=== PATIENT | female | born 1935 | race Caucasian/White ===

== ENCOUNTER 2016-09-16 14:28 | Emergency (ER) | payer OTHER ==
[~2016-09-16] VITALS: Ht 162.6 cm; Wt 88.2 kg
[~2016-09-16 14:28] MED LIST: BACL10TA PO; BUPR100T4 PO; CYAN50002 SL; FERR1TAB36 PO; FLAX10006 PO; GLUCCAP4 PO; HYDR25TA5 PO; LEVO50TA4 PO; PRED10 PO; PROT40TA PO; REDCAP2
[2016-09-16 14:30] VITALS: BP 153/79; PULSE 94; RESP 20; TEMP 98; O2SAT 95
[2016-11-20] MEDS ORDERED: AZAT50 PO (15:12)
[2016-11-20] MEDS ORDERED: MULT1TAB84 PO (15:12)
[2016-11-20] MEDS ORDERED: FIBE0.523 PO (15:12)
[2016-11-20] MEDS ORDERED: RED1CAP4 PO (15:12)
[2016-11-20] MEDS ORDERED: VITATAB11 PO (15:12)
[2016-11-20] MEDS ORDERED: HYDR-3583 PO (15:12)
== END 2016-09-16 15:14 | disposition left against medical advice (07) ==
LOC: NEPB 14:28 → NETRI 15:14
DX: M54.9 Dorsalgia, unspecified (principal)
CPT/HCPCS: 99281

== ENCOUNTER → 2016-11-21 | Day surgery (SDC) | payer OTHER ==
[~2016-11-21] MED LIST changes: +*RESP: ALBUTEROL 2.5 MG/3 ML NEB (PRN) PERIprocedural Use ONLY NEB ONE; +*morphine SULFATE 8 MG/ML PERIprocedure ONLY ONE; +AZAT50 PO; -BACL10TA PO; -BUPR100T4 PO; +CHLORHEXIDINE GLUCONATE 2 % 1 PACK (2 CLOTHS) TOPICAL PRN; -CYAN50002 SL; +DO NOT ADM ANY ANTICOAGULANT DRUGS PRN; +EPINEPHrine HCL (1:1000) 30 MG/30 ML VIAL ONE; -FERR1TAB36 PO; +FIBE0.523 PO; +HYDR-3583 PO; -HYDR25TA5 PO; +INSULIN HUMAN REGULAR 1,000 UNITS/10 ML VIAL SQ PRN; +LACTATED RINGER'S 1000 ML IV PRN; -LEVO50TA4 PO; +LIDOCAINE HCL 2% 50 ML VIAL ONE; +METOPROLOL TARTRATE 25 MG TAB PO PRN; +MIDAZOLAM HCL 2 MG/2 ML VIAL ONE; +MULT1TAB84 PO; +POVIDONE IODINE 5% (ANTISEPSIS KIT) 4 APPLICATIONS EACH NARE PRN; -PRED10 PO; +PROPOFOL 200 MG/20 ML AMP IV ONE; -PROT40TA PO; +RED1CAP4 PO; -REDCAP2; +SODIUM CHLORID 0.9% 500 ML IV PRN; +VITATAB11 PO
[2016-11-21 05:38] VITALS: BP 123/60; PULSE 75; RESP 20; TEMP 98.2; O2SAT 96
[2016-11-21 06:46] LABS: AUTOMATED NEUTROPHIL # 4.3 TH/MM3 (1.8-7.7); BASOPHIL % 0.7 % (0.0-2.0); EOSINOPHIL # 0.3 TH/MM3 (0-0.4); EOSINOPHIL % 4.3 % (0.0-4.0); HEMATOCRIT 24.3 % (35.0-46.0); LYMPH % 26.9 % (9.0-44.0); LYMPHOCYTE # 1.8 TH/MM3 (1.0-4.8); MEAN CELL VOLUME 96.4 FL (80.0-100.0); MEAN CORPUSCULAR HEMOGLOBIN 31.3 PG (27.0-34.0); MEAN CORPUSCULAR HGB CONC 32.5 % (32.0-36.0); MONO % 4.4 % (0.0-8.0); NEUT % 63.7 % (16.0-70.0); PLATELET COUNT 599 TH/MM3 (150-450); RED BLOOD COUNT 2.53 MIL/MM3 (4.00-5.30); RED CELL DISTRIBUTION WIDTH 17.6 % (11.6-17.2); WHITE BLOOD COUNT 6.8 TH/MM3 (4.0-11.0)
[2016-11-21 06:53] LABS: HEMO FLAGS AUTO DIFF
[2016-11-21 06:56] LABS: APTT (PATIENT) 26.6 SEC (24.3-30.1); PROTHROMBIN TIME - PATIENT 11.1 SEC (9.8-11.6)
[2016-11-21 07:35] LABS: CORRECTED NUCLEATED RBC 9 /100 WBC (0-0); EOSINOPHILS 4 % (0-4); NEUTROPHIL # MANUAL DIFF 4.4 TH/MM3 (1.8-7.7); POLYS (SEG NEUTROPHILS) 64 % (16-70); WBC DIFF SAMPLE 100
[2016-11-21 07:36] LABS: HOWELL-JOLLY BODIES PRESENT (NONE SEEN); PLATELET ESTIMATE SMEAR HIGH (NORMAL); PLATELET MORPHOLOGY NORMAL (NORMAL); POLYCHROMASIA 4.7 % (0.0-1.9); SCAN/DIFF FINAL DIFF MANUAL
--- NOTE | 2016-11-21 08:56 | MR ---
cc: RUBIN CONKLIN M.D. DATE 11/21/2016 PROCEDURE Fiberoptic bronchoscopy flexible. REASON FOR BRONCHOSCOPY Right middle lobe lung nodules. Rule out underlying malignancy, chronic inflammatory process or other. PROCEDURE Fiberoptic bronchoscopy performed via LMA. Vocal cords intact. Trachea mildly hyperemic. Mayela sharp. Diffuse hyperemia throughout the tracheobronchial tree of mild to moderate degree noted. Right upper, middle and lower lobe, left upper and lower lobes inspected. No obstructive pathology or mass lesion. Bronchoscope was introduced into the right middle lobe, washings obtained for routine TB, fungal cultures as well as cytologic brush biopsies for cytological exam. The procedure was well tolerated. The patient transferred to Recovery in stable condition. IMPRESSION 1. Mild to moderate tracheobronchitis. 1. No obstruction, no mass lesion. 2. Samples obtained as above. 3. Procedure well tolerated. 4. The patient transferred to Recovery in stable condition. MD SYEDA Turcios/YESENIA /8:14 AM /8:50 AM
[2016-11-21 10:15] VITALS: BP 152/66; PULSE 80; RESP 16; TEMP 98; O2SAT 96
--- NOTE | 2016-11-22 07:39 | EKG ---
Date Performed: 11/21/2016 Time Performed: 06:12:40 PTAGE: 81 years EKG: Sinus rhythm Normal ECG Compared to PREVIOUS TRACING , nonspecific changes have improved. PREVIOUS TRACING 06/25/2016 1 2.02.23 DOCTOR: Ramo Ash Interpretating Date/Time 11/22/2016 07:38:21
== END | disposition home or self-care (01) ==
LOC: HSDC 05:28
PROVIDERS: ATTEND Internal Medicine Sleep Medicine
DX: R91.1 Solitary pulmonary nodule (principal); B95.3 Streptococcus pneumoniae as the cause of diseases classified elsewhere; J40 Bronchitis, not specified as acute or chronic; Z79.899 Other long term (current) drug therapy
CPT/HCPCS: 00520; 31622; 85007; 85027; 85610; 85730; 87015; 87070; 87102; 87116; 87184; 87186; 87205; 87206; 88112; 93005; 94664; J2250; J2270; J3010; J7120; J7613; J0171

== ENCOUNTER 2017-09-09 15:37 | Inpatient (IN) | payer OTHER, MEDICARE ==
[~2017-09-09] VITALS: Ht 162.6 cm; Wt 81.0 kg
[~2017-09-09 15:37] MED LIST changes: -*RESP: ALBUTEROL 2.5 MG/3 ML NEB (PRN) PERIprocedural Use ONLY NEB ONE; -*morphine SULFATE 8 MG/ML PERIprocedure ONLY ONE; -CHLORHEXIDINE GLUCONATE 2 % 1 PACK (2 CLOTHS) TOPICAL PRN; -DO NOT ADM ANY ANTICOAGULANT DRUGS PRN; -EPINEPHrine HCL (1:1000) 30 MG/30 ML VIAL ONE; -INSULIN HUMAN REGULAR 1,000 UNITS/10 ML VIAL SQ PRN; -LACTATED RINGER'S 1000 ML IV PRN; -LIDOCAINE HCL 2% 50 ML VIAL ONE; -METOPROLOL TARTRATE 25 MG TAB PO PRN; -MIDAZOLAM HCL 2 MG/2 ML VIAL ONE; -POVIDONE IODINE 5% (ANTISEPSIS KIT) 4 APPLICATIONS EACH NARE PRN; -PROPOFOL 200 MG/20 ML AMP IV ONE; -SODIUM CHLORID 0.9% 500 ML IV PRN
[2017-09-09 15:45] VITALS: BP 167/68; PULSE 90; RESP 20; TEMP 98.2; O2SAT 98
[2017-09-09 15:53] VITALS: O2SAT 100
[2017-09-09] MEDS ORDERED: SODIUM CHLORIDE 0.9% FLUSH 10 ML FLUSH IVF PRN (16:00)
--- NOTE | 2017-09-09 16:01 | PD ---
HPI Chief Complaint: Respiratory Symptoms Time Seen by Provider: 15:50 Travel History International Travel<30 days: No Contact w/Intl Traveler<30days: No Traveled to known affect area: No History of Present Illness HPI 81-year-old female with history of anemia, hypertension presents to the emergency room for evaluation of worsening shortness of breath and generalized weakness over the past 4 days. Patient has been having shortness of breath for the past one year. She went to her top closer and had an "MRI" performed recently which showed bilateral pulmonary emboli. She was started on Xarelto 5 days ago. Her top closer is Dr. Merino. States she has had 2 episodes of vomiting since starting the medication because she took it on an empty stomach. Shortness of breath and weakness have been worse since starting the medication. States she can barely go to the bathroom without significant difficulty breathing. It takes her about 10 minutes of sitting down to catch her breath again. She denies any hematuria, hematemesis, melena, or bright red blood in the stool. No other episodes of nausea or vomiting. Patient denies any chest pain, abdominal pain. PFSH Past Medical History Hx Anticoagulant Therapy: No Arthritis: Yes Asthma: No Autoimmune Disease: No Blood Disorders: No Anxiety: Yes Depression: Yes Heart Rhythm Problems: No Cancer: No Cardiovascular Problems: No High Cholesterol: Yes Chemotherapy: No Chest Pain: Yes Congestive Heart Failure: No COPD: No Cerebrovascular Accident: No Diabetes: No Diminished Hearing: No Endocrine: No Gastrointestinal Disorders: No GERD: Yes Glaucoma: No Genitourinary: No Headaches: No Hepatitis: No Hiatal Hernia: No Heparin Induced Thrombocytopen: No Hypertension: Yes Immune Disorder: No Implanted Vascular Access Dvce: No Kidney Stones: Yes Musculoskeletal: Yes (OSTEOARTHRITIS) Neurologic: No Psychiatric: Yes Reproductive: No Respiratory: Yes (SOB WITH ACTIVITY DUE TO ANEMIA) Migraines: No Myocardial Infarction: No Radiation Therapy: No Renal Failure: No Seizures: No Sickle Cell Disease: No Sleep Apnea: No Thyroid Disease: Yes (PAST HX LOW THYROID) Ulcer: No ?: Not Past Surgical History Abdominal Surgery: No AICD: No Appendectomy: No Arteriovenous Shunt: No Body Medical Devices: NONE Cardiac Surgery: No Cholecystectomy: No Ear Surgery: No Endocrine Surgery: No Genitourinary Surgery: No Gynecologic Surgery: Yes (HYSTERECTOMY) Hysterectomy: Yes Insulin Pump: No Joint Replacement: No Neurologic Surgery: No Oral Surgery: Yes (TEETH EXTRACTIONS) Pacemaker: No Thoracic Surgery: No Other Surgery: Yes (GALLSTONE REMOVED) Social History Alcohol Use: No Tobacco Use: No Substance Use: No Allergies-Medications (Allergen,Severity, Reaction): Coded Allergies: Sulfa (Sulfonamide Antibiotics) (Verified Allergy, Severe, 09/09/17) Reported Meds & Prescriptions Reported Meds & Active Scripts Active Reported Folic Acid 0.8 Mg Tab 1 Mg PO DAILY Turmeric (Turmeric Root Extract) 500 Mg Capsule 1 Tab PO DAILY Tizanidine (Tizanidine HCl) 4 Mg Cap 4 Mg PO DAILY Flax Seed Oil 1000 mg (Flaxseed (Linseed)) 1,000 Mg Cap 1 Tab PO DAILY Vitamin B Complex (B-Complex Vitamins) 1 Tab 1 Tab PO DAILY Vitamin D-1000 (Cholecalciferol) 1,000 Unit Tab 5,000 Units PO DAILY Verapamil (Verapamil HCl) 120 Mg Tab 120 Mg PO DAILY Duloxetine DR (Duloxetine HCl) 60 Mg Capdr 60 Mg PO DAILY Xarelto (Rivaroxaban) 15 Mg Tab 15 Mg PO Q12HR Multivitamin Adults (Multiple Vitamins W/ Minerals) 1 Tab 1 Tab PO DAILY Fiber (Psyllium) 520 Mg Cap Unknown Dose PO DAILY Azathioprine 50 Mg Tab 50 Mg PO BID Hazardous agent use appropriate precautions for handling and disposal. Hydrocodone-Acetaminophen 10-325 mg Tab 1 Tab PO Q6H PRN Red Yeast Rice (Red Yeast Rice Extract) 300 Mg Cap Unknown Dose PO BID Vitamin B Complex (B-Complex Vitamins) 1 Tab 1 Tab PO DAILY Wsrdhlynitr-Dzzfuojdlye-Xlgqyazh 1 Cap Cap 1 Cap PO DAILY Flaxseed Oil (Flaxseed (Linseed)) 1,000 Mg Cap 1,000 Mg PO DAILY Review of Systems Except as stated in HPI: all other systems reviewed are Neg Physical Exam Narrative GENERAL: Well-nourished, elderly female in no acute distress. Afebrile. Ambulatory. SKIN: Focused skin assessment warm/dry. Jaundiced. HEAD: Normocephalic. EYES: No scleral icterus. No injection or drainage. NECK: Supple, trachea midline. No JVD or lymphadenopathy. CARDIOVASCULAR: Regular rate and rhythm without murmurs, gallops, or rubs. RESPIRATORY: Breath sounds equal bilaterally. No accessory muscle use. RECTAL EXAM: No masses or tenderness, stool is brown. Data Data Last Documented VS Vital Signs Date Time Temp Pulse Resp B/P (MAP) Pulse Ox O2 Delivery O2 Flow Rate FiO2 09/09/17 15:53 100 Nasal Cannula 2.00 09/09/17 15:50 86 20 09/09/17 15:45 98.2 167/68 (101) Orders Orders Complete Blood Count With Diff (09/09/17 15:51) Comprehensive Metabolic Panel (09/09/17 15:51) B-Type Natriuretic Peptide (09/09/17 15:51) Act Partial Throm Time (Ptt) (09/09/17 15:51) Prothrombin Time / Inr (Pt) (09/09/17 15:51) Troponin I (09/09/17 15:51) Urinalysis - C+S If Indicated (09/09/17 15:51) Iv Access Insert/Monitor (09/09/17 15:51) Electrocardiogram (09/09/17 15:51) Ecg Monitoring (09/09/17 15:51) Oximetry (09/09/17 15:51) Oxygen Administration (09/09/17 15:51) Chest, Single Ap (09/09/17 15:51) Sodium Chloride 0.9% Flush (Ns Flush) (09/09/17 16:00) Type And Screen (09/09/17 16:36) Red Blood Cells (Rbc) (09/09/17 16:36) Blood Product Administration (09/09/17 16:36) Sodium Chlor 0.9% 250 Ml Inj (Ns 250 Ml (09/09/17 16:45) Acetamin-Hydrocod 325-10 Mg ([place] 10-32 (09/09/17 17:15) (Hub Use Only)Inp Phy Cons/Ref (09/09/17 ) Direct Dejon (09/09/17 16:50) Labs Laboratory Tests Test 09/09/17 16:00 White Blood Count 19.9 TH/MM3 Red Blood Count 1.16 MIL/MM3 Hemoglobin 5.0 GM/DL Hematocrit 16.2 % Mean Corpuscular Volume 139.7 FL Mean Corpuscular Hemoglobin 42.9 PG Mean Corpuscular Hemoglobin Concent 30.7 % Red Cell Distribution Width 24.6 % Platelet Count 601 TH/MM3 Mean Platelet Volume 7.4 FL Neutrophils (%) (Auto) 61.2 % Lymphocytes (%) (Auto) 30.5 % Monocytes (%) (Auto) 6.4 % Eosinophils (%) (Auto) 0.5 % Basophils (%) (Auto) 1.4 % Neutrophils # (Auto) 12.2 TH/MM3 Lymphocytes # (Auto) 6.1 TH/MM3 Monocytes # (Auto) 1.3 TH/MM3 Eosinophils # (Auto) 0.1 TH/MM3 Basophils # (Auto) 0.3 TH/MM3 CBC Comment AUTO DIFF Differential Total Cells Counted 100 Neutrophils % (Manual) 64 % Band Neutrophils % 4 % Lymphocytes % 26 % Monocytes % 5 % Neutrophils # (Manual) 13.7 TH/MM3 Metamyelocytes 1 % Nucleated Red Blood Cells 100 /100 WBC Differential Comment FINAL DIFF MANUAL Platelet Estimate HIGH Platelet Morphology Comment NORMAL Polychromasia 7.6 % Basophilic Stippling FAINT [place] Bodies PRESENT Prothrombin Time 11.4 SEC Prothromb Time International Ratio 1.1 RATIO Activated Partial Thromboplast Time 21.9 SEC Blood Urea Nitrogen 36 MG/DL Creatinine 1.32 MG/DL Random Glucose 110 MG/DL Total Protein 6.2 GM/DL Albumin 3.3 GM/DL Calcium Level 8.5 MG/DL Alkaline Phosphatase 142 U/L Aspartate Amino Transf (AST/SGOT) 28 U/L Alanine Aminotransferase (ALT/SGPT) 27 U/L Total Bilirubin 3.0 MG/DL Sodium Level 139 MEQ/L Potassium Level 4.5 MEQ/L Chloride Level 108 MEQ/L Carbon Dioxide Level 22.8 MEQ/L Anion Gap 8 MEQ/L Estimat Glomerular Filtration Rate 39 ML/MIN Troponin I 0.04 NG/ML B-Type Natriuretic Peptide 214 PG/ML [facility] Medical Decision Making Medical Screen Exam Complete: Yes Emergency Medical Condition: Yes Medical Record Reviewed: Yes Differential Diagnosis Symptomatic anemia, pulmonary embolism, CA, CAD, COPD exacerbation Narrative Course 81-year-old female with 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 Patient was started on Xarelto 5 days ago after having been diagnosed with a bilateral pulmonary embolism by her top closer, Dr. Merino. She denies any significant bleeding or black stools. Denies any chest pain. Physical exam reveals a jaundiced, elderly female in no acute distress. No increased work of breathing. 100% on room air. EKG shows sinus rhythm with a rate of 80 beats per minute. IV access established and basic labs obtained. CBC is remarkable for hemoglobin of 5.0. Patient was transfused 2 units of packed red blood cells. She has leukocytosis of 19.9. UA ordered and pending. CMP is remarkable for acute kidney injury with a creatinine of 1.32. I spoke to Dr. Hudson who agrees to accept this patient to his service. Patient is agreeable. Diagnosis Primary Impression: Symptomatic anemia Admitting Information Admitting Physician Requests: Admit Condition: Stable Ely Steele Sep 09, 2017 16:01
--- NOTE | 2017-09-09 16:10 | RADRPT ---
EXAM DATE/TIME: 09/09/2017 15:55 [facility] COMPARISON: CHEST SINGLE AP, December 06, 2015, 15:03. INDICATIONS : Short of breath. MEDICAL HISTORY : None. SURGICAL HISTORY : None. ENCOUNTER: Initial ACUITY: 2 days PAIN SCORE: 3/10 LOCATION: Bilateral chest FINDINGS: A single view of the chest demonstrates the lungs to be symmetrically aerated without evidence of mas s, infiltrate or effusion. The cardiomediastinal contours are unremarkable. Osseous structures are intact. CONCLUSION: No acute disease. No significant change has occurred. Mahamed Oliveira MD on September 09, 2017 at 16:07 Board Certified Radiologist. This report was verified electronically.
[2017-09-09 16:14] LABS: AUTOMATED NEUTROPHIL # 12.2 TH/MM3 (1.8-7.7); BASOPHIL # 0.3 TH/MM3 (0-0.2); BASOPHIL % 1.4 % (0.0-2.0); EOSINOPHIL # 0.1 TH/MM3 (0-0.4); EOSINOPHIL % 0.5 % (0.0-4.0); LYMPH % 30.5 % (9.0-44.0); LYMPHOCYTE # 6.1 TH/MM3 (1.0-4.8); MEAN CELL VOLUME 139.7 FL (80.0-100.0); MEAN CORPUSCULAR HEMOGLOBIN 42.9 PG (27.0-34.0); MEAN CORPUSCULAR HGB CONC 30.7 % (32.0-36.0); MEAN PLATELET VOLUME 7.4 FL (7.0-11.0); MONO % 6.4 % (0.0-8.0); MONOCYTE # 1.3 TH/MM3 (0-0.9); NEUT % 61.2 % (16.0-70.0); PLATELET COUNT 601 TH/MM3 (150-450); RED BLOOD COUNT 1.16 MIL/MM3 (4.00-5.30); RED CELL DISTRIBUTION WIDTH 24.6 % (11.6-17.2); WHITE BLOOD COUNT 19.9 TH/MM3 (4.0-11.0)
[2017-09-09] MEDS ORDERED: DULO1CAP3 PO (16:23)
[2017-09-09] MEDS ORDERED: XARE15TA PO (16:23)
[2017-09-09] MEDS ORDERED: VERA120T3 PO (16:23)
[2017-09-09] MEDS ORDERED: TURM500C7 PO (16:23)
[2017-09-09] MEDS ORDERED: FLAX10002 PO (16:23)
[2017-09-09] MEDS ORDERED: TIZA4CAP3 PO (16:23)
[2017-09-09] MEDS ORDERED: VITA1000 PO (16:23)
[2017-09-09] MEDS ORDERED: FOLI800T PO (16:23)
[2017-09-09] MEDS ORDERED: VITATAB11 PO (16:23)
[2017-09-09 16:25] LABS: INTERNATIONAL NORMALIZED RATIO 1.1 RATIO; PROTHROMBIN TIME - PATIENT 11.4 SEC (9.8-11.6)
[2017-09-09 16:30] LABS: ALBUMIN 3.3 GM/DL (3.4-5.0); ALT (GPT) 27 U/L (10-53); AST (GOT) 28 U/L (15-37); BICARBONATE 22.8 MEQ/L (21.0-32.0); BLOOD UREA NITROGEN 36 MG/DL (7-18); CALCIUM 8.5 MG/DL (8.5-10.1); CHLORIDE 108 MEQ/L (98-107); CREATININE 1.32 MG/DL (0.50-1.00); GLOMERULAR FILTRATION RATE 39 ML/MIN (>89); GLUCOSE,RANDOM 110 MG/DL (74-106); SODIUM (NA) 139 MEQ/L (136-145)
[2017-09-09 16:35] LABS: ALKALINE PHOSPHATASE 142 U/L (45-117); TOTAL PROTEIN 6.2 GM/DL (6.4-8.2); TROPONIN I 0.04 NG/ML (0.02-0.05)
[2017-09-09 16:37] LABS: HEMATOCRIT 16.2 % (35.0-46.0)
[2017-09-09] MEDS ORDERED: SODIUM CHLOR 0.9% 250 ML INJ 250 ML IV ONE (16:45)
[2017-09-09] MEDS ORDERED: ACETAMINOPHEN/HYDROcodone 325 MG/10 MG TAB PO ONE (17:15)
[2017-09-09 17:20] LABS: BANDS 4 % (0-6); CORRECTED NUCLEATED RBC 100 /100 WBC (0-0); LYMPHOCYTES 26 % (9-44); METAMYELOCYTES 1 % (0-1); MONOCYTES 5 % (0-8); NEUTROPHIL # MANUAL DIFF 13.7 TH/MM3 (1.8-7.7); NUCLEATED RED BLOOD CELL 100 (0-0); POLYS (SEG NEUTROPHILS) 64 % (16-70)
[2017-09-09 17:21] LABS: HOWELL-JOLLY BODIES PRESENT (NONE SEEN)
[2017-09-09 17:31] LABS: POLYCHROMASIA 7.6 % (0.0-1.9)
[2017-09-09] MEDS ORDERED: NALOXONE HCL 0.4 MG/ML AMP IV PUSH PRN (18:00)
[2017-09-09] MEDS ORDERED: BISACODYL 10 MG SUPP RECTAL PRN (18:00)
[2017-09-09] MEDS ORDERED: MAGNESIUM HYDROXIDE SUSP 30 ML CUP PO PRN (18:00)
[2017-09-09] MEDS ORDERED: SODIUM CHLORIDE 0.9% FLUSH 10 ML FLUSH IV FLUSH PRN (18:00)
[2017-09-09] MEDS ORDERED: ACETAMINOPHEN 325 MG TAB PO PRN (18:00)
[2017-09-09] MEDS ORDERED: SENNOSIDES 8.6 MG TAB PO PRN (18:00)
[2017-09-09] MEDS ORDERED: ONDANSETRON HCL 4 MG/2 ML VIAL IVP PRN (18:00)
[2017-09-09] MEDS ORDERED: LACTULOSE SYRUP 20 GM/30 ML CUP PO PRN (18:00)
[2017-09-09 18:08] VITALS: BP 163/67; PULSE 85; RESP 20; O2SAT 100
--- NOTE | 2017-09-09 20:58 | HHI.HP ---
[facility] Camilo Mckinney MD Admission Diagnosis symptomatic anemia Diagnoses: Chief Complaint: sob Travel History International Travel<30 Days: No Contact w/Intl Traveler <30 Da: No Traveled to Known Affected Are: No History of Present Illness 81 year old female with a history HTN, chronic back pain, and iron deficiency anemia presented to the ED with complaints of increasing shortness of breath. Patient states for the last 6 months she has been having shortness of breath and was was diagnosed last Friday with bilateral pulmonary embolisms. She was started on Xarelto and states she has taken it for the last 4 days. She was seen by pulmonology on Friday and he agreed with the Xarelto and recommended follow up in a few months. She states since Friday she has not been able to walk to the bathroom without getting significantly short of breath. She states she has not been getting out of bed much the last 2 weeks due to the SOB, She has associated right calf pain, but denies any swelling. She also denies any dizziness,headaches, fevers or chills. She complains of chest pain with she takes a deep breath, no radiation noted. She follows up with her PCP and gets regular blood work complete. She states last Friday her hemoglobin was 9. Her last blood transfusion was 6-7 months ago. Due to the shortness of breath patient states she has not been taking her medications for the last week. Due to patients rare antibodies, blood has to come from the [place] blood bank. Review of Systems Except as stated in HPI: all other systems reviewed are Neg Past Family Social History Past Medical History HTN Chronic back pain Arthritis JENA chronic constipation Past Surgical History Splenectomy Reported Medications Reported Meds & Active Scripts Active Reported Folic Acid 0.8 Mg Tab 1 Mg PO DAILY Turmeric (Turmeric Root Extract) 500 Mg Capsule 1 Tab PO DAILY Tizanidine (Tizanidine HCl) 4 Mg Cap 4 Mg PO DAILY Flax Seed Oil 1000 mg (Flaxseed (Linseed)) 1,000 Mg Cap 1 Tab PO DAILY Vitamin B Complex (B-Complex Vitamins) 1 Tab 1 Tab PO DAILY Vitamin D-1000 (Cholecalciferol) 1,000 Unit Tab 5,000 Units PO DAILY Verapamil (Verapamil HCl) 120 Mg Tab 120 Mg PO DAILY Duloxetine DR (Duloxetine HCl) 60 Mg Capdr 60 Mg PO DAILY Xarelto (Rivaroxaban) 15 Mg Tab 15 Mg PO Q12HR Multivitamin Adults (Multiple Vitamins W/ Minerals) 1 Tab 1 Tab PO DAILY Fiber (Psyllium) 520 Mg Cap Unknown Dose PO DAILY Azathioprine 50 Mg Tab 50 Mg PO BID Hazardous agent use appropriate precautions for handling and disposal. Hydrocodone-Acetaminophen 10-325 mg Tab 1 Tab PO Q6H PRN Red Yeast Rice (Red Yeast Rice Extract) 300 Mg Cap Unknown Dose PO BID Vitamin B Complex (B-Complex Vitamins) 1 Tab 1 Tab PO DAILY Tvbwivcoslb-Pyhyokmfxal-Eqgzthwd 1 Cap Cap 1 Cap PO DAILY Flaxseed Oil (Flaxseed (Linseed)) 1,000 Mg Cap 1,000 Mg PO DAILY Allergies: Coded Allergies: Sulfa (Sulfonamide Antibiotics) (Verified Allergy, Severe, 09/09/17) Active Ordered Medications Current Medications Medications (Trade) Dose Ordered Sig/Nelda Route Start Time Stop Time Status Last Admin (NS Flush) 2 ml UNSCH PRN IVF 09/09/17 16:00 Sodium Chloride 250 ml @ 15 mls/hr ONCE ONCE IV 09/09/17 16:45 09/10/17 09:24 (Vitamin D3) 5,000 units DAILY PO 09/10/17 09:00 (Cymbalta Dr) 60 mg DAILY PO 09/10/17 09:00 (Folate) 1 mg DAILY PO 09/10/17 09:00 (Zanaflex) 4 mg DAILY PO 09/10/17 09:00 (Isoptin Sr) 120 mg DAILY PO 09/10/17 09:00 (Nephrocaps) 1 cap DAILY PO 09/10/17 09:00 (NS Flush) 2 ml UNSCH PRN IV FLUSH 09/09/17 18:00 (NS Flush) 2 ml BID IV FLUSH 09/09/17 21:00 (Tylenol) 650 mg Q4H PRN PO 09/09/17 18:00 (Zofran Inj) 4 mg Q6H PRN IVP 09/09/17 18:00 (Narcan Inj) 0.4 mg UNSCH PRN IV PUSH 09/09/17 18:00 (Milk Of Magnesia Liq) 30 ml Q12H PRN PO 09/09/17 18:00 (Senokot) 17.2 mg Q12H PRN PO 09/09/17 18:00 (Dulcolax Supp) 10 mg DAILY PRN RECTAL 09/09/17 18:00 (Lactulose Liq) 30 ml DAILY PRN PO 09/09/17 18:00 Family History Mom: HTN Social History Tobacco use: Never a smoker Alcohol use: Denies Illicit drug use: Denies Physical Exam Vital Signs Vital Signs Date Time Temp Pulse Resp B/P (MAP) Pulse Ox O2 Delivery O2 Flow Rate FiO2 09/09/17 18:08 85 20 163/67 (99) 100 Nasal Cannula 2.00 09/09/17 15:53 100 Nasal Cannula 2.00 09/09/17 15:53 100 09/09/17 15:50 86 20 100 Nasal Cannula 2.00 09/09/17 15:45 98.2 90 20 167/68 (101) 98 Physical Exam GENERAL: This is a well-nourished, well-developed patient, who appears short of breath SKIN: No rashes, ecchymoses or lesions. Cool and dry. HEAD: Atraumatic. Normocephalic. EYES: Pupils equal round and reactive. ENT: Nose without bleeding, purulent drainage or septal hematoma. Airway patent. NECK: Trachea midline. No JVD or lymphadenopathy. CARDIOVASCULAR: Regular rate and rhythm without murmurs, gallops, or rubs. RESPIRATORY: Diminished bases. No wheezes, rales, or rhonchi. GASTROINTESTINAL: Abdomen soft, non-tender, nondistended. No hepato-splenomegaly , or palpable masses. No guarding. MUSCULOSKELETAL: Extremities without clubbing, cyanosis, or edema. No joint tenderness, effusion, or edema noted. Right calf tenderness. NEUROLOGICAL: Awake and alert. Motor and sensory grossly within normal limits. Normal speech. Laboratory Laboratory Tests Test 09/09/17 16:00 White Blood Count 19.9 Red Blood Count 1.16 Hemoglobin 5.0 Hematocrit 16.2 Mean Corpuscular Volume 139.7 Mean Corpuscular Hemoglobin 42.9 Mean Corpuscular Hemoglobin Concent 30.7 Red Cell Distribution Width 24.6 Platelet Count 601 Mean Platelet Volume 7.4 Neutrophils (%) (Auto) 61.2 Lymphocytes (%) (Auto) 30.5 Monocytes (%) (Auto) 6.4 Eosinophils (%) (Auto) 0.5 Basophils (%) (Auto) 1.4 Neutrophils # (Auto) 12.2 Lymphocytes # (Auto) 6.1 Monocytes # (Auto) 1.3 Eosinophils # (Auto) 0.1 Basophils # (Auto) 0.3 CBC Comment AUTO DIFF Differential Total Cells Counted 100 Neutrophils % (Manual) 64 Band Neutrophils % 4 Lymphocytes % 26 Monocytes % 5 Neutrophils # (Manual) 13.7 Metamyelocytes 1 Nucleated Red Blood Cells 100 Differential Comment FINAL DIFF MANUAL Platelet Estimate HIGH Platelet Morphology Comment NORMAL Polychromasia 7.6 Basophilic Stippling FAINT [place] Bodies PRESENT Prothrombin Time 11.4 Prothromb Time International Ratio 1.1 Activated Partial Thromboplast Time 21.9 Blood Urea Nitrogen 36 Creatinine 1.32 Random Glucose 110 Total Protein 6.2 Albumin 3.3 Calcium Level 8.5 Alkaline Phosphatase 142 Aspartate Amino Transf (AST/SGOT) 28 Alanine Aminotransferase (ALT/SGPT) 27 Total Bilirubin 3.0 Sodium Level 139 Potassium Level 4.5 Chloride Level 108 Carbon Dioxide Level 22.8 Anion Gap 8 Estimat Glomerular Filtration Rate 39 Troponin I 0.04 B-Type Natriuretic Peptide 214 Result Diagram: 09/09/17 1600 09/09/17 1600 Imaging Last Impressions Chest X-Ray 09/09/17 1551 Signed Impressions: Service Date/Time: Saturday, September 09, 2017 15:55 - CONCLUSION: No acute disease. No significant change has occurred. Mahamed Oliveira MD Caprini VTE Risk Assessment Caprini VTE Risk Assessment: Mod/High Risk (score >= 2) Caprini Risk Assessment Model Point Value = 1 Point Value = 2 Point Value = 3 Point Value = 5 Age 41-60 Minor surgery BMI > 25 kg/m2 Swollen legs Varicose veins or History of unexplained or recurrent spontaneous Oral contraceptives or hormone replacement Sepsis (< 1 month) Serious lung disease, including pneumonia (< 1 month) Abnormal pulmonary function Acute myocardial infarction Congestive heart failure (< 1 month) History of inflammatory bowel disease Medical patient at bed rest Age 61-74 Arthroscopic surgery Major open surgery (> 45 min) Laparoscopic surgery (> 45 min) Malignancy Confined to bed (> 72 hours) Immobilizing plaster cast Central venous access Age >= 75 History of VTE Family history of VTE Factor V Leiden Prothrombin [id number] Lupus anticoagulant Anticardiolipin antibodies Elevated serum homocysteine Heparin-induced thrombocytopenia Other congenital or acquired thrombophilia Stroke (< 1 month) Elective arthroplasty Hip, pelvis, or leg fracture Acute spinal cord injury (< 1 month) Prophylaxis Regimen Total Risk Factor Score Risk Level Prophylaxis Regimen 0-1 Low Early ambulation 2 Moderate Order ONE of the following: *Sequential Compression Device (SCD) *Heparin 5000 units SQ BID 3-4 Higher Order ONE of the following medications: *Heparin 5000 units SQ TID *Enoxaparin/Lovenox 40 mg SQ daily (WT < 150 kg, CrCl > 30 mL/min) *Enoxaparin/Lovenox 30 mg SQ daily (WT < 150 kg, CrCl > 10-29 mL/min) *Enoxaparin/Lovenox 30 mg SQ BID (WT < 150 kg, CrCl > 30 mL/min) AND/OR *Sequential Compression Device (SCD) 5 or more Highest Order ONE of the following medications: *Heparin 5000 units SQ TID (Preferred with Epidurals) *Enoxaparin/Lovenox 40 mg SQ daily (WT < 150 kg, CrCl > 30 mL/min) *Enoxaparin/Lovenox 30 mg SQ daily (WT < 150 kg, CrCl > 10-29 mL/min) *Enoxaparin/Lovenox 30 mg SQ BID (WT < 150 kg, CrCl > 30 mL/min) AND *Sequential Compression Device (SCD) Assessment and Plan Problem List: (1) Pulmonary embolism ICD Code: I26.99 - Other pulmonary embolism without acute cor pulmonale (2) HTN (hypertension) ICD Code: I10 - Essential (primary) hypertension Status: Acute (3) Symptomatic anemia ICD Code: D64.9 - Anemia, unspecified Status: Acute Assessment and Plan 81 year old female with a history HTN, chronic back pain, and iron deficiency anemia presented to the ED with complaints of increasing shortness of breath. Pulmonary embolism, patient was on Xarelto, and with right calf pain -Consult hematology for recommendations -US doppler r/o DVT Symptomatic anemia, macrocytic anemia HGB 5.0 -Transfuse 2 units of PRBCs, due to patient's rare antibodies blood is coming from [place] -from[facility]to[facility] H&H -Monitor tele -Check folate and B12 HTN, chronic -Resume home medications, monitor vitals Chronic back pain -[place] PO as needed DVT prophylaxis: Hold chemical until seen by hematology, hold scds until doppler results Discussed Condition With Patient and RN Physician Certification 2 Midnight Certification Type: Admission for Inpatient Services Order for Inpatient Services The services are ordered in accordance with Medicare regulations or non- Medicare payer requirements, as applicable. In the case of services not specified as inpatient-only, they are appropriately provided as inpatient services in accordance with the 2-midnight benchmark. Estimated LOS (days): 2 days is the estimated time the patient will need to remain in the hospital, assuming treatment plan goals are met and no additional complications. Post-Hospital Plan: Home Fariba Miller Sep 09, 2017 20:58
[2017-09-09 21:37] VITALS: BP 194/77; PULSE 94; RESP 24; TEMP 98; O2SAT 99
[2017-09-09] MEDS: SODIUM CHLORIDE 0.9% FLUSH 10 ML FLUSH IV FLUSH SCH (22:40)
[2017-09-09 23:29] VITALS: BP 181/76; PULSE 87; RESP 20; TEMP 98.4; O2SAT 98
[2017-09-10] VITALS (18 sets, daily range): BP systolic 89–196; BP diastolic 41–79; PULSE 62–85; RESP 12–23; TEMP 97.4–98.6; O2SAT 90–99
[2017-09-10] MEDS ORDERED: ACETAMINOPHEN/HYDROcodone 325 MG/10 MG TAB PO PRN (00:45)
[2017-09-10] MEDS ORDERED: ACETAMINOPHEN/HYDROcodone 325 MG/5 MG TAB PO PRN (00:45)
[2017-09-10 06:12] LABS: MEAN CELL VOLUME 143.2 FL (80.0-100.0); MEAN PLATELET VOLUME 7.3 FL (7.0-11.0); PLATELET COUNT 627 TH/MM3 (150-450); RED BLOOD COUNT 1.03 MIL/MM3 (4.00-5.30); RED CELL DISTRIBUTION WIDTH 25.1 % (11.6-17.2); WHITE BLOOD COUNT 21.6 TH/MM3 (4.0-11.0)
[2017-09-10 06:19] LABS: ALBUMIN 3.1 GM/DL (3.4-5.0); AST (GOT) 26 U/L (15-37); BICARBONATE 27.5 MEQ/L (21.0-32.0); BLOOD UREA NITROGEN 33 MG/DL (7-18); CALCIUM 8.1 MG/DL (8.5-10.1); CHLORIDE 109 MEQ/L (98-107); GLOMERULAR FILTRATION RATE 48 ML/MIN (>89); GLUCOSE,RANDOM 109 MG/DL (74-106); SODIUM (NA) 143 MEQ/L (136-145)
[2017-09-10 06:23] LABS: ALKALINE PHOSPHATASE 139 U/L (45-117); ALT (GPT) 24 U/L (10-53); TOTAL BILIRUBIN ADULT 3.8 MG/DL (0.2-1.0); TOTAL PROTEIN 6.1 GM/DL (6.4-8.2)
[2017-09-10 06:26] LABS: MEAN CORPUSCULAR HGB CONC 29.3 % (32.0-36.0)
[2017-09-10 06:27] LABS: HEMATOCRIT 14.8 % (35.0-46.0); HEMOGLOBIN 4.3 GM/DL (11.6-15.3)
--- NOTE | 2017-09-10 06:46 | HHI.PR ---
Addendum to Inpatient Note Addendum Reason: Additional Documentation Additional Information Spoke with blood bank regarding status of blood products. They informed me that due to patients rare antibodies the blood is coming from a donor in [place]. [facility] does not have it available. They stated when the blood arrives the RN will be notified. Fariba Miller Sep 10, 2017 06:46
[2017-09-10 08:12] LABS: BANDS 3 % (0-6); BASOPHILS 2 % (0-2); CORRECTED NUCLEATED RBC 122 /100 WBC (0-0); LYMPHOCYTES 32 % (9-44); MONOCYTES 4 % (0-8); MYELOCYTES 1 % (0-0); NEUTROPHIL # MANUAL DIFF 13.2 TH/MM3 (1.8-7.7); NUCLEATED RED BLOOD CELL 122 (0-0); POLYS (SEG NEUTROPHILS) 57 % (16-70)
[2017-09-10 08:13] LABS: POLYCHROMASIA 10.5 % (0.0-1.9)
--- NOTE | 2017-09-10 08:53 | RADRPT ---
EXAM DATE/TIME: 09/10/2017 08:16 [facility] COMPARISON: No previous studies available for comparison. INDICATIONS : Right leg swelling. MEDICAL HISTORY : Hypercholesterolemia. Arthritis. Osteoarthritis. Thyroid disease. Chest pain. HTN. Shortness of br eath. Anemia. GERD. Renal calculi. Depression. Anxiety. SURGICAL HISTORY : Hysterectomy. Blood transfusions. ENCOUNTER: Initial ACUITY: 1 day PAIN SCORE: 3/10 LOCATION: Right leg. TECHNIQUE: Venous ultrasound of the leg was performed from the inguinal ligament to the proximal calf. Real-eric e, color Doppler and spectral tracing, compression and augmentation techniques were used. FINDINGS: There is normal compressibility of the deep venous system from the inguinal region to the proximal ca lf. No echogenic clot is seen in the lumen of the common femoral, femoral, popliteal, and posterior tibial veins. There is a normal response of the venous system to proximal and distal augmentation an d respiration. CONCLUSION: 1. No sonographic evidence for right lower extremity DVT. Rob Nascimento MD on September 10, 2017 at 8:46 Board Certified Radiologist. This report was verified electronically.
[2017-09-10] MEDS ORDERED: diphenhydrAMINE HCL 25 MG CAP PO PRN (09:00)
[2017-09-10] MEDS ORDERED: SODIUM CHLOR 0.9% 250 ML INJ 250 ML IV ONE (09:00)
[2017-09-10] MEDS ORDERED: FLAXSEED PO SCH (09:00)
[2017-09-10] MEDS ORDERED: ACETAMINOPHEN 325 MG TAB PO PRN (09:00)
--- NOTE | 2017-09-10 09:07 | HHI.PR ---
Subjective Remarks Follow-up for symptomatic anemia, suspected bleeding due to Xarelto. Patient is complaining of lethargy. Resting well in bed. No chest pain, fever or chills. In bed, she has no SOB. She denies any bleeding - no hematuria, melena , hematochezia, hemoptysis or hematemesis. Objective Vitals Vital Signs Date Time Temp Pulse Resp B/P (MAP) Pulse Ox O2 Delivery O2 Flow Rate FiO2 09/10/17 08:48 97.5 78 20 196/79 (118) 99 09/10/17 07:42 85 09/10/17 03:28 98.3 75 18 161/70 (100) 98 09/10/17 02:05 18 09/09/17 23:41 18 09/09/17 23:29 98.4 87 20 181/76 (111) 98 09/09/17 21:37 98.0 94 24 194/77 (116) 99 09/09/17 21:37 99 Nasal Cannula 2.00 09/09/17 18:08 85 20 163/67 (99) 100 Nasal Cannula 2.00 09/09/17 15:53 100 Nasal Cannula 2.00 09/09/17 15:53 100 09/09/17 15:50 86 20 100 Nasal Cannula 2.00 09/09/17 15:45 98.2 90 20 167/68 (101) 98 Result Diagram: 09/10/17 0527 09/10/17 0527 Imaging Last Impressions Lower Extremity Ultrasound 09/10/17 0000 Signed Impressions: Service Date/Time: Sunday, September 10, 2017 08:16 - CONCLUSION: 1. No sonographic evidence for right lower extremity DVT. Rob Nascimento MD Chest X-Ray 09/09/17 1551 Signed Impressions: Service Date/Time: Saturday, September 09, 2017 15:55 - CONCLUSION: No acute disease. No significant change has occurred. Mahamed Oliveira MD Objective Remarks GENERAL: Alert, oriented 3, NAD. SKIN: Warm and dry. HEAD: Normocephalic. EYES: No scleral icterus. No injection or drainage. NECK: Supple, trachea midline. No JVD or lymphadenopathy. CARDIOVASCULAR: Regular rate and rhythm without murmurs, gallops, or rubs. RESPIRATORY: Breath sounds equal bilaterally. No accessory muscle use. GASTROINTESTINAL: Abdomen soft, non-tender, nondistended. MUSCULOSKELETAL: No cyanosis, or edema. BACK: Nontender without obvious deformity. No CVA tenderness. Procedures None A/P Problem List: (1) Pulmonary embolism ICD Code: I26.99 - Other pulmonary embolism without acute cor pulmonale (2) HTN (hypertension) ICD Code: I10 - Essential (primary) hypertension Status: Acute (3) Symptomatic anemia ICD Code: D64.9 - Anemia, unspecified Status: Acute Assessment and Plan Ms. Degroot is a pleasant 81-year-old female with a history of hypertension, iron deficiency anemia who presented to the emergency department on 09/09/2017 due to increasing lethargy, shortness of breath. She reports onset of her symptoms about 6 months ago. She was diagnosed with bilateral pulmonary embolism 7-10 days prior to this admission. She was started on Xarelto and she has taken Xarelto for 4 days. Since 09/05/2017 her shortness of breath and weakness had progressed so much so that she cannot even go to the bathroom without getting significantly short of breath. On arrival impression 98.2F, pulse 90, respiration 20, blood pressure 167/68, pulse oximetry 98% on 2 L. Lab workup indicated hemoglobin 5.0 and subsequently 4.3. - Acute blood loss symptomatic anemia - Hemoglobin 5.0 and subsequently 4.3. - 2 units of PRBCs are ordered. However patient has warm antibodies and required 2 units of blood to be transported from [facility]. - I discussed with knot picker cloth, Dr. Means who will evaluate patient likely today. - Although patient is lethargic, patient is hemodynamically currently stable. - Pulmonary embolism - Bleeding on Xarelto - Due to significant blood loss anemia, we'll hold anticoagulation for PE for now. - There is no FDA approved reversal agent for Xarelto. We'll give 2 units of FFP. - If further bleeding suspected or hemoglobin drops, we'll consider PCC ( Kcentra). - Will wait for further recs from hematology. - LDH, haptoglobin, direct Dejon test ordered. - Chronic back pain - continue [place] when necessary - Hypertension, chronic - patient takes verapamil 120 mg by mouth daily. Consider switching calcium channel tigre to amlodipine or nifedipine in the next 1-2 days. Full code. SCDs. Pharmacological DVT prophylaxis contraindicated. Discussed with Blood bank, RN, Hematology. Anna Navarro DO Sep 10, 2017 09:06
[2017-09-10] MEDS: FOLIC ACID 1 MG TAB PO SCH (09:10)
[2017-09-10] MEDS: DULoxetine HCl DR 60 MG CAP PO SCH (09:10)
[2017-09-10] MEDS: CHOLECALCIFEROL (VIT D3) 1000 UNIT TAB PO SCH (09:10)
[2017-09-10] MEDS: VITAMIN B CMPLX/VITC/FOLIC AC CAP PO SCH (09:12)
[2017-09-10] MEDS: VERAPAMIL HCL 120 MG SUSTAINED RELEASE TAB PO SCH (09:12)
[2017-09-10] MEDS: SODIUM CHLORIDE 0.9% FLUSH 10 ML FLUSH IV FLUSH SCH ×2 (09:17→20:36)
--- NOTE | 2017-09-10 09:43 | EKG ---
Date Performed: 09/09/2017 Time Performed: 15:54:24 PTAGE: 81 years EKG: Sinus rhythm NORMAL ECG Since the prior tracing, there has been no significant change PREVIOUS TRACING : 11/21/2016 06.12 DOCTOR: Michele Pastor Interpretating Date/Time 09/10/2017 09:41:23
[2017-09-10 10:08] LABS: HEMOGLOBIN 4.5 GM/DL (11.6-15.3)
[2017-09-10 10:09] LABS: HEMATOCRIT 15.1 % (35.0-46.0)
[2017-09-10 10:27] LABS: TOTAL BILIRUBIN ADULT 3.7 MG/DL (0.2-1.0)
[2017-09-10] MEDS: ACETAMINOPHEN/HYDROcodone 325 MG/7.5 MG TAB PO PRN ×2 (10:31→18:31)
[2017-09-10 10:37] LABS: FOLATE 19.6 NG/ML (3.1-17.5)
[2017-09-10] MEDS: methylPREDNISolone SOD SUCC 125 MG/2 ML VIAL IV PUSH SCH (20:35)
--- NOTE | 2017-09-10 21:44 | MB ---
cc: BRYSON FRIEND DATE OF CONSULTATION 09/10/[address] Garcia. REASON FOR CONSULTATION Pulmonary embolism. HISTORY OF THE PRESENT ILLNESS Ms. Degroot is a 81-year-old white female with history of hypertension, chronic back pain, iron deficiency anemia. She was recently found to have a pulmonary embolism. She was taking Xarelto 15 mg twice a day. The patient has been feeling weak and tired, did not have any nausea or vomiting. Did not have any blood in the stool. No dark stools. Because of worsening of these symptoms she came to the emergency room. She was found to be severely anemic, her hemoglobin was found to be 5.0, hematocrit 16.2. WBC count 19.9, platelet count 601. Her repeat hemoglobin is 4.5, hematocrit 15.1. Her sodium 140, potassium 4.0, chloride 109, CO2 27, BUN 33, creatinine 1.10. AST 26, ALT 24, LDH is 386. IMAGING Ultrasound of the lower extremities, no DVT. Chest x-ray shows no acute disease. PAST MEDICAL HISTORY Significant for: 1. A history of recent diagnosis of pulmonary embolism. 2. Arthritis. 3. Chronic pain. 4. History of splenectomy. MEDICATIONS She is currently takin. Solu-Medrol 60 mg q. 12-hour. 2. Hydrocodone for pain. 3. Vitamin D3. 4. Cymbalta 60 mg a day. 5. Tizanidine 4 mg a day. 6. Verapamil 120 milligrams daily. ALLERGIES SULFA. SOCIAL HISTORY She has no history of smoking, alcohol abuse. She is , lives alone. FAMILY HISTORY She had three children, one daughter with brain aneurysm. REVIEW OF SYSTEMS Normally she is up, around and active. No DVT or pulmonary embolism. No bleeding points. PHYSICAL EXAMINATION GENERAL: An elderly female, weak, mild short of breath. VITAL SIGNS: Blood pressure 160/67, heart rate 85, respiration 18, temperature 98. HEENT: Examination pupils are equal and reactive to light. She has pallor. NECK: Supple. Jugular venous pulse not raised. CHEST: Air entry equal bilaterally. No rhonchi. CARDIOVASCULAR: S1-S2 normal. ABDOMEN: Benign. EXTREMITIES: No edema. IMPRESSION 1. Bilateral pulmonary embolism. 2. Severe anemia. 3. Hypertension. 4. Arthritis. PLAN I discussed with Dr. Means blood transfusion has been ordered from [place] because of the antibodies concern. The patient's LDH is high and Dr. Means thinks the patient is having hemolysis and she is started on Solu-Medrol. Her Xarelto is on hold for concern of bleeding. She is going to be transfused. Monitor her H&H. Supplement her oxygen. Further treatment will depend on the course in the hospital. Thank you Dr. Garcia for this consultation. MD JENNA Carver/AMY /8:33 PM /9:13 PM AMAURI
[2017-09-11] VITALS (10 sets, daily range): BP systolic 123–195; BP diastolic 53–82; PULSE 66–98; RESP 18–24; TEMP 97.4–98.5; O2SAT 88–99
--- NOTE | 2017-09-11 05:40 | MB ---
cc: DAMIEN NEWTON DATE OF CONSULTATION September 10, 2017 REASON FOR CONSULTATION Patient with a history of pulmonary embolism who presents to the emergency department with progressive dyspnea and was found to be severely anemic. HISTORY OF PRESENT ILLNESS This is a 81-year-old female who has a past medical history of iron deficiency anemia, hypertension, osteoarthritis, chronic back pain and recent diagnosis of pulmonary embolism. She was on Xarelto. She presented to the emergency room with progressive weakness and lightheadedness. In the emergency department she was found to have a very low hemoglobin of 5. She has a platelet count of 601,000. White blood cell count was 19.9. She does not endorse any nosebleed, gum bleeds. No petechiae or bruising. She has not noticed any bright red blood per rectum or melena. I was called by Dr. Navarro to evaluate this patient. Apparently the patient's hemoglobin was greater than 11 not too long ago and this is a big drop in her hemoglobin. On admission anticoagulation was stopped. Packed red blood cells were ordered for the patient. However, she was found to have warm antibodies and blood was ordered from [place] which has not arrived. The patient is currently quite weak and lethargic. She does not endorse any chest pain or shortness of breath. Her O2 sats are 92-93% on room air. REVIEW OF SYSTEMS A comprehensive 14-point review of systems was completed which is negative except as described in the HPI. PAST MEDICAL HISTORY 1. Pulmonary embolism. 2. Osteoarthritis. 3. Chronic pain. 4. History of splenectomy. 5. Iron deficiency anemia. MEDICATIONS 1. Hydrocodone. 2. Vitamin D3. 3. Cymbalta 50 mg daily. 4. Tizanidine 4 mg daily. 5. Verapamil 120 mg daily. ALLERGIES ALLERGIC TO SULFA DRUGS. SOCIAL HISTORY She lives by herself. She does not smoke cigarettes. No alcohol abuse. No illicit drug use. FAMILY HISTORY Reviewed and is noncontributory to this admission. She has three children. A daughter of brain aneurysm. PHYSICAL EXAMINATION VITAL SIGNS: Blood pressure is 149/67, pulse is in the 70s, temperature is 98.6, O2 sats are 98% on room air. GENERAL: Chronically ill-appearing, pale, lethargic female in no apparent distress. HEENT: Pupils are equal, round, reactive to light. EOMI. No oral thrush. No oral lesions. NECK: Supple. No JVD, no bruits. No lymphadenopathy. CHEST: Clear to auscultation bilaterally. CARDIAC: S1, S2. Regular rate and rhythm. ABDOMEN: Soft, nontender, nondistended. Bowel sounds are present. EXTREMITIES: Without any edema, erythema or cyanosis. SKIN: Cool to touch. LABORATORY DATA WBC 21.6, hemoglobin is 4.3, platelet count 627. Serum chemistries show sodium of 143, potassium 4, chloride 109, BUN 33, creatinine 1.1, glucose is 109, calcium is 8.1, total bilirubin is 3.8, AST 26, ALT 24, alk phos of 139, total protein is 6.1, albumin is 3.1. IMAGING STUDIES Doppler ultrasound of lower extremities did not show any DVT. ASSESSMENT AND PLAN This is a 81-year-old female who has a history of iron deficiency anemia, pulmonary embolism who presents to the emergency department with progressive dyspnea. She was found to be severely anemic. 1. Severe macrocytic anemia: Her hemoglobin is 4.5, MCV was reported at 143. I reviewed her labs and I have discussed this case with Dr. Navarro earlier. This patient needs to be transfused packed red blood cells immediately since her hemoglobin is very low. From initial labs there appears to be underlying hemolysis. Her LDH is elevated, haptoglobin is low and direct Dejon test is strongly positive. I will start this patient on steroids, Solu-Medrol 60 mg IV b.i.d. We will premedicate her with Tylenol and Benadryl. I will review her peripheral smear. We also need to obtain a stool hemoccult to make sure she does not have any GI bleed. Continue to keep the Eliquis on hold. We will need to check her hemoglobin every 8 hours since she is having hemolysis and there is a high risk for brisk hemolysis leading to severe anemia. Before these labs are available, due to her severe anemia and concern for bleeding in the setting of Xarelto, I have advised that the patient be given 2 units of FFP. It appears that only 1 unit was given, not that we know there is underlying hemolysis. We will hold off on giving an additional unit of FFP. 2. Thrombocytosis. This is reactive secondary to anemia. 3. Leukocytosis, could be reactive. Rule out any underlying infection. Thank you for allowing me to participate in the care of this patient. I will continue to follow this patient along. MD ESTEPHANIE Song/YESENIA /12:39 AM /5:22 AM
[2017-09-11] MEDS: cloNIDine HCL 0.1 MG TAB PO PRN (06:53)
[2017-09-11] MEDS: ACETAMINOPHEN/HYDROcodone 325 MG/7.5 MG TAB PO PRN ×3 (06:53→22:02)
[2017-09-11 08:34] LABS: AUTOMATED NEUTROPHIL # 15.1 TH/MM3 (1.8-7.7); BASOPHIL # 0.1 TH/MM3 (0-0.2); BASOPHIL % 0.4 % (0.0-2.0); EOSINOPHIL % 0.1 % (0.0-4.0); HEMATOCRIT 23.6 % (35.0-46.0); HEMOGLOBIN 7.6 GM/DL (11.6-15.3); LYMPH % 15.1 % (9.0-44.0); LYMPHOCYTE # 2.8 TH/MM3 (1.0-4.8); MEAN CORPUSCULAR HEMOGLOBIN 39.4 PG (27.0-34.0); MEAN CORPUSCULAR HGB CONC 32.3 % (32.0-36.0); MEAN PLATELET VOLUME 7.3 FL (7.0-11.0); MONO % 2.7 % (0.0-8.0); MONOCYTE # 0.5 TH/MM3 (0-0.9); NEUT % 81.7 % (16.0-70.0); PLATELET COUNT 551 TH/MM3 (150-450); RED BLOOD COUNT 1.94 MIL/MM3 (4.00-5.30); RED CELL DISTRIBUTION WIDTH 31.4 % (11.6-17.2); WHITE BLOOD COUNT 18.4 TH/MM3 (4.0-11.0)
[2017-09-11] MEDS: VITAMIN B CMPLX/VITC/FOLIC AC CAP PO SCH (09:00)
[2017-09-11] MEDS: CHOLECALCIFEROL (VIT D3) 1000 UNIT TAB PO SCH (09:00)
[2017-09-11] MEDS: VERAPAMIL HCL 120 MG SUSTAINED RELEASE TAB PO SCH (09:11)
[2017-09-11] MEDS: FOLIC ACID 1 MG TAB PO SCH (09:12)
[2017-09-11] MEDS: SODIUM CHLORIDE 0.9% FLUSH 10 ML FLUSH IV FLUSH SCH ×2 (09:12→20:09)
[2017-09-11] MEDS: methylPREDNISolone SOD SUCC 125 MG/2 ML VIAL IV PUSH SCH ×2 (09:12→20:09)
[2017-09-11] MEDS: DULoxetine HCl DR 60 MG CAP PO SCH (09:12)
[2017-09-11 09:35] LABS: BANDS 2 % (0-6); CORRECTED NUCLEATED RBC 123 /100 WBC (0-0); LYMPHOCYTES 10 % (9-44); MONOCYTES 4 % (0-8); MYELOCYTES 2 % (0-0); NEUTROPHIL # MANUAL DIFF 15.8 TH/MM3 (1.8-7.7); NUCLEATED RED BLOOD CELL 123 (0-0); POLYS (SEG NEUTROPHILS) 82 % (16-70)
[2017-09-11 09:39] LABS: POLYCHROMASIA 5.2 % (0.0-1.9)
[2017-09-11 09:40] LABS: HOWELL-JOLLY BODIES PRESENT (NONE SEEN)
[2017-09-11 09:41] LABS: OVALOCYTES 1+ (NORMAL)
[2017-09-11 11:06] LABS: ALBUMIN 3.1 GM/DL (3.4-5.0); BICARBONATE 26.4 MEQ/L (21.0-32.0); CREATININE 1.11 MG/DL (0.50-1.00); PHOSPHORUS 3.8 MG/DL (2.5-4.9)
--- NOTE | 2017-09-11 15:32 | HHI.PR ---
Subjective Remarks Patient seen this morning. Reports generalized fatigue, SOB. Says that fatigue /SOB is somewhat better than yesterday, but cannot walk more than 10 feet without needing 10 minutes to recover. Denies any chest pain. Objective Vital Signs Date Time Temp Pulse Resp B/P (MAP) Pulse Ox O2 Delivery O2 Flow Rate FiO2 09/11/17 12:00 98.4 66 18 123/53 (76) 95 09/11/17 08:00 94 09/11/17 08:00 98.0 89 18 189/82 (117) 94 09/11/17 03:30 98.2 80 18 184/81 (115) 99 09/11/17 01:50 98.5 77 20 176/77 96 09/11/17 01:23 98.2 79 20 195/79 95 09/10/17 23:20 98.2 82 18 165/69 (101) 97 09/10/17 22:11 98.2 79 23 161/69 97 09/10/17 21:51 98.6 78 20 149/67 97 09/10/17 21:45 98.6 77 20 149/67 98 09/10/17 20:18 98.0 85 18 160/67 (98) 90 09/10/17 20:00 81 09/10/17 19:52 18 09/10/17 16:45 97.6 70 12 133/73 (93) 95 09/10/17 16:12 98.4 72 18 126/71 (89) 98 09/10/17 16:00 69 I/O 09/10/17 09/10/17 09/10/17 09/11/17 09/11/17 09/11/17 07:00 15:00 23:00 07:00 15:00 23:00 Intake Total 464 ml 255 ml 1045 ml Output Total 300 ml Balance 464 ml 255 ml 745 ml Intake Oral 240 ml 200 ml Packed Cells 800 ml FFP 214 ml Blood Product IV Normal Saline Flush 250 ml 15 ml 45 ml Output Urine Total 300 ml # Voids 1 # Bowel Movements 0 Result Diagram: 09/11/17 0623 09/11/17 1020 Objective Remarks GENERAL: sitting in bed. Appears to have generalized fatigue. SKIN: Warm and dry. HEAD: Normocephalic. EYES: No scleral icterus. No injection or drainage. NECK: Supple, trachea midline. No JVD. CARDIOVASCULAR: Regular rate and rhythm without murmurs, gallops, or rubs. RESPIRATORY: Breath sounds equal bilaterally. No accessory muscle use. GASTROINTESTINAL: Abdomen soft, non-tender, nondistended. MUSCULOSKELETAL: No cyanosis, or edema. BACK: Nontender without obvious deformity. No CVA tenderness. A/P Assessment and Plan Ms. Degroot is a pleasant 81-year-old female with a history of hypertension, iron deficiency anemia who presented to the emergency department on 09/09/2017 due to increasing lethargy, shortness of breath. She reports onset of her symptoms about 6 months ago. She was diagnosed with bilateral pulmonary embolism 7-10 days prior to this admission. She was started on Xarelto and she has taken Xarelto for 4 days. Since 09/05/2017 her shortness of breath and weakness had progressed so much so that she cannot even go to the bathroom without getting significantly short of breath. On arrival impression 98.2F, pulse 90, respiration 20, blood pressure 167/68, pulse oximetry 98% on 2 L. Lab workup indicated hemoglobin 5.0 and subsequently 4.3. //Acute blood loss symptomatic anemia - Hemoglobin 5.0 and subsequently 4.3. - 2 units of PRBCs are ordered. However patient has warm antibodies and required 2 units of blood to be transported from [facility]. - I discussed with hand bulldozer, Dr. Means who will evaluate patient likely today. - Although patient is lethargic, patient is hemodynamically currently stable. = 2/. Fatigue improved. Hemoglobin 7.5 from 4.5 yesterday after 2 units of RBCs.. Appreciate hematology assistance. Continue to monitor. Follow-up hemoglobin. //Pulmonary embolism // Bleeding on Xarelto - Due to significant blood loss anemia, we'll hold anticoagulation for PE for now. - There is no FDA approved reversal agent for Xarelto. We'll give 2 units of FFP. - If further bleeding suspected or hemoglobin drops, we'll consider PCC ( Kcentra). - Will wait for further recs from hematology. - LDH, haptoglobin, direct Dejon test ordered. = Continue to hold anticoagulation for PE. Appreciate hematology assistance. Patient requests consultation to pulmonology, Dr. quintero //Chronic back pain - continue [place] when necessary //Hypertension, chronic - patient takes verapamil 120 mg by mouth daily. Consider switching calcium channel tigre to amlodipine or nifedipine in the next 1-2 days. Full code. SCDs. Pharmacological DVT prophylaxis contraindicated. Discharge Planning PT, OT following. Hematology following. Will need stability of hemoglobin Owen Betancourt MD Sep 11, 2017 15:32
--- NOTE | 2017-09-11 20:10 | HHI.PR ---
Subjective Remarks 81 YOWF with Bilat PE, Severe Anemea Had PRBC Breathing better Off Anticoagulation Objective Vital Signs Vital Signs Date Time Temp Pulse Resp B/P (MAP) Pulse Ox O2 Delivery O2 Flow Rate FiO2 09/11/17 16:30 88 Nasal Cannula 4.50 09/11/17 15:59 84 09/11/17 12:00 92 09/11/17 12:00 3.00 09/11/17 12:00 98.4 66 18 123/53 (76) 95 09/11/17 08:00 94 09/11/17 08:00 98.0 89 18 189/82 (117) 94 09/11/17 08:00 Nasal Cannula 4.50 09/11/17 03:30 98.2 80 18 184/81 (115) 99 09/11/17 01:50 98.5 77 20 176/77 96 09/11/17 01:23 98.2 79 20 195/79 95 09/10/17 23:20 98.2 82 18 165/69 (101) 97 09/10/17 22:11 98.2 79 23 161/69 97 09/10/17 21:51 98.6 78 20 149/67 97 09/10/17 21:45 98.6 77 20 149/67 98 09/10/17 20:18 98.0 85 18 160/67 (98) 90 I/O 09/10/17 09/10/17 09/10/17 09/11/17 09/11/17 09/11/17 07:00 15:00 23:00 07:00 15:00 23:00 Intake Total 464 ml 255 ml 1045 ml Output Total 300 ml Balance 464 ml 255 ml 745 ml Intake Oral 240 ml 200 ml Packed Cells 800 ml FFP 214 ml Blood Product IV Normal Saline Flush 250 ml 15 ml 45 ml Output Urine Total 300 ml # Voids 1 # Bowel Movements 0 Result Diagram: 09/11/17 0623 09/11/17 1020 Objective Remarks GENERAL: Elderly WF, mild sob SKIN: Warm and dry. HEAD: Normocephalic. EYES: No scleral icterus. No injection or drainage. NECK: Supple, trachea midline. No JVD or lymphadenopathy. CARDIOVASCULAR: Regular rate and rhythm without murmurs, gallops, or rubs. RESPIRATORY: Breath sounds equal bilaterally. No accessory muscle use. GASTROINTESTINAL: Abdomen soft, non-tender, nondistended. MUSCULOSKELETAL: No cyanosis, or edema. BACK: Nontender without obvious deformity. No CVA tenderness. A/P Assessment and Plan Bilat PE Dysnoea Severe Anemea ? Hemolysis Arthritis PLAN: Supplement 02 Off AC due to severe Anemea IV Solumedrol Hematology following Tucker Merino MD Sep 11, 2017 20:10
[2017-09-11 20:56] LABS: HEMATOCRIT 21.7 % (35.0-46.0)
[2017-09-11 21:09] LABS: HEMOGLOBIN 6.9 GM/DL (11.6-15.3)
--- NOTE | 2017-09-11 21:37 | PD.ONC.PN ---
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 obtain stool heme-occult Hold Anticoagulation until GI bleeding is ruled out Objective Data Date Time Temp Pulse Resp B/P (MAP) Pulse Ox O2 Delivery O2 Flow Rate FiO2 09/11/17 16:30 88 Nasal Cannula 4.50 09/11/17 15:59 84 09/11/17 12:00 92 09/11/17 12:00 3.00 09/11/17 12:00 98.4 66 18 123/53 (76) 95 09/11/17 08:00 94 09/11/17 08:00 98.0 89 18 189/82 (117) 94 09/11/17 08:00 Nasal Cannula 4.50 09/11/17 03:30 98.2 80 18 184/81 (115) 99 09/11/17 01:50 98.5 77 20 176/77 96 09/11/17 01:23 98.2 79 20 195/79 95 09/10/17 23:20 98.2 82 18 165/69 (101) 97 09/10/17 22:11 98.2 79 23 161/69 97 09/10/17 21:51 98.6 78 20 149/67 97 09/10/17 21:45 98.6 77 20 149/67 98 09/11/17 09/11/17 09/11/17 07:00 15:00 23:00 Intake Total 1045 ml Output Total 300 ml Balance 745 ml Result Diagram: 09/11/17 1449 09/11/17 1020 Laboratory Results Laboratory Tests Test 09/11/17 00:00 09/11/17 06:23 09/11/17 10:20 09/11/17 14:49 Blood Smear Pathologist Review White Blood Count 18.4 TH/MM3 Red Blood Count 1.94 MIL/MM3 Hemoglobin 7.6 GM/DL 6.9 GM/DL Hematocrit 23.6 % 21.7 % Mean Corpuscular Volume 122.0 FL Mean Corpuscular Hemoglobin 39.4 PG Mean Corpuscular Hemoglobin Concent 32.3 % Red Cell Distribution Width 31.4 % Platelet Count 551 TH/MM3 Mean Platelet Volume 7.3 FL Neutrophils (%) (Auto) 81.7 % Lymphocytes (%) (Auto) 15.1 % Monocytes (%) (Auto) 2.7 % Eosinophils (%) (Auto) 0.1 % Basophils (%) (Auto) 0.4 % Neutrophils # (Auto) 15.1 TH/MM3 Lymphocytes # (Auto) 2.8 TH/MM3 Monocytes # (Auto) 0.5 TH/MM3 Eosinophils # (Auto) 0.0 TH/MM3 Basophils # (Auto) 0.1 TH/MM3 CBC Comment AUTO DIFF Differential Total Cells Counted 100 Neutrophils % (Manual) 82 % Band Neutrophils % 2 % Lymphocytes % 10 % Monocytes % 4 % Neutrophils # (Manual) 15.8 TH/MM3 Myelocytes 2 % Nucleated Red Blood Cells 123 /100 WBC Differential Comment FINAL DIFF MANUAL Platelet Estimate HIGH Platelet Morphology Comment NORMAL Polychromasia 5.2 % Basophilic Stippling HEAVY Ovalocytes 1+ [place] Bodies PRESENT Red Cell Morphology Comment Blood Urea Nitrogen 33 MG/DL Creatinine 1.11 MG/DL Random Glucose 197 MG/DL Albumin 3.1 GM/DL Calcium Level 8.0 MG/DL Phosphorus Level 3.8 MG/DL Sodium Level 141 MEQ/L Potassium Level 4.6 MEQ/L Chloride Level 107 MEQ/L Carbon Dioxide Level 26.4 MEQ/L Anion Gap 8 MEQ/L Estimat Glomerular Filtration Rate 47 ML/MIN Administered Medications Medications (Trade) Dose Ordered Sig/Nelda Route PRN Reason Start Time Stop Time Status Last Admin Dose Admin Cholecalciferol (Vitamin D3) 5,000 units DAILY PO 09/10/17 09:00 09/10/17 09:10 Duloxetine HCl (Cymbalta Dr) 60 mg DAILY PO 09/10/17 09:00 09/11/17 09:12 Folic Acid (Folate) 1 mg DAILY PO 09/10/17 09:00 09/11/17 09:12 Tizanidine HCl (Zanaflex) 4 mg DAILY PO 09/10/17 09:00 09/11/17 09:12 Verapamil HCl (Isoptin Sr) 120 mg DAILY PO 09/10/17 09:00 09/11/17 09:11 Vitamin B Complex/ Vit C/Folic Acid (Nephrocaps) 1 cap DAILY PO 09/10/17 09:00 09/11/17 09:00 Sodium Chloride (NS Flush) 2 ml BID IV FLUSH 09/09/17 21:00 09/11/17 20:09 Acetaminophen (Tylenol) 650 mg Q4H PRN PO Fever, pain 1-4, headache 09/09/17 18:00 09/09/17 22:41 Magnesium Hydroxide (Milk Of Benito Liq) 30 ml Q12H PRN PO Mild constipation 09/09/17 18:00 09/11/17 06:53 Acetaminophen/ Hydrocodone Bitart (Kathryn 7.5-325 Mg) 1 tab Q6H PRN PO PAIN SCALE 5 TO 10 09/10/17 09:30 09/11/17 16:18 Methylprednisolone Sodium Succinate (SoluMEDROL INJ) 60 mg Q12HR IV PUSH 09/10/17 21:00 09/11/17 20:09 Clonidine (Catapres) 0.1 mg Q6H PRN PO SBP>160, DBP>90 09/11/17 06:45 09/11/17 06:53 Objective Remarks Assessment/Plan Problem List: (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
[2017-09-11] MEDS ORDERED: diphenhydrAMINE HCL 25 MG CAP PO SCH (22:45)
[2017-09-12] VITALS (24 sets, daily range): BP systolic 97–178; BP diastolic 55–89; PULSE 80–103; RESP 18–31; TEMP 97.4–98.5; O2SAT 83–100
[2017-09-12] MEDS: ACETAMINOPHEN 325 MG TAB PO SCH ×2 (03:27→17:16)
[2017-09-12] MEDS: RESP: ALBUTEROL 2.5 MG/IPRATROPIUM 0.5 MG NEB (SCH) NEB ×4 (05:15→20:30)
[2017-09-12] MEDS: VITAMIN B CMPLX/VITC/FOLIC AC CAP PO SCH (09:00)
[2017-09-12] MEDS: VERAPAMIL HCL 120 MG SUSTAINED RELEASE TAB PO SCH (09:20)
[2017-09-12] MEDS: methylPREDNISolone SOD SUCC 125 MG/2 ML VIAL IV PUSH SCH ×2 (09:20→20:25)
[2017-09-12] MEDS: FOLIC ACID 1 MG TAB PO SCH ×2 (09:20→14:19)
[2017-09-12] MEDS: DULoxetine HCl DR 60 MG CAP PO SCH (09:20)
[2017-09-12] MEDS: CHOLECALCIFEROL (VIT D3) 1000 UNIT TAB PO SCH (09:20)
[2017-09-12] MEDS: SODIUM CHLORIDE 0.9% FLUSH 10 ML FLUSH IV FLUSH SCH ×2 (09:21→20:25)
--- NOTE | 2017-09-12 09:52 | HHI.PR ---
Subjective Remarks Patient says she is a little bit more short of breath today. Denies any chest pain. Denies any nausea or vomiting. Eyes any bleeding. Denies any melena. Objective Vital Signs Date Time Temp Pulse Resp B/P (MAP) Pulse Ox O2 Delivery O2 Flow Rate FiO2 09/12/17 07:32 98.1 95 20 156/89 99 09/12/17 07:06 98 Partial Rebreather 10.00 09/12/17 06:25 100 Partial Non-Rebreather 10.00 09/12/17 06:20 87 Venturi Mask 6.00 50 09/12/17 06:19 97.5 103 22 161/74 (103) 87 09/12/17 06:17 97.5 103 22 161/74 87 09/12/17 06:17 86 Venturi Mask 6.00 50 09/12/17 05:20 88 Venturi Mask 50 09/12/17 05:07 88 Venturi Mask 6.00 50 09/12/17 05:04 97.6 97 18 178/79 88 09/12/17 04:44 97.4 96 18 160/75 90 09/12/17 04:43 90 Venturi Mask 6.00 50 09/12/17 04:23 97.6 88 18 158/71 90 09/12/17 03:55 83 Venturi Mask 50 09/12/17 03:30 97.5 88 24 171/77 (108) 88 09/12/17 01:26 97 09/12/17 01:13 90 Nasal Cannula 4.00 09/11/17 23:55 97.4 98 24 146/67 (93) 88 09/11/17 22:35 97.7 96 24 160/74 (102) 88 09/11/17 21:46 97.9 93 22 166/75 (105) 88 09/11/17 20:00 88 Nasal Cannula 4.00 09/11/17 19:44 84 09/11/17 16:30 88 Nasal Cannula 4.50 09/11/17 15:59 84 09/11/17 12:00 92 09/11/17 12:00 3.00 09/11/17 12:00 98.4 66 18 123/53 (76) 95 I/O 09/11/17 09/11/17 09/11/17 09/12/17 09/12/17/2/18 07:00 15:00 23:00 07:00 15:00 23:00 Intake Total 1045 ml 240 ml 410 ml Output Total 300 ml 175 ml Balance 745 ml 65 ml 410 ml Intake Oral 200 ml 240 ml Packed Cells 800 ml 400 ml Blood Product IV Normal Saline Flush 45 ml 10 ml Output Urine Total 300 ml 175 ml # Bowel Movements 0 0 Result Diagram: 09/11/17 1449 09/11/17 1020 Objective Remarks GENERAL: pt sitting in bed. Appears to have generalized fatigue. Patient on 50 % Ventimask. SKIN: Warm and dry. HEAD: Normocephalic. EYES: No scleral icterus. No injection or drainage. NECK: Supple, trachea midline. No JVD. CARDIOVASCULAR: Regular rate and rhythm without murmurs, gallops, or rubs. RESPIRATORY: Breath sounds equal bilaterally. No accessory muscle use. GASTROINTESTINAL: Abdomen soft, non-tender, nondistended. MUSCULOSKELETAL: No cyanosis, or edema. BACK: Nontender without obvious deformity. No CVA tenderness. A/P Assessment and Plan 09/12. Patient with hypoxemic respiratory failure. PO2 78 on 50% Ventimask. Suspect worsening of pulmonary embolisms. Stat chest x-ray. No signs of bleeding. Will start heparin drip. Every 8 hour H&H's. Incision difficult due to warm antibody. Hematology following. Transfer to ICU with evaluator consult. Ms. Degroot is a pleasant 81-year-old female with a history of hypertension, iron deficiency anemia who presented to the emergency department on 09/09/2017 due to increasing lethargy, shortness of breath. She reports onset of her symptoms about 6 months ago. She was diagnosed with bilateral pulmonary embolism 7-10 days prior to this admission. She was started on Xarelto and she has taken Xarelto for 4 days. Since 09/05/2017 her shortness of breath and weakness had progressed so much so that she cannot even go to the bathroom without getting significantly short of breath. On arrival impression 98.2F, pulse 90, respiration 20, blood pressure 167/68, pulse oximetry 98% on 2 L. Lab workup indicated hemoglobin 5.0 and subsequently 4.3. //Acute blood loss symptomatic anemia - Hemoglobin 5.0 and subsequently 4.3. - 2 units of PRBCs are ordered. However patient has warm antibodies and required 2 units of blood to be transported from [facility]. - I discussed with principal software engineer, Dr. Means who will evaluate patient likely today. - Although patient is lethargic, patient is hemodynamically currently stable. = 2/. Fatigue improved. Hemoglobin 7.5 from 4.5 yesterday after 2 units of RBCs.. Appreciate hematology assistance. Continue to monitor. Follow-up hemoglobin. = 2/. Hypoxemic respiratory failure. Likely worsening pulmonary embolisms. //Pulmonary embolism // Bleeding on Xarelto - Due to significant blood loss anemia, we'll hold anticoagulation for PE for now. - There is no FDA approved reversal agent for Xarelto. We'll give 2 units of FFP. - If further bleeding suspected or hemoglobin drops, we'll consider PCC ( [facility]). - Will wait for further recs from hematology. - LDH, haptoglobin, direct Dejon test ordered. = Continue to hold anticoagulation for PE. Appreciate hematology assistance. Patient requests consultation to pulmonology, Dr. quintero =/ Pulmonary following. Appreciate assistance. Today with hypoxemic respiratory failure. Transfer to ICU. //Chronic back pain - continue [place] when necessary //Hypertension, chronic - patient takes verapamil 120 mg by mouth daily. Consider switching calcium channel tigre to amlodipine or nifedipine in the next 1-2 days. Discharge Planning Transferred ICU. Owen Betancourt MD Sep 12, 2017 09:52
[2017-09-12] MEDS ORDERED: HEPARIN SODIUM - IV 10,000 UNITS/10 ML VIAL IV PUSH ONE (10:00)
--- NOTE | 2017-09-12 10:33 | RADRPT ---
EXAM DATE/TIME: 09/12/2017 09:56 [facility] COMPARISON: CHEST SINGLE AP, September 09, 2017, 15:55. INDICATIONS : Short of breath. MEDICAL HISTORY : Hypercholesterolemia. Arthritis. Osteoarthritis. Thyroid disease. Chest pain. HTN. Shortness of breat h. Anemia. GERD. Renal calculi. Depression. Anxiety. SURGICAL HISTORY : Hysterectomy. Blood transfusions. ENCOUNTER: Subsequent ACUITY: 4 - 6 days PAIN SCORE: 0/10 LOCATION: chest FINDINGS: A single view of the chest demonstrates the lungs to be symmetrically aerated without evidence of mas s, infiltrate or effusion. The cardiomediastinal contours are unremarkable. Osseous structures are intact. CONCLUSION: No acute disease. Jaden Lopez MD on September 12, 2017 at 10:24 Board Certified Radiologist. This report was verified electronically.
[2017-09-12] MEDS: PANTOPRAZOLE SODIUM 40 MG VIAL IV PUSH SCH ×2 (11:08→20:24)
--- NOTE | 2017-09-12 11:33 | PD.CONS ---
[facility] Service Critical Care Medicine Consult Requested By Dr. Betancourt Reason for Consult High oxygen requirements Primary Care Physician Camilo Mckinney MD History of Present Illness This is a 81-year-old female. Date of admission 09/10/2017. Date of consult 09/11/2017. Past medical history includes hypertension, dyslipidemia, depression/anxiety, chronic pain syndrome, cholelithiasis, nephrolithiasis and osteoarthritis. Patient has a known history of macrocytic anemia which he follows with Dr. Shah. She has had her spleen removed future anemia in the past. He is chronically on azathioprine. It appears on 09/01 patient was diagnosed with pulmonary embolism along with the right lower extremity DVT. She started on rivaroxaban 15 mg twice a day. She follows who agreed with this is been on this in the in the interim. She presents earlier to [facility] with acute on chronic worsening shortness of breath. She was able to able to the bathroom and became short of breath. She is noted to have a hemoglobin of 4.3. MCV of 143. Haptoglobin low and LDH high. Started on methylprednisolone 60 mg IV twice a day per hematology. Transfused 3 units PRBCs and 2 FFP. Warm Dejon positive. Throughout this hospitalization she had increasing oxygen requirements. ABG reveals shunting. Chest x-ray revealed no acute cardio point process. Repeat CT pulmonary angiogram today revealed several small pulmonary embolism in the right lower lobe do not appear to be hemodynamically compromising. 2D echocardiogram is pending at time of dictation. Denies chest pain. Patient is not tachycardic. Hemodynamically stable. Review of Systems Constitutional: COMPLAINS OF: Fatigue, DENIES: Fever, Weight gain, Weight loss Endocrine: DENIES: Polydipsia, Polyuria Eyes: DENIES: Blurred vision, Double Vision Ears, nose, mouth, throat: COMPLAINS OF: Hearing loss, DENIES: Tinnitus Respiratory: COMPLAINS OF: Shortness of breath, DENIES: Apneas, Wheezing, Hemoptysis, Sputum production Cardiovascular: DENIES: Chest pain Gastrointestinal: DENIES: Abdominal pain, Constipation, Diarrhea, Nausea Genitourinary: DENIES: Urinary incontinence Musculoskeletal: COMPLAINS OF: Joint pain, Back pain, DENIES: Neck pain Integumentary: DENIES: Abnormal pigmentation, Pruritus, Rash Hematologic/lymphatic: DENIES: Bruising Immunologic/allergic: DENIES: Eczema Neurologic: DENIES: Abnormal gait, Headache Psychiatric: COMPLAINS OF: Anxiety, Depression, DENIES: Confusion Past Family Social History Allergies: Coded Allergies: Sulfa (Sulfonamide Antibiotics) (Verified Allergy, Severe, 09/09/17) Past Medical History Depression/anxiety Dyslipidemia Hypertension Nephrolithiasis Cholelithiasis Chronic pain syndrome Osteoarthritis Chronic narcotic use Chronic immunosuppression Past Surgical History Splenectomy Hysterectomy Teeth extraction Right middle lobe lung nodule biopsy - Dr. Mendieta Reported Medications Folic Acid 0.8 Mg Tab 1 Mg PO DAILY Turmeric (Turmeric Root Extract) 500 Mg Capsule 1 Tab PO DAILY Tizanidine 4 mg by mouth daily Flaxseed oil 1000 mg by mouth daily Vitamin B Complex 1 tablet by mouth daily Cholecalciferol 5000 units by mouth daily Verapamil 120 mg by mouth daily Loxitane 60 mill grams by mouth daily Rivaroxaban 50 mill grams by mouth every 12 hours Multivitamin 1 tablet daily Psyllium 520 mg by mouth daily Azathioprine 50 mg by mouth twice a day Hydrocodone-Acetaminophen 10-325 mg 1 tablet by mouth every 6 hours. Pain Red yeast rice extract 300 milligrams twice a day Vitamin B Complex 1 tablet daily Ufjgvmmimzc-Rrsdrgigpvn-Vzdjannv 1 tablet daily Active Ordered Medications Reviewed in EMR Family History Mother with hypertension Social History Denies tobacco, alcohol or illicit drug use Physical Exam Vital Signs Vital Signs Date Time Temp Pulse Resp B/P (MAP) Pulse Ox O2 Delivery O2 Flow Rate FiO2 09/12/17 09:30 Nasal Cannula 5.00 09/12/17 08:00 95 Partial Non-Rebreather 8.00 09/12/17 07:32 98.1 95 20 156/89 99 09/12/17 07:06 98 Partial Rebreather 10.00 09/12/17 06:25 100 Partial Non-Rebreather 10.00 09/12/17 06:20 87 Venturi Mask 6.00 50 09/12/17 06:19 97.5 103 22 161/74 (103) 87 09/12/17 06:17 97.5 103 22 161/74 87 09/12/17 06:17 86 Venturi Mask 6.00 50 09/12/17 05:20 88 Venturi Mask 50 09/12/17 05:07 88 Venturi Mask 6.00 50 09/12/17 05:04 97.6 97 18 178/79 88 09/12/17 04:44 97.4 96 18 160/75 90 09/12/17 04:43 90 Venturi Mask 6.00 50 09/12/17 04:23 97.6 88 18 158/71 90 09/12/17 03:55 83 Venturi Mask 50 09/12/17 03:30 97.5 88 24 171/77 (108) 88 09/12/17 01:26 97 09/12/17 01:13 90 Nasal Cannula 4.00 09/11/17 23:55 97.4 98 24 146/67 (93) 88 09/11/17 22:35 97.7 96 24 160/74 (102) 88 09/11/17 21:46 97.9 93 22 166/75 (105) 88 09/11/17 20:00 88 Nasal Cannula 4.00 09/11/17 19:44 84 09/11/17 16:30 88 Nasal Cannula 4.50 09/11/17 15:59 84 09/11/17 12:00 92 09/11/17 12:00 3.00 09/11/17 12:00 98.4 66 18 123/53 (76) 95 Physical Exam GENERAL: 81-year-old female currently in mild respiratory distress on nonrebreather mask SKIN: Warm and dry. HEAD: Atraumatic. Normocephalic. EYES: Pupils equal and round. No scleral icterus. No injection or drainage. ENT: No nasal bleeding or discharge. Mucous membranes pink and moist. NECK: Trachea midline. No JVD. CARDIOVASCULAR: Regular rate and rhythm. S1, S2 no S4. No rub. No murmur. RESPIRATORY: Essentially clear to auscultation bilaterally without wheezes rales or rhonchi. GASTROINTESTINAL: Abdomen soft, non-tender, nondistended. Hypoactive bowel sounds appreciated. MUSCULOSKELETAL: Extremities with trace bilateral lower extremity edema. No obvious deformities. NEUROLOGICAL: Awake and alert. No obvious cranial nerve deficits. Motor grossly within normal limits. Five out of 5 muscle strength in the arms and legs. Normal speech. Laboratory Laboratory Tests Test 09/11/17 14:49 09/12/17 05:50 Hemoglobin 6.9 Hematocrit 21.7 Blood Gas Puncture Site LT RADIAL Blood Gas Patient Temperature 98.6 Blood Gas HCO3 22 Blood Gas Base Excess -1.6 Blood Gas Oxygen Saturation 90 Arterial Blood pH 7.44 Arterial Blood Partial Pressure CO2 33 Arterial Blood Partial Pressure O2 70 Arterial Blood Oxygen Content 10.5 Arterial Blood Carboxyhemoglobin 5.0 Arterial Blood Methemoglobin 1.0 Blood Gas Hemoglobin 8.3 Oxygen Delivery Device VENTURI MASK Blood Gas Inspired Oxygen 50 Result Diagram: 09/11/17 1449 09/11/17 1020 Imaging Last Impressions Chest X-Ray 09/12/17 0000 Signed Impressions: Service Date/Time: Tuesday, September 12, 2017 09:56 - CONCLUSION: No acute disease. Jaden Lopez MD Lower Extremity Ultrasound 09/10/17 0000 Signed Impressions: Service Date/Time: Sunday, September 10, 2017 08:16 - CONCLUSION: 1. No sonographic evidence for right lower extremity DVT. Rob Nascimento MD Septic Shock Reassessment Septic shock perfusion: reassessment completed Assessment and Plan Assessment and Plan Neuro/Psych: Depression/anxiety Chronic pain syndrome Chronic narcotic use Patient is currently on duloxetine 60 mg by mouth daily/home medication for depression. Continue Currently on tizanidine 4 mg by mouth every 6 hours. Muscle relaxant Acetaminophen 650 mg by mouth every 6 hours when necessary fever Patient is on hydrocodone/acetaminophen 10/325 one tablet, every 6 hours as needed for. Pain at home. CV: History of hypertension Dyslipidemia Home medications verapamil 120 mg by mouth daily. Hold while blood pressures tenuous 2-D echocardiogram stat evaluate RV function Currently holding IV fluids Not on any lipid-lowering agents. Resp: Acute respiratory failure History of pulmonary embolism Nasal cannula to maintain saturations greater than equal to 92% Incentive spirometry while awake CTPA - The main pulmonary artery and right and left branch vessels are intact. There is a small amount of thrombus in several of the distal right lower lobe pulmonary arteries. Negative DVT right lower extremity ultrasound Chest x-ray today revealed no acute cardio pulmonary findings Started on albuterol/ipratropium every 4 hours with albuterol aerosols every 2 hours. Dyspnea GI: History of cholelithiasis Patient is currently nothing by mouth Pantoprazole for GI prophylaxis Docusate sodium/senna 1 tablet twice a day for bowel regimen Per hematology request we'll consult GI to rule out any GI tract source with endoscopy if indicated : Reeves catheter if indicated for accurate I's and O's in a critically ill patient Endo: Sliding-scale insulin with Accu-Cheks to maintain euglycemia Check TSH with history of "low thyroid" in the past. Renal: Acute kidney injury History of nephrolithiasis Creatinine currently 1.1 Follow-up on BMP. 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 Folate elevated 19. Patient is on chronic folate acid 1 mg daily at home. Peripheral smear and reticulocyte count are currently pending Evaluated by Dr. Means Transfused 3 units PRBCs and 2 FFP during this hospitalization Haptoglobin was low LDH elevated. Started on methylprednisolone succinate 60 mg IV twice a day per Dr. Means. Recheck now Check MMA, homocysteine as well ID: Monitor for infection (fever, elevated WBC) Blood cultures 2, sputum, urine influenza, urinary Legionella and pneumococcal antigens ordered MSK: Osteoarthritis PT evaluate and treat FEN: Replace electrolytes as clinically indicated Access - Utilize peripheral IV. Central line if indicated Prophylaxis - GI - pantoprazole - DVT - SCDs currently in heparin drip. Will discuss with hematology post CT pulmonary angiogram Critical Care: The total critical care time was 47 minutes. Time to perform other separately billable procedures was not included in the critical care time. Normal left ventricular size. Upper normal wall thickness. The left ventricular systolic function is low normal with an estimated ejection fraction in the range of 50-55%. Flattened septum througout the cardiac cycle suggesting elevated right entricular end diastolic pressures. The right ventricle is moderately dilated. The right ventricular systolic function is severely decreased. Possible Handy's sign seen in acute pulmonary embolism (akinesis of mid right ventricle with fairly normal motion at the apex). There is mild tricuspid valve regurgitation. The estimated systolic pulmonary pressure is 57 mmg Hg. Moderate calcification of the noncoronary cusp of the aortic valve. Discussed with Dr. Means, hematology. Discussed with patient and daughter-in- law at bedside. Benefits versus risk of heparin drip versus alteplase. Dr. Means recommends heparin drip at this time. Code Status Full code Discussed Condition With Patient. Care plan discussed and all questions answered. Yobani Cornejo MD Sep 12, 2017 11:33
[2017-09-12] MEDS ORDERED: IOHEXOL 350 MG/ML 10 ML VIAL (for RAD DIAG) IVCONTRAST ONE (11:49)
--- NOTE | 2017-09-12 11:55 | RADRPT ---
EXAM DATE/TIME: 09/12/2017 11:38 [facility] COMPARISON: No previous studies available for comparison. INDICATIONS : Shortness of breath, evaluate for embolism IV CONTRAST: 70 cc Omnipaque 350 (iohexol) IV RADIATION DOSE: 11.06 CTDIvol (mGy) MEDICAL HISTORY : Hypertension. SURGICAL HISTORY : Hysterectomy. ENCOUNTER: Initial ACUITY: 1 day PAIN SCALE: 3/10 LOCATION: Left chest TECHNIQUE: Volumetric scanning of the chest was performed using a pulmonary embolism protocol MIP images were re constructed. Using automated exposure control and adjustment of the mA and/or kV according to patien t size, radiation dose was kept as low as reasonably achievable to obtain optimal diagnostic quality images. DICOM format image data is available electronically for review and comparison. Follow-up recommendations for detected pulmonary nodules are based at a minimum on nodule size and pa tient risk factors according to Fleischner Society Guidelines. FINDINGS: PULMONARY ARTERIES: The main pulmonary artery and right and left branch vessels are intact. There is a small amount of th rombus in several of the distal right lower lobe pulmonary arteries. LUNGS: There is no consolidation or pneumothorax . No concerning pulmonary nodule is visualized. PLEURAE: There is no pleural thickening or pleural effusion. MEDIASTINUM: There is good visualization of the great vessels of the middle mediastinum. No evidence of mediastin al or hilar adenopathy/mass. There are coronary artery calcifications present. There is mild cardiome walt. MUSCULOSKELETAL: Within normal limits for patient age. MISCELLANEOUS: The visualized upper abdominal organs demonstrate no acute abnormality. CONCLUSION: 1. Mild pulmonary emboli in several distal right lower lobe pulmonary arteries. 2. Coronary artery calcifications. Jaden Lopez MD on September 12, 2017 at 11:48 Board Certified Radiologist. This report was verified electronically.
[2017-09-12 11:57] LABS: AUTOMATED NEUTROPHIL # 23.3 TH/MM3 (1.8-7.7); BASOPHIL # 0.1 TH/MM3 (0-0.2); BASOPHIL % 0.4 % (0.0-2.0); HEMATOCRIT 27.2 % (35.0-46.0); HEMOGLOBIN 8.6 GM/DL (11.6-15.3); LYMPHOCYTE # 1.3 TH/MM3 (1.0-4.8); MEAN CELL VOLUME 122.5 FL (80.0-100.0); MEAN CORPUSCULAR HEMOGLOBIN 38.7 PG (27.0-34.0); MEAN CORPUSCULAR HGB CONC 31.6 % (32.0-36.0); MEAN PLATELET VOLUME 7.2 FL (7.0-11.0); MONO % 5.4 % (0.0-8.0); MONOCYTE # 1.4 TH/MM3 (0-0.9); NEUT % 89.2 % (16.0-70.0); PLATELET COUNT 435 TH/MM3 (150-450); RED BLOOD COUNT 2.22 MIL/MM3 (4.00-5.30); RED CELL DISTRIBUTION WIDTH 34.7 % (11.6-17.2)
[2017-09-12 12:17] LABS: INTERNATIONAL NORMALIZED RATIO 1.1 RATIO; PROTHROMBIN TIME - PATIENT 11.3 SEC (9.8-11.6)
[2017-09-12 12:32] LABS: MAGNESIUM 2.9 MG/DL (1.5-2.5); PHOSPHORUS 4.8 MG/DL (2.5-4.9)
[2017-09-12 12:36] LABS: % SATURATION IRON PROFILE 34.7 % (20-50); DIRECT BILIRUBIN ADULT 2.1 MG/DL (0.0-0.2); IRON (FE) 125 MCG/DL (50-170); TOTAL IRON BINDING CAPACITY 360 MCG/DL (250-450)
[2017-09-12 12:37] LABS: ALBUMIN 3.6 GM/DL (3.4-5.0); BICARBONATE 22.9 MEQ/L (21.0-32.0); CALCIUM 8.5 MG/DL (8.5-10.1); CREATININE 1.4 MG/DL (0.50-1.00); MAGNESIUM 2.8 MG/DL (1.5-2.5); PHOSPHORUS 4.8 MG/DL (2.5-4.9)
[2017-09-12 12:39] LABS: FERRITIN 1135 NG/ML (8-252); INDIRECT BILIRUBIN 2.1 MG/DL (0.0-0.8); TOTAL BILIRUBIN ADULT 4.2 MG/DL (0.2-1.0)
[2017-09-12 12:41] LABS: FREE T4 1.1 NG/DL (0.76-1.46)
[2017-09-12 12:43] LABS: CORTISOL 24.8 MCG/DL
[2017-09-12] MEDS ORDERED: RESP: ALBUTEROL 2.5 MG/3 ML NEB (PRN) NEB (12:45)
[2017-09-12 12:49] LABS: BANDS 8 % (0-6); CORRECTED NUCLEATED RBC 131 /100 WBC (0-0); LYMPHOCYTES 2 % (9-44); MONOCYTES 3 % (0-8); MYELOCYTES 3 % (0-0); NEUTROPHIL # MANUAL DIFF 24.7 TH/MM3 (1.8-7.7); NUCLEATED RED BLOOD CELL 131 (0-0); POLYS (SEG NEUTROPHILS) 84 % (16-70)
[2017-09-12 12:54] LABS: TROPONIN I 1.04 NG/ML (0.02-0.05)
[2017-09-12 12:55] LABS: HOWELL-JOLLY BODIES PRESENT (NONE SEEN); RETIC # 584.5 MIL/L (20.0-150.0); RETIC % 25.8 % (0.4-3.0)
[2017-09-12 12:56] LABS: POLYCHROMASIA 6.5 % (0.0-1.9)
[2017-09-12] MEDS ORDERED: DEXTROSE 50% IN WATER 50 ML VIAL(D50) IV PUSH PRN (13:00)
[2017-09-12] MEDS ORDERED: GLUCAGON 1 MG/ML VIAL OTHER PRN (13:00)
[2017-09-12] MEDS ORDERED: ACETYLCYSTEINE 20% 6,000 MG/30 ML ORAL SOLN VIAL PO SCH (13:00)
--- NOTE | 2017-09-12 13:10 | ECHRPT ---
Indication: EVAL RV CONCLUSIONS Normal left ventricular size. Upper normal wall thickness. The left ventricular systolic function is low normal with an estimated ejection fraction in the rang e of 50- 55%. Flattened septum througout the cardiac cycle suggesting elevated right ventricular end diasto lic pressures. The right ventricle is moderately dilated. The right ventricular systoilc function is severely decreased. Possible Handy's sign seen in ac el pulmonary embolism (akinesis of mid right ventricle with fairly normal motion at the apex). There is mild tricuspid valve regurgitation. The estimated systolic pulmonary pressure is 57 mmg Hg . Moderate calcification of the noncoronary cusp of the aortic valve. BP: 156 / 89 HR: 95 Rhythm: MEASUREMENTS (Male / Female) Normal Values Technical Quality:Fair 2D ECHO LV Diastolic Diameter PLAX 3.7 cm 4.2 - 5.9 / 3.9 - 5.3 cm LV Systolic Diameter PLAX 2.9 cm IVS Diastolic Thickness 1.3 cm 0.6 - 1.0 / 0.6 - 0.9 cm LVPW Diastolic Thickness 0.9 cm 0.6 - 1.0 / 0.6 - 0.9 cm LV Relative Wall Thickness 0.6 RV Internal Dim ED PLAX 4.4 cm DOPPLER AV Peak Velocity 165.0 cm/s AV Peak Gradient 10.9 mmHg LVOT Peak Velocity 67.6 cm/s LVOT Peak Gradient 1.8 mmHg Mitral E Point Velocity 54.3 cm/s Mitral A Point Velocity 96.7 cm/s Mitral E to A Ratio 0.6 TR Peak Velocity 379.0 cm/s TR Peak Gradient 57.5 mmHg FINDINGS LEFT VENTRICLE Normal left ventricular size. Upper normal wall thickness. The left ventricular systolic function is low normal with an estimated ejection fraction in the rang e of 50- 55%. Flattened septum througout the cardiac cycle suggesting elevated right ventricular end diasto lic pressures. RIGHT VENTRICLE The right ventricle is moderately dilated. The right ventricular systoilc function is severely decreased. Possible Handy's sign seen in ac el pulmonary embolism (akinesis of mid right ventricle with fairly normal motion at the apex). LEFT ATRIUM The left atrial size is normal. RIGHT ATRIUM The right atrial size is normal. ATRIAL SEPTUM Normal atrial septal thickness without atrial level shunting by limited color doppler interrogation. AORTA The aortic root and proximal ascending aorta are normal in size on limited imaging. MITRAL VALVE Structurally normal mitral valve. No mitral valve stenosis or regurgitation. AORTIC VALVE Trileaflet aortic valve. No aortic valve stenosis or regurgitation. TRICUSPID VALVE There is mild tricuspid valve regurgitation. The estimated systolic pulmonary pressure is 57 mmg Hg . PULMONARY VALVE The pulmonary valve is not well visualized. VESSELS The inferior vena cava is normal in size. PERICARDIUM No pericardial effusion. Tima Johnston MD (Electronically Signed) Final Date:12 September 2017 13:10
--- NOTE | 2017-09-12 13:52 | PD.CONS ---
HPI History of Present Illness This is a 81 year old female who was admitted to the hospital on 09/09/17. Patient's currently been managed in the intensive care setting with 100% nonrebreather area did she is awake and can answer most questions appropriately. Patient notes shortness of breath with fatigue for approximately 6 months but symptoms worsened over the past 2 weeks she was seen as an outpatient by pulmonary medicine who discovered pulmonary emboli and placed patient on Xarelto. She has had 4 doses of Xarelto which has now been DC 'd secondary to her symptomatic anemia. Patient's hemoglobin on 21 was 6.9, she was transfused 3 units total packed RBCs and 2 units of fresh frozen plasma ; today hemoglobin is 8.6. Patient has been followed per hematology off and on for 2 years as an outpatient for her anemia. Patient now has macrocytic anemia , and now also appears to be hemolytic in nature. Patient has had symptoms of chronic constipation which requires her to take stool softeners and MiraLAX every third day for a BM. She denies any dark tarry stools or acute bright red bleeding. She denies any nausea, vomiting, no hematemesis, no dysphagia, no diarrhea. During my exam patient did have diffused abdominal pain which she describes as "upset stomach ', waxes and wanes. Patient is obviously jaundice, and continues to have shortness of breath. Per CT patient has mild distal right lower lobe and pulmonary artery emboli. She is currently being started on a heparin drip. Family is in the room at her bedside. Patient states possible EGD? and known colonoscopy approximately a year ago. (Anny Rosen) PFSH Past Medical History HTN Chronic back pain Arthritis JENA chronic constipation Anemia, Past Surgical History Splenectomy (Anny Rosen) Coded Allergies: Sulfa (Sulfonamide Antibiotics) (Verified Allergy, Severe, 09/09/17) Medications Administered Medications Medications (Trade) Dose Ordered Sig/Nelda Route PRN Reason Start Time Stop Time Status Last Admin Dose Admin Cholecalciferol (Vitamin D3) 5,000 units DAILY PO 09/10/17 09:00 09/12/17 09:20 Duloxetine HCl (Cymbalta Dr) 60 mg DAILY PO 09/10/17 09:00 09/12/17 09:20 Folic Acid (Folate) 1 mg DAILY PO 09/10/17 09:00 09/12/17 09:20 Tizanidine HCl (Zanaflex) 4 mg DAILY PO 09/10/17 09:00 09/12/17 09:21 Verapamil HCl (Isoptin Sr) 120 mg DAILY PO 09/10/17 09:00 09/12/17 09:20 Vitamin B Complex/ Vit C/Folic Acid (Nephrocaps) 1 cap DAILY PO 09/10/17 09:00 09/12/17 09:00 Sodium Chloride (NS Flush) 2 ml BID IV FLUSH 09/09/17 21:00 09/12/17 09:21 Acetaminophen (Tylenol) 650 mg Q4H PRN PO Fever, pain 1-4, headache 09/09/17 18:00 09/09/17 22:41 Magnesium Hydroxide (Milk Of Benito Liq) 30 ml Q12H PRN PO Mild constipation 09/09/17 18:00 09/11/17 06:53 Acetaminophen/ Hydrocodone Bitart ([place] 7.5-325 Mg) 1 tab Q6H PRN PO PAIN SCALE 5 TO 10 09/10/17 09:30 09/11/17 22:02 Methylprednisolone Sodium Succinate (SoluMEDROL INJ) 60 mg Q12HR IV PUSH 09/10/17 21:00 09/12/17 09:20 Clonidine (Catapres) 0.1 mg Q6H PRN PO SBP>160, DBP>90 09/11/17 06:45 09/11/17 06:53 Acetaminophen (Tylenol) 650 mg UNSCH X1 PO 09/11/17 22:45 09/12/17 22:44 09/12/17 03:27 Diphenhydramine HCl (Benadryl) 25 mg UNSCH X1 PO 09/11/17 22:45 09/12/17 22:44 09/12/17 03:27 Albuterol/ Ipratropium (Duoneb Neb) 1 ampule Q6HR NEB NEB 09/12/17 05:00 09/12/17 09:26 Heparin Sodium/ Dextrose 250 ml @ 14.8 mls/hr TITRATE PRN IV Coagulation Management 09/12/17 10:00 09/12/17 14:22 Pantoprazole Sodium (Protonix Inj) 40 mg Q12H IV PUSH 09/12/17 10:00 09/12/17 11:08 Sodium Bicarbonate 100 meq/Dextrose 1,100 ml @ 100 mls/hr Q11H IV 09/12/17 15:00 09/13/17 01:59 09/12/17 14:29 Folic Acid (Folate) 1 mg DAILY PO 09/12/17 14:00 09/12/17 14:19 Non-Formulary Medication MUCOMYST 20% 4 ML VIAL 60... BID PO 09/12/17 14:30 09/13/17 21:01 09/12/17 14:28 Family History Mom: HTN Social History Tobacco use: Never a smoker Alcohol use: Denies Illicit drug use: Denies (Anny Rosen) Review of Systems Constitutional: COMPLAINS OF: Fatigue Respiratory: COMPLAINS OF: Shortness of breath Cardiovascular: COMPLAINS OF: Chest pain (mid sternal) Gastrointestinal: COMPLAINS OF: Abdominal pain (diffuse) (Anny Rosen ) GI Exam Vitals I&O Vital Signs Date Time Temp Pulse Resp B/P (MAP) Pulse Ox O2 Delivery O2 Flow Rate FiO2 09/12/17 09:30 Nasal Cannula 5.00 09/12/17 08:00 95 Partial Non-Rebreather 8.00 09/12/17 07:32 98.1 95 20 156/89 99 09/12/17 07:06 98 Partial Rebreather 10.00 09/12/17 06:25 100 Partial Non-Rebreather 10.00 09/12/17 06:20 87 Venturi Mask 6.00 50 09/12/17 06:19 97.5 103 22 161/74 (103) 87 09/12/17 06:17 97.5 103 22 161/74 87 09/12/17 06:17 86 Venturi Mask 6.00 50 09/12/17 05:20 88 Venturi Mask 50 09/12/17 05:07 88 Venturi Mask 6.00 50 09/12/17 05:04 97.6 97 18 178/79 88 09/12/17 04:44 97.4 96 18 160/75 90 09/12/17 04:43 90 Venturi Mask 6.00 50 09/12/17 04:23 97.6 88 18 158/71 90 09/12/17 03:55 83 Venturi Mask 50 09/12/17 03:30 97.5 88 24 171/77 (108) 88 09/12/17 01:26 97 09/12/17 01:13 90 Nasal Cannula 4.00 09/11/17 23:55 97.4 98 24 146/67 (93) 88 09/11/17 22:35 97.7 96 24 160/74 (102) 88 09/11/17 21:46 97.9 93 22 166/75 (105) 88 09/11/17 20:00 88 Nasal Cannula 4.00 09/11/17 19:44 84 09/11/17 16:30 88 Nasal Cannula 4.50 09/11/17 15:59 84 I/O 09/11/17 09/11/17 09/11/17 09/12/17 09/12/17 09/12/17 07:00 15:00 23:00 07:00 15:00 23:00 Intake Total 1045 ml 240 ml 410 ml Output Total 300 ml 175 ml Balance 745 ml 65 ml 410 ml Intake Oral 200 ml 240 ml Packed Cells 800 ml 400 ml Blood Product IV Normal Saline Flush 45 ml 10 ml Output Urine Total 300 ml 175 ml # Bowel Movements 0 0 Imaging Last Impressions Chest X-Ray 09/12/17 0000 Signed Impressions: Service Date/Time: Tuesday, September 12, 2017 09:56 - CONCLUSION: No acute disease. Jaden Lopez MD CT Angiography 09/12/17 0000 Signed Impressions: Service Date/Time: Tuesday, September 12, 2017 11:38 - CONCLUSION: 1. Mild pulmonary emboli in several distal right lower lobe pulmonary arteries. 2. Coronary artery calcifications. Jaden Lopez MD Lower Extremity Ultrasound 09/10/17 0000 Signed Impressions: Service Date/Time: Sunday, September 10, 2017 08:16 - CONCLUSION: 1. No sonographic evidence for right lower extremity DVT. Rob Nascimento MD Laboratory Test 09/11/17 14:49 09/12/17 05:50 09/12/17 11:29 09/12/17 12:35 Hemoglobin 6.9 GM/DL 8.6 GM/DL Hematocrit 21.7 % 27.2 % Blood Gas Puncture Site LT RADIAL RT RADIAL Blood Gas Patient Temperature 98.6 98.6 Blood Gas HCO3 22 mmol/L 20 mmol/L Blood Gas Base Excess -1.6 mmol/L -3.6 mmol/L Blood Gas Oxygen Saturation 90 % 96 % Arterial Blood pH 7.44 7.45 Arterial Blood Partial Pressure CO2 33 mmHg 29 mmHg Arterial Blood Partial Pressure O2 70 mmHg 313 mmHg Arterial Blood Oxygen Content 10.5 Vol % 11.8 Vol % Arterial Blood Carboxyhemoglobin 5.0 % 3.0 % Arterial Blood Methemoglobin 1.0 % 1.1 % Blood Gas Hemoglobin 8.3 G/DL 8.1 G/DL Oxygen Delivery Device VENTURI MASK PRB Blood Gas Inspired Oxygen 50 % White Blood Count 26.0 TH/MM3 Red Blood Count 2.22 MIL/MM3 Mean Corpuscular Volume 122.5 FL Mean Corpuscular Hemoglobin 38.7 PG Mean Corpuscular Hemoglobin Concent 31.6 % Red Cell Distribution Width 34.7 % Platelet Count 435 TH/MM3 Mean Platelet Volume 7.2 FL Neutrophils (%) (Auto) 89.2 % Lymphocytes (%) (Auto) 5.0 % Monocytes (%) (Auto) 5.4 % Eosinophils (%) (Auto) 0.0 % Basophils (%) (Auto) 0.4 % Neutrophils # (Auto) 23.3 TH/MM3 Lymphocytes # (Auto) 1.3 TH/MM3 Monocytes # (Auto) 1.4 TH/MM3 Eosinophils # (Auto) 0.0 TH/MM3 Basophils # (Auto) 0.1 TH/MM3 CBC Comment AUTO DIFF Differential Total Cells Counted 100 Neutrophils % (Manual) 84 % Band Neutrophils % 8 % Lymphocytes % 2 % Monocytes % 3 % Neutrophils # (Manual) 24.7 TH/MM3 Myelocytes 3 % Nucleated Red Blood Cells 131 /100 WBC Differential Comment FINAL DIFF MANUAL Platelet Estimate NORMAL Platelet Morphology Comment NORMAL Polychromasia 6.5 % Basophilic Stippling HEAVY [place] Bodies PRESENT Reticulocyte Count 25.8 % Absolute Reticulocyte Count 584.5 MIL/L Prothrombin Time 11.3 SEC Prothromb Time International Ratio 1.1 RATIO Activated Partial Thromboplast Time 21.8 SEC Fibrinogen 301 mg/dL Blood Urea Nitrogen 44 MG/DL Creatinine 1.40 MG/DL Random Glucose 220 MG/DL Albumin 3.6 GM/DL Calcium Level 8.5 MG/DL Phosphorus Level 4.8 MG/DL Magnesium Level 2.8 MG/DL Sodium Level 138 MEQ/L Potassium Level 3.9 MEQ/L Chloride Level 102 MEQ/L Carbon Dioxide Level 22.9 MEQ/L Anion Gap 13 MEQ/L Estimat Glomerular Filtration Rate 36 ML/MIN Iron Level 125 MCG/DL Total Iron Binding Capacity 360 MCG/DL Percent Iron Saturation 34.7 % Ferritin 1135 NG/ML Total Bilirubin 4.2 MG/DL Direct Bilirubin 2.1 MG/DL Indirect Bilirubin 2.1 MG/DL Ammonia 38 MCMOL/L Lactate Dehydrogenase 538 U/L Total Creatine Kinase 85 U/L Troponin I 1.04 NG/ML Amylase Level 37 U/L Lipase 69 U/L Free Thyroxine 1.10 NG/DL Thyroid Stimulating Hormone 3rd Gen 1.300 uIU/ML Random Cortisol 24.8 MCG/DL Blood Gas Liter Flow 15 L/M Physical Examination HEENT: Pupils round and reactive to light; normocephalic; atraumatic; no jaundice. Throat is clear. NECK: Neck is supple, no JVD, no lymphadenopathy. CHEST: Chest is clear to auscultation and percussion. CARDIAC: Regular rate and rhythm with no murmur gallop or rubs. ABDOMEN: Soft, nondistended, nontender; no hepatosplenomegaly; bowel sounds are present in all four quadrants. EXTREMITIES: No clubbing, cyanosis, or edema. SKIN: Normal; no rash; no jaundice. DATA COLLECTION TECHNICIAN: No focal deficits; alert and oriented times three. (Anny Rosen) Assessment and Plan Assessment: (1) Macrocytic anemia ICD Codes: D53.9 - Nutritional anemia, unspecified (2) Symptomatic anemia ICD Codes: D64.9 - Anemia, unspecified Status: Acute (3) Pulmonary embolism ICD Codes: I26.99 - Other pulmonary embolism without acute cor pulmonale (4) Severe anemia ICD Codes: D64.9 - Anemia, unspecified Plan Patient currently has shortness of breath, being managed on 100% nonrebreather. If she becomes ventilated with ET tube, GI could possibly do EGD with protected airway present. Otherwise timing TBA. Symptomatic macrocytic ,hemolytic ,anemia. Hemoglobin is now 8.6 after receiving 3 units of packed RBCs and 2 units of platelets. Abdominal pain unspecified, describes as a sick feeling and diffuse pain. Possibly secondary to the symptomatic anemia, bleeding, inflammation, infection , autoimmune disorders. Hyperbilirubinemia, with equal direct and indirect delivery., Possible hemolytic in nature. Leukocytosis probably secondary to IV steroids Pulmonary emboli, per CT with acute symptoms of shortness of breath, patient has now been taken off Xarelto and placed on heparin drip. Plan Monitor labs with special attention to hemoglobin hematocrit platelets Will monitor for any acute bleeding and hemorrhage please call GI Will consider EGD when patient is stable time TBA, or if patient is placed on ventilator management could possibly do at an earlier time with a protected airway Hemoccult stools 2 Liver workup, multiple labs with alpha-fetoprotein, hepatitis profile, ceruloplasmin, smooth muscle auto labs, a NA, IgG, hereditary hemochromatosis Supportive care to patient and family Protonix IV PPI, intensive care setting This patient has been seen by myself and Dr. Dodge, note was written on his behalf (Anny Rosen) Physician Comments Seen and examined with CLOTH LAMINATING SUPERVISOR, no active bleeding reported. S.O.B main issue now. Guaiac stools, liver casas ordered. Reorts colonoscopy about 1 year ago. Gi csaas depending upon clinical course. Thank you (Baldo Dodge MD) Anny Rosen Sep 12, 2017 13:52 Baldo Dodge MD Sep 12, 2017 15:47
--- NOTE | 2017-09-12 14:03 | PD.ONC.PN ---
Subjective Subjective Remarks Afebrile overnight. Patient resting in bed with NRB mask in place. She is anxious but otherwise in nad. Family members at bedside. Denies obvious bleeding. she has not had a bowel movement in three days. Objective Data Date Time Temp Pulse Resp B/P (MAP) Pulse Ox O2 Delivery O2 Flow Rate FiO2 09/12/17 09:30 Nasal Cannula 5.00 09/12/17 08:00 95 Partial Non-Rebreather 8.00 09/12/17 07:32 98.1 95 20 156/89 99 09/12/17 07:06 98 Partial Rebreather 10.00 09/12/17 06:25 100 Partial Non-Rebreather 10.00 09/12/17 06:20 87 Venturi Mask 6.00 50 09/12/17 06:19 97.5 103 22 161/74 (103) 87 09/12/17 06:17 97.5 103 22 161/74 87 09/12/17 06:17 86 Venturi Mask 6.00 50 09/12/17 05:20 88 Venturi Mask 50 09/12/17 05:07 88 Venturi Mask 6.00 50 09/12/17 05:04 97.6 97 18 178/79 88 09/12/17 04:44 97.4 96 18 160/75 90 09/12/17 04:43 90 Venturi Mask 6.00 50 09/12/17 04:23 97.6 88 18 158/71 90 09/12/17 03:55 83 Venturi Mask 50 09/12/17 03:30 97.5 88 24 171/77 (108) 88 09/12/17 01:26 97 09/12/17 01:13 90 Nasal Cannula 4.00 09/11/17 23:55 97.4 98 24 146/67 (93) 88 09/11/17 22:35 97.7 96 24 160/74 (102) 88 09/11/17 21:46 97.9 93 22 166/75 (105) 88 09/11/17 20:00 88 Nasal Cannula 4.00 09/11/17 19:44 84 09/11/17 16:30 88 Nasal Cannula 4.50 09/11/17 15:59 84 09/12/17 09/12/17 09/12/17 07:00 15:00 23:00 Intake Total 240 ml 410 ml Output Total 175 ml Balance 65 ml 410 ml Result Diagram: 09/12/17 1129 09/12/17 1129 Laboratory Results Laboratory Tests Test 09/11/17 14:49 09/12/17 05:50 09/12/17 11:29 09/12/17 12:35 Hemoglobin 6.9 GM/DL 8.6 GM/DL Hematocrit 21.7 % 27.2 % Blood Gas Puncture Site LT RADIAL RT RADIAL Blood Gas Patient Temperature 98.6 98.6 Blood Gas HCO3 22 mmol/L 20 mmol/L Blood Gas Base Excess -1.6 mmol/L -3.6 mmol/L Blood Gas Oxygen Saturation 90 % 96 % Arterial Blood pH 7.44 7.45 Arterial Blood Partial Pressure CO2 33 mmHg 29 mmHg Arterial Blood Partial Pressure O2 70 mmHg 313 mmHg Arterial Blood Oxygen Content 10.5 Vol % 11.8 Vol % Arterial Blood Carboxyhemoglobin 5.0 % 3.0 % Arterial Blood Methemoglobin 1.0 % 1.1 % Blood Gas Hemoglobin 8.3 G/DL 8.1 G/DL Oxygen Delivery Device VENTURI MASK PRB Blood Gas Inspired Oxygen 50 % White Blood Count 26.0 TH/MM3 Red Blood Count 2.22 MIL/MM3 Mean Corpuscular Volume 122.5 FL Mean Corpuscular Hemoglobin 38.7 PG Mean Corpuscular Hemoglobin Concent 31.6 % Red Cell Distribution Width 34.7 % Platelet Count 435 TH/MM3 Mean Platelet Volume 7.2 FL Neutrophils (%) (Auto) 89.2 % Lymphocytes (%) (Auto) 5.0 % Monocytes (%) (Auto) 5.4 % Eosinophils (%) (Auto) 0.0 % Basophils (%) (Auto) 0.4 % Neutrophils # (Auto) 23.3 TH/MM3 Lymphocytes # (Auto) 1.3 TH/MM3 Monocytes # (Auto) 1.4 TH/MM3 Eosinophils # (Auto) 0.0 TH/MM3 Basophils # (Auto) 0.1 TH/MM3 CBC Comment AUTO DIFF Differential Total Cells Counted 100 Neutrophils % (Manual) 84 % Band Neutrophils % 8 % Lymphocytes % 2 % Monocytes % 3 % Neutrophils # (Manual) 24.7 TH/MM3 Myelocytes 3 % Nucleated Red Blood Cells 131 /100 WBC Differential Comment FINAL DIFF MANUAL Platelet Estimate NORMAL Platelet Morphology Comment NORMAL Polychromasia 6.5 % Basophilic Stippling HEAVY [place] Bodies PRESENT Reticulocyte Count 25.8 % Absolute Reticulocyte Count 584.5 MIL/L Prothrombin Time 11.3 SEC Prothromb Time International Ratio 1.1 RATIO Activated Partial Thromboplast Time 21.8 SEC Fibrinogen 301 mg/dL Blood Urea Nitrogen 44 MG/DL Creatinine 1.40 MG/DL Random Glucose 220 MG/DL Albumin 3.6 GM/DL Calcium Level 8.5 MG/DL Phosphorus Level 4.8 MG/DL Magnesium Level 2.8 MG/DL Sodium Level 138 MEQ/L Potassium Level 3.9 MEQ/L Chloride Level 102 MEQ/L Carbon Dioxide Level 22.9 MEQ/L Anion Gap 13 MEQ/L Estimat Glomerular Filtration Rate 36 ML/MIN Iron Level 125 MCG/DL Total Iron Binding Capacity 360 MCG/DL Percent Iron Saturation 34.7 % Ferritin 1135 NG/ML Total Bilirubin 4.2 MG/DL Direct Bilirubin 2.1 MG/DL Indirect Bilirubin 2.1 MG/DL Ammonia 38 MCMOL/L Lactate Dehydrogenase 538 U/L Total Creatine Kinase 85 U/L Troponin I 1.04 NG/ML Amylase Level 37 U/L Lipase 69 U/L Free Thyroxine 1.10 NG/DL Thyroid Stimulating Hormone 3rd Gen 1.300 uIU/ML Random Cortisol 24.8 MCG/DL Blood Gas Liter Flow 15 L/M Imaging Studies Last 24 hours Impressions Chest X-Ray 09/12/17 0000 Signed Impressions: Service Date/Time: Tuesday, September 12, 2017 09:56 - CONCLUSION: No acute disease. Jaden Lopez MD CT Angiography 09/12/17 0000 Signed Impressions: Service Date/Time: Tuesday, September 12, 2017 11:38 - CONCLUSION: 1. Mild pulmonary emboli in several distal right lower lobe pulmonary arteries. 2. Coronary artery calcifications. Jaden Lopez MD Administered Medications Medications (Trade) Dose Ordered Sig/Nelda Route PRN Reason Start Time Stop Time Status Last Admin Dose Admin Cholecalciferol (Vitamin D3) 5,000 units DAILY PO 09/10/17 09:00 09/12/17 09:20 Duloxetine HCl (Cymbalta Dr) 60 mg DAILY PO 09/10/17 09:00 09/12/17 09:20 Folic Acid (Folate) 1 mg DAILY PO 09/10/17 09:00 09/12/17 09:20 Tizanidine HCl (Zanaflex) 4 mg DAILY PO 09/10/17 09:00 09/12/17 09:21 Verapamil HCl (Isoptin Sr) 120 mg DAILY PO 09/10/17 09:00 09/12/17 09:20 Vitamin B Complex/ Vit C/Folic Acid (Nephrocaps) 1 cap DAILY PO 09/10/17 09:00 09/12/17 09:00 Sodium Chloride (NS Flush) 2 ml BID IV FLUSH 09/09/17 21:00 09/12/17 09:21 Acetaminophen (Tylenol) 650 mg Q4H PRN PO Fever, pain 1-4, headache 09/09/17 18:00 09/09/17 22:41 Magnesium Hydroxide (Milk Of [place]ito [place]) 30 ml Q12H PRN PO Mild constipation 09/09/17 18:00 09/11/17 06:53 Acetaminophen/ Hydrocodone Bitart ([place] 7.5-325 Mg) 1 tab Q6H PRN PO PAIN SCALE 5 TO 10 09/10/17 09:30 09/11/17 22:02 Methylprednisolone Sodium Succinate (SoluMEDROL INJ) 60 mg Q12HR IV PUSH 09/10/17 21:00 09/12/17 09:20 Clonidine (Catapres) 0.1 mg Q6H PRN PO SBP>160, DBP>90 09/11/17 06:45 09/11/17 06:53 Acetaminophen (Tylenol) 650 mg UNSCH X1 PO 09/11/17 22:45 09/12/17 22:44 09/12/17 03:27 Diphenhydramine HCl (Benadryl) 25 mg UNSCH X1 PO 09/11/17 22:45 09/12/17 22:44 09/12/17 03:27 Albuterol/ Ipratropium (Duoneb Neb) 1 ampule Q6HR NEB NEB 09/12/17 05:00 09/12/17 09:26 Pantoprazole Sodium (Protonix Inj) 40 mg Q12H IV PUSH 09/12/17 10:00 09/12/17 11:08 Objective Remarks GENERAL: Elderly female, upright in bed on O2 via partial NRB SKIN: Warm and dry. HEAD: Normocephalic. EYES: No injection or drainage. NECK: Supple, trachea midline. CARDIOVASCULAR: tachycardic rate, regular rhythm RESPIRATORY: anterior paul with occasional rhonchi. GASTROINTESTINAL: Abdomen soft, non-tender, nondistended. EXTREMITIES: No cyanosis NEUROLOGICAL: No obvious focal deficit. Awake, alert, and oriented x3. 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 --LDH is elevated, haptoglobin is low and direct Dejon test is strongly positive. I will start this patient on steroids, --on Solu-Medrol 60 mg IV b.i.d. -- peripheral smear --stool Hemoccult pending Assessment 81y/o female with a history of pulmonary embolism admitted with progressive dyspnea and was found to be severely anemic. history of iron deficiency anemia, hypertension, osteoarthritis, chronic back pain and recent diagnosis of pulmonary embolism (was on xarelto outpatient) History of splenectomy Plan 1. start heparin. 2. obtain stool Hemoccult as soon as possible 3. monitor serial H/H 4. continue solu-medrol 5. hold Azathioprine. Attending Statement The exam, history, and the medical decision-making described in the above note were completed with the assistance of the mid-level provider. I reviewed and agree with the findings presented. I attest that I had a [id number] encounter with the patient on the same day, and personally performed and documented my assessment and findings in the medical record. Dejon positive hemolysis continue steroids closely monitor Hb and transfuse pRBC OK to start Heparin GTT for PE Stool heme-occult pending Leukocytosis is reactive d/w Dr. Cornejo 0/n events reviewed Reva Perez Sep 12, 2017 14:03 Reuben Means MD Sep 12, 2017 22:52
[2017-09-12] MEDS: HEPARIN-D5W 25,000 U/250 ML 250 ML IV PRN (14:22)
[2017-09-12] MEDS: [UNRECOGNIZED DRUG - REMARK] PO SCH ×2 (14:28→20:27)
[2017-09-12] MEDS ORDERED: SODIUM BICARBONATE 8.4% INJ 100 MEQ in DEXTROSE 5% IN WATE 1000ML INJ 1,000 ML IV SCH ×2 (15:00)
[2017-09-12] MEDS ORDERED: SODIUM CHLORIDE 0.9% FLUSH 10 ML FLUSH IV FLUSH PRN (15:15)
--- NOTE | 2017-09-12 15:17 | PD.PROCEDR ---
Central Line Procedure REASON FOR PROCEDURE Central venous access PROCEDURE PERFORMED Central line placement: Right IJ CVL CONSENT Informed consent for procedure was obtained. The risks and benefits of the procedure were discussed to include but limited to bleeding, clot formation, infection, and even . ANESTHESIA Local injection of 1% Lidocaine DESCRIPTION OF THE PROCEDURE The patient was placed in supine, mild Trendelenburg position. The area was exposed and cleansed with ChloraPrep, times two. Large sterile drape was used to cover the patient, with the site exposed, under sterile conditions including cap, face mask, sterile gown, and sterile gloves. On single attempt, the introducer needle was inserted with negative pressure in syringe and venous flash was obtained. The guide wire was then advanced without any restriction and the needle was removed. The dilator was used without any complications. Using Seldinger technique the antibiotic coated triple-lumen catheter was advanced over the guide wire to a depth of 16 centimeters. The guide wire was removed. All ports were aspirated with dark venous blood return and flushed easily with sterile saline. All ports were capped. Antibiotic disc was placed around central line at puncture site. The central line was secured to the skin with two interrupted 2.0 silk sutures. The area was bandaged with sterile see- through central line bandage. Noted initially attempted left IJ CVL. On 2 attempts, the introducer needle was inserted with negative pressure in syringe and venous flash was obtained. The guidewire was unable to be passed/quilling back on itself 2. Procedure was stopped pressure was applied for 5 minutes. Noted hematoma after procedure however not raised post procedure. We'll continue to actively monitor RADIOLOGICAL DATA Ultrasound guidance was used to locate right internal jugular vein. Doppler/ color flow was used to confirm venous flow. COMPLICATIONS: No apparent complications ESTIMATED BLOOD LOSS: Less than 1 cc. Yobani Cornejo MD Sep 12, 2017 15:17
--- NOTE | 2017-09-12 16:05 | RADRPT ---
EXAM DATE/TIME: 09/12/2017 15:27 [facility] COMPARISON: CHEST SINGLE AP, September 12, 2017, 9:56. INDICATIONS : Evaluate for central line placement. MEDICAL HISTORY : Hypercholesterolemia. Arthritis. Osteoarthritis. Thyroid disease. Chest pain. HTN. Shortness of breat h. Anemia. GERD. Renal calculi. Depression. Anxiety. SURGICAL HISTORY : Hysterectomy. Blood transfusions. ENCOUNTER: Subsequent ACUITY: 1 day PAIN SCORE: Non-responsive. LOCATION: chest FINDINGS: Interval placement of right IJ central line with tip in the SVC. No significant pneumothorax. No new focal pleural-parenchymal opacities. Cardiomediastinal contours are stable. Remainder of the exam is unchanged. CONCLUSION: 1. Right IJ central line in the SVC without pneumothorax. Rob Nascimento MD on September 12, 2017 at 16:02 Board Certified Radiologist. This report was verified electronically.
[2017-09-12 17:03] LABS: BILIRUBIN, URINE NEG (NEG); BLOOD, URINE LARGE (NEG); GLUCOSE,URINE NEG (NEG); KETONE, URINE NEG (NEG); MUCUS URINE FEW /lpf (OCC); NITRITE,URINE NEG (NEG); PH, URINE 5.5 (5.0-8.5); SQUAMOUS EPITHELIAL CELL URINE 1 /hpf (0-5); URINE LEUKOCYTE ESTERASE TRACE (NEG); WHITE BLOOD CELL CLUMPS RARE
[2017-09-12 17:05] LABS: URINE COLOR LIGHT-RED (YELLW/STRAW)
[2017-09-12] MEDS: SODIUM CHLOR 0.9% 1000 ML INJ 1,000 ML IV SCH (17:13)
[2017-09-12] MEDS: ACETAMINOPHEN/HYDROcodone 325 MG/7.5 MG TAB PO PRN ×2 (17:16→20:23)
[2017-09-12] MEDS: INSULIN NovoLIN REGULAR SUPPLEMENTAL SCALE SQ SCH ×2 (17:16→20:24)
--- NOTE | 2017-09-12 17:36 | HHI.PR ---
Subjective Remarks 81 YOWF with Bilat PE, Severe Anemea Had PRBC Breathing better Started Heparin Moved to [facility] Objective Vital Signs Vital Signs Date Time Temp Pulse Resp B/P (MAP) Pulse Ox O2 Delivery O2 Flow Rate FiO2 09/12/17 09:30 Nasal Cannula 5.00 09/12/17 08:00 95 Partial Non-Rebreather 8.00 09/12/17 07:32 98.1 95 20 156/89 99 09/12/17 07:06 98 Partial Rebreather 10.00 09/12/17 06:25 100 Partial Non-Rebreather 10.00 09/12/17 06:20 87 Venturi Mask 6.00 50 09/12/17 06:19 97.5 103 22 161/74 (103) 87 09/12/17 06:17 97.5 103 22 161/74 87 09/12/17 06:17 86 Venturi Mask 6.00 50 09/12/17 05:20 88 Venturi Mask 50 09/12/17 05:07 88 Venturi Mask 6.00 50 09/12/17 05:04 97.6 97 18 178/79 88 09/12/17 04:44 97.4 96 18 160/75 90 09/12/17 04:43 90 Venturi Mask 6.00 50 09/12/17 04:23 97.6 88 18 158/71 90 09/12/17 03:55 83 Venturi Mask 50 09/12/17 03:30 97.5 88 24 171/77 (108) 88 09/12/17 01:26 97 09/12/17 01:13 90 Nasal Cannula 4.00 09/11/17 23:55 97.4 98 24 146/67 (93) 88 09/11/17 22:35 97.7 96 24 160/74 (102) 88 09/11/17 21:46 97.9 93 22 166/75 (105) 88 09/11/17 20:00 88 Nasal Cannula 4.00 09/11/17 19:44 84 I/O 09/11/17 09/11/17 09/11/17 09/12/17 09/12/17 09/12/17 07:00 15:00 23:00 07:00 15:00 23:00 Intake Total 1045 ml 240 ml 410 ml Output Total 300 ml 175 ml Balance 745 ml 65 ml 410 ml Intake Oral 200 ml 240 ml Packed Cells 800 ml 400 ml Blood Product IV Normal Saline Flush 45 ml 10 ml Output Urine Total 300 ml 175 ml # Bowel Movements 0 0 Result Diagram: 09/12/17 1129 09/12/17 1129 Objective Remarks GENERAL: Elderly WF, mild sob SKIN: Warm and dry. HEAD: Normocephalic. EYES: No scleral icterus. No injection or drainage. NECK: Supple, trachea midline. No JVD or lymphadenopathy. CARDIOVASCULAR: Regular rate and rhythm without murmurs, gallops, or rubs. RESPIRATORY: Breath sounds equal bilaterally. No accessory muscle use. GASTROINTESTINAL: Abdomen soft, non-tender, nondistended. MUSCULOSKELETAL: No cyanosis, or edema. BACK: Nontender without obvious deformity. No CVA tenderness. A/P Assessment and Plan Bilat PE Dysnoea Severe Anemea ? Hemolysis Arthritis PLAN: Supplement 02 Off AC due to severe Anemea IV Solumedrol Hematology following Heparin drip Tucker Merino MD Sep 12, 2017 17:35
--- NOTE | 2017-09-12 19:01 | MB ---
cc: JO JAIN M.D. DATE OF CONSULTATION: 09/12/2017. REASON FOR CONSULTATION: Abnormal troponin level. HISTORY OF PRESENT ILLNESS: The patient is a 81-year-old white female with a history of hypertension, hyperlipidemia, early Alzheimer's, chronic anemia, recently diagnosed pulmonary emboli who presented to the hospital with increasing shortness of breath. The patient states she has been short of breath really for at least a year but recently her dyspnea has considerably worsened. She denies orthopnea, paroxysmal nocturnal dyspnea, hemoptysis, syncope, near-syncope, palpitations, lightheadedness. In the last two days she has had intermittent episodes of substernal chest pressure, with onset possibly associated with paroxysms of increased shortness of breath. Since coming into the hospital, her dyspnea has very minimally improved. She denies any leg swelling or pain. PAST MEDICAL HISTORY: 1. Hypertension. 2. Hyperlipidemia. 3. Nephrolithiasis. 4. Early Alzheimer's disease. 5. Chronic anemia. 6. Pulmonary emboli with CT angiography of the chest today showing mild pulmonary emboli in several distal right lower lobe pulmonary arteries. PAST SURGICAL HISTORY: 1. Hysterectomy. 2. 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 CARDIAC MEDICATIONS AT HOME: Her current cardiac medications include: 1. Heparin drip. 2. Verapamil SR 120 milligrams p.o. daily. ALLERGIES: SULFA. FAMILY HISTORY: Her family history is noncontributory. SOCIAL HISTORY: The patient denies alcohol or tobacco abuse. REVIEW OF SYSTEMS: Review of systems as in the history of present illness otherwise negative or noncontributory. She also denies abdominal pain, melena, dyspepsia, bright red blood per rectum, cough, wheezing. PHYSICAL EXAMINATION: VITAL SIGNS: On physical examination, her blood pressure 156/89 with a pulse of 95, respirations 20. GENERAL: In general, she is a well-developed, well-nourished white female in mild respiratory distress. HEAD, EYES, EARS, NOSE, THROAT: On HEENT examination, jugular venous pressure is normal. Carotid pulses are 2+ bilaterally and without bruits. CHEST: Examination of the chest reveals clear lung paul. CARDIAC: On cardiac examination she has a tachycardic regular rhythm without S3, S4 or murmur. ABDOMEN: On abdominal examination, she has a soft, nontender abdomen. Bowel sounds are present. There is no definite hepatosplenomegaly. EXTREMITIES: No cyanosis, clubbing or edema. EKGS: EKG from 09/12/2017 it 12:25 p.m. shows sinus rhythm, anterior and inferior T-wave inversion, consider ischemia. IMAGING STUDIES: Chest x-ray shows no acute disease. LABORATORY DATA: Laboratory data includes WBC 26.0, hemoglobin 8.6 (yesterday 6.9), platelets 435, potassium 3.9, BUN 44, creatinine 1.40, troponin 1.04, INR 1.1. IMPRESSION: Abnormal troponin level in this 81-year-old white female with a history of recently diagnosed pulmonary emboli, history of chronic anemia, Alzheimer's disease, hypertension, hyperlipidemia. Overall I doubt the elevation in troponin is due to acute myocardial ischemia or infarct. CK level is normal despite considerable chest pain and dyspnea over the past two to three days. I suspect the EKG changes may be due to pulmonary emboli as well. Her echocardiogram does suggest severe right ventricular dysfunction with moderate dilation of the right ventricle. 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 At this point she is overall a poor candidate for invasive cardiac evaluation. RECOMMENDATIONS: 1. Continue anticoagulation therapy with heparin drip. 2. No additional cardiac workup at this point; could consider nuclear stress test or coronary CTA as an outpatient. Consider empiric therapy of possible underlying coronary artery disease. MD REBEKAH Jimenez/CORTEZ /5:49 PM /6:34 PM AMAURI
[2017-09-13] VITALS (16 sets, daily range): BP systolic 80–187; BP diastolic 45–88; PULSE 77–97; RESP 13–25; TEMP 97.8–98.3; O2SAT 86–100
[2017-09-13] MEDS: cloNIDine HCL 0.1 MG TAB PO PRN (01:05)
[2017-09-13] MEDS ORDERED: hydrALAZINE HCL 20 MG/ML VIAL IV PUSH PRN ×2 (02:30→06:30)
[2017-09-13] MEDS: SODIUM CHLOR 0.9% 1000 ML INJ 1,000 ML IV SCH (04:08)
[2017-09-13] MEDS: RESP: ALBUTEROL 2.5 MG/IPRATROPIUM 0.5 MG NEB (SCH) NEB ×4 (04:21→20:32)
[2017-09-13 06:23] LABS: AUTOMATED NEUTROPHIL # 16.2 TH/MM3 (1.8-7.7); BASOPHIL # 0.1 TH/MM3 (0-0.2); BASOPHIL % 0.3 % (0.0-2.0); HEMATOCRIT 25.6 % (35.0-46.0); HEMOGLOBIN 7.9 GM/DL (11.6-15.3); LYMPH % 4.1 % (9.0-44.0); LYMPHOCYTE # 0.7 TH/MM3 (1.0-4.8); MEAN CELL VOLUME 119.5 FL (80.0-100.0); MEAN CORPUSCULAR HEMOGLOBIN 36.8 PG (27.0-34.0); MEAN CORPUSCULAR HGB CONC 30.8 % (32.0-36.0); MEAN PLATELET VOLUME 7.3 FL (7.0-11.0); MONO % 6.4 % (0.0-8.0); MONOCYTE # 1.2 TH/MM3 (0-0.9); NEUT % 89.2 % (16.0-70.0); PLATELET COUNT 362 TH/MM3 (150-450); RED BLOOD COUNT 2.14 MIL/MM3 (4.00-5.30); WHITE BLOOD COUNT 18.2 TH/MM3 (4.0-11.0)
[2017-09-13] MEDS ORDERED: LABETALOL HCL 100 MG/20 ML VIAL IV PUSH PRN (06:30)
[2017-09-13 06:45] LABS: ALBUMIN 3.3 GM/DL (3.4-5.0); ALKALINE PHOSPHATASE 148 U/L (45-117); ALT (GPT) 78 U/L (10-53); AST (GOT) 41 U/L (15-37); BICARBONATE 27.3 MEQ/L (21.0-32.0); BLOOD UREA NITROGEN 43 MG/DL (7-18); CALCIUM 7.9 MG/DL (8.5-10.1); CHLORIDE 103 MEQ/L (98-107); CREATININE 1.13 MG/DL (0.50-1.00); GLOMERULAR FILTRATION RATE 46 ML/MIN (>89); GLUCOSE,RANDOM 159 MG/DL (74-106); MAGNESIUM 2.8 MG/DL (1.5-2.5); PHOSPHORUS 4.2 MG/DL (2.5-4.9); SODIUM (NA) 140 MEQ/L (136-145); TOTAL PROTEIN 6.2 GM/DL (6.4-8.2)
[2017-09-13 07:18] LABS: CORRECTED NUCLEATED RBC 108 /100 WBC (0-0); LYMPHOCYTES 4 % (9-44); MONOCYTES 6 % (0-8); MYELOCYTES 1 % (0-0); NEUTROPHIL # MANUAL DIFF 16.4 TH/MM3 (1.8-7.7); NUCLEATED RED BLOOD CELL 108 (0-0); POLYS (SEG NEUTROPHILS) 89 % (16-70)
[2017-09-13 07:19] LABS: POLYCHROMASIA 8.5 % (0.0-1.9)
[2017-09-13 07:20] LABS: HOWELL-JOLLY BODIES PRESENT (NONE SEEN)
[2017-09-13] MEDS: VERAPAMIL HCL 120 MG SUSTAINED RELEASE TAB PO SCH (07:39)
[2017-09-13] MEDS: FOLIC ACID 1 MG TAB PO SCH (07:39)
[2017-09-13] MEDS: DULoxetine HCl DR 60 MG CAP PO SCH (07:40)
[2017-09-13] MEDS: VITAMIN B CMPLX/VITC/FOLIC AC CAP PO SCH (07:40)
[2017-09-13] MEDS: CHOLECALCIFEROL (VIT D3) 1000 UNIT TAB PO SCH (07:41)
[2017-09-13] MEDS: methylPREDNISolone SOD SUCC 125 MG/2 ML VIAL IV PUSH SCH ×2 (07:41→21:04)
[2017-09-13] MEDS: SODIUM CHLORIDE 0.9% FLUSH 10 ML FLUSH IV FLUSH SCH ×3 (07:42→21:07)
[2017-09-13] MEDS: INSULIN NovoLIN REGULAR SUPPLEMENTAL SCALE SQ SCH ×4 (07:42→21:00)
[2017-09-13] MEDS: HEPARIN-D5W 25,000 U/250 ML 250 ML IV PRN (08:13)
[2017-09-13] MEDS: PANTOPRAZOLE SODIUM 40 MG VIAL IV PUSH SCH ×2 (08:13→21:04)
--- NOTE | 2017-09-13 09:14 | HHI.CCPN ---
Subjective Remarks/Hospital Course This is a 81-year-old female. Date of admission 09/10/2017. Date of consult 09/11/2017. Past medical history includes hypertension, dyslipidemia, depression/anxiety, chronic pain syndrome, cholelithiasis, nephrolithiasis and osteoarthritis. Patient has a known history of macrocytic anemia which he follows with Dr. Shah. She has had her spleen removed future anemia in the past. He is chronically on azathioprine. It appears on 09/01 patient was diagnosed with pulmonary embolism along with the right lower extremity DVT. She started on rivaroxaban 15 mg twice a day. She follows who agreed with this is been on this in the in the interim. She presents earlier to [facility] with acute on chronic worsening shortness of breath. She was able to able to the bathroom and became short of breath. She is noted to have a hemoglobin of 4.3. MCV of 143. Haptoglobin low and LDH high. Started on methylprednisolone 60 mg IV twice a day per hematology. Transfused 3 units PRBCs and 2 FFP. Warm Dejon positive. Throughout this hospitalization she had increasing oxygen requirements. ABG reveals shunting. Chest x-ray revealed no acute cardio point process. Repeat CT pulmonary angiogram today revealed several small pulmonary embolism in the right lower lobe do not appear to be hemodynamically compromising. 2D echocardiogram is pending at time of dictation. Denies chest pain. Patient is not tachycardic. Hemodynamically stable. Subjective 3: Afebrile. Hypertensive overnight but currently hypotensive complaining of blurry vision. No other focal logical neurological deficit on bedside evaluation. Denies chest pain. States this "new" mask is causing her difficulty breathing. Currently a nonrebreather 12 L satting 100%. Remains on heparin drip 1400 units an hour. Stat CT brain pending Objective Vital Signs Date Time Temp Pulse Resp B/P (MAP) Pulse Ox O2 Delivery O2 Flow Rate FiO2 09/13/17 08:46 99 Non-Rebreather 12.00 100 09/13/17 06:00 87 09/13/17 04:00 97.9 16 187/88 (121) Intake and Output 09/13/17 09/13/17 09/14/17 08:00 16:00 00:00 Intake Total 2200 ml Output Total 500 ml Balance 1700 ml Result Diagram: 09/13/17 0407 09/13/17 0407 Other Results Microbiology Date/Time Source Procedure Growth Status 09/12/17 14:22 Blood Peripheral Aerobic Blood Culture Pending Received 09/12/17 14:22 Blood Peripheral Anaerobic Blood Culture Pending Received 09/12/17 16:15 Urine Clean Catch Urine Culture Pending Received Imaging Last Impressions Chest X-Ray 09/12/17 1515 Signed Impressions: Service Date/Time: Tuesday, September 12, 2017 15:27 - CONCLUSION: 1. Right IJ central line in the SVC without pneumothorax. Rob Nascimento MD CT Angiography 09/12/17 0000 Signed Impressions: Service Date/Time: Tuesday, September 12, 2017 11:38 - CONCLUSION: 1. Mild pulmonary emboli in several distal right lower lobe pulmonary arteries. 2. Coronary artery calcifications. Jaden Lopez MD Lower Extremity Ultrasound 09/10/17 0000 Signed Impressions: Service Date/Time: Sunday, September 10, 2017 08:16 - CONCLUSION: 1. No sonographic evidence for right lower extremity DVT. Rob Nascimento MD Objective Remarks GENERAL: 81-year-old female currently resting in bed on nonrebreather mask SKIN: Warm and dry. Well perfused HEAD: Atraumatic. Normocephalic. EYES: Pupils equal and round. No scleral icterus. No injection or drainage. ENT: No nasal bleeding or discharge. Mucous membranes pink and moist. NECK: Trachea midline. No JVD. Right IJ is clean dry and intact CARDIOVASCULAR: Regular rate and rhythm. S1, S2 no S4. No rub. No murmur. RESPIRATORY: Few fine crackles. Otherwise no wheezing appreciated GASTROINTESTINAL: Abdomen soft, non-tender, nondistended. Hypoactive bowel sounds appreciated. MUSCULOSKELETAL: Extremities with trace bilateral lower extremity edema. No obvious deformities. NEUROLOGICAL: Awake and alert. No obvious cranial nerve deficits. Motor grossly within normal limits. Five out of 5 muscle strength in the arms and legs. Normal speech. No pronator drift. Gait was not assessed. Visual examination essentially normal but she is complaining of "faint distant blurry vision".. Procedures None Urinary Catheter: Yes Assessment to: Continue Reeves insert reason: Prolonged Immobilization Vascular Central Line Catheter: Yes Assessment to: Continue Date of Insertion: Sep 12, 2017 Line: Central Venous Catheter Side: Right Location: Internal, Jugular A/P Assessment and Plan Neuro/Psych: Depression/anxiety Chronic pain syndrome Chronic narcotic use Patient is currently on duloxetine 60 mg by mouth daily/home medication for depression. Continue Currently on tizanidine 4 mg by mouth every 6 hours. 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 Hold while blood pressures tenuous. Switch to verapamil 40 mg by mouth twice a day with holding parameters see orders. MAP currently 60 Norepinephrine if necessary to maintain mean axial pressure greater than 65 2-D echocardiogram - LVSF low Nl EF 50-55%. Flattened septum througout the cardiac cycle suggesting elevated right ventricular end diastolic pressures. The right ventricle is moderately dilated. The right ventricular systoilc function is severely decreased. Possible Handy's sign seen in acute pulmonary embolism (akinesis of mid right ventricle with fairly normal motion at the apex). There is mild tricuspid valve regurgitation. The estimated systolic pulmonary pressure is 57 mmg Hg. Currently on normal saline at 30 cc an hour Not on any lipid-lowering agents. Lipid panel ordered for a.m. 09/14 Dr. Johnston - Continue anticoagulation therapy with heparin drip. No additional cardiac workup at this point; could consider nuclear stress test or coronary CTA as an outpatient. Add metoprolol tartrate 50 milligrams twice a day to calcium channel tigre if able BMP elevated > 1500 Added aspirin 81 mg by mouth daily Resp: Acute respiratory failure History of pulmonary embolism On nonrebreather mask 12 L to maintain saturations greater than equal to 92% Incentive spirometry while awake CTPA - The main pulmonary artery and right and left branch vessels are intact. There is a small amount of thrombus in several of the distal right lower lobe pulmonary arteries. Negative DVT right lower extremity ultrasound Chest x-ray 09/12 revealed no acute cardio pulmonary findings Started on albuterol/ipratropium every 4 hours with albuterol aerosols every 2 hours. Dyspnea GI: History of cholelithiasis Elevated total bilirubin Elevated transaminases Constipation Hypoalbuminemia Are healthy diet Pantoprazole for GI prophylaxis Docusate sodium/senna 1 tablet twice a day for bowel regimen. Add polyethylene glycol 17 g twice a day and lactulose 30 cc daily GI consulted. Hemoccult pending. Liver workup per GI. Pending AMA/ASMA/DK/ alphafetoprotein and hepatitis panel : Reeves catheter if indicated for accurate I's and O's in a critically ill patient Endo: Sliding-scale insulin Novulin R low regimen before meals at bedtime with Accu- Cheks to maintain euglycemia TSH 1.3. Renal: Acute kidney injury History of nephrolithiasis Creatinine currently 1.1 Follow-up on BMP in a.m. 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 Folate elevated 19. Patient is on chronic folate acid 1 mg daily at home. Peripheral blood reveals marked aniso- and poikilocytosis of the red cells with prominent polychromasia and numerous nucleated red blood cells. Many spherocytes are present. Significant numbers of red cell fragments ( schistocytes) are not identified. The peripheral blood findings, in combination with the patients elevated LDH, decreased haptoglobin, and positive LAKHWINDER, are most suggestive of autoimmune hemolytic anemia. Evaluated by Dr. Means Transfused 3 units PRBCs and 2 FFP during this hospitalization Haptoglobin was low LDH elevated. Started on methylprednisolone succinate 60 mg IV twice a day per Dr. Means. Reticulocyte elevated. Pending MMA, homocysteine and serum folate as well Holding azathioprine 50 mg per hematology ID: Monitor for infection (fever, elevated WBC) Blood cultures 2, sputum, urine and influenza pending, negative urinary Legionella and pneumococcal antigens 2/2. MSK: Osteoarthritis PT evaluate and treat Continue cholecalciferol 5000 units daily FEN: Hyper-magnesium Replace electrolytes as clinically indicated Access - Utilize peripheral IV. Central line if indicated Prophylaxis - GI - pantoprazole - DVT - SCDs currently in heparin drip. Will discuss with hematology post CT pulmonary angiogram Critical Care: The total critical care time was 30 minutes. Time to perform other separately billable procedures was not included in the critical care time. CT brain revealed old right lacunar CVA. No acute hemorrhage. Normal vision with elevated blood pressure. Yobani Cornejo MD Sep 13, 2017 09:14
[2017-09-13] MEDS ORDERED: NOREPINEPHRINE-DEXTROSE DRIP 250 ML IV ONE (09:25)
--- NOTE | 2017-09-13 09:26 | PD.CARD.PN ---
Subjective Subjective Remarks Dyspnea much improved this morning. No further CP. No dizziness, palpitations. Objective Medications Item Value Date Time Heparin Sodium/ 250 ml @ 14.8 mls/hr 09/12/17 1000 Dextrose TITRATE PRN/IV 09/13/17 0813 Verapamil HCl 120 mg 09/10/17 0900 (Isoptin Sr) DAILY/PO 09/13/17 0739 Current Medications Medications (Trade) Dose Ordered Sig/Nelda Route Start Time Stop Time Status Last Admin (Vitamin D3) 5,000 units DAILY PO 09/10/17 09:00 09/13/17 07:41 (Cymbalta Dr) 60 mg DAILY PO 09/10/17 09:00 09/13/17 07:40 (Zanaflex) 4 mg DAILY PO 09/10/17 09:00 09/13/17 07:41 (Isoptin Sr) 120 mg DAILY PO 09/10/17 09:00 09/13/17 07:39 (Nephrocaps) 1 cap DAILY PO 09/10/17 09:00 09/13/17 07:40 (NS Flush) 2 ml UNSCH PRN IV FLUSH 09/09/17 18:00 (NS Flush) 2 ml BID IV FLUSH 09/09/17 21:00 09/13/17 07:42 (Tylenol) 650 mg Q4H PRN PO 09/09/17 18:00 09/09/17 22:41 (Zofran Inj) 4 mg Q6H PRN IVP 09/09/17 18:00 (Narcan Inj) 0.4 mg UNSCH PRN IV PUSH 09/09/17 18:00 (Milk Of Magnesia Liq) 30 ml Q12H PRN PO 09/09/17 18:00 09/11/17 06:53 (Senokot) 17.2 mg Q12H PRN PO 09/09/17 18:00 (Dulcolax Supp) 10 mg DAILY PRN RECTAL 09/09/17 18:00 (Lactulose Liq) 30 ml DAILY PRN PO 09/09/17 18:00 ([place] 7.5-325 Mg) 1 tab Q6H PRN PO 09/10/17 09:30 09/12/17 20:23 (SoluMEDROL INJ) 60 mg Q12HR IV PUSH 09/10/17 21:00 09/13/17 07:41 (Catapres) 0.1 mg Q6H PRN PO 09/11/17 06:45 09/13/17 01:05 (Duoneb Neb) 1 ampule Q6HR NEB NEB 09/12/17 05:00 09/13/17 08:44 Heparin Sodium/ Dextrose 250 ml @ 14.8 mls/hr TITRATE PRN IV 09/12/17 10:00 09/13/17 08:13 (Protonix Inj) 40 mg Q12H IV PUSH 09/12/17 10:00 09/13/17 08:13 (Albuterol Neb) 2.5 mg Q2HR NEB PRN NEB 09/12/17 12:45 (D50w (Vial) Inj) 50 ml UNSCH PRN IV PUSH 09/12/17 13:00 (Glucagon Inj) 1 mg UNSCH PRN OTHER 09/12/17 13:00 (NovoLIN R SUPPLEMENTAL SCALE) 1 ACHS SLIDING SCALE SQ 09/12/17 17:00 09/13/17 07:42 (Folate) 1 mg DAILY PO 09/12/17 14:00 09/13/17 07:39 Non-Formulary Medication MUCOMYST 20% 4 ML VIAL 60... BID PO 09/12/17 14:30 09/13/17 21:01 09/12/17 20:27 (NS Flush) DAILY IV FLUSH 09/13/17 09:00 09/13/17 07:42 (NS Flush) UNSCH PRN IV FLUSH 09/12/17 15:15 Sodium Chloride 1,000 ml @ 100 mls/hr Q10H IV 09/13/17 02:00 09/13/17 04:08 (Trandate Inj) 10 mg Q1HR PRN IV PUSH 09/13/17 06:30 (Apresoline Inj) 10 mg Q1HR PRN IV PUSH 09/13/17 06:30 Norepinephrine Bitartrate 4 mg/ Sodium Chloride 250 ml @ 7.5 mls/hr TITRATE PRN IV 09/13/17 09:30 UNV (Brethine Inj) 1 mg UNSCH PRN SQ 09/13/17 09:30 UNV Vital Signs / I&O Vital Signs Date Time Temp Pulse Resp B/P (MAP) Pulse Ox O2 Delivery O2 Flow Rate FiO2 2/3/18 08:46 99 Non-Rebreather 12.00 100 09/13/17 06:00 87 09/13/17 04:00 97.9 83 16 187/88 (121) 100 09/13/17 04:00 83 09/13/17 02:00 86 09/13/17 00:00 84 09/13/17 00:00 97.8 84 16 176/80 (112) 100 09/12/17 22:00 80 09/12/17 20:33 100 Partial Rebreather 15.00 09/12/17 20:00 82 09/12/17 19:01 91 27 154/72 (99) 100 09/12/17 19:00 98 Partial Non-Rebreather 100 09/12/17 18:01 87 21 150/67 (94) 100 09/12/17 17:00 90 23 142/69 (93) 100 09/12/17 16:00 98.5 87 25 137/65 (89) 100 09/12/17 15:00 92 23 128/68 (88) 100 09/12/17 14:00 93 31 136/63 (87) 100 09/12/17 13:01 92 25 135/62 (86) 100 09/12/17 12:01 91 20 122/65 (84) 98 09/12/17 11:55 91 26 99/55 (70) 100 09/12/17 11:50 91 21 97/57 (70) 99 09/12/17 09:30 Nasal Cannula 5.00 I/O 09/12/17 09/12/17 09/12/17 09/13/17 09/13/17 09/13/17 07:00 15:00 23:00 07:00 15:00 23:00 Intake Total 240 ml 410 ml 428 ml 2200 ml Output Total 175 ml 350 ml 500 ml Balance 65 ml 410 ml 78 ml 1700 ml Intake Oral 240 ml 100 ml 100 ml IV Total 328 ml 2100 ml Packed Cells 400 ml Blood Product IV Normal Saline Flush 10 ml Output Urine Total 175 ml 350 ml 500 ml # Bowel Movements 0 0 0 Physical Exam GENERAL: Well developed, well nourished. No acute distress. HEENT: Jugular venous pressure 7-8 cm water. CHEST: Lungs clear to auscultation bilaterally. CARDIAC: Regular rate and rhythm without S3, S4, or murmur. ABDOMEN: Soft, nontender, no hepatosplenomegaly. Bowel sounds present. EXTREMITIES: No clubbing, cyanosis, or edema. Laboratory Laboratory Tests Test 09/12/17 10:00 09/12/17 11:29 09/12/17 12:35 09/12/17 14:22 Nasal Screen MRSA (PCR) MRSA NOT DETECTED White Blood Count 26.0 TH/MM3 Red Blood Count 2.22 MIL/MM3 Hemoglobin 8.6 GM/DL Hematocrit 27.2 % Mean Corpuscular Volume 122.5 FL Mean Corpuscular Hemoglobin 38.7 PG Mean Corpuscular Hemoglobin Concent 31.6 % Red Cell Distribution Width 34.7 % Platelet Count 435 TH/MM3 Mean Platelet Volume 7.2 FL Neutrophils (%) (Auto) 89.2 % Lymphocytes (%) (Auto) 5.0 % Monocytes (%) (Auto) 5.4 % Eosinophils (%) (Auto) 0.0 % Basophils (%) (Auto) 0.4 % Neutrophils # (Auto) 23.3 TH/MM3 Lymphocytes # (Auto) 1.3 TH/MM3 Monocytes # (Auto) 1.4 TH/MM3 Eosinophils # (Auto) 0.0 TH/MM3 Basophils # (Auto) 0.1 TH/MM3 CBC Comment AUTO DIFF Differential Total Cells Counted 100 Neutrophils % (Manual) 84 % Band Neutrophils % 8 % Lymphocytes % 2 % Monocytes % 3 % Neutrophils # (Manual) 24.7 TH/MM3 Myelocytes 3 % Nucleated Red Blood Cells 131 /100 WBC Differential Comment FINAL DIFF MANUAL Platelet Estimate NORMAL Platelet Morphology Comment NORMAL Polychromasia 6.5 % Basophilic Stippling HEAVY [place] Bodies PRESENT Reticulocyte Count 25.8 % Absolute Reticulocyte Count 584.5 MIL/L Haptoglobin 12 MG/DL Prothrombin Time 11.3 SEC Prothromb Time International Ratio 1.1 RATIO Activated Partial Thromboplast Time 21.8 SEC Fibrinogen 301 mg/dL Blood Urea Nitrogen 44 MG/DL Creatinine 1.40 MG/DL Random Glucose 220 MG/DL Albumin 3.6 GM/DL Calcium Level 8.5 MG/DL Phosphorus Level 4.8 MG/DL Magnesium Level 2.8 MG/DL Sodium Level 138 MEQ/L Potassium Level 3.9 MEQ/L Chloride Level 102 MEQ/L Carbon Dioxide Level 22.9 MEQ/L Anion Gap 13 MEQ/L Estimat Glomerular Filtration Rate 36 ML/MIN Iron Level 125 MCG/DL Total Iron Binding Capacity 360 MCG/DL Percent Iron Saturation 34.7 % Ferritin 1135 NG/ML Total Bilirubin 4.2 MG/DL Direct Bilirubin 2.1 MG/DL Indirect Bilirubin 2.1 MG/DL Ammonia 38 MCMOL/L Lactate Dehydrogenase 538 U/L Total Creatine Kinase 85 U/L Troponin I 1.04 NG/ML Amylase Level 37 U/L Lipase 69 U/L Free Thyroxine 1.10 NG/DL Thyroid Stimulating Hormone 3rd Gen 1.300 uIU/ML Random Cortisol 24.8 MCG/DL Blood Gas Puncture Site RT RADIAL Blood Gas Patient Temperature 98.6 Blood Gas HCO3 20 mmol/L Blood Gas Base Excess -3.6 mmol/L Blood Gas Oxygen Saturation 96 % Arterial Blood pH 7.45 Arterial Blood Partial Pressure CO2 29 mmHg Arterial Blood Partial Pressure O2 313 mmHg Arterial Blood Oxygen Content 11.8 Vol % Arterial Blood Carboxyhemoglobin 3.0 % Arterial Blood Methemoglobin 1.1 % Blood Gas Hemoglobin 8.1 G/DL Oxygen Delivery Device PRB Blood Gas Liter Flow 15 L/M B-Type Natriuretic Peptide 1505 PG/ML Test 09/12/17 16:15 09/13/17 00:45 09/13/17 04:07 Activated Partial Thromboplast Time 29.5 SEC 70.9 SEC Urine Color LIGHT-RED Urine Turbidity HAZY Urine pH 5.5 Urine Specific [place] GREATER THAN 1.050 Urine Protein 30 mg/dL Urine Glucose (UA) NEG mg/dL Urine Ketones NEG mg/dL Urine Occult Blood LARGE Urine Nitrite NEG Urine Bilirubin NEG Urine Urobilinogen 2.0 MG/DL Urine Leukocyte Esterase TRACE Urine RBC /hpf Urine WBC 104 /hpf Urine WBC Clumps RARE Urine Squamous Epithelial Cells 1 /hpf Urine Mucus FEW /lpf Microscopic Urinalysis Comment CATH-CULTURE IND Lactic Acid Level 4.9 mmol/L Tumor Marker Alpha Fetoprotein 5.7 NG/ML Hemoglobin 8.4 GM/DL 7.9 GM/DL White Blood Count 18.2 TH/MM3 Red Blood Count 2.14 MIL/MM3 Hematocrit 25.6 % Mean Corpuscular Volume 119.5 FL Mean Corpuscular Hemoglobin 36.8 PG Mean Corpuscular Hemoglobin Concent 30.8 % Red Cell Distribution Width 31.0 % Platelet Count 362 TH/MM3 Mean Platelet Volume 7.3 FL Neutrophils (%) (Auto) 89.2 % Lymphocytes (%) (Auto) 4.1 % Monocytes (%) (Auto) 6.4 % Eosinophils (%) (Auto) 0.0 % Basophils (%) (Auto) 0.3 % Neutrophils # (Auto) 16.2 TH/MM3 Lymphocytes # (Auto) 0.7 TH/MM3 Monocytes # (Auto) 1.2 TH/MM3 Eosinophils # (Auto) 0.0 TH/MM3 Basophils # (Auto) 0.1 TH/MM3 CBC Comment AUTO DIFF Differential Total Cells Counted 100 Neutrophils % (Manual) 89 % Lymphocytes % 4 % Monocytes % 6 % Neutrophils # (Manual) 16.4 TH/MM3 Myelocytes 1 % Nucleated Red Blood Cells 108 /100 WBC Differential Comment FINAL DIFF MANUAL Platelet Estimate NORMAL Platelet Morphology Comment NORMAL Polychromasia 8.5 % [place] Bodies PRESENT Red Cell Morphology Comment Blood Urea Nitrogen 43 MG/DL Creatinine 1.13 MG/DL Random Glucose 159 MG/DL Total Protein 6.2 GM/DL Albumin 3.3 GM/DL Calcium Level 7.9 MG/DL Phosphorus Level 4.2 MG/DL Magnesium Level 2.8 MG/DL Alkaline Phosphatase 148 U/L Aspartate Amino Transf (AST/SGOT) 41 U/L Alanine Aminotransferase (ALT/SGPT) 78 U/L Total Bilirubin 4.0 MG/DL Sodium Level 140 MEQ/L Potassium Level 4.0 MEQ/L Chloride Level 103 MEQ/L Carbon Dioxide Level 27.3 MEQ/L Anion Gap 10 MEQ/L Estimat Glomerular Filtration Rate 46 ML/MIN Imaging Last 24 hours Impressions Chest X-Ray 09/12/17 1515 Signed Impressions: Service Date/Time: Tuesday, September 12, 2017 15:27 - CONCLUSION: 1. Right IJ central line in the SVC without pneumothorax. Rob Nsacimento MD Assessment and Plan Problem List: (1) Elevated troponin ICD Codes: R74.8 - Abnormal levels of other serum enzymes Status: Acute Plan: Stable overnight. No further chest discomforts with improvement in her dyspnea. Suspect elevated troponin and EKG changes due to pulmonary embolism, ? acute on chronic in light of the severe right ventricular dysfunction and moderate RV dilation. REC add beta tigre to her Verapamil add daily aspirin consider nuclear stress test as outpatient will f/u patient in the office (2) HTN (hypertension) ICD Codes: I10 - Essential (primary) hypertension Status: Chronic Plan: Suboptimal BP control. Rec add beta tigre. Code Status full code Discussed Condition With patient Problem Qualifiers (1) HTN (hypertension): Qualified Codes: I10 - Essential (primary) hypertension Tima Johnston MD Sep 13, 2017 09:26
[2017-09-13] MEDS ORDERED: NOREPINEPHRINE INJ 4 MG in SODIUM CHLOR 0.9% 250 ML INJ 246 ML IV PRN (09:30)
[2017-09-13] MEDS ORDERED: TERBUTALINE INJ 1 MG/ML AMP SQ PRN (09:30)
[2017-09-13] MEDS: METOPROLOL TARTRATE 50 MG TAB PO SCH ×2 (09:30→21:05)
[2017-09-13] MEDS ORDERED: LACTULOSE SYRUP 20 GM/30 ML CUP PO ONE (09:45)
[2017-09-13] MEDS ORDERED: POLYETHYLENE GLYCOL 17 GM PKG PO ONE (09:45)
--- NOTE | 2017-09-13 10:26 | RADRPT ---
EXAM DATE/TIME: 09/13/2017 10:02 [place] COMPARISON: No previous studies available for comparison. INDICATIONS : Altered mental status, blurry vision. RADIATION DOSE: 42.51 CTDIvol (mGy) MEDICAL HISTORY : Hypertension. SURGICAL HISTORY : Hysterectomy. ENCOUNTER: Initial ACUITY: 1 day PAIN SCALE: 0/10 LOCATION: cranial TECHNIQUE: Multiple contiguous axial images were obtained of the head. Using automated exposure control and adj ustment of the mA and/or kV according to patient size, radiation dose was kept as low as reasonably a chievable to obtain optimal diagnostic quality images. DICOM format image data is available electro nically for review and comparison. 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 The ventricles are normal for age. No evidence of midline shift, ma ss lesion, hemorrhage or acute infarction. No extra-axial fluid collections are seen. POSTERIOR FOSSA: The cerebellum and brainstem are intact. The 4th ventricle is midline. The cerebellopontine angle i s unremarkable. EXTRACRANIAL: The visualized portion of the orbits is intact. SKULL: The calvaria is intact. No evidence of skull fracture. CONCLUSION: 1. Remote infarct right basal ganglia. 2. No acute intracranial abnormality. Dwain Block MD on September 13, 2017 at 10:23 Board Certified Radiologist. This report was verified electronically.
--- NOTE | 2017-09-13 12:40 | HHI.GIFU ---
Subjective Remarks patient is resting in bed accompanied by visitors. She is still on breathing mask, some mild abd pain, no nausea, no vomiting, no signs of GI bleed. (Diana Simeon) Objective Vitals I&O Vital Signs Date Time Temp Pulse Resp B/P (MAP) Pulse Ox O2 Delivery O2 Flow Rate FiO2 09/13/17 09:26 73 85/47 09/13/17 08:46 99 Non-Rebreather 12.00 100 09/13/17 06:00 87 09/13/17 04:00 97.9 83 16 187/88 (121) 100 09/13/17 04:00 83 09/13/17 02:00 86 09/13/17 00:00 84 09/13/17 00:00 97.8 84 16 176/80 (112) 100 09/12/17 22:00 80 09/12/17 20:33 100 Partial Rebreather 15.00 09/12/17 20:00 82 09/12/17 19:01 91 27 154/72 (99) 100 09/12/17 19:00 98 Partial Non-Rebreather 100 09/12/17 18:01 87 21 150/67 (94) 100 09/12/17 17:00 90 23 142/69 (93) 100 09/12/17 16:00 98.5 87 25 137/65 (89) 100 09/12/17 15:00 92 23 128/68 (88) 100 09/12/17 14:00 93 31 136/63 (87) 100 09/12/17 13:01 92 25 135/62 (86) 100 I/O 09/12/17 09/12/17 09/12/17 09/13/17 09/13/17 09/13/17 07:00 15:00 23:00 07:00 15:00 23:00 Intake Total 240 ml 410 ml 428 ml 2200 ml Output Total 175 ml 350 ml 500 ml Balance 65 ml 410 ml 78 ml 1700 ml Intake Oral 240 ml 100 ml 100 ml IV Total 328 ml 2100 ml Packed Cells 400 ml Blood Product IV Normal Saline Flush 10 ml Output Urine Total 175 ml 350 ml 500 ml # Bowel Movements 0 0 0 Laboratory Laboratory Tests Test 09/12/17 12:35 09/12/17 14:22 2/2/18 16:15 09/13/17 00:45 Blood Gas Puncture Site RT RADIAL Blood Gas Patient Temperature 98.6 Blood Gas HCO3 20 Blood Gas Base Excess -3.6 Blood Gas Oxygen Saturation 96 Arterial Blood pH 7.45 Arterial Blood Partial Pressure CO2 29 Arterial Blood Partial Pressure O2 313 Arterial Blood Oxygen Content 11.8 Arterial Blood Carboxyhemoglobin 3.0 Arterial Blood Methemoglobin 1.1 Blood Gas Hemoglobin 8.1 Oxygen Delivery Device PRB Blood Gas Liter Flow 15 B-Type Natriuretic Peptide 1505 Activated Partial Thromboplast Time 29.5 70.9 Urine Color LIGHT-RED Urine Turbidity HAZY Urine pH 5.5 Urine Specific [place] GREATER THAN 1.050 Urine Protein 30 Urine Glucose (UA) NEG Urine Ketones NEG Urine Occult Blood LARGE Urine Nitrite NEG Urine Bilirubin NEG Urine Urobilinogen 2.0 Urine Leukocyte Esterase TRACE Urine RBC Urine WBC 104 Urine WBC Clumps RARE Urine Squamous Epithelial Cells 1 Urine Mucus FEW Microscopic Urinalysis Comment CATH-CULTURE IND Lactic Acid Level 4.9 Tumor Marker Alpha Fetoprotein 5.7 Hemoglobin 8.4 Test 09/13/17 04:07 09/13/17 10:40 White Blood Count 18.2 Red Blood Count 2.14 Hemoglobin 7.9 7.9 Hematocrit 25.6 Mean Corpuscular Volume 119.5 Mean Corpuscular Hemoglobin 36.8 Mean Corpuscular Hemoglobin Concent 30.8 Red Cell Distribution Width 31.0 Platelet Count 362 Mean Platelet Volume 7.3 Neutrophils (%) (Auto) 89.2 Lymphocytes (%) (Auto) 4.1 Monocytes (%) (Auto) 6.4 Eosinophils (%) (Auto) 0.0 Basophils (%) (Auto) 0.3 Neutrophils # (Auto) 16.2 Lymphocytes # (Auto) 0.7 Monocytes # (Auto) 1.2 Eosinophils # (Auto) 0.0 Basophils # (Auto) 0.1 CBC Comment AUTO DIFF Differential Total Cells Counted 100 Neutrophils % (Manual) 89 Lymphocytes % 4 Monocytes % 6 Neutrophils # (Manual) 16.4 Myelocytes 1 Nucleated Red Blood Cells 108 Differential Comment FINAL DIFF MANUAL Platelet Estimate NORMAL Platelet Morphology Comment NORMAL Polychromasia 8.5 [place] Bodies PRESENT Red Cell Morphology Comment Blood Urea Nitrogen 43 Creatinine 1.13 Random Glucose 159 Total Protein 6.2 Albumin 3.3 Calcium Level 7.9 Phosphorus Level 4.2 Magnesium Level 2.8 Alkaline Phosphatase 148 Aspartate Amino Transf (AST/SGOT) 41 Alanine Aminotransferase (ALT/SGPT) 78 Total Bilirubin 4.0 Sodium Level 140 Potassium Level 4.0 Chloride Level 103 Carbon Dioxide Level 27.3 Anion Gap 10 Estimat Glomerular Filtration Rate 46 Activated Partial Thromboplast Time 101.1 Lactic Acid Level 4.1 Troponin I 0.45 Date/Time Source Procedure Growth Status 09/12/17 14:22 Blood Peripheral Aerobic Blood Culture - Preliminary NO GROWTH IN 1 DAY Resulted 09/12/17 14:22 Blood Peripheral Anaerobic Blood Culture - Preliminary NO GROWTH IN 1 DAY Resulted 09/12/17 16:15 Urine Clean Catch Urine Culture Pending Received Imaging Last Impressions Head CT 09/13/17 0000 Signed Impressions: Service Date/Time: Wednesday, September 13, 2017 10:02 - CONCLUSION: 1. Remote infarct right basal ganglia. 2. No acute intracranial abnormality. Dwain Block MD Chest X-Ray 09/12/17 1515 Signed Impressions: Service Date/Time: Tuesday, September 12, 2017 15:27 - CONCLUSION: 1. Right IJ central line in the SVC without pneumothorax. Rob Nascimento MD CT Angiography 09/12/17 0000 Signed Impressions: Service Date/Time: Tuesday, September 12, 2017 11:38 - CONCLUSION: 1. Mild pulmonary emboli in several distal right lower lobe pulmonary arteries. 2. Coronary artery calcifications. Jaden Lopez MD Lower Extremity Ultrasound 09/10/17 0000 Signed Impressions: Service Date/Time: Sunday, September 10, 2017 08:16 - CONCLUSION: 1. No sonographic evidence for right lower extremity DVT. Rob Nascimento MD Physical Exam HEENT: normocephalic; atraumatic; no jaundice. Throat is clear. NECK: Neck is supple, no JVD, no lymphadenopathy. CHEST: Scattered Crackles CARDIAC: Regular rate and rhythm ABDOMEN: Soft, nondistended, nontender; no hepatosplenomegaly; bowel sounds are present in all four quadrants. EXTREMITIES: trace edema. SKIN: Normal; no rash; no jaundice. STAFF WE[employer]ONS OFFICER: No focal deficits; alert and oriented times three. ([place],Diana EXPEDITER CLERK) Assessment and Plan Assessment: (1) Macrocytic anemia ICD Codes: D53.9 - Nutritional anemia, unspecified (2) Symptomatic anemia ICD Codes: D64.9 - Anemia, unspecified Status: Acute (3) Pulmonary embolism ICD Codes: I26.99 - Other pulmonary embolism without acute cor pulmonale (4) Severe anemia ICD Codes: D64.9 - Anemia, unspecified Plan Patient currently has shortness of breath, being managed on 100% nonrebreather. If she becomes ventilated with ET tube, GI could possibly do EGD with protected airway present. Otherwise timing TBA. Symptomatic macrocytic ,hemolytic ,anemia. Hemoglobin is now 8.6 after receiving 3 units of packed RBCs and 2 units of platelets. Abdominal pain unspecified, describes as a sick feeling and diffuse pain. Possibly secondary to the symptomatic anemia, bleeding, inflammation, infection , autoimmune disorders. Hyperbilirubinemia, with equal direct and indirect delivery., Possible hemolytic in nature. Leukocytosis probably secondary to IV steroids Pulmonary emboli, per CT with acute symptoms of shortness of breath, patient has now been taken off Xarelto and placed on heparin drip. /- patient still not stable for gi work up respiratory philippe, no GI bleeding reported, hgb with mild drop liver work up pending, AFP wnl 5.7 Plan - Diet per [facility] - Monitor H&H - Transfuse as needed - Await liver work up alpha-fetoprotein, hepatitis profile, ceruloplasmin, smooth muscle auto labs, a NA, IgG, hereditary hemochromatosis - EGD when medically stable - Await Hemoccult stools - Cont. ppi - Supportive care This patient has been seen by myself and Dr. Dodge, note was written on his behalf (Diana Simeon) Physician Comments Seen and examined with EXPEDITER CLERK, refusing u/s liver. Liver casas in progress. No active bleeding. Still on Non rebreathers mask. (Baldo Dodge MD) Diana Simeon Sep 13, 2017 12:40 Baldo Dodge MD Sep 13, 2017 13:03
--- NOTE | 2017-09-13 12:43 | PD.ONC.PN ---
Subjective Subjective Remarks Afebrile overnight. Tolerating heparin gtt. complains that her throat has started hurting, likely d/t oxygen. reports no obvious bleeding. Objective Data Date Time Temp Pulse Resp B/P (MAP) Pulse Ox O2 Delivery O2 Flow Rate FiO2 09/13/17 09:26 73 85/47 09/13/17 08:46 99 Non-Rebreather 12.00 100 09/13/17 06:00 87 09/13/17 04:00 97.9 83 16 187/88 (121) 100 09/13/17 04:00 83 09/13/17 02:00 86 09/13/17 00:00 84 09/13/17 00:00 97.8 84 16 176/80 (112) 100 09/12/17 22:00 80 09/12/17 20:33 100 Partial Rebreather 15.00 09/12/17 20:00 82 09/12/17 19:01 91 27 154/72 (99) 100 09/12/17 19:00 98 Partial Non-Rebreather 100 09/12/17 18:01 87 21 150/67 (94) 100 09/12/17 17:00 90 23 142/69 (93) 100 09/12/17 16:00 98.5 87 25 137/65 (89) 100 09/12/17 15:00 92 23 128/68 (88) 100 09/12/17 14:00 93 31 136/63 (87) 100 09/12/17 13:01 92 25 135/62 (86) 100 09/13/17 09/13/17 09/13/17 07:00 15:00 23:00 Intake Total 2200 ml Output Total 500 ml Balance 1700 ml Result Diagram: 09/13/17 1040 09/13/17 0407 Laboratory Results Laboratory Tests Test 09/12/17 14:22 09/12/17 16:15 09/13/17 00:45 09/13/17 04:07 B-Type Natriuretic Peptide 1505 PG/ML Activated Partial Thromboplast Time 29.5 SEC 70.9 SEC Urine Color LIGHT-RED Urine Turbidity HAZY Urine pH 5.5 Urine Specific [place] GREATER THAN 1.050 Urine Protein 30 mg/dL Urine Glucose (UA) NEG mg/dL Urine Ketones NEG mg/dL Urine Occult Blood LARGE Urine Nitrite NEG Urine Bilirubin NEG Urine Urobilinogen 2.0 MG/DL Urine Leukocyte Esterase TRACE Urine RBC /hpf Urine WBC 104 /hpf Urine WBC Clumps RARE Urine Squamous Epithelial Cells 1 /hpf Urine Mucus FEW /lpf Microscopic Urinalysis Comment CATH-CULTURE IND Lactic Acid Level 4.9 mmol/L Tumor Marker Alpha Fetoprotein 5.7 NG/ML Hemoglobin 8.4 GM/DL 7.9 GM/DL White Blood Count 18.2 TH/MM3 Red Blood Count 2.14 MIL/MM3 Hematocrit 25.6 % Mean Corpuscular Volume 119.5 FL Mean Corpuscular Hemoglobin 36.8 PG Mean Corpuscular Hemoglobin Concent 30.8 % Red Cell Distribution Width 31.0 % Platelet Count 362 TH/MM3 Mean Platelet Volume 7.3 FL Neutrophils (%) (Auto) 89.2 % Lymphocytes (%) (Auto) 4.1 % Monocytes (%) (Auto) 6.4 % Eosinophils (%) (Auto) 0.0 % Basophils (%) (Auto) 0.3 % Neutrophils # (Auto) 16.2 TH/MM3 Lymphocytes # (Auto) 0.7 TH/MM3 Monocytes # (Auto) 1.2 TH/MM3 Eosinophils # (Auto) 0.0 TH/MM3 Basophils # (Auto) 0.1 TH/MM3 CBC Comment AUTO DIFF Differential Total Cells Counted 100 Neutrophils % (Manual) 89 % Lymphocytes % 4 % Monocytes % 6 % Neutrophils # (Manual) 16.4 TH/MM3 Myelocytes 1 % Nucleated Red Blood Cells 108 /100 WBC Differential Comment FINAL DIFF MANUAL Platelet Estimate NORMAL Platelet Morphology Comment NORMAL Polychromasia 8.5 % [place] Bodies PRESENT Red Cell Morphology Comment Blood Urea Nitrogen 43 MG/DL Creatinine 1.13 MG/DL Random Glucose 159 MG/DL Total Protein 6.2 GM/DL Albumin 3.3 GM/DL Calcium Level 7.9 MG/DL Phosphorus Level 4.2 MG/DL Magnesium Level 2.8 MG/DL Alkaline Phosphatase 148 U/L Aspartate Amino Transf (AST/SGOT) 41 U/L Alanine Aminotransferase (ALT/SGPT) 78 U/L Total Bilirubin 4.0 MG/DL Sodium Level 140 MEQ/L Potassium Level 4.0 MEQ/L Chloride Level 103 MEQ/L Carbon Dioxide Level 27.3 MEQ/L Anion Gap 10 MEQ/L Estimat Glomerular Filtration Rate 46 ML/MIN Test 09/13/17 10:40 Hemoglobin 7.9 GM/DL Activated Partial Thromboplast Time 101.1 SEC Lactic Acid Level 4.1 mmol/L Troponin I 0.45 NG/ML Culture Results Microbiology Date/Time Source Procedure Growth Status 09/12/17 14:22 Blood Peripheral Aerobic Blood Culture - Preliminary NO GROWTH IN 1 DAY Resulted 09/12/17 14:22 Blood Peripheral Anaerobic Blood Culture - Preliminary NO GROWTH IN 1 DAY Resulted 09/12/17 14:17 Blood Peripheral Aerobic Blood Culture - Preliminary NO GROWTH IN 1 DAY Resulted 09/12/17 14:17 Blood Peripheral Anaerobic Blood Culture - Preliminary NO GROWTH IN 1 DAY Resulted 09/12/17 16:15 Urine Clean Catch Urine Culture Pending Received 09/12/17 16:15 Urine Catheterized Urine Legionella Antigen - Final PRESUMPTIVE NEGATIVE FOR LEGIONELLA P... Complete 09/12/17 16:15 Urine Catheterized Urine Streptococcus pneumoniae Antigen (M - Final PRESUMPTIVE NEGATIVE FOR STREPTOCOCCU... Complete Imaging Studies Last [address] 09/13/17 0000 Signed Impressions: Service Date/Time: Wednesday, September 13, 2017 10:02 - CONCLUSION: 1. Remote infarct right basal ganglia. 2. No acute intracranial abnormality. Dwain Block MD Chest X-Ray 09/12/17 1515 Signed Impressions: Service Date/Time: Tuesday, September 12, 2017 15:27 - CONCLUSION: 1. Right IJ central line in the SVC without pneumothorax. Rob Nascimento MD Administered Medications Medications (Trade) Dose Ordered Sig/Nelda Route PRN Reason Start Time Stop Time Status Last Admin Dose Admin Cholecalciferol (Vitamin D3) 5,000 units DAILY PO 09/10/17 09:00 09/13/17 07:41 Duloxetine HCl (Cymbalta Dr) 60 mg DAILY PO 09/10/17 09:00 09/13/17 07:40 Tizanidine HCl (Zanaflex) 4 mg DAILY PO 09/10/17 09:00 09/13/17 07:41 Verapamil HCl (Isoptin Sr) 120 mg DAILY PO 09/10/17 09:00 Future Hold 09/13/17 07:39 Vitamin B Complex/ Vit C/Folic Acid (Nephrocaps) 1 cap DAILY PO 09/10/17 09:00 09/13/17 07:40 Sodium Chloride (NS Flush) 2 ml BID IV FLUSH 09/09/17 21:00 09/13/17 07:42 Acetaminophen (Tylenol) 650 mg Q4H PRN PO Fever, pain 1-4, headache 09/09/17 18:00 09/09/17 22:41 Magnesium Hydroxide (Milk Of Magnjessica Liq) 30 ml Q12H PRN PO Mild constipation 09/09/17 18:00 09/11/17 06:53 Acetaminophen/ Hydrocodone Bitart ([place] 7.5-325 Mg) 1 tab Q6H PRN PO PAIN SCALE 5 TO 10 09/10/17 09:30 09/12/17 20:23 Methylprednisolone Sodium Succinate (SoluMEDROL INJ) 60 mg Q12HR IV PUSH 09/10/17 21:00 09/13/17 07:41 Clonidine (Catapres) 0.1 mg Q6H PRN PO SBP>160, DBP>90 09/11/17 06:45 09/13/17 01:05 Albuterol/ Ipratropium (Duoneb Neb) 1 ampule Q6HR NEB NEB 09/12/17 05:00 09/13/17 08:44 Heparin Sodium/ Dextrose 250 ml @ 14.8 mls/hr TITRATE PRN IV Coagulation Management 09/12/17 10:00 09/13/17 08:13 Pantoprazole Sodium (Protonix Inj) 40 mg Q12H IV PUSH 09/12/17 10:00 09/13/17 08:13 Insulin Human Regular (NovoLIN R SUPPLEMENTAL SCALE) 1 ACHS SLIDING SCALE SQ 09/12/17 17:00 09/13/17 07:42 Folic Acid (Folate) 1 mg DAILY PO 09/12/17 14:00 09/13/17 07:39 Non-Formulary Medication MUCOMYST 20% 4 ML VIAL 60... BID PO 09/12/17 14:30 09/13/17 21:01 09/12/17 20:27 Sodium Chloride (NS Flush) DAILY IV FLUSH 09/13/17 09:00 09/13/17 07:42 Sodium Chloride 1,000 ml @ 30 mls/hr Q24H IV 09/13/17 02:00 09/13/17 04:08 Norepinephrine Bitartrate 4 mg/ Sodium Chloride 250 ml @ 7.5 mls/hr TITRATE PRN IV Blood pressure management 09/13/17 09:30 09/13/17 09:26 Objective Remarks GENERAL: Elderly female, upright in bed in nad. Has NRB mask in place. SKIN: Warm and dry. HEAD: Normocephalic. EYES: No injection or drainage. NECK: Supple, trachea midline. CARDIOVASCULAR: tachy, regular rhythm RESPIRATORY: anterior paul, scattered rhonchi. GASTROINTESTINAL: Abdomen soft, non-tender, nondistended. 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 --LDH is elevated, haptoglobin is low --on Solu-Medrol 60 mg IV b.i.d. -- peripheral smear --stool Hemoccult pending Assessment 81y/o female with a history of pulmonary embolism admitted with progressive dyspnea and was found to be severely anemic. history of iron deficiency anemia, hypertension, osteoarthritis, chronic back pain and recent diagnosis of pulmonary embolism (was on xarelto outpatient) History of splenectomy Plan 1. continue heparin 2. continue IV steroids. 3. monitor H/H Attending Statement The exam, history, and the medical decision-making described in the above note were completed with the assistance of the mid-level provider. I reviewed and agree with the findings presented. I attest that I had a [id number] encounter with the patient on the same day, and personally performed and documented my assessment and findings in the medical record. Complaining of weakness and Sore throat Patient has autoimmune hemolytic anemia Continue Solu-Medrol and folic acid Monitor CBC Reva Perez Sep 13, 2017 12:43 Marianne Coles MD Sep 13, 2017 22:56
[2017-09-13] MEDS: ASPIRIN EC 81 MG TABEC PO SCH (13:36)
[2017-09-13 13:45] LABS: DIRECT BILIRUBIN ADULT 2.5 MG/DL (0.0-0.2)
[2017-09-13 13:46] LABS: INDIRECT BILIRUBIN 1.7 MG/DL (0.0-0.8); TOTAL BILIRUBIN ADULT 4.2 MG/DL (0.2-1.0)
--- NOTE | 2017-09-13 14:15 | EKG ---
Date Performed: 09/12/2017 Time Performed: 12:25:33 PTAGE: 81 years EKG: Sinus rhythm LOW QRS VOLTAGE IN PRECORDIAL LEADS ST DEVIATION AND MODERATE T-WAVE ABNORMALITY, CONSIDER ANTERIOR ISCHEMIA. When compared to previous tracing, the T wave changes Anteriorly and inferiorly are new and more prominant. Clinical corrolatio is suggested. ABNORMAL ECG PREVIOUS TRACING : 09/09/2017 15.54 DOCTOR: Rashawn Arango Interpretating Date/Time 09/13/2017 14:14:37
--- NOTE | 2017-09-13 17:46 | HHI.PR ---
Subjective Remarks On a NRB mask at 100 % FIO2 . C/O some SOB and cough. No fever. Objective Vital Signs Date Time Temp Pulse Resp B/P (MAP) Pulse Ox O2 Delivery O2 Flow Rate FiO2 09/13/17 14:00 78 09/13/17 12:00 78 09/13/17 12:00 98.0 78 17 150/85 (106) 100 09/13/17 10:00 85 09/13/17 09:26 73 85/47 09/13/17 08:46 99 Non-Rebreather 12.00 100 09/13/17 08:00 89 09/13/17 08:00 98.1 89 25 80/45 (57) 89 09/13/17 07:00 100 Partial Non-Rebreather 15.00 09/13/17 06:00 87 09/13/17 04:00 97.9 83 16 187/88 (121) 100 09/13/17 04:00 83 09/13/17 02:00 86 09/13/17 00:00 84 09/13/17 00:00 97.8 84 16 176/80 (112) 100 09/12/17 22:00 80 09/12/17 20:33 100 Partial Rebreather 15.00 09/12/17 20:00 82 09/12/17 19:01 91 27 154/72 (99) 100 09/12/17 19:00 98 Partial Non-Rebreather 100 09/12/17 18:01 87 21 150/67 (94) 100 I/O 09/12/17 09/12/17 09/12/17 09/13/17 09/13/17 09/13/17 07:00 15:00 23:00 07:00 15:00 23:00 Intake Total 240 ml 410 ml 428 ml 2200 ml Output Total 175 ml 350 ml 500 ml Balance 65 ml 410 ml 78 ml 1700 ml Intake Oral 240 ml 100 ml 100 ml IV Total 328 ml 2100 ml Packed Cells 400 ml Blood Product IV Normal Saline Flush 10 ml Output Urine Total 175 ml 350 ml 500 ml # Bowel Movements 0 0 0 Result Diagram: 09/13/17 1700 09/13/17 0407 Objective Remarks GENERAL: An elderly female, weak, mild short of breath. Alert and Pale. HEENT: Examination pupils are equal and reactive to light. She has pallor. NECK: Supple. Jugular venous pulse not raised. CHEST: Air entry equal bilaterally. Occ rhonchi. CARDIOVASCULAR: S1-S2 normal. ABDOMEN: Benign. EXTREMITIES: No edema.Neuro , No Deficits. Assessment and Plan Assessment and Plan IMPRESSION 1. Bilateral pulmonary embolism. 2. Severe anemia. 3. Hypertension. 4. Arthritis. Plan : 1. Cont Weaning O2 to Ventimask. 2. Nebs tid prn , Duoneb 3. Heparin per Dr Means 4. Continue Solumedrol 60 mg IV BID 5. CBC,BMP CXR in am José Miguel Dill MD Sep 13, 2017 17:46
--- NOTE | 2017-09-13 19:27 | RADRPT ---
EXAM DATE/TIME: 09/13/2017 18:58 [facility] COMPARISON: No previous studies available for comparison. EXTERNAL COMPARISON : [facility], US ABDOMEN SPLEEN, May 31, 2016 INDICATIONS : Increased lab values. MEDICAL HISTORY : Hypercholesterolemia. Renal calculi. Osteoarthritis. Thyroid disease. Chest pain. HTN. Dyspnea. Anemi a. GERD. Gallstones. Arthritis. Depression. Anxiety. SURGICAL HISTORY : Hysterectomy. Teeth extractions. Blood transfusions. ENCOUNTER: Initial ACUITY: 1 week PAIN SCORE: 3/10 LOCATION: Bilateral upper quadrant MEASUREMENTS: LIVER: 17.2 cm length COMMON DUCT: 4 mm RIGHT KIDNEY: 10.7 x 3.1 x 4.8 cm SPLEEN: Absent cm length FINDINGS: The liver is slightly echogenic which maybe due to fatty infiltration and or hepatocellular dysfuncti on. The gallbladder demonstrates multiple stones without gallbladder wall thickening, or pericholecys tic fluid. There is a questionable almost 6 mm upper pole right kidney stone. There is no hydronephro sis. Spleen is absent surgically. Approximate 4 cm cyst is present in the left kidney. CONCLUSION: Cholelithiasis and fatty liver. Questionable tiny right renal stone. Adiel Zelaya MD on September 13, 2017 at 19:23 Board Certified Radiologist. This report was verified electronically.
[2017-09-13] MEDS: [UNRECOGNIZED DRUG - REMARK] PO SCH (21:05)
[2017-09-13] MEDS: VERAPAMIL HCL 40 MG TAB PO SCH (21:05)
[2017-09-13] MEDS: POLYETHYLENE GLYCOL 17 GM PKG PO SCH (21:06)
[2017-09-13] MEDS: ACETAMINOPHEN/HYDROcodone 325 MG/7.5 MG TAB PO PRN (21:06)
[2017-09-14] VITALS (15 sets, daily range): BP systolic 107–152; BP diastolic 52–70; PULSE 59–79; RESP 13–20; TEMP 97.9–98.6; O2SAT 95–100
[2017-09-14] MEDS: SODIUM CHLOR 0.9% 1000 ML INJ 1,000 ML IV SCH (02:34)
[2017-09-14] MEDS: RESP: ALBUTEROL 2.5 MG/IPRATROPIUM 0.5 MG NEB (SCH) NEB ×4 (03:28→20:48)
--- NOTE | 2017-09-14 05:00 | RADRPT ---
EXAM DATE/TIME: 09/14/2017 03:56 [facility] COMPARISON: CHEST SINGLE AP, September 12, 2017, 15:27. INDICATIONS : Shortness of breath, possible pulmonary disease. MEDICAL HISTORY : Hypercholesterolemia. Renal calculi. Osteoarthritis. HTN GERD SURGICAL HISTORY : Hysterectomy. ENCOUNTER: Subsequent ACUITY: 1 week PAIN SCORE: Non-responsive. LOCATION: Bilateral chest FINDINGS: Right jugular line tip overlies the SVC. Cardiomegaly. Lungs are clear. CONCLUSION: No acute disease. Arnoldo Hayden MD on September 14, 2017 at 4:59 Board Certified Radiologist. This report was verified electronically.
[2017-09-14 05:57] LABS: AUTOMATED NEUTROPHIL # 15.2 TH/MM3 (1.8-7.7); BASOPHIL % 0.2 % (0.0-2.0); EOSINOPHIL % 0.1 % (0.0-4.0); HEMATOCRIT 24.1 % (35.0-46.0); HEMOGLOBIN 7.6 GM/DL (11.6-15.3); LYMPH % 2.4 % (9.0-44.0); LYMPHOCYTE # 0.4 TH/MM3 (1.0-4.8); MEAN CELL VOLUME 114.5 FL (80.0-100.0); MEAN CORPUSCULAR HEMOGLOBIN 36.2 PG (27.0-34.0); MEAN CORPUSCULAR HGB CONC 31.6 % (32.0-36.0); MEAN PLATELET VOLUME 7.7 FL (7.0-11.0); MONO % 6.5 % (0.0-8.0); MONOCYTE # 1.1 TH/MM3 (0-0.9); NEUT % 90.8 % (16.0-70.0); PLATELET COUNT 300 TH/MM3 (150-450); RED BLOOD COUNT 2.11 MIL/MM3 (4.00-5.30); RED CELL DISTRIBUTION WIDTH 28.3 % (11.6-17.2); WHITE BLOOD COUNT 16.7 TH/MM3 (4.0-11.0)
[2017-09-14 06:08] LABS: ALBUMIN 3.2 GM/DL (3.4-5.0); ALT (GPT) 125 U/L (10-53); AST (GOT) 54 U/L (15-37); BICARBONATE 26.8 MEQ/L (21.0-32.0); BLOOD UREA NITROGEN 47 MG/DL (7-18); CALCIUM 8.1 MG/DL (8.5-10.1); CHLORIDE 105 MEQ/L (98-107); CHOLESTEROL 139 MG/DL (120-200); CREATININE 1.22 MG/DL (0.50-1.00); GLOMERULAR FILTRATION RATE 43 ML/MIN (>89); GLUCOSE,RANDOM 136 MG/DL (74-106); SODIUM (NA) 140 MEQ/L (136-145)
[2017-09-14 06:11] LABS: ALKALINE PHOSPHATASE 142 U/L (45-117); CHOLESTEROL/ HDL RATIO 3.25 RATIO; HDL CHOLESTEROL 42.7 MG/DL (40.0-60.0); LDL CHOLESTEROL 73 MG/DL (0-99); PHOSPHORUS 4.7 MG/DL (2.5-4.9); TOTAL BILIRUBIN ADULT 3.2 MG/DL (0.2-1.0); TOTAL PROTEIN 5.6 GM/DL (6.4-8.2); TRIGLYCERIDES 119 MG/DL (42-150)
[2017-09-14] MEDS: FOLIC ACID 1 MG TAB PO SCH (07:40)
[2017-09-14] MEDS: ASPIRIN EC 81 MG TABEC PO SCH (07:40)
[2017-09-14] MEDS: VERAPAMIL HCL 40 MG TAB PO SCH ×2 (07:40→21:00)
[2017-09-14] MEDS: DULoxetine HCl DR 60 MG CAP PO SCH (07:40)
[2017-09-14] MEDS: VITAMIN B CMPLX/VITC/FOLIC AC CAP PO SCH (07:40)
[2017-09-14] MEDS: CHOLECALCIFEROL (VIT D3) 1000 UNIT TAB PO SCH (07:41)
[2017-09-14] MEDS: SODIUM CHLORIDE 0.9% FLUSH 10 ML FLUSH IV FLUSH SCH ×3 (07:41→21:00)
[2017-09-14] MEDS: methylPREDNISolone SOD SUCC 125 MG/2 ML VIAL IV PUSH SCH (07:41)
[2017-09-14] MEDS: LACTULOSE SYRUP 20 GM/30 ML CUP PO SCH (07:42)
[2017-09-14] MEDS: INSULIN NovoLIN REGULAR SUPPLEMENTAL SCALE SQ SCH ×4 (07:42→21:00)
[2017-09-14] MEDS: POLYETHYLENE GLYCOL 17 GM PKG PO SCH ×2 (07:42→21:00)
[2017-09-14] MEDS: METOPROLOL TARTRATE 50 MG TAB PO SCH ×2 (07:42→21:00)
[2017-09-14] MEDS: HEPARIN-D5W 25,000 U/250 ML 250 ML IV PRN (07:45)
[2017-09-14] MEDS: PANTOPRAZOLE SODIUM 40 MG VIAL IV PUSH SCH ×2 (08:08→21:00)
[2017-09-14 09:16] LABS: BANDS 2 % (0-6); CORRECTED NUCLEATED RBC 106 /100 WBC (0-0); LYMPHOCYTES 3 % (9-44); MONOCYTES 3 % (0-8); NEUTROPHIL # MANUAL DIFF 15.7 TH/MM3 (1.8-7.7); NUCLEATED RED BLOOD CELL 106 (0-0); POLYS (SEG NEUTROPHILS) 92 % (16-70)
[2017-09-14 09:17] LABS: HOWELL-JOLLY BODIES PRESENT (NONE SEEN)
--- NOTE | 2017-09-14 11:30 | HHI.GIFU ---
Subjective Remarks Patient is resting in bed, still with no obvious GI bleed, she is on NC now. not interested in doing colonoscopy stating had one a yr ago, she wants to think about EGD (Diana Simeon) Objective Vitals I&O Vital Signs Date Time Temp Pulse Resp B/P (MAP) Pulse Ox O2 Delivery O2 Flow Rate FiO2 09/14/17 10:00 63 09/14/17 08:18 96 Nasal Cannula 6.00 09/14/17 08:00 76 09/14/17 08:00 98.0 76 20 148/70 (96) 97 09/14/17 07:00 100 Nasal Cannula 5.00 09/14/17 06:00 67 09/14/17 04:00 79 09/14/17 04:00 98.2 79 20 124/60 (81) 100 09/14/17 03:49 96 Nasal Cannula 6.00 09/14/17 03:00 98 Nasal Cannula 5.00 09/14/17 02:00 67 09/14/17 00:00 97.9 68 13 136/63 (87) 95 09/14/17 00:00 68 09/13/17 23:00 95 Venturi Mask 09/13/17 22:00 88 09/13/17 21:57 92 Venturi Mask 6.00 50 09/13/17 20:50 95 Venturi Mask 6.00 50 09/13/17 20:31 100 Non-Rebreather 15.00 100 09/13/17 20:00 98.3 92 22 145/77 (99) 86 09/13/17 20:00 92 09/13/17 19:00 95 Venturi Mask 6.00 09/13/17 18:00 97 09/13/17 16:00 98.1 77 13 138/67 (90) 100 09/13/17 16:00 77 09/13/17 14:00 78 09/13/17 12:00 78 09/13/17 12:00 98.0 78 17 150/85 (106) 100 I/O 09/13/17 09/13/17 09/13/17 09/14/17 09/14/17 09/14/17 07:00 15:00 23:00 07:00 15:00 23:00 Intake Total 2200 ml 465 ml 80 ml 240 ml Output Total 500 ml 500 ml 325 ml Balance 1700 ml 465 ml -420 ml -85 ml Intake Oral 100 ml 80 ml 240 ml IV Total 2100 ml 465 ml Output Urine Total 500 ml 500 ml 325 ml # Bowel Movements 0 0 0 Laboratory Laboratory Tests Test 09/13/17 17:00 09/13/17 19:00 09/14/17 01:30 09/14/17 05:30 Hemoglobin 8.0 7.6 Activated Partial Thromboplast Time 90.6 62.3 45.9 44.9 White Blood Count 16.7 Red Blood Count 2.11 Hematocrit 24.1 Mean Corpuscular Volume 114.5 Mean Corpuscular Hemoglobin 36.2 Mean Corpuscular Hemoglobin Concent 31.6 Red Cell Distribution Width 28.3 Platelet Count 300 Mean Platelet Volume 7.7 Neutrophils (%) (Auto) 90.8 Lymphocytes (%) (Auto) 2.4 Monocytes (%) (Auto) 6.5 Eosinophils (%) (Auto) 0.1 Basophils (%) (Auto) 0.2 Neutrophils # (Auto) 15.2 Lymphocytes # (Auto) 0.4 Monocytes # (Auto) 1.1 Eosinophils # (Auto) 0.0 Basophils # (Auto) 0.0 CBC Comment AUTO DIFF Differential Total Cells Counted 100 Neutrophils % (Manual) 92 Band Neutrophils % 2 Lymphocytes % 3 Monocytes % 3 Neutrophils # (Manual) 15.7 Nucleated Red Blood Cells 106 Differential Comment FINAL DIFF MANUAL Platelet Estimate NORMAL Platelet Morphology Comment NORMAL Polychromasia 6.0 [place] Bodies PRESENT Red Cell Morphology Comment Blood Urea Nitrogen 47 Creatinine 1.22 Random Glucose 136 Total Protein 5.6 Albumin 3.2 Calcium Level 8.1 Phosphorus Level 4.7 Magnesium Level 3.0 Alkaline Phosphatase 142 Aspartate Amino Transf (AST/SGOT) 54 Alanine Aminotransferase (ALT/SGPT) 125 Total Bilirubin 3.2 Sodium Level 140 Potassium Level 4.5 Chloride Level 105 Carbon Dioxide Level 26.8 Anion Gap 8 Estimat Glomerular Filtration Rate 43 Lactic Acid Level 3.1 Troponin I 0.20 Triglycerides Level 119 Cholesterol Level 139 LDL Cholesterol 73 HDL Cholesterol 42.7 Cholesterol/HDL Ratio 3.25 Date/Time Source Procedure Growth Status 09/12/17 14:22 Blood Peripheral Aerobic Blood Culture - Preliminary NO GROWTH IN 2 DAYS Resulted 09/12/17 14:22 Blood Peripheral Anaerobic Blood Culture - Preliminary NO GROWTH IN 2 DAYS Resulted 09/13/17 18:30 Nasal Aspirate Influenza Types A,B Antigen (MERLYN) - Final NEGATIVE FOR FLU A AND B ANTIGEN.... Complete 09/12/17 16:15 Urine Clean Catch Urine Culture - Final NO GROWTH IN 48 HOURS. Complete Imaging Last Impressions Chest X-Ray 09/14/17 0600 Signed Impressions: Service Date/Time: Thursday, September 14, 2017 03:56 - CONCLUSION: No acute disease. Arnoldo Hayden MD Liver Ultrasound 09/13/17 0000 Signed Impressions: Service Date/Time: Wednesday, September 13, 2017 18:58 - CONCLUSION: Cholelithiasis and fatty liver. Questionable tiny right renal stone. K. Jose Zelaya MD Head CT 09/13/17 0000 Signed Impressions: Service Date/Time: Wednesday, September 13, 2017 10:02 - CONCLUSION: 1. Remote infarct right basal ganglia. 2. No acute intracranial abnormality. Dwain Block MD CT Angiography 09/12/17 0000 Signed Impressions: Service Date/Time: Tuesday, September 12, 2017 11:38 - CONCLUSION: 1. Mild pulmonary emboli in several distal right lower lobe pulmonary arteries. 2. Coronary artery calcifications. Jaden Lopez MD Lower Extremity Ultrasound 09/10/17 0000 Signed Impressions: Service Date/Time: Sunday, September 10, 2017 08:16 - CONCLUSION: 1. No sonographic evidence for right lower extremity DVT. Rob Nascimento MD Physical Exam HEENT: normocephalic; atraumatic; no jaundice. Throat is clear. NECK: Neck is supple, no JVD, no lymphadenopathy. CHEST: Scattered Crackles CARDIAC: Regular rate and rhythm ABDOMEN: Soft, nondistended, nontender; no hepatosplenomegaly; bowel sounds are present in all four quadrants. EXTREMITIES: trace edema. SKIN: Normal; no rash; no jaundice. SHOE CLERK: No focal deficits; alert and oriented times three. (Diana Simeon) Assessment and Plan Assessment: (1) Macrocytic anemia ICD Codes: D53.9 - Nutritional anemia, unspecified (2) Symptomatic anemia ICD Codes: D64.9 - Anemia, unspecified Status: Acute (3) Pulmonary embolism ICD Codes: I26.99 - Other pulmonary embolism without acute cor pulmonale (4) Severe anemia ICD Codes: D64.9 - Anemia, unspecified Plan Patient currently has shortness of breath, being managed on 100% nonrebreather. If she becomes ventilated with ET tube, GI could possibly do EGD with protected airway present. Otherwise timing TBA. Symptomatic macrocytic ,hemolytic ,anemia. Hemoglobin is now 8.6 after receiving 3 units of packed RBCs and 2 units of platelets. Abdominal pain unspecified, describes as a sick feeling and diffuse pain. Possibly secondary to the symptomatic anemia, bleeding, inflammation, infection , autoimmune disorders. Hyperbilirubinemia, with equal direct and indirect delivery., Possible hemolytic in nature. Leukocytosis probably secondary to IV steroids Pulmonary emboli, per CT with acute symptoms of shortness of breath, patient has now been taken off Xarelto and placed on heparin drip. 09/13- patient still not stable for gi work up respiratory philippe, no GI bleeding reported, hgb with mild drop liver work up pending, AFP wnl 5.7 09/14 no signs of bleeding, hgb stable, not very keen to having colonoscopy, but would consider EGD, but would like to think about it liver work up still pending, LFTs remain high, US showed gallstones and fatty liver Plan - Diet per [facility] - Monitor H&H - Transfuse as needed - Await liver work up alpha-fetoprotein, hepatitis profile, ceruloplasmin, smooth muscle auto labs, a NA, IgG, hereditary hemochromatosis - EGD sometimes next week - Await Hemoccult stools - Cont. ppi - Supportive care This patient has been seen by myself and Dr. Dodge, note was written on his behalf (Diana Simeon) Physician Comments Seen and examined with [employer] SU[employer] MAKER, no active bleeding reported. S.O.B improved. EGD when pt. agreeable, refusing colonoscopy. Liver casas in progress. (Baldo Dodge MD) Diana Simeon Sep 14, 2017 11:30 Baldo Dodge MD Sep 14, 2017 12:14
[2017-09-14 11:44] LABS: HEMOGLOBIN A1C 2.6 % (4.3-6.0)
--- NOTE | 2017-09-14 17:53 | HHI.PR ---
Subjective Remarks Better today and on O2 N/C at 4 L. Sat 99. C/O some SOB and cough. No fever. HGb Stable. Objective Vital Signs Date Time Temp Pulse Resp B/P (MAP) Pulse Ox O2 Delivery O2 Flow Rate FiO2 09/14/17 16:00 98.6 61 14 120/59 (79) 100 09/14/17 16:00 67 09/14/17 14:00 67 09/14/17 12:00 98.4 59 15 107/52 (70) 99 09/14/17 12:00 59 09/14/17 10:00 63 09/14/17 08:18 96 Nasal Cannula 6.00 09/14/17 08:00 76 09/14/17 08:00 98.0 76 20 148/70 (96) 97 09/14/17 07:00 100 Nasal Cannula 5.00 09/14/17 06:00 67 09/14/17 04:00 79 09/14/17 04:00 98.2 79 20 124/60 (81) 100 09/14/17 03:49 96 Nasal Cannula 6.00 09/14/17 03:00 98 Nasal Cannula 5.00 09/14/17 02:00 67 09/14/17 00:00 97.9 68 13 136/63 (87) 95 09/14/17 00:00 68 09/13/17 23:00 95 Venturi Mask 09/13/17 22:00 88 09/13/17 21:57 92 Venturi Mask 6.00 50 09/13/17 20:50 95 Venturi Mask 6.00 50 09/13/17 20:31 100 Non-Rebreather 15.00 100 09/13/17 20:00 98.3 92 22 145/77 (99) 86 09/13/17 20:00 92 09/13/17 19:00 95 Venturi Mask 6.00 09/13/17 18:00 97 I/O 09/13/17 09/13/17 09/13/17 09/14/17 09/14/17 09/14/17 07:00 15:00 23:00 07:00 15:00 23:00 Intake Total 2200 ml 465 ml 80 ml 240 ml Output Total 500 ml 500 ml 325 ml Balance 1700 ml 465 ml -420 ml -85 ml Intake Oral 100 ml 80 ml 240 ml IV Total 2100 ml 465 ml Output Urine Total 500 ml 500 ml 325 ml # Bowel Movements 0 0 0 Result Diagram: 09/14/1752909/14/17529 Objective Remarks GENERAL: An elderly female, weak, mildly short of breath. Alert and Pale. HEENT: Examination pupils are equal and reactive to light. NECK: Supple. Jugular venous pulse not raised. CHEST: Air entry equal bilaterally. Occ rhonchi.Few basal Crackles CARDIOVASCULAR: S1-S2 normal. ABDOMEN: Benign. EXTREMITIES: No edema.Neuro , No Deficits. Assessment and Plan Assessment and Plan IMPRESSION 1. Bilateral pulmonary embolism. 2. Severe anemia. 3. Hypertension. 4. Arthritis. Plan : 1. Cont Weaning O2 to 3 L N/C 2. Nebs tid prn , Duoneb 3. Heparin per Dr Means 4. Wean Solumedrol 40 mg IV BID 5. CBC,BMP PTT in am José Miguel Dill MD Sep 14, 2017 17:53
[2017-09-14 18:25] LABS: AMORPHOUS SEDIMENT, URINE RARE; BACTERIA, URINE OCC /hpf; BLOOD, URINE MOD (NEG); GLUCOSE,URINE NEG (NEG); HYALINE CAST, URINE 13 /lpf (RARE); KETONE, URINE NEG (NEG); MUCUS URINE FEW /lpf (OCC); NITRITE,URINE NEG (NEG); PH, URINE 8.5 (5.0-8.5); TRANSITIONAL EPI CELLS, URINE 1 /hpf; TRIPLE PHOSPHATE CRYSTAL,URINE MANY /hpf; URINE LEUKOCYTE ESTERASE LARGE (NEG)
[2017-09-14 18:30] LABS: BILIRUBIN, URINE NEG (NEG); URINE COLOR RED (YELLW/STRAW)
--- NOTE | 2017-09-14 19:44 | HHI.CCPN ---
Subjective Remarks/Hospital Course This is a 81-year-old female. Date of admission 09/10/2017. Date of consult 09/11/2017. Past medical history includes hypertension, dyslipidemia, depression/anxiety, chronic pain syndrome, cholelithiasis, nephrolithiasis and osteoarthritis. Patient has a known history of macrocytic anemia which he follows with Dr. Shah. She has had her spleen removed future anemia in the past. He is chronically on azathioprine. It appears on 09/01 patient was diagnosed with pulmonary embolism along with the right lower extremity DVT. She started on rivaroxaban 15 mg twice a day. She follows who agreed with this is been on this in the in the interim. She presents earlier to [place] with acute on chronic worsening shortness of breath. She was able to able to the bathroom and became short of breath. She is noted to have a hemoglobin of 4.3. MCV of 143. Haptoglobin low and LDH high. Started on methylprednisolone 60 mg IV twice a day per hematology. Transfused 3 units PRBCs and 2 FFP. Warm Dejon positive. Throughout this hospitalization she had increasing oxygen requirements. ABG reveals shunting. Chest x-ray revealed no acute cardio point process. Repeat CT pulmonary angiogram today revealed several small pulmonary embolism in the right lower lobe do not appear to be hemodynamically compromising. 2D echocardiogram is pending at time of dictation. Denies chest pain. Patient is not tachycardic. Hemodynamically stable. Subjective 09/13: Afebrile. Hypertensive overnight but currently hypotensive complaining of blurry vision. No other focal logical neurological deficit on bedside evaluation. Denies chest pain. States this "new" mask is causing her difficulty breathing. Currently a nonrebreather 12 L satting 100%. Remains on heparin drip 1400 units an hour. Stat CT brain pending 09/14: Afebrile he ate patient alert and pleasantly conversant today. CT brain was negative. Patient's has complaints of mild pain lower extremities only at night resolved with when necessary Percocet. Patient previously on Lortab at home for symptoms. Objective Vital Signs Date Time Temp Pulse Resp B/P (MAP) Pulse Ox O2 Delivery O2 Flow Rate FiO2 09/14/17 18:00 72 09/14/17 16:00 98.6 14 120/59 (79) 100 09/14/17 08:18 Nasal Cannula 6.00 2/3/18 21:57 50 Intake and Output 09/14/17 09/14/17 09/15/17 08:00 16:00 00:00 Intake Total 240 ml 480 ml Output Total 325 ml 400 ml Balance -85 ml 80 ml Result Diagram: 09/14/17 0530 09/14/17 0530 Other Results Microbiology Date/Time Source Procedure Growth Status 09/13/17 18:30 Nasal Aspirate Influenza Types A,B Antigen (MERLYN) - Final NEGATIVE FOR FLU A AND B ANTIGEN.... Complete 09/12/17 16:15 Urine Clean Catch Urine Culture - Final NO GROWTH IN 48 HOURS. Complete 09/12/17 16:15 Urine Catheterized Urine Legionella Antigen - Final PRESUMPTIVE NEGATIVE FOR LEGIONELLA P... Complete 09/12/17 16:15 Urine Catheterized Urine Streptococcus pneumoniae Antigen (M - Final PRESUMPTIVE NEGATIVE FOR STREPTOCOCCU... Complete Imaging Last Impressions Chest X-Ray 09/12/17 1515 Signed Impressions: Service Date/Time: Tuesday, September 12, 2017 15:27 - CONCLUSION: 1. Right IJ central line in the SVC without pneumothorax. Rob Nascimento MD CT Angiography 09/12/17 0000 Signed Impressions: Service Date/Time: Tuesday, September 12, 2017 11:38 - CONCLUSION: 1. Mild pulmonary emboli in several distal right lower lobe pulmonary arteries. 2. Coronary artery calcifications. Jaden Lopez MD Lower Extremity Ultrasound 09/10/17 0000 Signed Impressions: Service Date/Time: Sunday, September 10, 2017 08:16 - CONCLUSION: 1. No sonographic evidence for right lower extremity DVT. Rob Nascimento MD Objective Remarks GENERAL: 81-year-old female currently resting in bed on nasal cannula decreased to 5 L/m SKIN: Warm and dry. Well perfused HEAD: Atraumatic. Normocephalic. EYES: Pupils equal and round. No scleral icterus. No injection or drainage. ENT: No nasal bleeding or discharge. Mucous membranes pink and moist. NECK: Trachea midline. No JVD. Right IJ is clean dry and intact CARDIOVASCULAR: Regular rate and rhythm. S1, S2 no S4. No rub. No murmur. RESPIRATORY: Clear to auscultation bilaterally. No accessory muscle movement GASTROINTESTINAL: Abdomen soft, non-tender, nondistended. Hypoactive bowel sounds appreciated. MUSCULOSKELETAL: Extremities with trace bilateral lower extremity edema. No obvious deformities. NEUROLOGICAL: Awake and alert. No obvious cranial nerve deficits. Motor grossly within normal limits. 5/5 muscle strength B/L upper and lower extremities. Normal speech. No pronator drift. Gait was not assessed. Visual examination essentially normal but she is complaining of "faint distant blurry vision".. Procedures None Date of Insertion: Sep 12, 2017 Line: Central Venous Catheter Side: Right Location: Internal, Jugular A/P Assessment and Plan Neuro/Psych: Depression/anxiety Chronic pain syndrome Chronic narcotic use Patient is currently on duloxetine 60 mg by mouth daily/home medication for depression. Continue Currently on tizanidine 4 mg by mouth every 6 hours. Muscle relaxant Acetaminophen 650 mg by mouth every 4 hours when necessary fever/pain 1 through 4 Patient is on hydrocodone/acetaminophen 7.5/325 one tablet, every 6 hours as needed for pain 5-10 Patient is on hydrocodone/acetaminophen 10/325 one tablet every 6 hours when necessary pain at home Stat CT brain / with vision changes on heparin drip CV: History of hypertension Dyslipidemia Elevated troponin CTEPH - likely diagnosis Home medications verapamil 120 mg by mouth daily. Hold while blood pressures tenuous. Switch to verapamil 40 mg by mouth twice a day with holding parameters see orders. MAP currently 60 Norepinephrine if necessary to maintain mean axial pressure greater than 65 2-D echocardiogram - LVSF low Nl EF 50-55%. Flattened septum througout the cardiac cycle suggesting elevated right ventricular end diastolic pressures. The right ventricle is moderately dilated. The right ventricular systoilc function is severely decreased. Possible Handy's sign seen in acute pulmonary embolism (akinesis of mid right ventricle with fairly normal motion at the apex). There is mild tricuspid valve regurgitation. The estimated systolic pulmonary pressure is 57 mmg Hg. Currently on normal saline at 30 cc an hour Not on any lipid-lowering agents. Lipid panel ordered for a.m. / Dr. Johnston - Continue anticoagulation therapy with heparin drip. No additional cardiac workup at this point; could consider nuclear stress test or coronary CTA as an outpatient. Add metoprolol tartrate 50 milligrams twice a day to calcium channel tigre if able BNP elevated > 1500 Added aspirin 81 mg by mouth daily F/U BNP Resp: Acute respiratory failure History of pulmonary embolism On 5LPM N/C to maintain saturations greater than equal to 92% Incentive spirometry while awake CTPA - The main pulmonary artery and right and left branch vessels are intact. There is a small amount of thrombus in several of the distal right lower lobe pulmonary arteries. Negative DVT right lower extremity ultrasound Chest x-ray 09/12 revealed no acute cardio pulmonary findings Started on albuterol/ipratropium every 4 hours with albuterol aerosols every 2 hours. Dyspnea GI: History of cholelithiasis Elevated total bilirubin Elevated transaminases Constipation Hypoalbuminemia Are healthy diet Pantoprazole for GI prophylaxis Docusate sodium/senna 1 tablet twice a day for bowel regimen. Add polyethylene glycol 17 g twice a day and lactulose 30 cc daily GI consulted. Hemoccult pending. Liver workup per GI. Pending AMA/ASMA/DK/ alphafetoprotein and hepatitis panel : Reeves catheter if indicated for accurate I's and O's in a critically ill patient Endo: Sliding-scale insulin Novulin R low regimen before meals at bedtime with Accu- Cheks to maintain euglycemia TSH 1.3. Renal: Acute kidney injury History of nephrolithiasis Creatinine currently 1.1 Follow-up on BMP in a.m. 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 Folate elevated 19. Patient is on chronic folate acid 1 mg daily at home. Peripheral blood reveals marked aniso- and poikilocytosis of the red cells with prominent polychromasia and numerous nucleated red blood cells. Many spherocytes are present. Significant numbers of red cell fragments ( schistocytes) are not identified. The peripheral blood findings, in combination with the patients elevated LDH, decreased haptoglobin, and positive LAKHWINDER, are most suggestive of autoimmune hemolytic anemia. Evaluated by Dr. Means Transfused 3 units PRBCs and 2 FFP during this hospitalization Haptoglobin was low LDH elevated. Started on methylprednisolone succinate 60 mg IV twice a day per Dr. Means. Reticulocyte elevated. Pending MMA, homocysteine and serum folate as well Holding azathioprine 50 mg per hematology ID: Monitor for infection (fever, elevated WBC) Blood cultures 2, sputum, urine and influenza pending, negative urinary Legionella and pneumococcal antigens 09/12. MSK: Osteoarthritis PT evaluate and treat Continue cholecalciferol 5000 units daily FEN: Hyper-magnesium Replace electrolytes as clinically indicated Access - Utilize peripheral IV. Central line if indicated Prophylaxis - GI - pantoprazole - DVT - SCDs currently in heparin drip. Will discuss with hematology post CT pulmonary angiogram Critical Care: Level 3 . Physician Shelley Beck MD Sep 14, 2017 19:44
[2017-09-14] MEDS: methylPREDNISolone SOD SUCC 40 MG/1 ML VIAL IV PUSH SCH (21:00)
[2017-09-14] MEDS: ACETAMINOPHEN/HYDROcodone 325 MG/7.5 MG TAB PO PRN (21:01)
[2017-09-15] VITALS (15 sets, daily range): BP systolic 134–178; BP diastolic 54–79; PULSE 51–78; RESP 13–28; TEMP 97.9–98.4; O2SAT 94–97
[2017-09-15] MEDS: RESP: ALBUTEROL 2.5 MG/IPRATROPIUM 0.5 MG NEB (SCH) NEB ×4 (03:16→22:00)
[2017-09-15 05:12] LABS: AUTOMATED NEUTROPHIL # 12.5 TH/MM3 (1.8-7.7); BASOPHIL % 0.3 % (0.0-2.0); EOSINOPHIL % 0.1 % (0.0-4.0); HEMATOCRIT 27.1 % (35.0-46.0); HEMOGLOBIN 8.5 GM/DL (11.6-15.3); LYMPH % 2.2 % (9.0-44.0); LYMPHOCYTE # 0.3 TH/MM3 (1.0-4.8); MEAN CELL VOLUME 113.4 FL (80.0-100.0); MEAN CORPUSCULAR HEMOGLOBIN 35.6 PG (27.0-34.0); MEAN CORPUSCULAR HGB CONC 31.4 % (32.0-36.0); MONO % 7.1 % (0.0-8.0); NEUT % 90.3 % (16.0-70.0); PLATELET COUNT 302 TH/MM3 (150-450); RED BLOOD COUNT 2.39 MIL/MM3 (4.00-5.30); RED CELL DISTRIBUTION WIDTH 26.5 % (11.6-17.2); WHITE BLOOD COUNT 13.9 TH/MM3 (4.0-11.0)
[2017-09-15 05:40] LABS: ALBUMIN 3.3 GM/DL (3.4-5.0); ALT (GPT) 130 U/L (10-53); AST (GOT) 35 U/L (15-37); BLOOD UREA NITROGEN 45 MG/DL (7-18); CALCIUM 7.9 MG/DL (8.5-10.1); CHLORIDE 105 MEQ/L (98-107); CREATININE 1.12 MG/DL (0.50-1.00); GLOMERULAR FILTRATION RATE 47 ML/MIN (>89); GLUCOSE,RANDOM 136 MG/DL (74-106); SODIUM (NA) 140 MEQ/L (136-145)
[2017-09-15 05:42] LABS: ALKALINE PHOSPHATASE 144 U/L (45-117); TOTAL BILIRUBIN ADULT 2.1 MG/DL (0.2-1.0); TOTAL PROTEIN 5.7 GM/DL (6.4-8.2)
[2017-09-15 07:57] LABS: BANDS 3 % (0-6); CORRECTED NUCLEATED RBC 84 /100 WBC (0-0); LYMPHOCYTES 1 % (9-44); MONOCYTES 6 % (0-8); NEUTROPHIL # MANUAL DIFF 12.9 TH/MM3 (1.8-7.7); NUCLEATED RED BLOOD CELL 84 (0-0); POLYS (SEG NEUTROPHILS) 90 % (16-70)
[2017-09-15 07:58] LABS: POLYCHROMASIA 5.4 % (0.0-1.9)
[2017-09-15] MEDS: DULoxetine HCl DR 60 MG CAP PO SCH (08:14)
[2017-09-15] MEDS: ASPIRIN EC 81 MG TABEC PO SCH (08:14)
[2017-09-15] MEDS: FOLIC ACID 1 MG TAB PO SCH (08:14)
[2017-09-15] MEDS: POLYETHYLENE GLYCOL 17 GM PKG PO SCH ×2 (08:14→20:56)
[2017-09-15] MEDS: VITAMIN B CMPLX/VITC/FOLIC AC CAP PO SCH (08:15)
[2017-09-15] MEDS: METOPROLOL TARTRATE 50 MG TAB PO SCH ×2 (08:15→21:02)
[2017-09-15] MEDS: CHOLECALCIFEROL (VIT D3) 1000 UNIT TAB PO SCH (08:15)
[2017-09-15] MEDS: VERAPAMIL HCL 40 MG TAB PO SCH ×2 (08:15→21:29)
[2017-09-15] MEDS: SODIUM CHLORIDE 0.9% FLUSH 10 ML FLUSH IV FLUSH SCH ×3 (08:16→20:59)
[2017-09-15] MEDS: PANTOPRAZOLE SODIUM 40 MG VIAL IV PUSH SCH ×2 (08:16→20:58)
[2017-09-15] MEDS: methylPREDNISolone SOD SUCC 40 MG/1 ML VIAL IV PUSH SCH ×2 (08:17→21:00)
[2017-09-15] MEDS: LACTULOSE SYRUP 20 GM/30 ML CUP PO SCH (08:17)
[2017-09-15] MEDS: HEPARIN-D5W 25,000 U/250 ML 250 ML IV PRN (08:18)
[2017-09-15] MEDS: INSULIN NovoLIN REGULAR SUPPLEMENTAL SCALE SQ SCH ×4 (08:21→21:00)
[2017-09-15 15:16] LABS: HEPATITIS A AB IGM NEGATIVE (NEGATIVE); HEPATITIS B CORE AB IGM NEGATIVE (NEGATIVE); HEPATITIS B SURFACE ANTIGEN NEGATIVE (NEGATIVE); HEPATITIS C AB IgG REACTIVE (NEGATIVE)
--- NOTE | 2017-09-15 16:12 | HHI.CCPN ---
Subjective Remarks/Hospital Course This is a 81-year-old female. Date of admission 09/10/2017. Date of consult 09/11/2017. Past medical history includes hypertension, dyslipidemia, depression/anxiety, chronic pain syndrome, cholelithiasis, nephrolithiasis and osteoarthritis. Patient has a known history of macrocytic anemia which he follows with Dr. Shah. She has had her spleen removed future anemia in the past. He is chronically on azathioprine. It appears on 09/01 patient was diagnosed with pulmonary embolism along with the right lower extremity DVT. She started on rivaroxaban 15 mg twice a day. She follows who agreed with this is been on this in the in the interim. She presents earlier to [place] with acute on chronic worsening shortness of breath. She was able to able to the bathroom and became short of breath. She is noted to have a hemoglobin of 4.3. MCV of 143. Haptoglobin low and LDH high. Started on methylprednisolone 60 mg IV twice a day per hematology. Transfused 3 units PRBCs and 2 FFP. Warm Dejon positive. Throughout this hospitalization she had increasing oxygen requirements. ABG reveals shunting. Chest x-ray revealed no acute cardio point process. Repeat CT pulmonary angiogram today revealed several small pulmonary embolism in the right lower lobe do not appear to be hemodynamically compromising. 2D echocardiogram is pending at time of dictation. Denies chest pain. Patient is not tachycardic. Hemodynamically stable. Subjective 09/13: Afebrile. Hypertensive overnight but currently hypotensive complaining of blurry vision. No other focal logical neurological deficit on bedside evaluation. Denies chest pain. States this "new" mask is causing her difficulty breathing. Currently a nonrebreather 12 L satting 100%. Remains on heparin drip 1400 units [address]. Stat [address] brain pending 09/14: Afebrile the patient is awake , alert and pleasantly conversant today. CT brain was negative. Patient's has complaints of mild pain lower extremities only at night resolved with when necessary Percocet. Patient previously on Lortab at home for symptoms. 09/15: No acute events overnight. Urine culture revealed Proteus species patient placed on Cipro twice a day 10 days. PT evaluation and treat initiated. Hemoglobin stable. Objective Vital Signs Date Time Temp Pulse Resp B/P (MAP) Pulse Ox O2 Delivery O2 Flow Rate FiO2 09/15/17 09:07 95 Nasal Cannula 3.00 09/15/17 06:00 71 09/15/17 04:00 98.3 13 178/79 (112) 09/13/17 21:57 50 Intake and Output 09/15/17 09/15/17 09/16/17 08:00 16:00 00:00 Intake Total 240 ml Output Total 300 ml Balance -60 ml Result Diagram: 09/15/17 0502 09/15/17 0502 Other Results Microbiology Date/Time Source Procedure Growth Status 09/13/17 18:30 Nasal Aspirate Influenza Types A,B Antigen (MERLYN) - Final NEGATIVE FOR FLU A AND B ANTIGEN.... Complete 09/12/17 16:15 Urine Clean Catch Urine Culture - Final NO GROWTH IN 48 HOURS. Complete 09/12/17 16:15 Urine Catheterized Urine Legionella Antigen - Final PRESUMPTIVE NEGATIVE FOR LEGIONELLA P... Complete 09/12/17 16:15 Urine Catheterized Urine Streptococcus pneumoniae Antigen (M - Final PRESUMPTIVE NEGATIVE FOR STREPTOCOCCU... Complete Imaging Last Impressions Chest X-Ray 09/12/17 1515 Signed Impressions: Service Date/Time: Tuesday, September 12, 2017 15:27 - CONCLUSION: 1. Right IJ central line in the SVC without pneumothorax. Rob Nascimento MD CT Angiography 09/12/17 0000 Signed Impressions: Service Date/Time: Tuesday, September 12, 2017 11:38 - CONCLUSION: 1. Mild pulmonary emboli in several distal right lower lobe pulmonary arteries. 2. Coronary artery calcifications. Jaden Lopez MD Lower Extremity Ultrasound 09/10/17 0000 Signed Impressions: Service Date/Time: Sunday, September 10, 2017 08:16 - CONCLUSION: 1. No sonographic evidence for right lower extremity DVT. Rob Nascimento MD Objective Remarks GENERAL: 81-year-old female currently resting in bed on nasal cannula decreased to 3 L/m SKIN: Warm and dry. Well perfused HEAD: Atraumatic. Normocephalic. EYES: Pupils equal and round. No scleral icterus. No injection or drainage. ENT: No nasal bleeding or discharge. Mucous membranes pink and moist. NECK: Trachea midline. No JVD. Right IJ is clean dry and intact CARDIOVASCULAR: Regular rate and rhythm. S1, S2 no S4. No rub. No murmur. RESPIRATORY: Clear to auscultation bilaterally. No accessory muscle movement GASTROINTESTINAL: Abdomen soft, non-tender, nondistended. Hypoactive bowel sounds appreciated. MUSCULOSKELETAL: Extremities with trace bilateral lower extremity edema. No obvious deformities. NEUROLOGICAL: Awake and alert. No obvious cranial nerve deficits. Motor grossly within normal limits. 5/5 muscle strength B/L upper and lower extremities. Normal speech. No pronator drift. Gait was not assessed. Procedures None Date of Insertion: Sep 12, 2017 Line: Central Venous Catheter Side: Right Location: Internal, Jugular A/P Assessment and Plan Neuro/Psych: Depression/anxiety Chronic pain syndrome Chronic narcotic use Patient is currently on duloxetine 60 mg by mouth daily/home medication for depression. Continue Currently on tizanidine 4 mg by mouth every 6 hours. Muscle relaxant Acetaminophen 650 mg by mouth every 4 hours when necessary fever/pain 1 through 4 Patient is on hydrocodone/acetaminophen 7.5/325 one tablet, every 6 hours as needed for pain 5-10 Patient is on hydrocodone/acetaminophen 10/325 one tablet every 6 hours when necessary pain at home Stat CT brain / with vision changes on heparin drip-no acute intracranial abnormality CV: History of hypertension Dyslipidemia Elevated troponin CTEPH - likely diagnosis Home medications verapamil 120 mg by mouth daily. Hold while blood pressures tenuous. Switch to verapamil 40 mg by mouth twice a day with holding parameters see orders. MAP currently 60 Norepinephrine if necessary to maintain mean axial pressure greater than 65 2-D echocardiogram - LVSF low Nl EF 50-55%. Flattened septum througout the cardiac cycle suggesting elevated right ventricular end diastolic pressures. The right ventricle is moderately dilated. The right ventricular systoilc function is severely decreased. Possible Handy's sign seen in acute pulmonary embolism (akinesis of mid right ventricle with fairly normal motion at the apex). There is mild tricuspid valve regurgitation. The estimated systolic pulmonary pressure is 57 mmg Hg. Currently on normal saline at 30 cc an hour Not on any lipid-lowering agents. Lipid panel ordered for a.m. 09/14 Dr. Johnston - Continue anticoagulation therapy with heparin drip. No additional cardiac workup at this point; could consider nuclear stress test or coronary CTA as an outpatient. Add metoprolol tartrate 50 milligrams twice a day to calcium channel tigre if able BNP elevated > 1500 Added aspirin 81 mg by mouth daily F/U BNP Resp: Acute respiratory failure History of pulmonary embolism On 5LPM N/C to maintain saturations greater than equal to 92% Incentive spirometry while awake CTPA - The main pulmonary artery and right and left branch vessels are intact. There is a small amount of thrombus in several of the distal right lower lobe pulmonary arteries. Negative DVT right lower extremity ultrasound Chest x-ray 09/12 revealed no acute cardio pulmonary findings Started on albuterol/ipratropium every 4 hours with albuterol aerosols every 2 hours. Dyspnea GI: History of cholelithiasis Elevated total bilirubin Elevated transaminases Constipation Hypoalbuminemia Are healthy diet Pantoprazole for GI prophylaxis Docusate sodium/senna 1 tablet twice a day for bowel regimen. Add polyethylene glycol 17 g twice a day and lactulose 30 cc daily GI consulted. Hemoccult pending. Liver workup per GI. Pending AMA/ASMA/DK/ alphafetoprotein and hepatitis panel : Reeves catheter if indicated for accurate I's and O's in a critically ill patient Endo: Sliding-scale insulin Novulin R low regimen before meals at bedtime with Accu- Cheks to maintain euglycemia TSH 1.3. 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 Folate elevated 19. Patient is on chronic folate acid 1 mg daily at home. Peripheral blood reveals marked aniso- and poikilocytosis of the red cells with prominent polychromasia and numerous nucleated red blood cells. Many spherocytes are present. Significant numbers of red cell fragments ( schistocytes) are not identified. The peripheral blood findings, in combination with the patients elevated LDH, decreased haptoglobin, and positive LAKHWINDER, are most suggestive of autoimmune hemolytic anemia. Evaluated by Dr. Means Transfused 3 units PRBCs and 2 FFP during this hospitalization Haptoglobin was low LDH elevated. Started on methylprednisolone succinate 60 mg IV twice a day per Dr. Means. Reticulocyte elevated. Pending MMA, homocysteine and serum folate as well Holding azathioprine 50 mg per hematology ID: Monitor for infection (fever, elevated WBC) Blood cultures 2, sputum, urine and influenza pending, negative urinary Legionella and pneumococcal antigens 09/12. 09/14 urine culture- Proteus- placed on Cipro 250 mg twice a day 10 days MSK: Osteoarthritis PT evaluate and treat Continue cholecalciferol 5000 units daily FEN: Hyper-magnesium Replace electrolytes as clinically indicated Access - Utilize peripheral IV. Central line if indicated Prophylaxis - GI - pantoprazole - DVT - SCDs currently in heparin drip. Will discuss with hematology post CT pulmonary angiogram Critical Care: Level 3 . Physician Shelley Beck MD Sep 15, 2017 16:12
[2017-09-15 17:09] LABS: ANA SCREEN NEG (NEG)
[2017-09-15] MEDS: ACETAMINOPHEN/HYDROcodone 325 MG/7.5 MG TAB PO PRN (20:59)
[2017-09-15] MEDS: CIPROFLOXACIN 250 MG TAB PO SCH (21:29)
--- NOTE | 2017-09-15 21:36 | HHI.PR ---
Subjective Remarks 81 YOWF with Bilat PE, Severe Anemea Had PRBC Breathing better Breathing betetr Objective Vital Signs Vital Signs Date Time Temp Pulse Resp B/P (MAP) Pulse Ox O2 Delivery O2 Flow Rate FiO2 09/15/17 18:00 78 09/15/17 16:00 65 09/15/17 16:00 98.3 65 28 134/54 (80) 97 09/15/17 14:00 60 09/15/17 12:00 52 09/15/17 12:00 98.4 52 15 136/74 (94) 96 09/15/17 10:00 51 09/15/17 09:07 95 Nasal Cannula 3.00 09/15/17 08:00 98.2 71 20 176/76 (109) 95 09/15/17 08:00 71 09/15/17 07:00 95 Nasal Cannula 3.00 09/15/17 06:00 71 09/15/17 04:00 68 09/15/17 04:00 98.3 68 13 178/79 (112) 96 09/15/17 02:00 63 09/15/17 00:00 74 09/15/17 00:00 98.4 63 17 144/57 (86) 94 09/14/17 22:00 66 I/O 09/14/17 09/14/17 09/14/17 09/15/17 09/15/17 09/15/17 07:00 15:00 23:00 07:00 15:00 23:00 Intake Total 240 ml 480 ml 240 ml 325 ml Output Total 325 ml 400 ml 300 ml Balance -85 ml 80 ml -60 ml 325 ml Intake Oral 240 ml 480 ml 240 ml 325 ml Output Urine Total 325 ml 400 ml 300 ml # Voids 6 # Bowel Movements 0 0 0 2 Result Diagram: 09/15/17 0502 09/15/17 0502 Objective Remarks GENERAL: Elderly WF, mild sob SKIN: Warm and dry. HEAD: Normocephalic. EYES: No scleral icterus. No injection or drainage. NECK: Supple, trachea midline. No JVD or lymphadenopathy. CARDIOVASCULAR: Regular rate and rhythm without murmurs, gallops, or rubs. RESPIRATORY: Breath sounds equal bilaterally. No accessory muscle use. GASTROINTESTINAL: Abdomen soft, non-tender, nondistended. MUSCULOSKELETAL: No cyanosis, or edema. BACK: Nontender without obvious deformity. No CVA tenderness. A/P Assessment and Plan Bilat PE Dysnoea Severe Anemea ? Hemolysis Arthritis PLAN: Supplement 02 IV Solumedrol Hematology following Tucker Merino MD Sep 15, 2017 21:36
[2017-09-16] VITALS (9 sets, daily range): BP systolic 121–171; BP diastolic 62–79; PULSE 51–82; RESP 18–20; TEMP 96.1–97.8; O2SAT 95–99
[2017-09-16] MEDS: RESP: ALBUTEROL 2.5 MG/IPRATROPIUM 0.5 MG NEB (SCH) NEB (04:00)
[2017-09-16] MEDS: DULoxetine HCl DR 60 MG CAP PO SCH (08:47)
[2017-09-16] MEDS: CHOLECALCIFEROL (VIT D3) 1000 UNIT TAB PO SCH (08:47)
[2017-09-16] MEDS: FOLIC ACID 1 MG TAB PO SCH (08:47)
[2017-09-16] MEDS: ASPIRIN EC 81 MG TABEC PO SCH (08:47)
[2017-09-16] MEDS: methylPREDNISolone SOD SUCC 40 MG/1 ML VIAL IV PUSH SCH ×2 (08:47→19:54)
[2017-09-16] MEDS: PANTOPRAZOLE SODIUM 40 MG VIAL IV PUSH SCH (08:47)
[2017-09-16] MEDS: METOPROLOL TARTRATE 50 MG TAB PO SCH ×2 (08:48→19:55)
[2017-09-16] MEDS: SODIUM CHLORIDE 0.9% FLUSH 10 ML FLUSH IV FLUSH SCH ×3 (08:48→19:55)
[2017-09-16] MEDS: VERAPAMIL HCL 40 MG TAB PO SCH ×2 (08:48→19:55)
[2017-09-16] MEDS: INSULIN NovoLIN REGULAR SUPPLEMENTAL SCALE SQ SCH ×4 (09:04→19:56)
[2017-09-16] MEDS: POLYETHYLENE GLYCOL 17 GM PKG PO SCH ×2 (09:06→19:56)
[2017-09-16] MEDS: LACTULOSE SYRUP 20 GM/30 ML CUP PO SCH (09:06)
[2017-09-16] MEDS: CIPROFLOXACIN 250 MG TAB PO SCH ×2 (09:06→21:07)
[2017-09-16] MEDS: VITAMIN B CMPLX/VITC/FOLIC AC CAP PO SCH (09:07)
[2017-09-16] MEDS: HEPARIN-D5W 25,000 U/250 ML 250 ML IV PRN (13:26)
[2017-09-16 14:14] LABS: ALPHA-1-ANTITRYPSIN 199 mg/dL (100 - 190)
[2017-09-16 15:14] LABS: AUTOMATED NEUTROPHIL # 10.9 TH/MM3 (1.8-7.7); BASOPHIL % 0.1 % (0.0-2.0); HEMATOCRIT 29.9 % (35.0-46.0); HEMOGLOBIN 9.2 GM/DL (11.6-15.3); LYMPH % 2.7 % (9.0-44.0); LYMPHOCYTE # 0.3 TH/MM3 (1.0-4.8); MEAN CELL VOLUME 114.9 FL (80.0-100.0); MEAN CORPUSCULAR HEMOGLOBIN 35.2 PG (27.0-34.0); MEAN CORPUSCULAR HGB CONC 30.7 % (32.0-36.0); MEAN PLATELET VOLUME 8.4 FL (7.0-11.0); MONO % 4.3 % (0.0-8.0); MONOCYTE # 0.5 TH/MM3 (0-0.9); NEUT % 92.9 % (16.0-70.0); PLATELET COUNT 309 TH/MM3 (150-450); RED CELL DISTRIBUTION WIDTH 23.4 % (11.6-17.2); WHITE BLOOD COUNT 11.7 TH/MM3 (4.0-11.0)
--- NOTE | 2017-09-16 15:25 | PD.ONC.PN ---
Subjective Subjective Remarks Afebrile overnight. Patient resting in bed in nad. Son in law at bedside. No bleeding. Objective Data Date Time Temp Pulse Resp B/P (MAP) Pulse Ox O2 Delivery O2 Flow Rate FiO2 09/16/17 12:00 96.1 82 18 155/66 (95) 99 09/16/17 10:53 99 Nasal Cannula 4.00 09/16/17 08:00 97.8 58 20 171/79 (109) 97 09/16/17 05:02 97.4 60 18 165/63 (97) 96 09/16/17 03:58 57 09/15/17 23:59 55 09/15/17 22:18 96 Nasal Cannula 3.00 09/15/17 21:43 Nasal Cannula 3.00 09/15/17 21:35 18 09/15/17 21:34 65 09/15/17 19:29 97.9 71 17 146/65 (92) 97 09/15/17 18:00 78 09/15/17 16:00 65 09/15/17 16:00 98.3 65 28 134/54 (80) 97 09/16/17 09/16/17 09/16/17 07:00 15:00 23:00 Intake Total 480 ml Balance 480 ml Result Diagram: 09/16/17 1433 09/15/17 0502 Laboratory Results Laboratory Tests Test 09/16/17 06:43 09/16/17 14:33 Activated Partial Thromboplast Time 31.0 SEC White Blood Count 11.7 TH/MM3 Red Blood Count 2.60 MIL/MM3 Hemoglobin 9.2 GM/DL Hematocrit 29.9 % Mean Corpuscular Volume 114.9 FL Mean Corpuscular Hemoglobin 35.2 PG Mean Corpuscular Hemoglobin Concent 30.7 % Red Cell Distribution Width 23.4 % Platelet Count 309 TH/MM3 Mean Platelet Volume 8.4 FL Neutrophils (%) (Auto) 92.9 % Lymphocytes (%) (Auto) 2.7 % Monocytes (%) (Auto) 4.3 % Eosinophils (%) (Auto) 0.0 % Basophils (%) (Auto) 0.1 % Neutrophils # (Auto) 10.9 TH/MM3 Lymphocytes # (Auto) 0.3 TH/MM3 Monocytes # (Auto) 0.5 TH/MM3 Eosinophils # (Auto) 0.0 TH/MM3 Basophils # (Auto) 0.0 TH/MM3 CBC Comment AUTO DIFF Culture Results Microbiology Date/Time Source Procedure Growth Status 09/13/17 18:30 Nasal Aspirate Influenza Types A,B Antigen (MERLYN) - Final NEGATIVE FOR FLU A AND B ANTIGEN.... Complete 09/14/17 18:00 Urine Catheterized Urine Urine Culture - Final Proteus Mirabilis Complete Administered Medications Medications (Trade) Dose Ordered Sig/Nelda Route PRN Reason Start Time Stop Time Status Last Admin Dose Admin Cholecalciferol (Vitamin D3) 5,000 units DAILY PO 09/10/17 09:00 09/16/17 08:47 Duloxetine HCl (Cymbalta Dr) 60 mg DAILY PO 09/10/17 09:00 09/16/17 08:47 Tizanidine HCl (Zanaflex) 4 mg DAILY PO 09/10/17 09:00 09/16/17 08:48 Verapamil HCl (Isoptin Sr) 120 mg DAILY PO 09/10/17 09:00 Future Hold 09/13/17 07:39 Vitamin B Complex/ Vit C/Folic Acid (Nephrocaps) 1 cap DAILY PO 09/10/17 09:00 09/15/17 08:15 Sodium Chloride (NS Flush) 2 ml BID IV FLUSH 09/09/17 21:00 09/16/17 08:48 Acetaminophen (Tylenol) 650 mg Q4H PRN PO Fever, pain 1-4, headache 09/09/17 18:00 09/09/17 22:41 Magnesium Hydroxide (Milk Of Magnesia Liq) 30 ml Q12H PRN PO Mild constipation 09/09/17 18:00 09/11/17 06:53 Acetaminophen/ Hydrocodone Bitart (Thorpe 7.5-325 Mg) 1 tab Q6H PRN PO PAIN SCALE 5 TO 10 09/10/17 09:30 09/15/17 20:59 Clonidine (Catapres) 0.1 mg Q6H PRN PO SBP>160, DBP>90 09/11/17 06:45 09/13/17 01:05 Heparin Sodium/ Dextrose 250 ml @ 14.8 mls/hr TITRATE PRN IV Coagulation Management 09/12/17 10:00 09/16/17 13:26 Pantoprazole Sodium (Protonix Inj) 40 mg Q12H IV PUSH 09/12/17 10:00 2/6/18 08:47 Insulin Human Regular (NovoLIN R SUPPLEMENTAL SCALE) 1 ACHS SLIDING SCALE SQ 09/12/17 17:00 09/16/17 09:04 Folic Acid (Folate) 1 mg DAILY PO 09/12/17 14:00 09/16/17 08:47 Sodium Chloride (NS Flush) DAILY IV FLUSH 09/13/17 09:00 09/16/17 08:49 Metoprolol Tartrate (Lopressor) 50 mg BID PO 09/13/17 09:30 09/16/17 08:48 Aspirin (Ecotrin Ec) 81 mg DAILY PO 09/13/17 09:30 09/16/17 08:47 Polyethylene Glycol (Miralax) 17 gm BID PO 09/13/17 21:00 09/15/17 20:56 Lactulose (Lactulose Liq) 30 ml DAILY PO 09/14/17 09:00 09/15/17 08:17 Verapamil HCl (Isoptin) 40 mg Q12HR PO 09/13/17 21:00 09/16/17 08:48 Methylprednisolone Sodium Succinate (SoluMEDROL INJ) 40 mg Q12HR IV PUSH 09/14/17 21:00 09/16/17 08:47 Ciprofloxacin (Cipro) 250 mg Q12HR PO 09/15/17 21:00 09/25/17 21:00 09/16/17 09:06 Objective Remarks GENERAL: Pleasant elderly female, sitting up in bed in [facility]. SKIN: Warm and dry. HEAD: Normocephalic. EYES: No injection or drainage. NECK: Supple, trachea midline. CARDIOVASCULAR: Regular rate and rhythm RESPIRATORY: anterior paul with occasional rhonchi. on 4L O2 via NC GASTROINTESTINAL: Abdomen soft, non-tender, nondistended. EXTREMITIES: No cyanosis NEUROLOGICAL: awake and alert, normal speech. moving extremities. 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 (2) Pulmonary embolism ICD Codes: I26.99 - Other pulmonary embolism without acute cor pulmonale Plan: --on heparin gtt (3) Severe anemia ICD Codes: D64.9 - Anemia, unspecified Plan: --+++yusra positive hemolysis --appears to be underlying hemolysis. --LDH is elevated, haptoglobin is low --on Solu-Medrol 60 mg IV b.i.d. Assessment 81y/o female with a history of pulmonary embolism admitted with progressive dyspnea and was found to be severely anemic. history of iron deficiency anemia, hypertension, osteoarthritis, chronic back pain and recent diagnosis of pulmonary embolism (was on xarelto outpatient) History of splenectomy Plan 1. continue heparin. once close to discharge, would switch to Eliquis 5mg PO BID (no loading dose) 2. continue IV steroids. would discharge patient on Prednisone 40mg PO daily, to be continued until follow up with Dr. Means 3. face sheet faxed to new patient referrals for follow up with Dr. Means in 1-2 weeks. Attending Statement The exam, history, and the medical decision-making described in the above note were completed with the assistance of the mid-level provider. I reviewed and agree with the findings presented. I attest that I had a [id number] encounter with the patient on the same day, and personally performed and documented my assessment and findings in the medical record. Reva Perez Sep 16, 2017 15:25 Reuben Means MD Sep 17, 2017 21:45
[2017-09-16 15:53] LABS: CERULOPLASMIN 48 mg/dL (18-53)
[2017-09-16 16:06] LABS: CORRECTED NUCLEATED RBC 32 /100 WBC (0-0); LYMPHOCYTES 4 % (9-44); MONOCYTES 1 % (0-8); NEUTROPHIL # MANUAL DIFF 11.1 TH/MM3 (1.8-7.7); NUCLEATED RED BLOOD CELL 32 (0-0); POLYS (SEG NEUTROPHILS) 95 % (16-70)
[2017-09-16 16:08] LABS: SMOOTH MUSCLE TOTAL AUTOABS Negative (Negative); TRANSGLUTAMINASE IGA AB <1.2 U/mL; TRANSGLUTAMINASE IGG AB <1.2 U/mL
[2017-09-16 16:19] LABS: ACANTHOCYTES OCC (NORMAL); HOWELL-JOLLY BODIES PRESENT (NONE SEEN)
[2017-09-16 16:20] LABS: SPHEROCYTES 1+ (NORMAL)
--- NOTE | 2017-09-16 17:04 | HHI.GIFU ---
Subjective Remarks Pt resting in bed. Reports normal BM today and yesterday, denies BRB in stool or black, tarry stools. Tolerating diet. Some abdominal pain at night. (Stephy Zheng) Objective Vitals I&O Vital Signs Date Time Temp Pulse Resp B/P (MAP) Pulse Ox O2 Delivery O2 Flow Rate FiO2 09/16/17 16:00 96.2 52 18 121/62 (81) 95 09/16/17 12:00 96.1 82 18 155/66 (95) 99 09/16/17 10:53 99 Nasal Cannula 4.00 09/16/17 08:00 97.8 58 20 171/79 (109) 97 09/16/17 05:02 97.4 60 18 165/63 (97) 96 09/16/17 03:58 57 09/15/17 23:59 55 09/15/17 22:18 96 Nasal Cannula 3.00 09/15/17 21:43 Nasal Cannula 3.00 09/15/17 21:35 18 09/15/17 21:34 65 09/15/17 19:29 97.9 71 17 146/65 (92) 97 09/15/17 18:00 78 I/O 09/15/17 09/15/17 09/15/17 09/16/17 09/16/17 09/16/17 07:00 15:00 23:00 07:00 15:00 23:00 Intake Total 240 ml 805 ml 480 ml Output Total 300 ml Balance -60 ml 805 ml 480 ml Intake Oral 240 ml 805 ml 480 ml Output Urine Total 300 ml # Voids 7 2 # Bowel Movements 0 2 0 Laboratory Laboratory Tests Test 09/16/17 06:43 09/16/17 14:33 Activated Partial Thromboplast Time 31.0 37.8 White Blood Count 11.7 Red Blood Count 2.60 Hemoglobin 9.2 Hematocrit 29.9 Mean Corpuscular Volume 114.9 Mean Corpuscular Hemoglobin 35.2 Mean Corpuscular Hemoglobin Concent 30.7 Red Cell Distribution Width 23.4 Platelet Count 309 Mean Platelet Volume 8.4 Neutrophils (%) (Auto) 92.9 Lymphocytes (%) (Auto) 2.7 Monocytes (%) (Auto) 4.3 Eosinophils (%) (Auto) 0.0 Basophils (%) (Auto) 0.1 Neutrophils # (Auto) 10.9 Lymphocytes # (Auto) 0.3 Monocytes # (Auto) 0.5 Eosinophils # (Auto) 0.0 Basophils # (Auto) 0.0 CBC Comment AUTO DIFF Differential Total Cells Counted 100 Neutrophils % (Manual) 95 Lymphocytes % 4 Monocytes % 1 Neutrophils # (Manual) 11.1 Nucleated Red Blood Cells 32 Differential Comment FINAL DIFF MANUAL Platelet Estimate NORMAL Platelet Morphology Comment NORMAL Polychromasia 2.0 Basophilic Stippling FAINT Spherocytes 1+ [place] Bodies PRESENT Acanthocytes OCC Date/Time Source Procedure Growth Status 09/12/17 14:22 Blood Peripheral Aerobic Blood Culture - Preliminary NO GROWTH IN 4 DAYS Resulted 09/12/17 14:22 Blood Peripheral Anaerobic Blood Culture - Preliminary NO GROWTH IN 4 DAYS Resulted 09/13/17 18:30 Nasal Aspirate Influenza Types A,B Antigen (MERLYN) - Final NEGATIVE FOR FLU A AND B ANTIGEN.... Complete 09/14/17 18:00 Urine Catheterized Urine Urine Culture - Final Proteus Mirabilis Complete Imaging Last Impressions Chest X-Ray 09/14/17 0600 Signed Impressions: Service Date/Time: Thursday, September 14, 2017 03:56 - CONCLUSION: No acute disease. Arnoldo Hayden MD Liver Ultrasound 09/13/17 0000 Signed Impressions: Service Date/Time: Wednesday, September 13, 2017 18:58 - CONCLUSION: Cholelithiasis and fatty liver. Questionable tiny right renal stone. Adiel Zelaya MD Head CT 09/13/17 0000 Signed Impressions: Service Date/Time: Wednesday, September 13, 2017 10:02 - CONCLUSION: 1. Remote infarct right basal ganglia. 2. No acute intracranial abnormality. Dwain Block MD CT Angiography 09/12/17 0000 Signed Impressions: Service Date/Time: Tuesday, September 12, 2017 11:38 - CONCLUSION: 1. Mild pulmonary emboli in several distal right lower lobe pulmonary arteries. 2. Coronary artery calcifications. Jaden Lopez MD Lower Extremity Ultrasound 09/10/17 0000 Signed Impressions: Service Date/Time: Sunday, September 10, 2017 08:16 - CONCLUSION: 1. No sonographic evidence for right lower extremity DVT. Rob Nascimento MD Physical Exam HEENT: Normocephalic; atraumatic CHEST: Even/unlabored. Room air CARDIAC: RRR ABDOMEN: Soft, nondistended, nontender; bowel sounds active SKIN: Normal; no rash; no jaundice. MANAGER FLOAT: No focal deficits; alert and oriented times three. (Stephy Zheng) Assessment and Plan Assessment: (1) Macrocytic anemia ICD Codes: D53.9 - Nutritional anemia, unspecified (2) Symptomatic anemia ICD Codes: D64.9 - Anemia, unspecified Status: Acute (3) Pulmonary embolism ICD Codes: I26.99 - Other pulmonary embolism without acute cor pulmonale (4) Severe anemia ICD Codes: D64.9 - Anemia, unspecified Plan Patient currently has shortness of breath, being managed on 100% nonrebreather. If she becomes ventilated with ET tube, GI could possibly do EGD with protected airway present. Otherwise timing TBA. Symptomatic macrocytic ,hemolytic ,anemia. Hemoglobin is now 8.6 after receiving 3 units of packed RBCs and 2 units of platelets. Abdominal pain unspecified, describes as a sick feeling and diffuse pain. Possibly secondary to the symptomatic anemia, bleeding, inflammation, infection , autoimmune disorders. Hyperbilirubinemia, with equal direct and indirect delivery., Possible hemolytic in nature. Leukocytosis probably secondary to IV steroids Pulmonary emboli, per CT with acute symptoms of shortness of breath, patient has now been taken off Xarelto and placed on heparin drip. 09/13- patient still not stable for gi work up respiratory philippe, no GI bleeding reported, hgb with mild drop liver work up pending, AFP wnl 5.7 09/14 no signs of bleeding, hgb stable, not very keen to having colonoscopy, but would consider EGD, but would like to think about it liver work up still pending, LFTs remain high, US showed gallstones and fatty liver (09/16) --> Pt is being followed by our service for anemia, macrocytic. Serum Vit B 12 WNL. TIBC, iron, % sat WNL. Ferritin elevated. We have recommended pt to be evaluated with EGD and colonoscopy, she does not want colonoscopy but is agreeable to have EGD. Currently on Heparin gtt for PE. H/H is slowly increasing, currently 9.2/29.9, has not received blood transfusion since Sep 12. LFTs remain elevated. AST-35 ALT-130 Alk phos -144 T bili 2.1. Liver work up as follows, ceruloplasmin WNL. Alpha-1 antitrypsin slightly elevated. DK, celiac panel, ASMA negative. AMA pending. Hepatitis panel shows positive hepatitis c antibody. Will order tests to further evaluate. Pt denies history of known Hepatitis C, states her daughter was treated for Hepatitis C, was told she was likely exposed from blood transfusions after a severe accident. Plan - EGD when stable and Heparin can be DC'd for procedure - Hep C RNA quant and genotype - Continue to monitor H/H - Continue Protonix - Supportive care - Further recommendations to follow based on results of above This patient has been seen and examined by myself and Dr. Kincaid and this note is written on her behalf (Stephy Zheng) Stephy Zheng Sep 16, 2017 17:04 Susie Kincaid MD Sep 17, 2017 21:14
--- NOTE | 2017-09-16 18:58 | HHI.PR ---
Subjective Remarks This is a 81-year-old female. Date of admission 09/10/2017. Date of consult 09/11/2017. Past medical history includes hypertension, dyslipidemia, depression/anxiety, chronic pain syndrome, cholelithiasis, nephrolithiasis and osteoarthritis. Patient has a known history of macrocytic anemia which he follows with Dr. Shah. She has had her spleen removed future anemia in the past. He is chronically on azathioprine. It appears on 09/01 patient was diagnosed with pulmonary embolism along with the right lower extremity DVT. She started on rivaroxaban 15 mg twice a day. She follows who agreed with this is been on this in the in the interim. She presents earlier to [place] with acute on chronic worsening shortness of breath. She was able to able to the bathroom and became short of breath. She is noted to have a hemoglobin of 4.3. MCV of 143. Haptoglobin low and LDH high. Started on methylprednisolone 60 mg IV twice a day per hematology. Transfused 3 units PRBCs and 2 FFP. Warm Dejon positive. Throughout this hospitalization she had increasing oxygen requirements. ABG reveals shunting. Chest x-ray revealed no acute cardio point process. Repeat CT pulmonary angiogram today revealed several small pulmonary embolism in the right lower lobe do not appear to be hemodynamically compromising. 2D echocardiogram is pending at time of dictation. Denies chest pain. Patient is not tachycardic. Hemodynamically stable. Subjective 09/13: Afebrile. Hypertensive overnight but currently hypotensive complaining of blurry vision. No other focal logical neurological deficit on bedside evaluation. Denies chest pain. States this "new" mask is causing her difficulty breathing. Currently a nonrebreather 12 L satting 100%. Remains on heparin drip 1400 units an hour. Stat CT brain pending 09/14: Afebrile the patient is awake , alert and pleasantly conversant today. CT brain was negative. Patient's has complaints of mild pain lower extremities only at night resolved with when necessary Percocet. Patient previously on Lortab at home for symptoms. 09/15: No acute events overnight. Urine culture revealed Proteus species patient placed on Cipro twice a day 10 days. PT evaluation and treat initiated. Hemoglobin stable. 09/16. Patient says she is feeling well. Denies shortness of breath. Denies chest pain. She says she is getting her strength back, feels like she can go to rehabilitation in the next couple days. Objective Vital Signs Date Time Temp Pulse Resp B/P (MAP) Pulse Ox O2 Delivery O2 Flow Rate FiO2 09/16/17 16:00 96.2 52 18 121/62 (81) 95 09/16/17 12:00 96.1 82 18 155/66 (95) 99 09/16/17 10:53 99 Nasal Cannula 4.00 09/16/17 08:00 97.8 58 20 171/79 (109) 97 09/16/17 05:02 97.4 60 18 165/63 (97) 96 09/16/17 03:58 57 09/15/17 23:59 55 09/15/17 22:18 96 Nasal Cannula 3.00 09/15/17 21:43 Nasal Cannula 3.00 09/15/17 21:35 18 09/15/17 21:34 65 09/15/17 19:29 97.9 71 17 146/65 (92) 97 I/O 09/15/17 09/15/17 09/15/17 09/16/17 09/16/17 09/16/17 07:00 15:00 23:00 07:00 15:00 23:00 Intake Total 240 ml 805 ml 480 ml Output Total 300 ml Balance -60 ml 805 ml 480 ml Intake Oral 240 ml 805 ml 480 ml Output Urine Total 300 ml # Voids 7 2 # Bowel Movements 0 2 0 Result Diagram: 09/16/17 1433 09/15/17 0502 Objective Remarks GENERAL: patient sitting in bed. Appears comfortable. On nasal cannula.she is alert and oriented 3. SKIN: Warm and dry. HEAD: Normocephalic. EYES: No scleral icterus. No injection or drainage. NECK: Supple, trachea midline. No JVD. CARDIOVASCULAR: Regular rate and rhythm without murmurs, gallops, or rubs. RESPIRATORY: Breath sounds equal bilaterally. No accessory muscle use. GASTROINTESTINAL: Abdomen soft, non-tender, nondistended. MUSCULOSKELETAL: No cyanosis, or edema. BACK: Nontender without obvious deformity. No CVA tenderness. A/P Assessment and Plan ===09/16/17. Patient with history of recently diagnosed pulmonary embolism on anticoagulation who presented with what appears to be... 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 Patient has been managed on heparin drip due to recent pulmonary embolism, and episode of respiratory failure during hospitalization which has improved. -I discussed with hematology today. Recommend continuing on heparin drip while in the hospital, then can discharge on Eliquis 5 mg by mouth twice a day, as well as prednisone 40 mg daily to be continued until follow-up with Dr. Means. //GI is following, would like to do EGD when stable and heparin can be held for procedure. Due to autoimmune nature of anemia, as well as respiratory failure in the hospital would recommend against EGD at this time. Hemoglobin appears to be stable, and this can be planned as an outpatient if still warranted. We' ll discharge on PPI. //Hepatitis C is positive. GI following. further labs are pending. Follow up as outpatient //UTI - cont abx Cipro by mouth to complete her course //Depression/anxiety //Chronic pain syndrome //Chronic narcotic use Patient is currently on duloxetine 60 mg by mouth daily/home medication for depression. Continue Currently on tizanidine 4 mg by mouth every 6 hours. Muscle relaxant Acetaminophen 650 mg by mouth every 4 hours when necessary fever/pain 1 through 4 Patient is on hydrocodone/acetaminophen 7.5/325 one tablet, every 6 hours as needed for pain 5-10 Patient is on hydrocodone/acetaminophen 10/325 one tablet every 6 hours when necessary pain at home Stat CT brain 2/3 with vision changes on heparin drip-no acute intracranial abnormality = Patient reports resolution of symptoms. 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 Hold while blood pressures tenuous. Switch to verapamil 40 mg by mouth twice a day with holding parameters see orders. MAP currently 60 Norepinephrine if necessary to maintain mean axial pressure greater than 65 2-D echocardiogram - LVSF low Nl EF 50-55%. Flattened septum througout the cardiac cycle suggesting elevated right ventricular end diastolic pressures. The right ventricle is moderately dilated. The right ventricular systoilc function is severely decreased. Possible Handy's sign seen in acute pulmonary embolism (akinesis of mid right ventricle with fairly normal motion at the apex). There is mild tricuspid valve regurgitation. The estimated systolic pulmonary pressure is 57 mmg Hg. Currently on normal saline at 30 cc an hour Not on any lipid-lowering agents. Lipid panel ordered for a.m. 09/14 Dr. Johnston - Continue anticoagulation therapy with heparin drip. No additional cardiac workup at this point; could consider nuclear stress test or coronary CTA as an outpatient. Add metoprolol tartrate 50 milligrams twice a day to calcium channel tigre if able BNP elevated > 1500 Added aspirin 81 mg by mouth daily F/U BNP = Heart rate stable. Continue current medication regimen. Resp: //Acute respiratory failure //History of pulmonary embolism On 5LPM N/C to maintain saturations greater than equal to 92% Incentive spirometry while awake CTPA - The main pulmonary artery and right and left branch vessels are intact. There is a small amount of thrombus in several of the distal right lower lobe pulmonary arteries. Negative DVT right lower extremity ultrasound Chest x-ray 09/12 revealed no acute cardio pulmonary findings Started on albuterol/ipratropium every 4 hours with albuterol aerosols every 2 hours. Dyspnea = Continue heparin drip. Eliquis at discharge as per hematology. Appreciate assistance GI: //History of cholelithiasis //Elevated total bilirubin //Elevated transaminases //Constipation //Hypoalbuminemia Are healthy diet Pantoprazole for GI prophylaxis Docusate sodium/senna 1 tablet twice a day for bowel regimen. Add polyethylene glycol 17 g twice a day and lactulose 30 cc daily GI consulted. Hemoccult pending. Liver workup per GI. Pending AMA/ASMA/DK/ alphafetoprotein and hepatitis panel = Due to hemolytic nature of anemia, would recommend against EGD. Will need follow-up with GI as outpatient for hepatitis C. : Reeves catheter if indicated for accurate I's and O's in a critically ill patient Endo: Sliding-scale insulin Novulin R low regimen before meals at bedtime with Accu- Cheks to maintain euglycemia TSH 1.3. 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 Folate elevated 19. Patient is on chronic folate acid 1 mg daily at home. Peripheral blood reveals marked aniso- and poikilocytosis of the red cells with prominent polychromasia and numerous nucleated red blood cells. Many spherocytes are present. Significant numbers of red cell fragments ( schistocytes) are not identified. The peripheral blood findings, in combination with the patients elevated LDH, decreased haptoglobin, and positive LAKHWINDER, are most suggestive of autoimmune hemolytic anemia. Evaluated by Dr. Means Transfused 3 units PRBCs and 2 FFP during this hospitalization Haptoglobin was low LDH elevated. Started on methylprednisolone succinate 60 mg IV twice a day per Dr. Means. Reticulocyte elevated. Pending MMA, homocysteine and serum folate as well Holding azathioprine 50 mg per hematology == Hemoglobin stable 9.0. Discussed with hematology. As above ID: Monitor for infection (fever, elevated WBC) Blood cultures 2, sputum, urine and influenza pending, negative urinary Legionella and pneumococcal antigens 2/2. 2/ urine culture- Proteus- placed on Cipro 250 mg twice a day 10 days MSK: Osteoarthritis PT evaluate and treat Continue cholecalciferol 5000 units daily FEN: Hyper-magnesium Replace electrolytes as clinically indicated Access - Utilize peripheral IV. Central line if indicated Prophylaxis - GI - pantoprazole - DVT - SCDs currently in heparin drip. Will discuss with hematology post CT pulmonary angiogram Discharge Planning plan discharge to rehabilitation in the next 1-2 days. Appreciate PT and case management assistance Owen Betancourt MD Sep 16, 2017 18:58
--- NOTE | 2017-09-16 19:41 | HHI.PR ---
Subjective Remarks 81 YOWF with Bilat PE, Severe Anemea Breathing better Weaned to RA On Heparin drip. Objective Vital Signs Vital Signs Date Time Temp Pulse Resp B/P (MAP) Pulse Ox O2 Delivery O2 Flow Rate FiO2 09/16/17 16:00 96.2 52 18 121/62 (81) 95 09/16/17 12:00 96.1 82 18 155/66 (95) 99 09/16/17 10:53 99 Nasal Cannula 4.00 09/16/17 08:00 97.8 58 20 171/79 (109) 97 09/16/17 05:02 97.4 60 18 165/63 (97) 96 09/16/17 03:58 57 09/15/17 23:59 55 09/15/17 22:18 96 Nasal Cannula 3.00 09/15/17 21:43 Nasal Cannula 3.00 09/15/17 21:35 18 09/15/17 21:34 65 I/O 09/15/17 09/15/17 09/15/17 09/16/17 09/16/17 09/16/17 07:00 15:00 23:00 07:00 15:00 23:00 Intake Total 240 ml 805 ml 480 ml 600 ml Output Total 300 ml Balance -60 ml 805 ml 480 ml 600 ml Intake Oral 240 ml 805 ml 480 ml 600 ml Output Urine Total 300 ml # Voids 7 2 3 # Bowel Movements 0 2 0 1 Result Diagram: 09/16/17 1433 09/15/17 0502 Objective Remarks GENERAL: Elderly WF, mild sob SKIN: Warm and dry. HEAD: Normocephalic. EYES: No scleral icterus. No injection or drainage. NECK: Supple, trachea midline. No JVD or lymphadenopathy. CARDIOVASCULAR: Regular rate and rhythm without murmurs, gallops, or rubs. RESPIRATORY: Breath sounds equal bilaterally. No accessory muscle use. GASTROINTESTINAL: Abdomen soft, non-tender, nondistended. MUSCULOSKELETAL: No cyanosis, or edema. BACK: Nontender without obvious deformity. No CVA tenderness. A/P Assessment and Plan Bilat PE Dysnoea Severe Anemea ? Hemolysis Arthritis PLAN: Supplement 02 IV Solumedrol Heparin drip Hematology following Tucker Merino MD Sep 16, 2017 19:41
[2017-09-16] MEDS ORDERED: THIAMINE HCL 100 MG TAB PO ONE (19:45)
[2017-09-16] MEDS: ACETAMINOPHEN/HYDROcodone 325 MG/7.5 MG TAB PO PRN (19:55)
[2017-09-16] MEDS: PANTOPRAZOLE SOD 40 MG DELAYED RELEASE TAB PO SCH (19:55)
[2017-09-17] VITALS (12 sets, daily range): BP systolic 117–176; BP diastolic 51–83; PULSE 46–80; RESP 17–18; TEMP 97.2–98.5; O2SAT 92–98
[2017-09-17] MEDS: cloNIDine HCL 0.1 MG TAB PO PRN (03:48)
[2017-09-17 06:13] LABS: BASOPHIL % 0.1 % (0.0-2.0); HEMATOCRIT 29.1 % (35.0-46.0); HEMOGLOBIN 9.1 GM/DL (11.6-15.3); LYMPH % 6.3 % (9.0-44.0); LYMPHOCYTE # 0.6 TH/MM3 (1.0-4.8); MEAN CELL VOLUME 112.7 FL (80.0-100.0); MEAN CORPUSCULAR HEMOGLOBIN 35.2 PG (27.0-34.0); MEAN CORPUSCULAR HGB CONC 31.3 % (32.0-36.0); MEAN PLATELET VOLUME 8.3 FL (7.0-11.0); MONO % 6.1 % (0.0-8.0); MONOCYTE # 0.6 TH/MM3 (0-0.9); NEUT % 87.5 % (16.0-70.0); PLATELET COUNT 308 TH/MM3 (150-450); RED BLOOD COUNT 2.58 MIL/MM3 (4.00-5.30); RED CELL DISTRIBUTION WIDTH 22.2 % (11.6-17.2); WHITE BLOOD COUNT 10.3 TH/MM3 (4.0-11.0)
[2017-09-17 06:39] LABS: ALBUMIN 3.1 GM/DL (3.4-5.0); DIRECT BILIRUBIN ADULT 0.9 MG/DL (0.0-0.2)
[2017-09-17 06:41] LABS: TOTAL BILIRUBIN ADULT 1.9 MG/DL (0.2-1.0); TOTAL PROTEIN 5.4 GM/DL (6.4-8.2)
[2017-09-17] MEDS: INSULIN NovoLIN REGULAR SUPPLEMENTAL SCALE SQ SCH ×4 (08:00→21:19)
[2017-09-17] MEDS: DULoxetine HCl DR 60 MG CAP PO SCH (08:50)
[2017-09-17] MEDS: VERAPAMIL HCL 40 MG TAB PO SCH ×2 (08:50→21:16)
[2017-09-17] MEDS: CIPROFLOXACIN 250 MG TAB PO SCH ×2 (08:50→21:18)
[2017-09-17] MEDS: FOLIC ACID 1 MG TAB PO SCH (08:50)
[2017-09-17] MEDS: predniSONE 20 MG TAB PO SCH (08:50)
[2017-09-17] MEDS: PANTOPRAZOLE SOD 40 MG DELAYED RELEASE TAB PO SCH ×2 (08:51→21:18)
[2017-09-17] MEDS: ASPIRIN EC 81 MG TABEC PO SCH (08:51)
[2017-09-17] MEDS: METOPROLOL TARTRATE 50 MG TAB PO SCH ×2 (08:51→21:00)
[2017-09-17] MEDS: SODIUM CHLORIDE 0.9% FLUSH 10 ML FLUSH IV FLUSH SCH ×3 (08:51→21:15)
[2017-09-17] MEDS: VITAMIN B CMPLX/VITC/FOLIC AC CAP PO SCH (08:52)
[2017-09-17] MEDS: POLYETHYLENE GLYCOL 17 GM PKG PO SCH ×2 (08:52→21:00)
[2017-09-17] MEDS: LACTULOSE SYRUP 20 GM/30 ML CUP PO SCH (08:52)
[2017-09-17] MEDS: CHOLECALCIFEROL (VIT D3) 1000 UNIT TAB PO SCH (08:52)
[2017-09-17 09:09] LABS: BANDS 3 % (0-6); CORRECTED NUCLEATED RBC 21 /100 WBC (0-0); LYMPHOCYTES 5 % (9-44); MONOCYTES 2 % (0-8); NEUTROPHIL # MANUAL DIFF 9.6 TH/MM3 (1.8-7.7); NUCLEATED RED BLOOD CELL 21 (0-0); POLYS (SEG NEUTROPHILS) 90 % (16-70)
[2017-09-17 09:10] LABS: OVALOCYTES 1+ (NORMAL)
[2017-09-17 09:12] LABS: POLYCHROMASIA 2.4 % (0.0-1.9)
[2017-09-17] MEDS: APIXABAN 5 MG TABLET PO SCH ×2 (10:46→21:18)
--- NOTE | 2017-09-17 17:45 | HHI.PR ---
Subjective Remarks This is a 81-year-old female. Date of admission 09/10/2017. Date of consult 09/11/2017. Past medical history includes hypertension, dyslipidemia, depression/anxiety, chronic pain syndrome, cholelithiasis, nephrolithiasis and osteoarthritis. Patient has a known history of macrocytic anemia which he follows with Dr. Shah. She has had her spleen removed future anemia in the past. He is chronically on azathioprine. It appears on 09/01 patient was diagnosed with pulmonary embolism along with the right lower extremity DVT. She started on rivaroxaban 15 mg twice a day. She follows who agreed with this is been on this in the in the interim. She presents earlier to [facility] with acute on chronic worsening shortness of breath. She was able to able to the bathroom and became short of breath. She is noted to have a hemoglobin of 4.3. MCV of 143. Haptoglobin low and LDH high. Started on methylprednisolone 60 mg IV twice a day per hematology. Transfused 3 units PRBCs and 2 FFP. Warm Dejon positive. Throughout this hospitalization she had increasing oxygen requirements. ABG reveals shunting. Chest x-ray revealed no acute cardio point process. Repeat CT pulmonary angiogram today revealed several small pulmonary embolism in the right lower lobe do not appear to be hemodynamically compromising. 2D echocardiogram is pending at time of dictation. Denies chest pain. Patient is not tachycardic. Hemodynamically stable. Subjective 09/13: Afebrile. Hypertensive overnight but currently hypotensive complaining of blurry vision. No other focal logical neurological deficit on bedside evaluation. Denies chest pain. States this "new" mask is causing her difficulty breathing. Currently a nonrebreather 12 L satting 100%. Remains on heparin drip 1400 units an hour. Stat CT brain pending 09/14: Afebrile the patient is awake , alert and pleasantly conversant today. CT brain was negative. Patient's has complaints of mild pain lower extremities only at night resolved with when necessary Percocet. Patient previously on Lortab at home for symptoms. 09/15: No acute events overnight. Urine culture revealed Proteus species patient placed on Cipro twice a day 10 days. PT evaluation and treat initiated. Hemoglobin stable. 09/16. Patient says she is feeling well. Denies shortness of breath. Denies chest pain. She says she is getting her strength back, feels like she can go to rehabilitation in the next couple days. = 09/17. Patient seen this morning around 9 AM. Says she is feeling better again today. Denies any chest pain or shortness of breath feels like going to rehabilitation tomorrow. Objective Vital Signs Date Time Temp Pulse Resp B/P (MAP) Pulse Ox O2 Delivery O2 Flow Rate FiO2 09/17/17 16:00 97.3 80 17 176/63 (100) 95 09/17/17 11:56 97.2 46 17 117/51 (73) 94 09/17/17 08:35 98 Nasal Cannula 4.00 09/17/17 08:00 55 09/17/17 08:00 97.2 53 17 163/63 (96) 92 09/17/17 04:30 98 Nasal Cannula 4.00 09/17/17 03:46 50 09/17/17 03:39 97.6 59 17 170/80 (110) 97 09/17/17 00:13 98.5 60 17 176/62 (100) 96 09/16/17 23:45 51 09/16/17 21:33 Nasal Cannula 3.00 09/16/17 20:57 97.6 64 18 153/71 (98) 98 09/16/17 20:38 18 09/16/17 19:45 55 I/O 09/16/17 09/16/17 09/16/17 09/17/17 09/17/17 09/17/17 07:00 15:00 23:00 07:00 15:00 23:00 Intake Total 480 ml 960 ml 240 ml 480 ml Balance 480 ml 960 ml 240 ml 480 ml Intake Oral 480 ml 960 ml 240 ml 480 ml # Voids 2 5 3 2 # Bowel Movements 0 1 1 1 Result Diagram: 09/17/17 0600 09/15/17 0502 Objective Remarks GENERAL: patient sitting in bed. Appears comfortable. sleeping, wakes up for exam. On nasal cannula. she is alert and oriented 3. SKIN: Warm and dry. HEAD: Normocephalic. EYES: No scleral icterus. No injection or drainage. NECK: Supple, trachea midline. No JVD. CARDIOVASCULAR: Regular rate and rhythm without murmurs, gallops, or rubs. RESPIRATORY: Breath sounds equal bilaterally. No accessory muscle use. GASTROINTESTINAL: Abdomen soft, non-tender, nondistended. MUSCULOSKELETAL: No cyanosis, or edema. BACK: Nontender without obvious deformity. No CVA tenderness. A/P Assessment and Plan ===09/17/17. Patient with history of recently diagnosed pulmonary embolism on anticoagulation who presented with what appears to be... 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 Patient has been managed on heparin drip due to recent pulmonary embolism, and episode of respiratory failure during hospitalization which has improved. -I discussed with hematology Again today. will transition to Eliquis 5 mg by mouth twice a day, cont prednisone 40 mg daily to be continued until follow-up with Dr. Means. //Resp failure - much improved appreciate pulm assist. //GI is following, would like to do EGD when stable and heparin can be held for procedure. Due to autoimmune nature of anemia, as well as respiratory failure in the hospital would recommend against EGD at this time. Hemoglobin appears to be stable, and this can be planned as an outpatient if still warranted. We' ll discharge on PPI. His cast again with hematology. Recommend follow-up with GI as outpatient for possible EGD. //Hepatitis C is positive. GI following. further labs are pending. Follow up as outpatient //UTI - cont abx Cipro by mouth to complete her course stop date 09/25 //Depression/anxiety //Chronic pain syndrome //Chronic narcotic use Patient is currently on duloxetine 60 mg by mouth daily/home medication for depression. Continue Currently on tizanidine 4 mg by mouth every 6 hours. Muscle relaxant Acetaminophen 650 mg by mouth every 4 hours when necessary fever/pain 1 through 4 Patient is on hydrocodone/acetaminophen 7.5/325 one tablet, every 6 hours as needed for pain 5-10 Patient is on hydrocodone/acetaminophen 10/325 one tablet every 6 hours when necessary pain at home Stat CT brain 09/13 with vision changes on heparin drip-no acute intracranial abnormality = Patient reports resolution of symptoms. 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 Hold while blood pressures tenuous. Switch to verapamil 40 mg by mouth twice a day with holding parameters see orders. MAP currently 60 Norepinephrine if necessary to maintain mean axial pressure greater than 65 2-D echocardiogram - LVSF low Nl EF 50-55%. Flattened septum througout the cardiac cycle suggesting elevated right ventricular end diastolic pressures. The right ventricle is moderately dilated. The right ventricular systoilc function is severely decreased. Possible Handy's sign seen in acute pulmonary embolism (akinesis of mid right ventricle with fairly normal motion at the apex). There is mild tricuspid valve regurgitation. The estimated systolic pulmonary pressure is 57 mmg Hg. Currently on normal saline at 30 cc an hour Not on any lipid-lowering agents. Lipid panel ordered for a.m. 09/14 Dr. Johnston - Continue anticoagulation therapy with heparin drip. No additional cardiac workup at this point; could consider nuclear stress test or coronary CTA as an outpatient. Add metoprolol tartrate 50 milligrams twice a day to calcium channel tigre if able BNP elevated > 1500 Added aspirin 81 mg by mouth daily F/U BNP = Heart rate stable. Continue current medication regimen. Resp: //Acute respiratory failure //History of pulmonary embolism On 5LPM N/C to maintain saturations greater than equal to 92% Incentive spirometry while awake CTPA - The main pulmonary artery and right and left branch vessels are intact. There is a small amount of thrombus in several of the distal right lower lobe pulmonary arteries. Negative DVT right lower extremity ultrasound Chest x-ray 09/12 revealed no acute cardio pulmonary findings Started on albuterol/ipratropium every 4 hours with albuterol aerosols every 2 hours. Dyspnea = Continue heparin drip. Eliquis at discharge as per hematology. Appreciate assistance GI: //History of cholelithiasis //Elevated total bilirubin //Elevated transaminases //Constipation //Hypoalbuminemia Are healthy diet Pantoprazole for GI prophylaxis Docusate sodium/senna 1 tablet twice a day for bowel regimen. Add polyethylene glycol 17 g twice a day and lactulose 30 cc daily GI consulted. Hemoccult pending. Liver workup per GI. Pending AMA/ASMA/DK/ alphafetoprotein and hepatitis panel = Due to hemolytic nature of anemia, would recommend against EGD. Will need follow-up with GI as outpatient for hepatitis C. : Reeves catheter if indicated for accurate I's and O's in a critically ill patient Endo: Sliding-scale insulin Novulin R low regimen before meals at bedtime with Accu- Cheks to maintain euglycemia TSH 1.3. 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 Folate elevated 19. Patient is on chronic folate acid 1 mg daily at home. Peripheral blood reveals marked aniso- and poikilocytosis of the red cells with prominent polychromasia and numerous nucleated red blood cells. Many spherocytes are present. Significant numbers of red cell fragments ( schistocytes) are not identified. The peripheral blood findings, in combination with the patients elevated LDH, decreased haptoglobin, and positive LAKHWINDER, are most suggestive of autoimmune hemolytic anemia. Evaluated by Dr. Means Transfused 3 units PRBCs and 2 FFP during this hospitalization Haptoglobin was low LDH elevated. Started on methylprednisolone succinate 60 mg IV twice a day per Dr. Means. Reticulocyte elevated. Pending MMA, homocysteine and serum folate as well Holding azathioprine 50 mg per hematology == Hemoglobin stable 9.0. Discussed with hematology. As above ID: Monitor for infection (fever, elevated WBC) Blood cultures 2, sputum, urine and influenza pending, negative urinary Legionella and pneumococcal antigens 2/2. 2/4 urine culture- Proteus- placed on Cipro 250 mg twice a day 10 days MSK: Osteoarthritis PT evaluate and treat Continue cholecalciferol 5000 units daily FEN: Hyper-magnesium Replace electrolytes as clinically indicated Access - Utilize peripheral IV. Central line if indicated Prophylaxis - GI - pantoprazole - DVT - SCDs currently in heparin drip. Will discuss with hematology post CT pulmonary angiogram Discharge Planning plan discharge to rehabilitation. dw nursing, CM at [facility]. Appreciate PT and case management assistance Owen Betancourt MD Sep 17, 2017 17:45
--- NOTE | 2017-09-17 20:37 | HHI.PR ---
Subjective Remarks 81 YOWF with Bilat PE, Severe Anemea Breathing better Weaned to RA Off Heparin drip. Started Eliquis Objective Vital Signs Vital Signs Date Time Temp Pulse Resp B/P (MAP) Pulse Ox O2 Delivery O2 Flow Rate FiO2 09/17/17 17:55 21 09/17/17 17:10 53 09/17/17 16:00 97.3 80 17 176/63 (100) 95 09/17/17 11:56 97.2 46 17 117/51 (73) 94 09/17/17 08:35 98 Nasal Cannula 4.00 09/17/17 08:00 55 09/17/17 08:00 97.2 53 17 163/63 (96) 92 09/17/17 04:30 98 Nasal Cannula 4.00 09/17/17 03:46 50 09/17/17 03:39 97.6 59 17 170/80 (110) 97 09/17/17 00:13 98.5 60 17 176/62 (100) 96 09/16/17 23:45 51 09/16/17 21:33 Nasal Cannula 3.00 09/16/17 20:57 97.6 64 18 153/71 (98) 98 09/16/17 20:38 18 I/O 09/16/17 09/16/17 09/16/17 09/17/17 09/17/17 09/17/17 07:00 15:00 23:00 07:00 15:00 23:00 Intake Total 480 ml 960 ml 240 ml 480 ml Balance 480 ml 960 ml 240 ml 480 ml Intake Oral 480 ml 960 ml 240 ml 480 ml # Voids 2 5 3 2 # Bowel Movements 0 1 1 1 Result Diagram: 09/17/17 0600 09/15/17 0502 Objective Remarks GENERAL: Elderly WF, mild sob SKIN: Warm and dry. HEAD: Normocephalic. EYES: No scleral icterus. No injection or drainage. NECK: Supple, trachea midline. No JVD or lymphadenopathy. CARDIOVASCULAR: Regular rate and rhythm without murmurs, gallops, or rubs. RESPIRATORY: Breath sounds equal bilaterally. No accessory muscle use. GASTROINTESTINAL: Abdomen soft, non-tender, nondistended. MUSCULOSKELETAL: No cyanosis, or edema. BACK: Nontender without obvious deformity. No CVA tenderness. A/P Assessment and Plan Bilat PE Dysnoea Severe Anemea ? Hemolysis Arthritis PLAN: Supplement 02 Dc Solumedrol Pred 40 mg daily Hematology following Eliquis 5 mg bid. Tucker Merino MD Sep 17, 2017 20:37
[2017-09-17] MEDS: ACETAMINOPHEN/HYDROcodone 325 MG/7.5 MG TAB PO PRN (21:17)
[2017-09-18] VITALS (12 sets, daily range): BP systolic 70–172; BP diastolic 42–75; PULSE 46–66; RESP 17–18; TEMP 96.7–99.3; O2SAT 92–99
[2017-09-18] MEDS: ACETAMINOPHEN/HYDROcodone 325 MG/7.5 MG TAB PO PRN ×2 (01:55→21:48)
[2017-09-18] MEDS: INSULIN NovoLIN REGULAR SUPPLEMENTAL SCALE SQ SCH ×4 (07:47→21:52)
[2017-09-18 08:03] LABS: AUTOMATED NEUTROPHIL # 7.3 TH/MM3 (1.8-7.7); BASOPHIL % 0.2 % (0.0-2.0); EOSINOPHIL % 0.4 % (0.0-4.0); HEMOGLOBIN 10.6 GM/DL (11.6-15.3); LYMPH % 19.8 % (9.0-44.0); LYMPHOCYTE # 2.1 TH/MM3 (1.0-4.8); MEAN CELL VOLUME 113.3 FL (80.0-100.0); MEAN CORPUSCULAR HEMOGLOBIN 36.5 PG (27.0-34.0); MEAN CORPUSCULAR HGB CONC 32.2 % (32.0-36.0); MEAN PLATELET VOLUME 8.1 FL (7.0-11.0); MONO % 10.9 % (0.0-8.0); MONOCYTE # 1.2 TH/MM3 (0-0.9); NEUT % 68.7 % (16.0-70.0); PLATELET COUNT 394 TH/MM3 (150-450); RED BLOOD COUNT 2.91 MIL/MM3 (4.00-5.30); RED CELL DISTRIBUTION WIDTH 20.3 % (11.6-17.2); WHITE BLOOD COUNT 10.6 TH/MM3 (4.0-11.0)
[2017-09-18 08:25] LABS: BICARBONATE 29.8 MEQ/L (21.0-32.0); CALCIUM 8.2 MG/DL (8.5-10.1); CREATININE 1.01 MG/DL (0.50-1.00)
[2017-09-18] MEDS: SODIUM CHLORIDE 0.9% FLUSH 10 ML FLUSH IV FLUSH SCH ×3 (08:41→21:47)
[2017-09-18] MEDS: DULoxetine HCl DR 60 MG CAP PO SCH (08:42)
[2017-09-18] MEDS: APIXABAN 5 MG TABLET PO SCH ×2 (08:42→21:46)
[2017-09-18] MEDS: ASPIRIN EC 81 MG TABEC PO SCH (08:42)
[2017-09-18] MEDS: CIPROFLOXACIN 250 MG TAB PO SCH ×2 (08:42→21:47)
[2017-09-18] MEDS: METOPROLOL TARTRATE 50 MG TAB PO SCH ×2 (08:42→21:47)
[2017-09-18] MEDS: predniSONE 20 MG TAB PO SCH (08:42)
[2017-09-18] MEDS: VITAMIN B CMPLX/VITC/FOLIC AC CAP PO SCH (08:43)
[2017-09-18] MEDS: VERAPAMIL HCL 40 MG TAB PO SCH (08:43)
[2017-09-18] MEDS: PANTOPRAZOLE SOD 40 MG DELAYED RELEASE TAB PO SCH ×2 (08:43→21:46)
[2017-09-18] MEDS: FOLIC ACID 1 MG TAB PO SCH (08:43)
[2017-09-18] MEDS: POLYETHYLENE GLYCOL 17 GM PKG PO SCH ×2 (08:46→21:47)
[2017-09-18] MEDS: LACTULOSE SYRUP 20 GM/30 ML CUP PO SCH (08:46)
[2017-09-18] MEDS ORDERED: ECASA81 PO (09:14)
[2017-09-18] MEDS ORDERED: HYDR-3583 PO (09:14)
[2017-09-18] MEDS ORDERED: VERA40TA PO (09:14)
[2017-09-18] MEDS ORDERED: CIPR250T52 PO (09:14)
[2017-09-18] MEDS ORDERED: PANT40TA3 PO (09:14)
[2017-09-18] MEDS ORDERED: METO-309 PO (09:14)
[2017-09-18] MEDS ORDERED: PRED20 PO (09:14)
[2017-09-18] MEDS ORDERED: APIX5TAB PO (09:14)
[2017-09-18] MEDS ORDERED: Albuterol Neb NEB (09:14)
[2017-09-18 09:40] LABS: BANDS 2 % (0-6); CORRECTED NUCLEATED RBC 9 /100 WBC (0-0); LYMPHOCYTES 17 % (9-44); MONOCYTES 11 % (0-8); MYELOCYTES 1 % (0-0); NEUTROPHIL # MANUAL DIFF 7.6 TH/MM3 (1.8-7.7); NUCLEATED RED BLOOD CELL 9 (0-0); POLYS (SEG NEUTROPHILS) 69 % (16-70)
[2017-09-18 09:45] LABS: HOWELL-JOLLY BODIES PRESENT (NONE SEEN)
[2017-09-18] MEDS: CHOLECALCIFEROL (VIT D3) 1000 UNIT TAB PO SCH (10:08)
[2017-09-18] MEDS ORDERED: SODIUM CHLORID 0.9% 500 ML INJ 500 ML IV ONE (11:30)
--- NOTE | 2017-09-18 15:14 | HHI.GIFU ---
Subjective Remarks Pt resting in bed. Denies any GI complaints at this time. Last BM was yesterday , formed, denies blood in stool. Breathing improved, states SOB only with exertion. (Stephy Zheng) Objective Vitals I&O Vital Signs Date Time Temp Pulse Resp B/P (MAP) Pulse Ox O2 Delivery O2 Flow Rate FiO2 09/18/17 12:00 96.7 48 17 111/46 (67) 99 09/18/17 10:22 70/42 (51) 09/18/17 08:53 21 09/18/17 08:00 97.8 60 18 172/75 (107) 95 09/18/17 07:49 Room Air 09/18/17 05:25 63 09/18/17 04:49 97.7 63 18 157/66 (96) 96 09/18/17 02:55 18 09/18/17 00:11 97.2 65 18 150/60 (90) 92 09/17/17 23:45 71 09/17/17 22:46 Room Air 09/17/17 19:46 63 09/17/17 19:01 97.2 72 18 171/83 (112) 92 09/17/17 17:55 21 09/17/17 17:10 53 09/17/17 16:00 97.3 80 17 176/63 (100) 95 I/O 09/17/17 09/17/17 09/17/17 09/18/17 09/18/17 09/18/17 07:00 15:00 23:00 07:00 15:00 23:00 Intake Total 240 ml 480 ml 480 ml 480 ml 480 ml Balance 240 ml 480 ml 480 ml 480 ml 480 ml Intake Oral 240 ml 480 ml 480 ml 480 ml 480 ml # Voids 3 2 3 4 2 # Bowel Movements 1 1 0 1 0 Laboratory Laboratory Tests Test 09/18/17 07:40 White Blood Count 10.6 Red Blood Count 2.91 Hemoglobin 10.6 Hematocrit 33.0 Mean Corpuscular Volume 113.3 Mean Corpuscular Hemoglobin 36.5 Mean Corpuscular Hemoglobin Concent 32.2 Red Cell Distribution Width 20.3 Platelet Count 394 Mean Platelet Volume 8.1 Neutrophils (%) (Auto) 68.7 Lymphocytes (%) (Auto) 19.8 Monocytes (%) (Auto) 10.9 Eosinophils (%) (Auto) 0.4 Basophils (%) (Auto) 0.2 Neutrophils # (Auto) 7.3 Lymphocytes # (Auto) 2.1 Monocytes # (Auto) 1.2 Eosinophils # (Auto) 0.0 Basophils # (Auto) 0.0 CBC Comment AUTO DIFF Differential Total Cells Counted 100 Neutrophils % (Manual) 69 Band Neutrophils % 2 Lymphocytes % 17 Monocytes % 11 Neutrophils # (Manual) 7.6 Myelocytes 1 Nucleated Red Blood Cells 9 Differential Comment FINAL DIFF MANUAL Platelet Estimate NORMAL Platelet Morphology Comment NORMAL Basophilic Stippling FAINT [place] Bodies PRESENT Activated Partial Thromboplast Time 25.1 Blood Urea Nitrogen 23 Creatinine 1.01 Random Glucose 79 Calcium Level 8.2 Sodium Level 142 Potassium Level 3.9 Chloride Level 107 Carbon Dioxide Level 29.8 Anion Gap 5 Estimat Glomerular Filtration Rate 53 Lactic Acid Level 1.3 Date/Time Source Procedure Growth Status 09/12/17 14:22 Blood Peripheral Aerobic Blood Culture - Final NO GROWTH IN 5 DAYS Complete 09/12/17 14:22 Blood Peripheral Anaerobic Blood Culture - Final NO GROWTH IN 5 DAYS Complete 09/13/17 18:30 Nasal Aspirate Influenza Types A,B Antigen (MERLYN) - Final NEGATIVE FOR FLU A AND B ANTIGEN.... Complete 09/14/17 18:00 Urine Catheterized Urine Urine Culture - Final Proteus Mirabilis Complete Imaging Last Impressions Chest X-Ray 09/14/17 0600 Signed Impressions: Service Date/Time: Thursday, September 14, 2017 03:56 - CONCLUSION: No acute disease. Arnoldo Hayden MD Liver Ultrasound 09/13/17 0000 Signed Impressions: Service Date/Time: Wednesday, September 13, 2017 18:58 - CONCLUSION: Cholelithiasis and fatty liver. Questionable tiny right renal stone. Adiel Zelaya MD Head CT 09/13/17 0000 Signed Impressions: Service Date/Time: Wednesday, September 13, 2017 10:02 - CONCLUSION: 1. Remote infarct right basal ganglia. 2. No acute intracranial abnormality. Dwain Block MD CT Angiography 09/12/17 0000 Signed Impressions: Service Date/Time: Tuesday, September 12, 2017 11:38 - CONCLUSION: 1. Mild pulmonary emboli in several distal right lower lobe pulmonary arteries. 2. Coronary artery calcifications. Jaden Lopez MD Lower Extremity Ultrasound 09/10/17 0000 Signed Impressions: Service Date/Time: Sunday, September 10, 2017 08:16 - CONCLUSION: 1. No sonographic evidence for right lower extremity DVT. Rob Nascimento MD Physical Exam HEENT: Normocephalic; atraumatic CHEST: Even/unlabored. Room air CARDIAC: RRR ABDOMEN: Soft, nondistended, nontender; bowel sounds active SKIN: Normal; no rash; no jaundice. JEWELRY REPAIRER: No focal deficits; alert and oriented times three. (Stephy Zheng) Assessment and Plan Assessment: (1) Macrocytic anemia ICD Codes: D53.9 - Nutritional anemia, unspecified (2) Symptomatic anemia ICD Codes: D64.9 - Anemia, unspecified Status: Acute (3) Pulmonary embolism ICD Codes: I26.99 - Other pulmonary embolism without acute cor pulmonale (4) Severe anemia ICD Codes: D64.9 - Anemia, unspecified Plan Patient currently has shortness of breath, being managed on 100% nonrebreather. If she becomes ventilated with ET tube, GI could possibly do EGD with protected airway present. Otherwise timing TBA. Symptomatic macrocytic ,hemolytic ,anemia. Hemoglobin is now 8.6 after receiving 3 units of packed RBCs and 2 units of platelets. Abdominal pain unspecified, describes as a sick feeling and diffuse pain. Possibly secondary to the symptomatic anemia, bleeding, inflammation, infection , autoimmune disorders. Hyperbilirubinemia, with equal direct and indirect delivery., Possible hemolytic in nature. Leukocytosis probably secondary to IV steroids Pulmonary emboli, per CT with acute symptoms of shortness of breath, patient has now been taken off Xarelto and placed on heparin drip. 2/- patient still not stable for gi work up respiratory philippe, no GI bleeding reported, hgb with mild drop liver work up pending, AFP wnl 5.7 2/ no signs of bleeding, hgb stable, not very keen to having colonoscopy, but would consider EGD, but would like to think about it liver work up still pending, LFTs remain high, US showed gallstones and fatty liver (09/16) --> Pt is being followed by our service for anemia, macrocytic. Serum Vit B 12 WNL. TIBC, iron, % sat WNL. Ferritin elevated. We have recommended pt to be evaluated with EGD and colonoscopy, she does not want colonoscopy but is agreeable to have EGD. Currently on Heparin gtt for PE. H/H is slowly increasing, currently ..9, has not received blood transfusion since Sep 12. LFTs remain elevated. AST-35 ALT-130 Alk phos -144 T bili 2.1. Liver work up as follows, ceruloplasmin WNL. Alpha-1 antitrypsin slightly elevated. DK, celiac panel, ASMA negative. AMA pending. Hepatitis panel shows positive hepatitis c antibody. Will order tests to further evaluate. Pt denies history of known Hepatitis C, states her daughter was treated for Hepatitis C, was told she was likely exposed from blood transfusions after a severe accident. (09/18) --> H/H improving, no recent blood transfusions. Currently .. No obvious GIB. Hematology following and according to their notes suspect underlying hemolysis due to elevated LDH and low haptoglobin. Peripheral smear consistent with features suggestive of autoimmune hemolysis. Pt on Prednisone. Pt denies any SOB at rest, only with exertion. O2 sats sustained in high 90s, on RA. Previously on Heparin gtt for PE, has since been discontinued, now on Eliquis started yesterday. Denies any GI complaints at this time. Hep C RNA and genotype still pending. Addendum: Per RN attending was planning on discharging pt today to [facility], but held the discharge given pts low blood pressure readings. If pt is discharged tomorrow or over the weekend then EGD can be done on an outpt basis. Pt will also need to follow up in the office regarding Hepatitis C results and tx. Plan - EGD planned for Friday - Obtain consent - NPO after MN on Friday - Stop Eliquis for two days with pulmonology clearance - Hep C RNA quant and genotype pending - Continue to monitor H/H - Continue Protonix - Supportive care - Further recommendations to follow based on results of above This patient has been seen and examined by myself and Dr. Kincaid and this note is written on her behalf (Stephy Zheng) Physician Comments agree with above if dc fu office (Susie Kincaid MD) Stephy Zheng Sep 18, 2017 15:14 Susie Kincaid MD Sep 18, 2017 18:17
--- NOTE | 2017-09-18 17:14 | HHI.PR ---
Subjective Remarks This is a 81-year-old female. Date of admission 09/10/2017. Date of consult 09/11/2017. Past medical history includes hypertension, dyslipidemia, depression/anxiety, chronic pain syndrome, cholelithiasis, nephrolithiasis and osteoarthritis. Patient has a known history of macrocytic anemia which he follows with Dr. Shah. She has had her spleen removed future anemia in the past. He is chronically on azathioprine. It appears on 09/01 patient was diagnosed with pulmonary embolism along with the right lower extremity DVT. She started on rivaroxaban 15 mg twice a day. She follows who agreed with this is been on this in the in the interim. She presents earlier to [place] with acute on chronic worsening shortness of breath. She was able to able to the bathroom and became short of breath. She is noted to have a hemoglobin of 4.3. MCV of 143. Haptoglobin low and LDH high. Started on methylprednisolone 60 mg IV twice a day per hematology. Transfused 3 units PRBCs and 2 FFP. Warm Dejon positive. Throughout this hospitalization she had increasing oxygen requirements. ABG reveals shunting. Chest x-ray revealed no acute cardio point process. Repeat CT pulmonary angiogram today revealed several small pulmonary embolism in the right lower lobe do not appear to be hemodynamically compromising. 2D echocardiogram is pending at time of dictation. Denies chest pain. Patient is not tachycardic. Hemodynamically stable. Subjective 09/13: Afebrile. Hypertensive overnight but currently hypotensive complaining of blurry vision. No other focal logical neurological deficit on bedside evaluation. Denies chest pain. States this "new" mask is causing her difficulty breathing. Currently a nonrebreather 12 L satting 100%. Remains on heparin drip 1400 units an hour. Stat CT brain pending 09/14: Afebrile the patient is awake , alert and pleasantly conversant today. CT brain was negative. Patient's has complaints of mild pain lower extremities only at night resolved with when necessary Percocet. Patient previously on Lortab at home for symptoms. 09/15: No acute events overnight. Urine culture revealed Proteus species patient placed on Cipro twice a day 10 days. PT evaluation and treat initiated. Hemoglobin stable. 09/16. Patient says she is feeling well. Denies shortness of breath. Denies chest pain. She says she is getting her strength back, feels like she can go to rehabilitation in the next couple days. = 09/17. Patient seen this morning around 9 AM. Says she is feeling better again today. Denies any chest pain or shortness of breath feels like going to rehabilitation tomorrow. 09/18: Patient seen this morning. Says she feels well. Denies any chest pain or shortness of breath. Discussed with nursing this morning. Patient hypotensive with systolic blood pressures in the 70s after receiving morning meds, bradycardia in the 40s. sHe is somnolent but wakes alert and oriented. Blood pressure returns to normal after a half liter normal saline. Objective Vital Signs Date Time Temp Pulse Resp B/P (MAP) Pulse Ox O2 Delivery O2 Flow Rate FiO2 09/18/17 16:00 99.3 60 18 144/62 (89) 94 09/18/17 12:00 96.7 48 17 111/46 (67) 99 09/18/17 11:58 46 09/18/17 10:22 70/42 (51) 09/18/17 08:53 21 09/18/17 08:00 97.8 60 18 172/75 (107) 95 09/18/17 07:50 60 09/18/17 07:49 Room Air 09/18/17 05:25 63 09/18/17 04:49 97.7 63 18 157/66 (96) 96 09/18/17 02:55 18 09/18/17 00:11 97.2 65 18 150/60 (90) 92 09/17/17 23:45 71 09/17/17 22:46 Room Air 09/17/17 19:46 63 09/17/17 19:01 97.2 72 18 171/83 (112) 92 09/17/17 17:55 21 09/17/17 17:10 53 I/O 09/17/17 09/17/17 09/17/17 09/18/17 09/18/17 09/18/17 07:00 15:00 23:00 07:00 15:00 23:00 Intake Total 240 ml 480 ml 480 ml 480 ml 480 ml Balance 240 ml 480 ml 480 ml 480 ml 480 ml Intake Oral 240 ml 480 ml 480 ml 480 ml 480 ml # Voids 3 2 3 4 2 # Bowel Movements 1 1 0 1 0 Result Diagram: 09/18/17 0740 09/18/17 0740 Objective Remarks GENERAL: patient sitting in bed. Appears comfortable. somnolent, wakes up for exam. On nasal cannula. she continues alert and oriented 3. SKIN: Warm and dry. HEAD: Normocephalic. EYES: No scleral icterus. No injection or drainage. NECK: Supple, trachea midline. No JVD. CARDIOVASCULAR: Regular rate and rhythm without murmurs, gallops, or rubs. RESPIRATORY: Breath sounds equal bilaterally. No accessory muscle use. GASTROINTESTINAL: Abdomen soft, non-tender, nondistended. MUSCULOSKELETAL: No cyanosis, or edema. BACK: Nontender without obvious deformity. No CVA tenderness. A/P Assessment and Plan ===09/18/17. 09/18/17. Had hoped for patient to be discharged to rehabilitation today, however hypotensive with systolic blood pressures in the 70s, Bradycardic in the 40s. confirmed with multiple readings, manual reading. Improved after one half liter all saline. We'll discontinue verapamil which can affect both blood pressure and heart rate.. Continue metoprolol. Monitor. Plan for discharge tomorrow morning. Patient with history of recently diagnosed pulmonary embolism on anticoagulation who presented with what appears to be... 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 Patient has been managed on heparin drip due to recent pulmonary embolism, and episode of respiratory failure during hospitalization which has improved. -I discussed with hematology Again today. will transition to Eliquis 5 mg by mouth twice a day, cont prednisone 40 mg daily to be continued until follow-up with Dr. Means. //Resp failure - much improved appreciate pulm assist. //GI is following, would like to do EGD when stable and heparin can be held for procedure. Due to autoimmune nature of anemia, as well as respiratory failure in the hospital would recommend against EGD at this time. Hemoglobin appears to be stable, and this can be planned as an outpatient if still warranted. We' ll discharge on PPI. His cast again with hematology. Recommend follow-up with GI as outpatient for possible EGD. //Hepatitis C is positive. GI following. further labs are pending. Follow up as outpatient //UTI - cont abx Cipro by mouth to complete her course stop date 09/25 //Depression/anxiety //Chronic pain syndrome //Chronic narcotic use Patient is currently on duloxetine 60 mg by mouth daily/home medication for depression. Continue Currently on tizanidine 4 mg by mouth every 6 hours. Muscle relaxant Acetaminophen 650 mg by mouth every 4 hours when necessary fever/pain 1 through 4 Patient is on hydrocodone/acetaminophen 7.5/325 one tablet, every 6 hours as needed for pain 5-10 Patient is on hydrocodone/acetaminophen 10/325 one tablet every 6 hours when necessary pain at home Stat CT brain 09/13 with vision changes on heparin drip-no acute intracranial abnormality = Patient reports resolution of symptoms. 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 Hold while blood pressures tenuous. Switch to verapamil 40 mg by mouth twice a day with holding parameters see orders. MAP currently 60 Norepinephrine if necessary to maintain mean axial pressure greater than 65 2-D echocardiogram - LVSF low Nl EF 50-55%. Flattened septum througout the cardiac cycle suggesting elevated right ventricular end diastolic pressures. The right ventricle is moderately dilated. The right ventricular systoilc function is severely decreased. Possible Handy's sign seen in acute pulmonary embolism (akinesis of mid right ventricle with fairly normal motion at the apex). There is mild tricuspid valve regurgitation. The estimated systolic pulmonary pressure is 57 mmg Hg. Currently on normal saline at 30 cc an hour Not on any lipid-lowering agents. Lipid panel ordered for a.m. 09/14 Dr. Johnston - Continue anticoagulation therapy with heparin drip. No additional cardiac workup at this point; could consider nuclear stress test or coronary CTA as an outpatient. Add metoprolol tartrate 50 milligrams twice a day to calcium channel tigre if able BNP elevated > 1500 Added aspirin 81 mg by mouth daily F/U BNP = Heart rate stable. Continue current medication regimen. Resp: //Acute respiratory failure //History of pulmonary embolism On 5LPM N/C to maintain saturations greater than equal to 92% Incentive spirometry while awake CTPA - The main pulmonary artery and right and left branch vessels are intact. There is a small amount of thrombus in several of the distal right lower lobe pulmonary arteries. Negative DVT right lower extremity ultrasound Chest x-ray 09/12 revealed no acute cardio pulmonary findings Started on albuterol/ipratropium every 4 hours with albuterol aerosols every 2 hours. Dyspnea = Continue heparin drip. Eliquis at discharge as per hematology. Appreciate assistance GI: //History of cholelithiasis //Elevated total bilirubin //Elevated transaminases //Constipation //Hypoalbuminemia Are healthy diet Pantoprazole for GI prophylaxis Docusate sodium/senna 1 tablet twice a day for bowel regimen. Add polyethylene glycol 17 g twice a day and lactulose 30 cc daily GI consulted. Hemoccult pending. Liver workup per GI. Pending AMA/ASMA/DK/ alphafetoprotein and hepatitis panel = Due to hemolytic nature of anemia, would recommend against EGD. Will need follow-up with GI as outpatient for hepatitis C. : Reeves catheter if indicated for accurate I's and O's in a critically ill patient Endo: Sliding-scale insulin Novulin R low regimen before meals at bedtime with Accu- Cheks to maintain euglycemia TSH 1.3. 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 Folate elevated 19. Patient is on chronic folate acid 1 mg daily at home. Peripheral blood reveals marked aniso- and poikilocytosis of the red cells with prominent polychromasia and numerous nucleated red blood cells. Many spherocytes are present. Significant numbers of red cell fragments ( schistocytes) are not identified. The peripheral blood findings, in combination with the patients elevated LDH, decreased haptoglobin, and positive LAKHWINDER, are most suggestive of autoimmune hemolytic anemia. Evaluated by Dr. Means Transfused 3 units PRBCs and 2 FFP during this hospitalization Haptoglobin was low LDH elevated. Started on methylprednisolone succinate 60 mg IV twice a day per Dr. Means. Reticulocyte elevated. Pending MMA, homocysteine and serum folate as well Holding azathioprine 50 mg per hematology == Hemoglobin stable 9.0. Discussed with hematology. As above ID: Monitor for infection (fever, elevated WBC) Blood cultures 2, sputum, urine and influenza pending, negative urinary Legionella and pneumococcal antigens /. 2 urine culture- Proteus- placed on Cipro 250 mg twice a day 10 days MSK: Osteoarthritis PT evaluate and treat Continue cholecalciferol 5000 units daily FEN: Hyper-magnesium Replace electrolytes as clinically indicated Access - Utilize peripheral IV. Central line if indicated Prophylaxis - GI - pantoprazole - DVT - SCDs currently in heparin drip. Will discuss with hematology post CT pulmonary angiogram Discharge Planning Had planned for discharge to rehabilitation today, however systolic blood pressures in the 70s with somnolence after morning meds. Resolved after one half liter saline. Adjusting medications. Plan for Discharge home tomorrow. plan discharge to rehabilitation. dw nursing, CM at [facility]. Appreciate PT and case management assistance Owen Betancourt MD Sep 18, 2017 17:14
--- NOTE | 2017-09-18 20:17 | HHI.PR ---
Subjective Remarks 81 YOWF with Bilat PE, Severe Anemia Breathing better Weaned to RA On Eliquis Had episode of low BP, improved Objective Vital Signs Vital Signs Date Time Temp Pulse Resp B/P (MAP) Pulse Ox O2 Delivery O2 Flow Rate FiO2 09/18/17 16:00 99.3 60 18 144/62 (89) 94 09/18/17 12:00 96.7 48 17 111/46 (67) 99 09/18/17 11:58 46 09/18/17 10:22 70/42 (51) 09/18/17 08:53 21 09/18/17 08:00 97.8 60 18 172/75 (107) 95 09/18/17 07:50 60 09/18/17 07:49 Room Air 09/18/17 05:25 63 09/18/17 04:49 97.7 63 18 157/66 (96) 96 09/18/17 02:55 18 09/18/17 00:11 97.2 65 18 150/60 (90) 92 09/17/17 23:45 71 09/17/17 22:46 Room Air I/O 09/17/17 09/17/17 09/17/17 09/18/17 09/18/17 09/18/17 07:00 15:00 23:00 07:00 15:00 23:00 Intake Total 240 ml 480 ml 480 ml 480 ml 480 ml Balance 240 ml 480 ml 480 ml 480 ml 480 ml Intake Oral 240 ml 480 ml 480 ml 480 ml 480 ml # Voids 3 2 3 4 2 # Bowel Movements 1 1 0 1 0 Result Diagram: 09/18/1740 09/18/17 0740 Objective Remarks GENERAL: Elderly WF, mild sob SKIN: Warm and dry. HEAD: Normocephalic. EYES: No scleral icterus. No injection or drainage. NECK: Supple, trachea midline. No JVD or lymphadenopathy. CARDIOVASCULAR: Regular rate and rhythm without murmurs, gallops, or rubs. RESPIRATORY: Breath sounds equal bilaterally. No accessory muscle use. GASTROINTESTINAL: Abdomen soft, non-tender, nondistended. MUSCULOSKELETAL: No cyanosis, or edema. BACK: Nontender without obvious deformity. No CVA tenderness. A/P Assessment and Plan Bilat PE Dysnoea Severe Anemea ? Hemolysis Arthritis PLAN: Supplement 02 Pred 20 mg daily Hematology following Eliquis 5 mg bid. EGD planned for out pt OK to hold Eliquis for procedure DW Pt , she understands the benefits and risks of anticoagulation Tucker Merino MD Sep 18, 2017 20:17
[2017-09-19 00:50] VITALS: BP 147/70; PULSE 61; RESP 17; TEMP 98.9; O2SAT 93
[2017-09-19 03:50] LABS: MITOCHONDRIAL ABS LESS THAN 20.0 U (<=20.0)
[2017-09-19 04:45] VITALS: BP 163/68; PULSE 59; RESP 17; TEMP 98; O2SAT 95
[2017-09-19 05:38] VITALS: BP_SYST 165; BP_SYST 175; BP_DIAS 63; BP_DIAS 70; PULSE 58; RESP 18; TEMP 98.4; O2SAT 95
[2017-09-19] MEDS: cloNIDine HCL 0.1 MG TAB PO PRN (06:00)
[2017-09-19] MEDS: INSULIN NovoLIN REGULAR SUPPLEMENTAL SCALE SQ SCH ×2 (07:29→12:00)
[2017-09-19 08:00] VITALS: BP 157/66; PULSE 54; RESP 18; TEMP 97.5; O2SAT 93
[2017-09-19] MEDS: SODIUM CHLORIDE 0.9% FLUSH 10 ML FLUSH IV FLUSH SCH ×2 (08:18→08:24)
[2017-09-19] MEDS: CHOLECALCIFEROL (VIT D3) 1000 UNIT TAB PO SCH (08:18)
[2017-09-19] MEDS: APIXABAN 5 MG TABLET PO SCH (08:18)
[2017-09-19] MEDS: predniSONE 20 MG TAB PO SCH (08:19)
[2017-09-19] MEDS: VITAMIN B CMPLX/VITC/FOLIC AC CAP PO SCH (08:19)
[2017-09-19] MEDS: DULoxetine HCl DR 60 MG CAP PO SCH (08:19)
[2017-09-19] MEDS: FOLIC ACID 1 MG TAB PO SCH (08:19)
[2017-09-19] MEDS: CIPROFLOXACIN 250 MG TAB PO SCH (08:19)
[2017-09-19] MEDS: ASPIRIN EC 81 MG TABEC PO SCH (08:19)
[2017-09-19] MEDS: PANTOPRAZOLE SOD 40 MG DELAYED RELEASE TAB PO SCH (08:19)
[2017-09-19] MEDS: METOPROLOL TARTRATE 50 MG TAB PO SCH (08:20)
[2017-09-19] MEDS: LACTULOSE SYRUP 20 GM/30 ML CUP PO SCH (08:24)
[2017-09-19] MEDS: POLYETHYLENE GLYCOL 17 GM PKG PO SCH (08:25)
--- NOTE | 2017-09-19 11:27 | HHI.PR ---
Subjective Remarks 81 YOWF with Bilat PE, Severe Anemia Breathing better Weaned to RA On Eliquis Feels much better Objective Vital Signs Vital Signs Date Time Temp Pulse Resp B/P (MAP) Pulse Ox O2 Delivery O2 Flow Rate FiO2 09/19/17 08:25 Room Air 09/19/17 08:00 97.5 54 18 157/66 (96) 93 09/19/17 05:38 98.4 58 18 165/70 (101) 95 09/19/17 04:45 98.0 59 17 163/68 (99) 95 09/19/17 00:50 98.9 61 17 147/70 (95) 93 09/18/17 23:47 56 09/18/17 21:48 95 Room Air 09/18/17 20:35 99.3 66 18 165/65 (98) 95 09/18/17 20:00 64 09/18/17 16:00 99.3 60 18 144/62 (89) 94 09/18/17 12:00 96.7 48 17 111/46 (67) 99 09/18/17 11:58 46 I/O 09/18/17 09/18/17 09/18/17 09/19/17 09/19/17 09/19/17 07:00 15:00 23:00 07:00 15:00 23:00 Intake Total 480 ml 480 ml 240 ml 240 ml Balance 480 ml 480 ml 240 ml 240 ml Intake Oral 480 ml 480 ml 240 ml 240 ml # Voids 4 2 2 1 # Bowel Movements 1 0 1 0 Result Diagram: 09/18/17 0740 09/18/17 0740 Objective Remarks GENERAL: Elderly WF, mild sob SKIN: Warm and dry. HEAD: Normocephalic. EYES: No scleral icterus. No injection or drainage. NECK: Supple, trachea midline. No JVD or lymphadenopathy. CARDIOVASCULAR: Regular rate and rhythm without murmurs, gallops, or rubs. RESPIRATORY: Breath sounds equal bilaterally. No accessory muscle use. GASTROINTESTINAL: Abdomen soft, non-tender, nondistended. MUSCULOSKELETAL: No cyanosis, or edema. BACK: Nontender without obvious deformity. No CVA tenderness. A/P Assessment and Plan Bilat PE Dysnoea Severe Anemea ? Hemolysis Arthritis PLAN: Supplement 02 Pred 20 mg daily Hematology following Eliquis 5 mg bid. EGD planned for out pt OK to hold Eliquis for procedure DW Pt , she understands the benefits and risks of anticoagulation DC plans for [place] Will FU in office Tucker Merino MD Sep 19, 2017 11:27
[2017-09-19] MEDS ORDERED: HYDR-3799 PO (11:31)
[2017-09-19] MEDS ORDERED: NORC5TAB PO (11:37)
--- NOTE | 2017-09-19 11:46 | HHI.DS ---
Discharge Summary Admission Date Sep 09, 2017 at 17:54 Discharge Date: Sep 19, 2017 Admitting Diagnosis symptomatic anemia (1) Pulmonary embolism ICD Code: I26.99 - Other pulmonary embolism without acute cor pulmonale (2) HTN (hypertension) ICD Code: I10 - Essential (primary) hypertension Status: Chronic (3) Symptomatic anemia ICD Code: D64.9 - Anemia, unspecified Status: Acute Procedures None Brief History - From Admission 81 year old female with a history HTN, chronic back pain, and iron deficiency anemia presented to the ED with complaints of increasing shortness of breath. Patient states for the last 6 months she has been having shortness of breath and was was diagnosed last Friday with bilateral pulmonary embolisms. She was started on Xarelto and states she has taken it for the last 4 days. She was seen by pulmonology on Friday and he agreed with the Xarelto and recommended follow up in a few months. She states since Friday she has not been able to walk to the bathroom without getting significantly short of breath. She states she has not been getting out of bed much the last 2 weeks due to the SOB, She has associated right calf pain, but denies any swelling. She also denies any dizziness,headaches, fevers or chills. She complains of chest pain with she takes a deep breath, no radiation noted. She follows up with her PCP and gets regular blood work complete. She states last Friday her hemoglobin was 9. Her last blood transfusion was 6-7 months ago. Due to the shortness of breath patient states she has not been taking her medications for the last week. Due to patients rare antibodies, blood has to come from the [facility] blood bank. CBC/BMP: 09/18/17 0740 09/18/17 0740 Significant Findings Laboratory Tests Test 09/16/17 14:33 09/16/17 22:25 09/17/17 06:00 09/18/17 07:40 White Blood Count 11.7 TH/MM3 (4.0-11.0) Red Blood Count 2.60 MIL/MM3 (4.00-5.30) 2.58 MIL/MM3 (4.00-5.30) 2.91 MIL/MM3 (4.00-5.30) Hemoglobin 9.2 GM/DL (11.6-15.3) 9.1 GM/DL (11.6-15.3) 10.6 GM/DL (11.6-15.3) Hematocrit 29.9 % (35.0-46.0) 29.1 % (35.0-46.0) 33.0 % (35.0-46.0) Mean Corpuscular Volume 114.9 FL (80.0-100.0) 112.7 FL (80.0-100.0) 113.3 FL (80.0-100.0) Mean Corpuscular Hemoglobin 35.2 PG (27.0-34.0) 35.2 PG (27.0-34.0) 36.5 PG (27.0-34.0) Mean Corpuscular Hemoglobin Concent 30.7 % (32.0-36.0) 31.3 % (32.0-36.0) Red Cell Distribution Width 23.4 % (11.6-17.2) 22.2 % (11.6-17.2) 20.3 % (11.6-17.2) Neutrophils (%) (Auto) 92.9 % (16.0-70.0) 87.5 % (16.0-70.0) Lymphocytes (%) (Auto) 2.7 % (9.0-44.0) 6.3 % (9.0-44.0) Neutrophils # (Auto) 10.9 TH/MM3 (1.8-7.7) 9.0 TH/MM3 (1.8-7.7) Lymphocytes # (Auto) 0.3 TH/MM3 (1.0-4.8) 0.6 TH/MM3 (1.0-4.8) Neutrophils % (Manual) 95 % (16-70) 90 % (16-70) Lymphocytes % 4 % (9-44) 5 % (9-44) Neutrophils # (Manual) 11.1 TH/MM3 (1.8-7.7) 9.6 TH/MM3 (1.8-7.7) Nucleated Red Blood Cells 32 /100 WBC (0-0) 21 /100 WBC (0-0) 9 /100 WBC (0-0) Polychromasia 2.0 % (0.0-1.9) 2.4 % (0.0-1.9) Basophilic Stippling FAINT (NORMAL) FAINT (NORMAL) FAINT (NORMAL) Spherocytes 1+ (NORMAL) Acanthocytes OCC (NORMAL) Activated Partial Thromboplast Time 37.8 SEC (24.3-30.1) 51.1 SEC (24.3-30.1) 48.4 SEC (24.3-30.1) Ovalocytes 1+ (NORMAL) Total Bilirubin 1.9 MG/DL (0.2-1.0) Direct Bilirubin 0.9 MG/DL (0.0-0.2) Indirect Bilirubin 1.0 MG/DL (0.0-0.8) Alanine Aminotransferase (ALT/SGPT) 91 U/L (10-53) Total Protein 5.4 GM/DL (6.4-8.2) Albumin 3.1 GM/DL (3.4-5.0) Monocytes (%) (Auto) 10.9 % (0.0-8.0) Monocytes # (Auto) 1.2 TH/MM3 (0-0.9) Monocytes % 11 % (0-8) Myelocytes 1 % (0-0) Blood Urea Nitrogen 23 MG/DL (7-18) Creatinine 1.01 MG/DL (0.50-1.00) Calcium Level 8.2 MG/DL (8.5-10.1) Estimat Glomerular Filtration Rate 53 ML/MIN (>89) Imaging Last Impressions Chest X-Ray 09/14/17 0600 Signed Impressions: Service Date/Time: Thursday, September 14, 2017 03:56 - CONCLUSION: No acute disease. Arnoldo Hayden MD Liver Ultrasound 09/13/17 0000 Signed Impressions: Service Date/Time: Wednesday, September 13, 2017 18:58 - CONCLUSION: Cholelithiasis and fatty liver. Questionable tiny right renal stone. Adiel Zelaya MD Head CT 09/13/17 Signed Impressions: Service Date/Time: Wednesday, September 13, 2017 10:02 - CONCLUSION: 1. Remote infarct right basal ganglia. 2. No acute intracranial abnormality. Dwain Block MD CT Angiography 2/2/18 0000 Signed Impressions: Service Date/Time: Tuesday, September 12, 2017 11:38 - CONCLUSION: 1. Mild pulmonary emboli in several distal right lower lobe pulmonary arteries. 2. Coronary artery calcifications. Jaden Lopez MD Lower Extremity Ultrasound 09/10/17 0000 Signed Impressions: Service Date/Time: Sunday, September 10, 2017 08:16 - CONCLUSION: 1. No sonographic evidence for right lower extremity DVT. Rob Nascimento MD PE at Discharge GENERAL: Alert, oriented 3, NAD. SKIN: Warm and dry. HEAD: Normocephalic. EYES: No scleral icterus. No injection or drainage. NECK: Supple, trachea midline. No JVD or lymphadenopathy. CARDIOVASCULAR: Regular rate and rhythm without murmurs, gallops, or rubs. RESPIRATORY: Breath sounds equal bilaterally. No accessory muscle use. GASTROINTESTINAL: Abdomen soft, non-tender, nondistended. MUSCULOSKELETAL: No cyanosis, or edema. BACK: Nontender without obvious deformity. No CVA tenderness. Hospital Course Patient was admitted with symptomatic anemia, hemoglobin 4.3. 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 Ferritin 1135.. Hematology was consulted, and this improved with steroids, increasing gradually to 10.6 on 09/18.. Patient will need to continue on steroids until follow-up with hematology. She'll need to be continued on Eliquis 5 mg twice daily for treatment of pulmonary embolism. Patient will follow-up with gastroenterology as outpatient for EGD. Anemia is autoimmune related, with high ferritin, unlikely GI bleed. Will continue on PPI for possible peptic ulcer, especially now that she is on prednisone daily. Hospitalization complicated by episode of respiratory failure and bilateral pulmonary edema, which resolved with resumption of heparin drip. BNP was found to be 1500. Echocardiogram with ejection fraction 5055 percent, elevated pulmonary pressures indicative of severe pulmonary embolism. This improved on anticoagulation, which will be continued as above. Patient was also found to have elevation in troponin during admission, up to 1.0 , likely demand ischemia. Cardiology added metoprolol to patient's verapamil. Patient subsequently developed bradycardia the morning of 09/18, and verapamil was discontinued with improvement. 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 Follow-up with cardiology as outpatient. She also found to have UTI which will be treated with Cipro to complete treatment course Hepatitis C also found to be positive, for patient will need to follow-up with gastroenterology as outpatient. For problem-based summary from most recent progress note, please see below. ===09/18/17. 09/18/17. Had hoped for patient to be discharged to rehabilitation today, however hypotensive with systolic blood pressures in the 70s, Bradycardic in the 40s. confirmed with multiple readings, manual reading. Improved after one half liter all saline. We'll discontinue verapamil which can affect both blood pressure and heart rate.. Continue metoprolol. Monitor. Plan for discharge tomorrow morning. Patient with history of recently diagnosed pulmonary embolism on anticoagulation who presented with what appears to be... 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 Patient has been managed on heparin drip due to recent pulmonary embolism, and episode of respiratory failure during hospitalization which has improved. -I discussed with hematology Again today. will transition to Eliquis 5 mg by mouth twice a day, cont prednisone 40 mg daily to be continued until follow-up with Dr. Means. //Resp failure - much improved appreciate pulm assist. //GI is following, would like to do EGD when stable and heparin can be held for procedure. Due to autoimmune nature of anemia, as well as respiratory failure in the hospital would recommend against EGD at this time. Hemoglobin appears to be stable, and this can be planned as an outpatient if still warranted. We' ll discharge on PPI. His cast again with hematology. Recommend follow-up with GI as outpatient for possible EGD. //Hepatitis C is positive. GI following. further labs are pending. Follow up as outpatient //UTI - cont abx Cipro by mouth to complete her course stop date 09/25 //Depression/anxiety //Chronic pain syndrome //Chronic narcotic use Patient is currently on duloxetine 60 mg by mouth daily/home medication for depression. Continue Currently on tizanidine 4 mg by mouth every 6 hours. Muscle relaxant Acetaminophen 650 mg by mouth every 4 hours when necessary fever/pain 1 through 4 Patient is on hydrocodone/acetaminophen 7.5/325 one tablet, every 6 hours as needed for pain 5-10 Patient is on hydrocodone/acetaminophen 10/325 one tablet every 6 hours when necessary pain at home Stat CT brain / with vision changes on heparin drip-no acute intracranial abnormality = Patient reports resolution of symptoms. 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 Hold while blood pressures tenuous. Switch to verapamil 40 mg by mouth twice a day with holding parameters see orders. MAP currently 60 Norepinephrine if necessary to maintain mean axial pressure greater than 65 2-D echocardiogram - LVSF low Nl EF 50-55%. Flattened septum througout the cardiac cycle suggesting elevated right ventricular end diastolic pressures. The right ventricle is moderately dilated. The right ventricular systoilc function is severely decreased. Possible Handy's sign seen in acute pulmonary embolism (akinesis of mid right ventricle with fairly normal motion at the apex). There is mild tricuspid valve regurgitation. The estimated systolic pulmonary pressure is 57 mmg Hg. Currently on normal saline at 30 cc an hour Not on any lipid-lowering agents. Lipid panel ordered for a.m. 09/14 Dr. Johnston - Continue anticoagulation therapy with heparin drip. No additional cardiac workup at this point; could consider nuclear stress test or coronary CTA as an outpatient. Add metoprolol tartrate 50 milligrams twice a day to calcium channel tigre if able BNP elevated > 1500 Added aspirin 81 mg by mouth daily F/U BNP = Heart rate stable. Continue current medication regimen. Resp: //Acute respiratory failure //History of pulmonary embolism On 5LPM N/C to maintain saturations greater than equal to 92% Incentive spirometry while awake CTPA - The main pulmonary artery and right and left branch vessels are intact. There is a small amount of thrombus in several of the distal right lower lobe pulmonary arteries. Negative DVT right lower extremity ultrasound Chest x-ray 09/12 revealed no acute cardio pulmonary findings Started on albuterol/ipratropium every 4 hours with albuterol aerosols every 2 hours. Dyspnea = Continue heparin drip. Eliquis at discharge as per hematology. Appreciate assistance GI: //History of cholelithiasis //Elevated total bilirubin //Elevated transaminases //Constipation //Hypoalbuminemia Are healthy diet Pantoprazole for GI prophylaxis Docusate sodium/senna 1 tablet twice a day for bowel regimen. Add polyethylene glycol 17 g twice a day and lactulose 30 cc daily GI consulted. Hemoccult pending. Liver workup per GI. Pending AMA/ASMA/DK/ alphafetoprotein and hepatitis panel = Due to hemolytic nature of anemia, would recommend against EGD. Will need follow-up with GI as outpatient for hepatitis C. : Reeves catheter if indicated for accurate I's and O's in a critically ill patient Endo: Sliding-scale insulin Novulin R low regimen before meals at bedtime with Accu- Cheks to maintain euglycemia TSH 1.3. 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 Folate elevated 19. Patient is on chronic folate acid 1 mg daily at home. Peripheral blood reveals marked aniso- and poikilocytosis of the red cells with prominent polychromasia and numerous nucleated red blood cells. Many spherocytes are present. Significant numbers of red cell fragments ( schistocytes) are not identified. The peripheral blood findings, in combination with the patients elevated LDH, decreased haptoglobin, and positive LAKHWINDER, are most suggestive of autoimmune hemolytic anemia. Evaluated by Dr. Means Transfused 3 units PRBCs and 2 FFP during this hospitalization Haptoglobin was low LDH elevated. Started on methylprednisolone succinate 60 mg IV twice a day per Dr. Means. Reticulocyte elevated. Pending MMA, homocysteine and serum folate as well Holding azathioprine 50 mg per hematology == Hemoglobin stable 9.0. Discussed with hematology. As above ID: Monitor for infection (fever, elevated WBC) Blood cultures 2, sputum, urine and influenza pending, negative urinary Legionella and pneumococcal antigens /. 2/4 urine culture- Proteus- placed on Cipro 250 mg twice a day 10 days MSK: Osteoarthritis PT evaluate and treat Continue cholecalciferol 5000 units daily FEN: Hyper-magnesium Replace electrolytes as clinically indicated Access - Utilize peripheral IV. Central line if indicated Prophylaxis - GI - pantoprazole - DVT - SCDs currently in heparin drip. Will discuss with hematology post CT pulmonary angiogram Pt Condition on Discharge: Good Discharge Disposition: Discharge to SNF Discharge Time: > 30 minutes Discharge Instructions DIET: Follow Instructions for: Heart Healthy Diet Activities you can perform: Regular-No Restrictions Follow up Referrals: Cardiology - 3 Weeks with Tima Johnston MD Gastroenterology - 3 Weeks with Baldo Dodge MD Oncology/Hematology - 3-5 Days with Reuben Means MD PCP Follow-up - 1 Week with Camilo Mckinney MD Pulmonology - 3 Weeks with José Miguel Dill MD New Medications: Hydralazine HCl (Hydralazine HCl) 25 Mg Tablet 25 MG PO TID for Blood Pressure Management, #90 TAB 0 Refills Hydrocodone-Acetaminophen ([place]) 5 Mg-325 Mg Tab 1 TAB PO Q6H PRN for PAIN, #20 TAB 0 Refills Apixaban (Eliquis) 5 Mg Tab 5 MG PO BID for Blood Clot Prevention for 30 Days, #[address] (Aspirin DR) 81 Mg Tabdr 81 MG PO DAILY for Blood Clot Prevention for 30 Days, #30 TAB Ciprofloxacin (Cipro) 250 Mg Tab 250 MG PO Q12HR for Infection for 7 Days, TAB Metoprolol Tartrate (Lopressor) 50 Mg Tab 50 MG PO BID for heart for 30 Days, #60 TAB Pantoprazole (Pantoprazole) 40 Mg Tab 40 MG PO DAILY for prevent stomach ulcer for 30 Days, #30 TAB Prednisone (Prednisone) 20 Mg Tab 40 MG PO DAILY for treat anemia for 14 Days, #28 TAB DO NOT STOP THIS MEDICATION BEFORE SEEING E [employer] [Albuterol Neb] () 2.5 MG/3 ML NEBU 2.5 MG NEB Q2HR NEB PRN for dyspnea for 30 Days Continued Medications: B-Complex Vitamins (Vitamin B Complex) 1 Tab 1 TAB PO DAILY Cholecalciferol (Vitamin D-1000) 1,000 Unit Tab 5000 UNITS PO DAILY for Nutritional Supplement, #1 BOTTLE [address] (Duloxetine DR) 60 Mg Capdr 60 MG PO DAILY, #30 CAP 0 Refills Folic Acid (Folic Acid) 0.8 Mg Tab 1 MG PO DAILY for Nutritional Supplement, TAB 0 Refills Multiple Vitamins W/ Minerals (Multivitamin Adults) 1 Tab 1 TAB PO DAILY for Nutritional Supplement, TAB 0 Refills Psyllium (Fiber) 520 Mg Cap Unknown Dose PO DAILY Tizanidine (Tizanidine) 4 Mg Cap 4 MG PO DAILY, CAP 0 Refills Discontinued Medications: Azathioprine (Azathioprine) 50 Mg Tab 50 MG PO BID for Immunosuppression, #60 TAB 0 Refills Hazardous agent use appropriate precautions for handling and disposal. B-Complex Vitamins (Vitamin B Complex) 1 Tab 1 TAB PO DAILY Flaxseed (Linseed) (Flaxseed Oil) 1,000 Mg Cap 1000 MG PO DAILY for Nutritional Supplement, CAP 0 Refills Flaxseed (Linseed) (Flax Seed Oil 1000 mg) 1,000 Mg Cap 1 TAB PO DAILY Qmlmtqemylz-Ehjamltakfm-Qeoldegv (Jpllaqagkqa-Raxzrnceyol-Eyvmtiru) 1 Cap Cap 1 CAP PO DAILY for Herbal Supplements, CAP 0 Refills Red Yeast Rice Extract (Red Yeast Rice) 300 Mg Cap Unknown Dose PO BID Rivaroxaban (Xarelto) 15 Mg Tab 15 MG PO Q12HR for Blood Clot Prevention, TAB 0 Refills Turmeric Root Extract (Turmeric) 500 Mg Capsule 1 TAB PO DAILY Verapamil (Verapamil) 120 Mg Tab 120 MG PO DAILY, #60 TAB 0 Refills Owen Betancourt MD Sep 19, 2017 11:46
[2017-09-19 12:00] VITALS: BP 142/75; PULSE 52; RESP 18; TEMP 97.7; O2SAT 96
[2017-09-19] MEDS ORDERED: hydrALAZINE HCL 25 MG TAB PO SCH (14:00)
[2017-09-20 07:53] LABS: HCV RNA PCR IU/ML LESS THAN 15 IU/mL (Not Detected)
[2017-09-22 11:54] LABS: HEREDITARY HEMOCHROM SPECIMEN WB Whole Blood
== END 2017-09-19 14:14 | DRG 808 ==
LOC: NEPC 15:37 → NEDA 17:54 → NEPFCDU 21:19 → N04A 09-10 14:03 → HIMN 09-12 10:14 → N06A 09-15 18:54
PROVIDERS: ADMIT Internal Medicine; ATTEND Internal Medicine
PROC: 30233N1 Transfusion of Nonautologous Red Blood Cells into Peripheral Vein, Percutaneous Approach (ICD-10-PCS; 2017-09-09)
PROC: 30233K1 Transfusion of Nonautologous Frozen Plasma into Peripheral Vein, Percutaneous Approach (ICD-10-PCS; principal; 2017-09-10)
PROC: 05HM33Z Insertion of Infusion Device into Right Internal Jugular Vein, Percutaneous Approach (ICD-10-PCS; 2017-09-12)
DX: D59.1 Other autoimmune hemolytic anemias (principal); I26.99 Other pulmonary embolism without acute cor pulmonale; J96.01 Acute respiratory failure with hypoxia; N17.9 Acute kidney failure, unspecified; I82.401 Acute embolism and thrombosis of unspecified deep veins of right lower extremity; D89.9 Disorder involving the immune mechanism, unspecified; I24.8 Other forms of acute ischemic heart disease; N39.0 Urinary tract infection, site not specified; E88.09 Other disorders of plasma-protein metabolism, not elsewhere classified; I07.1 Rheumatic tricuspid insufficiency; D53.9 Nutritional anemia, unspecified; D62 Acute posthemorrhagic anemia; M19.90 Unspecified osteoarthritis, unspecified site; I10 Essential (primary) hypertension; K21.9 Gastro-esophageal reflux disease without esophagitis; E78.5 Hyperlipidemia, unspecified; F32.9 Major depressive disorder, single episode, unspecified; F41.9 Anxiety disorder, unspecified; G89.4 Chronic pain syndrome; M54.9 Dorsalgia, unspecified; D50.9 Iron deficiency anemia, unspecified; Z87.442 Personal history of urinary calculi; Z79.891 Long term (current) use of opiate analgesic; Z82.49 Family history of ischemic heart disease and other diseases of the circulatory system; Z90.81 Acquired absence of spleen; Z79.01 Long term (current) use of anticoagulants; K59.09 Other constipation; G30.9 Alzheimer's disease, unspecified; F02.80 Dementia in other diseases classified elsewhere, unspecified severity, without behavioral disturbance, psychotic disturbance, mood disturbance, and anxiety; K80.20 Calculus of gallbladder without cholecystitis without obstruction; B19.20 Unspecified viral hepatitis C without hepatic coma; K76.0 Fatty (change of) liver, not elsewhere classified; Z90.710 Acquired absence of both cervix and uterus
CPT/HCPCS: 36430; 36556; 36600; 70450; 71045; 71275; 76705; 76937; 80048; 80053; 80061; 80069; 80074; 80076; 81001; 81256; 82103; 82105; 82140; 82150; 82247; 82248; 82390; 82533; 82550; 82607; 82728; 82746; 82747; 82805; 82948; 83010; 83036; 83090; 83516; 83520; 83540; 83550; 83605; 83615; 83690; 83735; 83880; 83921; 84100; 84439; 84443; 84484; 85007; 85014; 85018; 85027; 85044; 85060; 85384; 85610; 85730; 86038; 86077; 86255; 86850; 86870; 86880; 86900; 86901; 86920; 86921; 86922; 86927; 87040; 87077; 87086; 87186; 87449; 87522; 87641; 87804; 87902; 93005; 93306; 93971; 94618; 94640; 94664; C9113; J1644; J2920; J2930; J7030; J7040; J7050; J7070; J7512; P9016; P9017; Q9967

== ENCOUNTER 2017-10-17 16:49 | Inpatient (IN) | payer OTHER, MEDICARE ==
[~2017-10-17] VITALS: Ht 162.6 cm; Wt 77.0 kg
[~2017-10-17 16:49] MED LIST changes: +APIX5TAB PO; -AZAT50 PO; +Albuterol Neb NEB; +CIPR250T52 PO; +DULO1CAP3 PO; +ECASA81 PO; -FLAX10006 PO; +FOLI800T PO; -GLUCCAP4 PO; -HYDR-3583 PO; +HYDR-3799 PO; +METO-309 PO; +NORC5TAB PO; +PANT40TA3 PO; +PRED20 PO; -RED1CAP4 PO; +TIZA4CAP3 PO; +VITA1000 PO
[2017-10-17 17:03] VITALS: BP 115/55; PULSE 78; RESP 18; TEMP 99.2; O2SAT 96
[2017-10-17 17:59] LABS: INTERNATIONAL NORMALIZED RATIO 1.1 RATIO; PROTHROMBIN TIME - PATIENT 11.3 SEC (9.8-11.6)
[2017-10-17 18:01] LABS: AUTOMATED NEUTROPHIL # 12.4 TH/MM3 (1.8-7.7); BASOPHIL # 0.1 TH/MM3 (0-0.2); BASOPHIL % 0.5 % (0.0-2.0); EOSINOPHIL # 0.2 TH/MM3 (0-0.4); EOSINOPHIL % 1.3 % (0.0-4.0); HEMATOCRIT 24.1 % (35.0-46.0); HEMOGLOBIN 7.8 GM/DL (11.6-15.3); LYMPH % 6.6 % (9.0-44.0); MEAN CORPUSCULAR HEMOGLOBIN 35.1 PG (27.0-34.0); MEAN CORPUSCULAR HGB CONC 32.5 % (32.0-36.0); MEAN PLATELET VOLUME 7.8 FL (7.0-11.0); MONO % 5.3 % (0.0-8.0); MONOCYTE # 0.8 TH/MM3 (0-0.9); NEUT % 86.3 % (16.0-70.0); PLATELET COUNT 457 TH/MM3 (150-450); RED BLOOD COUNT 2.24 MIL/MM3 (4.00-5.30); RED CELL DISTRIBUTION WIDTH 14.5 % (11.6-17.2); WHITE BLOOD COUNT 14.4 TH/MM3 (4.0-11.0)
[2017-10-17 18:05] LABS: ALBUMIN 3.1 GM/DL (3.4-5.0); AST (GOT) 26 U/L (15-37); BICARBONATE 29.3 MEQ/L (21.0-32.0); BLOOD UREA NITROGEN 22 MG/DL (7-18); CALCIUM 8.7 MG/DL (8.5-10.1); CHLORIDE 103 MEQ/L (98-107); CREATININE 1.02 MG/DL (0.50-1.00); GLOMERULAR FILTRATION RATE 52 ML/MIN (>89); GLUCOSE,RANDOM 134 MG/DL (74-106); SODIUM (NA) 139 MEQ/L (136-145)
[2017-10-17 18:07] LABS: ALT (GPT) 70 U/L (10-53)
[2017-10-17 18:08] LABS: ALKALINE PHOSPHATASE 150 U/L (45-117); TOTAL BILIRUBIN ADULT 2.3 MG/DL (0.2-1.0); TOTAL PROTEIN 5.8 GM/DL (6.4-8.2)
[2017-10-17 20:03] LABS: BANDS 9 % (0-6); CORRECTED NUCLEATED RBC 10 /100 WBC (0-0); LYMPHOCYTES 8 % (9-44); MONOCYTES 3 % (0-8); NUCLEATED RED BLOOD CELL 10 (0-0); POLYS (SEG NEUTROPHILS) 74 % (16-70)
[2017-10-17 20:04] LABS: HOWELL-JOLLY BODIES PRESENT (NONE SEEN)
[2017-10-17 20:06] LABS: OVALOCYTES 1+ (NORMAL)
--- NOTE | 2017-10-17 21:27 | PD ---
HPI Chief Complaint: General Weakness Time Seen by Provider: 21:04 Travel History International Travel<30 days: No Contact w/Intl Traveler<30days: No Traveled to known affect area: No History of Present Illness HPI 81-year-old female with a history of hemolytic anemia status post splenectomy presents emergency department with with a low hemoglobin, chills, headache, weakness, and a "stomachache" for 2-3 days. Patient states that today she woke up with her symptoms worsen she decided to come to the emergency department today. In addition, her primary care physician, Dr. Ellis advised she come here for evaluation and she does have anemia which may require transfusion. Says her stomach ache is diffuse and likely secondary to her chronic constipation. Says that she is on Eliquis for pulmonary embolism that she was diagnosed with last month. She denies fever, cough, congestion, chest pain. Denies history of cardio or kidney problems. Denies melena, bright red bleeding per rectum, abnormal bleeding from the gums, nose bleeding, hematochezia. Says she did not take all of her medications today because she was not feeling well. PFSH Past Medical History Hx Anticoagulant Therapy: No Arthritis: Yes Asthma: No Autoimmune Disease: No Blood Disorders: No Anxiety: Yes Depression: Yes Heart Rhythm Problems: No Cancer: No Cardiovascular Problems: No High Cholesterol: Yes Chemotherapy: No Chest Pain: Yes Congestive Heart Failure: No COPD: No Cerebrovascular Accident: No Diabetes: No Diminished Hearing: No Endocrine: No Gastrointestinal Disorders: Yes (GERD, "UPSET STOMACH", GALLSTONES) GERD: Yes Glaucoma: No Genitourinary: No Headaches: No Hepatitis: No Hiatal Hernia: No Heparin Induced Thrombocytopen: No Hypertension: Yes Immune Disorder: No Implanted Vascular Access Dvce: No Kidney Stones: Yes Musculoskeletal: Yes (OSTEOARTHRITIS) Neurologic: No Psychiatric: Yes Reproductive: No Respiratory: Yes (SOB WITH ACTIVITY DUE TO ANEMIA) Migraines: No Myocardial Infarction: No Radiation Therapy: No Renal Failure: No Seizures: No Sickle Cell Disease: No Sleep Apnea: No Thyroid Disease: Yes (PAST HX LOW THYROID) Ulcer: No Past Surgical History Abdominal Surgery: No AICD: No Appendectomy: No Arteriovenous Shunt: No Body Medical Devices: NONE Cardiac Surgery: No Cholecystectomy: No Ear Surgery: No Endocrine Surgery: No Genitourinary Surgery: No Gynecologic Surgery: Yes (HYSTERECTOMY) Hysterectomy: Yes Insulin Pump: No Joint Replacement: No Neurologic Surgery: No Oral Surgery: Yes (TEETH EXTRACTIONS) Pacemaker: No Thoracic Surgery: No Other Surgery: Yes (GALLSTONE REMOVED) Social History Alcohol Use: No Tobacco Use: No Substance Use: No Allergies-Medications (Allergen,Severity, Reaction): Coded Allergies: Sulfa (Sulfonamide Antibiotics) (Verified Allergy, Severe, 10/17/17) Reported Meds & Prescriptions Reported Meds & Active Scripts Active [place] (Hydrocodone-Acetaminophen) 5 Mg-325 Mg Tab 1 Tab PO Q6H PRN Hydralazine HCl 25 Mg Tablet 25 Mg PO TID [Albuterol Neb] 2.5 MG/3 ML Nebu 2.5 Mg NEB Q2HR NEB PRN 30 Days Cipro (Ciprofloxacin HCl) 250 Mg Tab 250 Mg PO Q12HR 7 Days Pantoprazole (Pantoprazole Sodium) 40 Mg Tab 40 Mg PO DAILY 30 Days Prednisone 20 Mg Tab 40 Mg PO DAILY 14 Days DO NOT STOP THIS MEDICATION BEFORE SEEING METHODS ANALYST Aspirin DR (Aspirin) 81 Mg Tabdr 81 Mg PO DAILY 30 Days Lopressor (Metoprolol Tartrate) 50 Mg Tab 50 Mg PO BID 30 Days Eliquis (Apixaban) 5 Mg Tab 5 Mg PO BID 30 Days Reported Folic Acid 0.8 Mg Tab 1 Mg PO DAILY Tizanidine (Tizanidine HCl) 4 Mg Cap 4 Mg PO DAILY Vitamin B Complex (B-Complex Vitamins) 1 Tab 1 Tab PO DAILY Vitamin D-1000 (Cholecalciferol) 1,000 Unit Tab 5,000 Units PO DAILY Duloxetine DR (Duloxetine HCl) 60 Mg Capdr 60 Mg PO DAILY Review of Systems Except as stated in HPI: all other systems reviewed are Neg Physical Exam Narrative GENERAL: Well-developed, well-nourished SKIN: Focused skin assessment warm/dry. HEAD: Atraumatic. Normocephalic. EYES: Pupils equal and round. No scleral icterus. No injection or drainage. ENT: No nasal bleeding or discharge. Mucous membranes pink and moist. NECK: Trachea midline. No JVD. CARDIOVASCULAR: Regular rate and rhythm. No murmur appreciated. RESPIRATORY: No accessory muscle use. Clear to auscultation. Breath sounds equal bilaterally. GASTROINTESTINAL: Abdomen protuberant, soft, mildly tender. No CVA tenderness MUSCULOSKELETAL: No obvious deformities. No clubbing. No cyanosis. No edema. NEUROLOGICAL: Awake and alert. No obvious cranial nerve deficits. Motor grossly within normal limits. Normal speech. PSYCHIATRIC: Appropriate mood and affect; insight and judgment normal. Data Data Last Documented VS Vital Signs Date Time Temp Pulse Resp B/P (MAP) Pulse Ox O2 Delivery O2 Flow Rate FiO2 10/17/17 21:30 70 16 130/60 (83) 97 Room Air 10/17/17 17:03 99.2 Orders Orders Complete Blood Count With Diff (10/17/17 17:06) Comprehensive Metabolic Panel (10/17/17 17:06) Prothrombin Time / Inr (Pt) (10/17/17 17:06) Act Partial Throm Time (Ptt) (10/17/17 17:06) Type And Screen (10/17/17 17:) Urinalysis - C+S If Indicated (10/17/17 21:27) Red Blood Cells (Rbc) (10/17/17 21:49) Blood Product Administration (10/17/17 21:49) Sodium Chlor 0.9% 250 Ml Inj (Ns 250 Ml (10/17/17 22:00) Diphenhydramine Inj (Benadryl Inj) (10/17/17 22:00) Methylprednisolone So Succ Inj (Solumedr (10/17/17 22:00) Folic Acid (Folate) (10/17/17 22:00) Admit Order (Ed Use Only) (10/17/17 22:08) Consult Hematology (10/17/17 ) Red Blood Cells (Rbc) (10/17/17 21:49) Labs Laboratory Tests Test 10/17/17 17:19 White Blood Count 14.4 TH/MM3 Red Blood Count 2.24 MIL/MM3 Hemoglobin 7.8 GM/DL Hematocrit 24.1 % Mean Corpuscular Volume 108.0 FL Mean Corpuscular Hemoglobin 35.1 PG Mean Corpuscular Hemoglobin Concent 32.5 % Red Cell Distribution Width 14.5 % Platelet Count 457 TH/MM3 Mean Platelet Volume 7.8 FL Neutrophils (%) (Auto) 86.3 % Lymphocytes (%) (Auto) 6.6 % Monocytes (%) (Auto) 5.3 % Eosinophils (%) (Auto) 1.3 % Basophils (%) (Auto) 0.5 % Neutrophils # (Auto) 12.4 TH/MM3 Lymphocytes # (Auto) 1.0 TH/MM3 Monocytes # (Auto) 0.8 TH/MM3 Eosinophils # (Auto) 0.2 TH/MM3 Basophils # (Auto) 0.1 TH/MM3 CBC Comment AUTO DIFF Differential Total Cells Counted 100 Neutrophils % (Manual) 74 % Band Neutrophils % 9 % Lymphocytes % 8 % Monocytes % 3 % Eosinophils % 1 % Other Cells % 5 % Neutrophils # (Manual) 12.0 TH/MM3 Nucleated Red Blood Cells 10 /100 WBC Differential Comment FINAL DIFF MANUAL Platelet Estimate NORMAL Platelet Morphology Comment NORMAL Basophilic Stippling FAINT Ovalocytes 1+ Whitehead-Lely Bodies PRESENT Prothrombin Time 11.3 SEC Prothromb Time International Ratio 1.1 RATIO Activated Partial Thromboplast Time 26.8 SEC Blood Urea Nitrogen 22 MG/DL Creatinine 1.02 MG/DL Random Glucose 134 MG/DL Total Protein 5.8 GM/DL Albumin 3.1 GM/DL Calcium Level 8.7 MG/DL Alkaline Phosphatase 150 U/L Aspartate Amino Transf (AST/SGOT) 26 U/L Alanine Aminotransferase (ALT/SGPT) 70 U/L Total Bilirubin 2.3 MG/DL Sodium Level 139 MEQ/L Potassium Level 4.3 MEQ/L Chloride Level 103 MEQ/L Carbon Dioxide Level 29.3 MEQ/L Anion Gap 7 MEQ/L Estimat Glomerular Filtration Rate 52 ML/MIN MDM Medical Decision Making Medical Screen Exam Complete: Yes Emergency Medical Condition: Yes Differential Diagnosis Urinary tract infection, symptomatic anemia, severe anemia, medication noncompliance Narrative Course 81-year-old female with a history of hemolytic anemia status post splenectomy presents emergency department with with a low hemoglobin, chills, headache, weakness, and a "stomachache" for 2-3 days. Patient states that today she woke up with her symptoms worsen she decided to come to the emergency department today. In addition, her primary care physician, Dr. Ellis advised she come here for evaluation and she does have anemia which may require transfusion. Says her stomach ache is diffuse and likely secondary to her chronic constipation. Says that she is on Eliquis for pulmonary embolism that she was diagnosed with last month. She denies fever, cough, congestion, unusual shortness of breath, chest pain. Denies history of cardio or kidney problems. Denies melena, bright red bleeding per rectum, abnormal bleeding from the gums, nose bleeding, hematochezia. Says she did not take all of her medications today because she was not feeling well. 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 Vital signs stable. Blood pressure 130/60, heart rate 70, temperature 99.2. Physical exam findings essentially unremarkable. Mild tenderness palpation diffusely across the abdomen, without rebound tenderness. no masses or organomegaly. Fecal occult blood test negative, brown stool. Spoke with Dr. Coles, automotive generator repairer who recommended Solu-Medrol 40 mg and folic acid 1 mg. 1 unit PRBCs, Benadryl 25 mg ordered. Patient will be admitted for symptomatic anemia. Hematology consult at the request of Dr. Avila. HemaPrompt Point of Care Internal Pos. & Neg. Controls: Passed Fecal Specimen Occult Blood: Negative Physician Communication Physician Communication Spoke with Dr. Coles regarding this patient. He recommended solumedrol 40mg IV and folic acid 1mg in addition to our plan of 1U PRBCs and benedryl. Diagnosis Primary Impression: Symptomatic anemia Admitting Information Admitting Physician Requests: Admit Condition: Stable Ambar Head Oct 17, 2017 21:27
[2017-10-17 21:30] VITALS: BP 130/60; PULSE 70; RESP 16; O2SAT 97
[2017-10-17] MEDS ORDERED: diphenhydrAMINE HCL 50 MG/ML VIAL IV PUSH ONE (22:00)
[2017-10-17] MEDS ORDERED: FOLIC ACID 1 MG TAB PO ONE (22:00)
[2017-10-17] MEDS ORDERED: methylPREDNISolone SOD SUCC 40 MG/1 ML VIAL IV PUSH ONE (22:00)
[2017-10-17] MEDS ORDERED: SODIUM CHLOR 0.9% 250 ML INJ 250 ML IV ONE (22:00)
[2017-10-17] MEDS ORDERED: LACTULOSE SYRUP 20 GM/30 ML CUP PO PRN (22:15)
[2017-10-17] MEDS ORDERED: SENNOSIDES 8.6 MG TAB PO PRN (22:15)
[2017-10-17] MEDS ORDERED: MAGNESIUM HYDROXIDE SUSP 30 ML CUP PO PRN (22:15)
[2017-10-17] MEDS ORDERED: diphenhydrAMINE HCL 50 MG/ML VIAL IV PUSH PRN (22:15)
[2017-10-17] MEDS ORDERED: ACETAMINOPHEN/HYDROcodone 325 MG/5 MG TAB PO PRN (22:15)
[2017-10-17] MEDS ORDERED: BISACODYL 10 MG SUPP RECTAL PRN (22:15)
[2017-10-17] MEDS ORDERED: ONDANSETRON HCL 4 MG/2 ML VIAL IVP PRN (22:15)
[2017-10-17] MEDS ORDERED: SODIUM CHLORIDE 0.9% FLUSH 10 ML FLUSH IV FLUSH PRN (22:15)
[2017-10-17] MEDS ORDERED: ACETAMINOPHEN 325 MG TAB PO PRN (22:15)
--- NOTE | 2017-10-17 22:17 | HHI.HP ---
[facility] Unknown Admission Diagnosis symptomatic anemia Diagnoses: (1) Symptomatic anemia Diagnosis: Principal (2) H/O pulmonary thrombosis Diagnosis: Principal (3) Leukocytosis Diagnosis: Principal Travel History International Travel<30 Days: No Contact w/Intl Traveler <30 Da: No Traveled to Known Affected Are: No History of Present Illness This is a 81-year-old female with a PMH of Anxiety, Depression, h/o PE on Eliquis and h/o Autoimmune Hemolytic Anemia requiring transfusion who was referred to the ER by her PCP for generalized weakness. Recent admit 09/09- for similar complaints, found to have Autoimmune Hemolytic Anemia, s/p eval by Hematology and started on Steroid therapy. States she has been unable to follow up w/ Hematology as outpatient due to her insurance, unable to find anyone in network. Still taking Prednisone 40mg qd as prescribed. On arrival, BP 150/55, HR 78, O2 sat 96% on RA, Temp 99.2. WBC 14.4, bandemia of 9%. Hemoglobin 7.8, previously 10.6 on 09/18/17. Creatinine 1.02, previously 1.01 on 09/18/17. INR 1.1. 1u pRBC ordered in ER, pending transfusion. Dr. Coles consulted by ER physician, recommended Solu-Medrol, Benadryl and Folic Acid. Review of Systems Except as stated in HPI: all other systems reviewed are Neg ROS: 14 point review of systems otherwise negative. Past Family Social History Past Medical History PMH: Anxiety, Depression, h/o PE on Eliquis and h/o Autoimmune Hemolytic Anemia Past Surgical History PAST SURGICAL HISTORY: Hysterectomy, Dental Extraction Allergies: Coded Allergies: Sulfa (Sulfonamide Antibiotics) (Verified Allergy, Severe, 10/17/17) Family History PAST FAMILY HISTORY: Reviewed. No h/o DM or CAD Social History PAST SOCIAL HISTORY: Negative for alcohol, tobacco or drugs. Physical Exam Vital Signs Vital Signs Date Time Temp Pulse Resp B/P (MAP) Pulse Ox O2 Delivery O2 Flow Rate FiO2 10/17/17 21:30 70 16 130/60 (83) 97 Room Air 10/17/17 21:19 Room Air 10/17/17 17:03 99.2 78 18 115/55 (75) 96 Physical Exam PE: GENERAL: Pleasant elderly white female in no acute distress, appears weak/tired. HEENT: PERRLA, EOMI. No scleral icterus or conjunctival pallor. No lid lag or facial droop. CARDIOVASCULAR: Regular rate and rhythm. No obvious murmurs to auscultation. No chest tenderness to palpation. RESPIRATORY: No obvious rhonchi or wheezing. Clear to auscultation. Breath sounds equal bilaterally. GASTROINTESTINAL: Abdomen soft, non-tender, nondistended. BS normal. MUSCULOSKELETAL: Extremities without clubbing, cyanosis, or edema. No obvious deformities. NEUROLOGICAL: Awake, alert and oriented x4. No focal neurologic deficits. Moving both upper and lower extremities spontaneously. Laboratory Laboratory Tests Test 10/17/17 17:19 White Blood Count 14.4 Red Blood Count 2.24 Hemoglobin 7.8 Hematocrit 24.1 Mean Corpuscular Volume 108.0 Mean Corpuscular Hemoglobin 35.1 Mean Corpuscular Hemoglobin Concent 32.5 Red Cell Distribution Width 14.5 Platelet Count 457 Mean Platelet Volume 7.8 Neutrophils (%) (Auto) 86.3 Lymphocytes (%) (Auto) 6.6 Monocytes (%) (Auto) 5.3 Eosinophils (%) (Auto) 1.3 Basophils (%) (Auto) 0.5 Neutrophils # (Auto) 12.4 Lymphocytes # (Auto) 1.0 Monocytes # (Auto) 0.8 Eosinophils # (Auto) 0.2 Basophils # (Auto) 0.1 CBC Comment AUTO DIFF Differential Total Cells Counted 100 Neutrophils % (Manual) 74 Band Neutrophils % 9 Lymphocytes % 8 Monocytes % 3 Eosinophils % 1 Other Cells % 5 Neutrophils # (Manual) 12.0 Nucleated Red Blood Cells 10 Differential Comment FINAL DIFF MANUAL Platelet Estimate NORMAL Platelet Morphology Comment NORMAL Basophilic Stippling FAINT Ovalocytes 1+ Whitehead-Tillson Bodies PRESENT Prothrombin Time 11.3 Prothromb Time International Ratio 1.1 Activated Partial Thromboplast Time 26.8 Blood Urea Nitrogen 22 Creatinine 1.02 Random Glucose 134 Total Protein 5.8 Albumin 3.1 Calcium Level 8.7 Alkaline Phosphatase 150 Aspartate Amino Transf (AST/SGOT) 26 Alanine Aminotransferase (ALT/SGPT) 70 Total Bilirubin 2.3 Sodium Level 139 Potassium Level 4.3 Chloride Level 103 Carbon Dioxide Level 29.3 Anion Gap 7 Estimat Glomerular Filtration Rate 52 Result Diagram: 10/17/17171810/17/171718 Ro VTE Risk Assessment Ro VTE Risk Assessment: No/Low Risk (score <= 1) VTE Pharm Contraindication: Active bleeding Ro Risk Assessment Model Point Value = 1 Point Value = 2 Point Value = 3 Point Value = 5 Age 41-60 Minor surgery BMI > 25 kg/m2 Swollen legs Varicose veins or History of unexplained or recurrent spontaneous Oral contraceptives or hormone replacement Sepsis (< 1 month) Serious lung disease, including pneumonia (< 1 month) Abnormal pulmonary function Acute myocardial infarction Congestive heart failure (< 1 month) History of inflammatory bowel disease Medical patient at bed rest Age 61-74 Arthroscopic surgery Major open surgery (> 45 min) Laparoscopic surgery (> 45 min) Malignancy Confined to bed (> 72 hours) Immobilizing plaster cast Central venous access Age >= 75 History of VTE Family history of VTE Factor V Leiden Prothrombin [id number] Lupus anticoagulant Anticardiolipin antibodies Elevated serum homocysteine Heparin-induced thrombocytopenia Other congenital or acquired thrombophilia Stroke (< 1 month) Elective arthroplasty Hip, pelvis, or leg fracture Acute spinal cord injury (< 1 month) Prophylaxis Regimen Total Risk Factor Score Risk Level Prophylaxis Regimen 0-1 Low Early ambulation 2 Moderate Order ONE of the following: *Sequential Compression Device (SCD) *Heparin 5000 units SQ BID 3-4 Higher Order ONE of the following medications: *Heparin 5000 units SQ TID *Enoxaparin/Lovenox 40 mg SQ daily (WT < 150 kg, CrCl > 30 mL/min) *Enoxaparin/Lovenox 30 mg SQ daily (WT < 150 kg, CrCl > 10-29 mL/min) *Enoxaparin/Lovenox 30 mg SQ BID (WT < 150 kg, CrCl > 30 mL/min) AND/OR *Sequential Compression Device (SCD) 5 or more Highest Order ONE of the following medications: *Heparin 5000 units SQ TID (Preferred with Epidurals) *Enoxaparin/Lovenox 40 mg SQ daily (WT < 150 kg, CrCl > 30 mL/min) *Enoxaparin/Lovenox 30 mg SQ daily (WT < 150 kg, CrCl > 10-29 mL/min) *Enoxaparin/Lovenox 30 mg SQ BID (WT < 150 kg, CrCl > 30 mL/min) AND *Sequential Compression Device (SCD) Assessment and Plan Problem List: (1) Symptomatic anemia ICD Code: D64.9 - Anemia, unspecified Status: Acute (2) Leukocytosis ICD Code: D72.829 - Elevated white blood cell count, unspecified (3) H/O pulmonary thrombosis ICD Code: Z86.711 - Personal history of pulmonary embolism Assessment and Plan A/P: 1. Symptomatic Anemia: h/o Autoimmune Hemolytic Anemia on previous admit, s/p eval by Hematology, currently on Prednisone 40mg qd. Hgb 7.8, previously 10.6 on 09/18/17. Dr. Coles consulted by ER physician, recommendation for Solu- Medrol, Benadryl and Folic Acid. 1u pRBC ordered, pending transfusion. Check Hgb/Hct after transfusion completed. 2. Leukocytosis: WBC 14.4, likely reactive. Check U/a to eval for underlying UTI. Repeat labs in am. 3. H/o PE: On Eliquis, s/p eval by Pulmonary on last visit, recommendation to resume Eliquis in light of bilateral PE. Monitor for worsening anemia. 4. DVT Prophylaxis: Eliquis 5. Social work for DC planning as needed. 6. Case discussed at length with ER physician, lap/records/imaging reviewed by me. Physician Certification 2 Midnight Certification Type: Admission for Inpatient Services Order for Inpatient Services The services are ordered in accordance with Medicare regulations or non- Medicare payer requirements, as applicable. In the case of services not specified as inpatient-only, they are appropriately provided as inpatient services in accordance with the 2-midnight benchmark. Estimated LOS (days): 2 days is the estimated time the patient will need to remain in the hospital, assuming treatment plan goals are met and no additional complications. Post-Hospital Plan: Not yet determined Sara Avila MD Oct 17, 2017 22:17
[2017-10-17 23:32] VITALS: BP 147/58; PULSE 79; RESP 18; TEMP 98; O2SAT 96
[2017-10-17 23:47] VITALS: BP 137/55; PULSE 80; RESP 18; TEMP 98.8; O2SAT 95
[2017-10-18] VITALS (8 sets, daily range): BP systolic 144–190; BP diastolic 71–95; PULSE 74–88; RESP 17–19; TEMP 97.3–98.5; O2SAT 93–98
[2017-10-18 02:32] LABS: BILIRUBIN, URINE NEG (NEG); BLOOD, URINE MOD (NEG); GLUCOSE,URINE NEG (NEG); KETONE, URINE NEG (NEG); MUCUS URINE FEW /lpf (OCC); NITRITE,URINE NEG (NEG); PH, URINE 5.5 (5.0-8.5); RENAL EPITHELIAL CELLS <1 /hpf; SQUAMOUS EPITHELIAL CELL URINE 2 /hpf (0-5); URINE COLOR YELLOW (YELLW/STRAW); URINE LEUKOCYTE ESTERASE SMALL (NEG)
[2017-10-18 06:53] LABS: AUTOMATED NEUTROPHIL # 9.5 TH/MM3 (1.8-7.7); BASOPHIL % 0.3 % (0.0-2.0); HEMATOCRIT 28.4 % (35.0-46.0); HEMOGLOBIN 9.6 GM/DL (11.6-15.3); LYMPH % 9.2 % (9.0-44.0); MEAN CELL VOLUME 105.2 FL (80.0-100.0); MEAN CORPUSCULAR HEMOGLOBIN 35.6 PG (27.0-34.0); MEAN CORPUSCULAR HGB CONC 33.8 % (32.0-36.0); MEAN PLATELET VOLUME 8.1 FL (7.0-11.0); MONO % 2.3 % (0.0-8.0); MONOCYTE # 0.2 TH/MM3 (0-0.9); NEUT % 88.2 % (16.0-70.0); PLATELET COUNT 456 TH/MM3 (150-450); RED CELL DISTRIBUTION WIDTH 15.7 % (11.6-17.2); WHITE BLOOD COUNT 10.8 TH/MM3 (4.0-11.0)
[2017-10-18 07:08] LABS: ALBUMIN 2.9 GM/DL (3.4-5.0); ALT (GPT) 68 U/L (10-53); AST (GOT) 15 U/L (15-37); BICARBONATE 28.5 MEQ/L (21.0-32.0); BLOOD UREA NITROGEN 22 MG/DL (7-18); CALCIUM 8.4 MG/DL (8.5-10.1); CHLORIDE 106 MEQ/L (98-107); GLOMERULAR FILTRATION RATE 60 ML/MIN (>89); GLUCOSE,RANDOM 140 MG/DL (74-106); SODIUM (NA) 141 MEQ/L (136-145)
[2017-10-18 07:10] LABS: ALKALINE PHOSPHATASE 142 U/L (45-117); TOTAL BILIRUBIN ADULT 1.6 MG/DL (0.2-1.0)
[2017-10-18] MEDS ORDERED: RESP: ALBUTEROL 2.5 MG/3 ML NEB (PRN) NEB (08:30)
[2017-10-18] MEDS: SODIUM CHLORIDE 0.9% FLUSH 10 ML FLUSH IV FLUSH SCH ×2 (08:58→20:16)
[2017-10-18] MEDS: CHOLECALCIFEROL (VIT D3) 5000 UNIT CAP PO SCH (08:59)
[2017-10-18] MEDS ORDERED: FOLIC ACID 1 MG TAB PO SCH (09:00)
[2017-10-18] MEDS: ACETAMINOPHEN/HYDROcodone 325 MG/10 MG TAB PO PRN ×2 (09:03→20:15)
[2017-10-18] MEDS: hydrALAZINE HCL 25 MG TAB PO SCH ×3 (09:03→17:06)
[2017-10-18] MEDS: FOLIC ACID 1 MG TAB PO SCH (09:04)
[2017-10-18] MEDS: APIXABAN 5 MG TABLET PO SCH ×2 (09:04→20:16)
[2017-10-18] MEDS: DOCUSATE SODIUM 50 MG/SENNA 8.6 MG TAB PO SCH ×2 (09:04→20:16)
[2017-10-18] MEDS: PANTOPRAZOLE SOD 40 MG DELAYED RELEASE TAB PO SCH (09:04)
[2017-10-18] MEDS: DULoxetine HCl DR 60 MG CAP PO SCH (09:04)
[2017-10-18] MEDS: methylPREDNISolone SOD SUCC 40 MG/1 ML VIAL IV PUSH SCH ×2 (09:04→20:16)
[2017-10-18 09:05] LABS: MAGNESIUM 2.3 MG/DL (1.5-2.5); PHOSPHORUS 4.4 MG/DL (2.5-4.9); THYROXINE (T4) 8.3 MCG/DL (4.8-13.9)
[2017-10-18] MEDS: VITAMIN B COMPLEX/VIT C TAB PO SCH (09:07)
[2017-10-18] MEDS: METOPROLOL TARTRATE 50 MG TAB PO SCH ×2 (09:07→20:15)
--- NOTE | 2017-10-18 09:24 | HHI.PR ---
Subjective Remarks This is a 81-year-old female with a PMH of Anxiety, Depression, h/o PE on Eliquis and h/o Autoimmune Hemolytic Anemia requiring transfusion who was referred to the ER by her PCP for generalized weakness. Recent admit 09/09- for similar complaints, found to have Autoimmune Hemolytic Anemia, s/p eval by Hematology and started on Steroid therapy. States she has been unable to follow up w/ Hematology as outpatient due to her insurance, unable to find anyone in network. Still taking Prednisone 40mg qd as prescribed. On arrival, BP 150/55, HR 78, O2 sat 96% on RA, Temp 99.2. WBC 14.4, bandemia of 9%. Hemoglobin 7.8, previously 10.6 on 09/18/17. Creatinine 1.02, previously 1.01 on 09/18/17. INR 1.1. 1u pRBC ordered in ER, pending transfusion. Dr. Coles consulted by ER physician, recommended Solu-Medrol, Benadryl and Folic Acid. 3-10 we await oncology/hematology evaluation Has already been transfused 1 unit hemoglobin up into the 9s now Discussed with patient and RN Patient states she has not been able to get in to see a contour stitcher after discharge Patient may have transfusion dependent hemolytic anemia Pending hematology consulT, patient may be discharged on clearance by hematology Objective Vitals Vital Signs Date Time Temp Pulse Resp B/P (MAP) Pulse Ox O2 Delivery O2 Flow Rate FiO2 10/18/17 08:00 97.3 88 17 182/77 (112) 93 10/18/17 04:00 77 10/18/17 03:42 97.8 76 19 144/71 (95) 98 10/18/17 03:15 97.8 76 19 144/71 98 10/18/17 00:15 82 10/17/17 23:47 98.8 80 18 137/55 95 10/17/17 23:32 98.0 79 18 147/58 96 10/17/17 23:32 98.0 79 18 147/58 (87) 96 10/17/17 21:30 70 16 130/60 (83) 97 Room Air 10/17/17 21:19 Room Air 10/17/17 17:03 99.2 78 18 115/55 (75) 96 I/O 10/17/17 10/17/17 10/17/17 10/18/17 10/18/17 10/18/17 07:00 15:00 23:00 07:00 15:00 23:00 Intake Total 900 ml Balance 900 ml Intake Oral 480 ml Packed Cells 400 ml Blood Product IV Normal Saline Flush 20 ml # Voids 2 # Bowel Movements 0 Result Diagram: 10/18/17 0515 10/18/17 0515 Other Results Laboratory Tests Test 10/17/17 17:19 10/18/17 01:45 10/18/17 05:15 White Blood Count 14.4 TH/MM3 10.8 TH/MM3 Red Blood Count 2.24 MIL/MM3 2.70 MIL/MM3 Hemoglobin 7.8 GM/DL 9.6 GM/DL Hematocrit 24.1 % 28.4 % Mean Corpuscular Volume 108.0 FL 105.2 FL Mean Corpuscular Hemoglobin 35.1 PG 35.6 PG Mean Corpuscular Hemoglobin Concent 32.5 % 33.8 % Red Cell Distribution Width 14.5 % 15.7 % Platelet Count 457 TH/MM3 456 TH/MM3 Mean Platelet Volume 7.8 FL 8.1 FL Neutrophils (%) (Auto) 86.3 % 88.2 % Lymphocytes (%) (Auto) 6.6 % 9.2 % Monocytes (%) (Auto) 5.3 % 2.3 % Eosinophils (%) (Auto) 1.3 % 0.0 % Basophils (%) (Auto) 0.5 % 0.3 % Neutrophils # (Auto) 12.4 TH/MM3 9.5 TH/MM3 Lymphocytes # (Auto) 1.0 TH/MM3 1.0 TH/MM3 Monocytes # (Auto) 0.8 TH/MM3 0.2 TH/MM3 Eosinophils # (Auto) 0.2 TH/MM3 0.0 TH/MM3 Basophils # (Auto) 0.1 TH/MM3 0.0 TH/MM3 CBC Comment AUTO DIFF AUTO DIFF Differential Total Cells Counted 100 Neutrophils % (Manual) 74 % Band Neutrophils % 9 % Lymphocytes % 8 % Monocytes % 3 % Eosinophils % 1 % Other Cells % 5 % Neutrophils # (Manual) 12.0 TH/MM3 Nucleated Red Blood Cells 10 /100 WBC Differential Comment FINAL DIFF MANUAL Platelet Estimate NORMAL Platelet Morphology Comment NORMAL Basophilic Stippling FAINT Ovalocytes 1+ Whitehead-Jarrell Bodies PRESENT Prothrombin Time 11.3 SEC Prothromb Time International Ratio 1.1 RATIO Activated Partial Thromboplast Time 26.8 SEC Blood Urea Nitrogen 22 MG/DL 22 MG/DL Creatinine 1.02 MG/DL 0.90 MG/DL Random Glucose 134 MG/DL 140 MG/DL Total Protein 5.8 GM/DL 6.0 GM/DL Albumin 3.1 GM/DL 2.9 GM/DL Calcium Level 8.7 MG/DL 8.4 MG/DL Alkaline Phosphatase 150 U/L 142 U/L Aspartate Amino Transf (AST/SGOT) 26 U/L 15 U/L Alanine Aminotransferase (ALT/SGPT) 70 U/L 68 U/L Total Bilirubin 2.3 MG/DL 1.6 MG/DL Sodium Level 139 MEQ/L 141 MEQ/L Potassium Level 4.3 MEQ/L 4.2 MEQ/L Chloride Level 103 MEQ/L 106 MEQ/L Carbon Dioxide Level 29.3 MEQ/L 28.5 MEQ/L Anion Gap 7 MEQ/L 7 MEQ/L Estimat Glomerular Filtration Rate 52 ML/MIN 60 ML/MIN Urine Color YELLOW Urine Turbidity HAZY Urine pH 5.5 Urine Specific [place] 1.016 Urine Protein 30 mg/dL Urine Glucose (UA) NEG mg/dL Urine Ketones NEG mg/dL Urine Occult Blood MOD Urine Nitrite NEG Urine Bilirubin NEG Urine Urobilinogen 2.0 MG/DL Urine Leukocyte Esterase SMALL Urine RBC 105 /hpf Urine WBC 7 /hpf Urine Squamous Epithelial Cells 2 /hpf Urine Renal Epithelial Cells <1 /hpf Urine Mucus FEW /lpf Microscopic Urinalysis Comment CULT NOT INDICATED Phosphorus Level 4.4 MG/DL Magnesium Level 2.3 MG/DL Thyroxine (T4) 8.3 MCG/DL Thyroid Stimulating Hormone 3rd Gen 0.361 uIU/ML Objective Remarks GENERAL: Awake alert oriented 3 talkative and cooperative-- appears stated age SKIN: Warm and dry. HEAD: Atraumatic. Normocephalic. EYES: Pupils equal and round. No scleral icterus. No injection or drainage. Extraocular muscles intact ENT: No nasal bleeding or discharge. Mucous membranes pink and moist. Tongue is midline NECK: Trachea midline. No JVD. Supple CARDIOVASCULAR: Regular rate and rhythm. S1-S2 no S3 or S4 RESPIRATORY: No accessory muscle use. Clear to auscultation. Breath sounds equal bilaterally. GASTROINTESTINAL: Abdomen soft, non-tender, nondistended. Hepatic and splenic margins not palpable. MUSCULOSKELETAL: Extremities without clubbing, cyanosis, or edema. No obvious deformities. NEUROLOGICAL: Awake and alert. No obvious cranial nerve deficits. Motor grossly within normal limits. Five out of 5 muscle strength in the arms and legs. Normal speech. PSYCHIATRIC: Appropriate mood and affect; insight and judgment normal. Procedures None Medications and IVs Current Medications Sodium Chloride 250 ml @ 15 mls/hr ONCE ONCE IV Last administered on at 23:33; Start 10/17/17 at 22:00; Stop 10/18/17 at 14:39 Diphenhydramine HCl (Benadryl Inj) 25 mg ONCE ONCE IV PUSH Last administered on 10/17/17 22:30; Start 10/17/17 at 22:00; Stop 10/17/17 at 22:01; Status DC Methylprednisolone Sodium Succinate (SoluMEDROL INJ) 40 mg ONCE ONCE IV PUSH Last administered on 10/17/17 22:26; Start 10/17/17 at 22:00; Stop 10/17/17 at 22: 01; Status DC Folic Acid (Folate) 1 mg ONCE ONCE PO Last administered on 10/17/17 22:26; Start 10/17/17 at 22:00; Stop 10/17/17 at 22:01; Status DC Folic Acid (Folate) 1 mg DAILY PO Last administered on 10/18/17at 09:04; Start 10/18/17 at 09:00 Methylprednisolone Sodium Succinate (SoluMEDROL INJ) 40 mg Q12HR IV PUSH Last administered on 10/18/17at 09:04; Start 10/18/17 at 09:00 Diphenhydramine HCl (Benadryl Inj) 25 mg Q4H PRN IV PUSH ITCHING/RASH; Start at 22:15 Sodium Chloride (NS Flush) 2 ml UNSCH PRN IV FLUSH FLUSH AFTER USING IV ACCESS ; Start 10/17/17 at 22:15 Sodium Chloride (NS Flush) 2 ml BID IV FLUSH Last administered on 10/18/17at 08: 58; Start 10/18/17 at 09:00 Ondansetron HCl (Zofran Inj) 4 mg Q6H PRN IVP NAUSEA OR VOMITING; Start at 22:15 Acetaminophen (Tylenol) 650 mg Q6H PRN PO FEVER/PAIN SCALE 1 TO 2; Start at 22:15 Acetaminophen/ Hydrocodone Bitart ([place] 5-325 Mg) 1 tab Q4H PRN PO PAIN SCALE 3 TO 5; Start 10/17/17 at 22:15 Acetaminophen/ Hydrocodone Bitart ([place] 10-325 Mg) 1 tab Q4H PRN PO PAIN SCALE 6 TO 10 Last administered on 10/18/17at 09:03; Start 10/17/17 at 22:15 Senna/Docusate Sodium (Keisha-Colace) 1 tab BID PO Last administered on at 09:04; Start 10/18/17 at 09:00 Magnesium Hydroxide (Milk Of Magnesia Liq) 30 ml Q12H PRN PO Mild constipation Last administered on 10/18/17at 08:59; Start 10/17/17 at 22:15 Sennosides (Senokot) 17.2 mg Q12H PRN PO Moderate constipation; Start 10/17/17 at 22:15 Bisacodyl (Dulcolax Supp) 10 mg DAILY PRN RECTAL SEVERE CONSITIPATION; Start at 22:15 Lactulose (Lactulose Liq) 30 ml DAILY PRN PO SEVERE CONSITIPATION Last administered on 10/18/17at 08:59; Start 10/17/17 at 22:15 Apixaban (Eliquis) 5 mg BID PO Last administered on 10/18/17at 09:04; Start 05/28 at 09:00 Duloxetine HCl (Cymbalta Dr) 60 mg DAILY PO Last administered on 10/18/17at 09: 04; Start 10/18/17 at 09:00 Pantoprazole Sodium (Protonix) 40 mg DAILY PO Last administered on 10/18/17at 09 :04; Start 10/18/17 at 09:00 Cholecalciferol (Vitamin D3) 5,000 units DAILY PO Last administered on at 08:59; Start 10/18/17 at 09:00 Folic Acid (Folate) 1 mg DAILY PO ; Start 10/18/17 at 09:00; Status Cancel Hydralazine HCl (Apresoline) 25 mg TID PO Last administered on 10/18/17at 09:03 ; Start 10/18/17 at 09:00 Metoprolol Tartrate (Lopressor) 50 mg BID PO Last administered on 10/18/17at 09: 07; Start 10/18/17 at 09:00 Vitamin B Complex/ Vitamin C ([place] C) 1 tab DAILY PO Last administered on 05/28at 09:07; Start 10/18/17 at 09:00 Albuterol Sulfate (Albuterol Neb) 2.5 mg Q2HR NEB PRN NEB dyspnea; Start at 08:30 A/P Problem List: (1) Symptomatic anemia ICD Code: D64.9 - Anemia, unspecified Status: Acute (2) Leukocytosis ICD Code: D72.829 - Elevated white blood cell count, unspecified (3) H/O pulmonary thrombosis ICD Code: Z86.711 - Personal history of pulmonary embolism Assessment and Plan 1. Symptomatic Anemia: h/o Autoimmune Hemolytic Anemia on previous admit, s/p eval by Hematology, currently on Prednisone 40mg qd. Hgb 7.8, previously 10.6 on 09/18/17. Dr. Coles consulted by ER physician, recommendation for Solu- Medrol, Benadryl and Folic Acid. 1u pRBC ordered, pending transfusion. Check Hgb/Hct after transfusion completed. -Hemoglobin is greater than 9-await hematology clearance Patient may become transfusion dependent if she does not respond to oral therapy 2. Leukocytosis: WBC 14.4, likely reactive. Check U/a to eval for underlying UTI. Repeat labs in am. Hypertension resume home medications Depression resume home medications GERD resume home medications 3. H/o PE: On Eliquis, s/p eval by Pulmonary on last visit, recommendation to resume Eliquis in light of bilateral PE. Monitor for worsening anemia. 4. DVT Prophylaxis: Eliquis 5. Social work for DC planning as needed. Possible discharge later today if cleared by hematology Discharge Planning Pending hematology clearance Aristeo Michele DO Oct 18, 2017 09:24
[2017-10-18] MEDS ORDERED: PRED20 PO (09:27)
--- NOTE | 2017-10-18 09:29 | HHI.DS ---
Discharge Summary Admission Date Oct 17, 2017 at 22:10 Discharge Date: Oct 18, 2017 Admitting Diagnosis symptomatic anemia (1) Symptomatic anemia ICD Code: D64.9 - Anemia, unspecified Diagnosis: Principal Status: Acute (2) Leukocytosis ICD Code: D72.829 - Elevated white blood cell count, unspecified Diagnosis: Secondary (3) H/O pulmonary thrombosis ICD Code: Z86.711 - Personal history of pulmonary embolism Diagnosis: Principal (4) HTN (hypertension) ICD Code: I10 - Essential (primary) hypertension Diagnosis: Secondary Status: Chronic (5) Severe anemia ICD Code: D64.9 - Anemia, unspecified Diagnosis: Principal (6) 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 Recent admit 09/09- for similar complaints, found to have Autoimmune Hemolytic Anemia, s/p eval by Hematology and started on Steroid therapy. States she has been unable to follow up w/ Hematology as outpatient due to her insurance, unable to find anyone in network. Still taking Prednisone 40mg qd as prescribed. On arrival, BP 150/55, HR 78, O2 sat 96% on RA, Temp 99.2. WBC 14.4, bandemia of 9%. Hemoglobin 7.8, previously 10.6 on 09/18/17. Creatinine 1.02, previously 1.01 on 09/18/17. INR 1.1. 1u pRBC ordered in ER, pending transfusion. Dr. Coles consulted by ER physician, recommended Solu-Medrol, Benadryl and Folic Acid. CBC/BMP: 10/18/17 0515 10/18/17 0515 Significant Findings Laboratory Tests Test 3/9/18 17:19 10/18/17 01:45 10/18/17 05:15 White Blood Count 14.4 TH/MM3 (4.0-11.0) Red Blood Count 2.24 MIL/MM3 (4.00-5.30) 2.70 MIL/MM3 (4.00-5.30) Hemoglobin 7.8 GM/DL (11.6-15.3) 9.6 GM/DL (11.6-15.3) Hematocrit 24.1 % (35.0-46.0) 28.4 % (35.0-46.0) Mean Corpuscular Volume 108.0 FL (80.0-100.0) 105.2 FL (80.0-100.0) Mean Corpuscular Hemoglobin 35.1 PG (27.0-34.0) 35.6 PG (27.0-34.0) Platelet Count 457 TH/MM3 (150-450) 456 TH/MM3 (150-450) Neutrophils (%) (Auto) 86.3 % (16.0-70.0) 88.2 % (16.0-70.0) Lymphocytes (%) (Auto) 6.6 % (9.0-44.0) Neutrophils # (Auto) 12.4 TH/MM3 (1.8-7.7) 9.5 TH/MM3 (1.8-7.7) Neutrophils % (Manual) 74 % (16-70) Band Neutrophils % 9 % (0-6) Lymphocytes % 8 % (9-44) Neutrophils # (Manual) 12.0 TH/MM3 (1.8-7.7) Nucleated Red Blood Cells 10 /100 WBC (0-0) Basophilic Stippling FAINT (NORMAL) Ovalocytes 1+ (NORMAL) Blood Urea Nitrogen 22 MG/DL (7-18) 22 MG/DL (7-18) Creatinine 1.02 MG/DL (0.50-1.00) Random Glucose 134 MG/DL (74-106) 140 MG/DL (74-106) Total Protein 5.8 GM/DL (6.4-8.2) 6.0 GM/DL (6.4-8.2) Albumin 3.1 GM/DL (3.4-5.0) 2.9 GM/DL (3.4-5.0) Alkaline Phosphatase 150 U/L (45-117) 142 U/L (45-117) Alanine Aminotransferase (ALT/SGPT) 70 U/L (10-53) 68 U/L (10-53) Total Bilirubin 2.3 MG/DL (0.2-1.0) 1.6 MG/DL (0.2-1.0) Estimat Glomerular Filtration Rate 52 ML/MIN (>89) 60 ML/MIN (>89) Urine Turbidity HAZY (CLEAR) Urine Protein 30 mg/dL (NEG-TRACE) Urine Occult Blood MOD (NEG) Urine Leukocyte Esterase SMALL (NEG) Urine RBC 105 /hpf (0-3) Urine WBC 7 /hpf (0-5) Urine Mucus FEW /lpf (OCC) Calcium Level 8.4 MG/DL (8.5-10.1) PE at Discharge GENERAL: Awake alert oriented 3 talkative and cooperative-- appears stated age SKIN: Warm and dry. HEAD: Atraumatic. Normocephalic. EYES: Pupils equal and round. No scleral icterus. No injection or drainage. Extraocular muscles intact ENT: No nasal bleeding or discharge. Mucous membranes pink and moist. Tongue is midline NECK: Trachea midline. No JVD. Supple CARDIOVASCULAR: Regular rate and rhythm. S1-S2 no S3 or S4 RESPIRATORY: No accessory muscle use. Clear to auscultation. Breath sounds equal bilaterally. GASTROINTESTINAL: Abdomen soft, non-tender, nondistended. Hepatic and splenic margins not palpable. MUSCULOSKELETAL: Extremities without clubbing, cyanosis, or edema. No obvious deformities. NEUROLOGICAL: Awake and alert. No obvious cranial nerve deficits. Motor grossly within normal limits. Five out of 5 muscle strength in the arms and legs. Normal speech. PSYCHIATRIC: Appropriate mood and affect; insight and judgment normal. Hospital Course This is a 81-year-old female with a PMH of Anxiety, Depression, h/o PE on Eliquis and h/o Autoimmune Hemolytic Anemia requiring transfusion who was referred to the ER by her PCP for generalized weakness. Recent admit 09/09- for similar complaints, found to have Autoimmune Hemolytic Anemia, s/p eval by Hematology and started on Steroid therapy. States she has been unable to follow up w/ Hematology as outpatient due to her insurance, unable to find anyone in network. Still taking Prednisone 40mg qd as prescribed. On arrival, BP 150/55, HR 78, O2 sat 96% on RA, Temp 99.2. WBC 14.4, bandemia of 9%. Hemoglobin 7.8, previously 10.6 on 09/18/17. Creatinine 1.02, previously 1.01 on 09/18/17. INR 1.1. 1u pRBC ordered in ER, pending transfusion. Dr. Coles consulted by ER physician, recommended Solu-Medrol, Benadryl and Folic Acid. 3-10 we await oncology/hematology evaluation Has already been transfused 1 unit hemoglobin up into the 9s now Discussed with patient and RN Patient states she has not been able to get in to see a street vendor after discharge Patient may have transfusion dependent hemolytic anemia Pending hematology consul, patient may be discharged on clearance by hematology Pt Condition on Discharge: Good Discharge Disposition: Discharge Home Discharge Time: <= 30 minutes Discharge Instructions DIET: Follow Instructions for: Heart Healthy Diet Speech Therapy-Diet Recommends: Regular Activities you can perform: Regular-No Restrictions Follow up Referrals: Oncology/Hematology - 3-5 Days PCP Follow-up - 2-3 Days Continued Medications: Apixaban (Eliquis) 5 Mg Tab 5 MG PO BID for Blood Clot Prevention for 30 Days, #[address] (Aspirin DR) 81 Mg Tabdr 81 MG PO DAILY for Blood Clot Prevention for 30 Days, #30 TAB B-Complex Vitamins (Vitamin B Complex) 1 Tab 1 TAB PO DAILY Cholecalciferol (Vitamin D-1000) 1,000 Unit Tab 5000 UNITS PO DAILY for Nutritional Supplement, #1 BOTTLE [address] (Duloxetine DR) 60 Mg Capdr 60 MG PO DAILY, #30 CAP 0 Refills Folic Acid (Folic Acid) 0.8 Mg Tab 1 MG PO DAILY for Nutritional Supplement, TAB 0 Refills Hydralazine HCl (Hydralazine HCl) 25 Mg Tablet 25 MG PO TID for Blood Pressure Management, #90 TAB 0 Refills Hydrocodone-Acetaminophen ([place]) 5 Mg-325 Mg Tab 1 TAB PO Q6H PRN for PAIN, #20 TAB 0 Refills Metoprolol Tartrate (Lopressor) 50 Mg Tab 50 MG PO BID for heart for 30 Days, #60 TAB Pantoprazole (Pantoprazole) 40 Mg Tab 40 MG PO DAILY for prevent stomach ulcer for 30 Days, #30 TAB Prednisone (Prednisone) 20 Mg Tab 40 MG PO DAILY for treat anemia for 14 Days, #28 TAB (This prescription has been renewed) DO NOT STOP THIS MEDICATION BEFORE SEEING APPLICATION INFRASTRUCTURE ENGINEER Tizanidine (Tizanidine) 4 Mg Cap 4 MG PO DAILY, CAP 0 Refills [Albuterol Neb] () 2.5 MG/3 ML NEBU 2.5 MG NEB Q2HR NEB PRN for dyspnea for 30 Days Discontinued Medications: Ciprofloxacin (Cipro) 250 Mg Tab 250 MG PO Q12HR for Infection for 7 Days, TAB Aristeo Michele DO Oct 18, 2017 09:29
[2017-10-18 09:44] LABS: BANDS 18 % (0-6); CORRECTED NUCLEATED RBC 7 /100 WBC (0-0); LYMPHOCYTES 7 % (9-44); MONOCYTES 1 % (0-8); NEUTROPHIL # MANUAL DIFF 9.9 TH/MM3 (1.8-7.7); NUCLEATED RED BLOOD CELL 7 (0-0); POLYS (SEG NEUTROPHILS) 74 % (16-70)
[2017-10-18 09:46] LABS: POLYCHROMASIA 4.5 % (0.0-1.9)
[2017-10-18 12:45] LABS: HEMOGLOBIN A1C 3.1 % (4.3-6.0)
[2017-10-19] VITALS (9 sets, daily range): BP systolic 147–187; BP diastolic 65–84; PULSE 60–74; RESP 18–22; TEMP 97.4–98.8; O2SAT 93–97
[2017-10-19 07:35] LABS: AUTOMATED NEUTROPHIL # 12.5 TH/MM3 (1.8-7.7); BASOPHIL # 0.1 TH/MM3 (0-0.2); BASOPHIL % 0.4 % (0.0-2.0); EOSINOPHIL % 0.2 % (0.0-4.0); HEMATOCRIT 27.1 % (35.0-46.0); HEMOGLOBIN 8.9 GM/DL (11.6-15.3); LYMPH % 12.8 % (9.0-44.0); MEAN CELL VOLUME 104.2 FL (80.0-100.0); MEAN CORPUSCULAR HEMOGLOBIN 34.3 PG (27.0-34.0); MEAN CORPUSCULAR HGB CONC 32.9 % (32.0-36.0); MEAN PLATELET VOLUME 8.1 FL (7.0-11.0); MONO % 6.3 % (0.0-8.0); NEUT % 80.3 % (16.0-70.0); PLATELET COUNT 456 TH/MM3 (150-450); WHITE BLOOD COUNT 15.5 TH/MM3 (4.0-11.0)
[2017-10-19 08:03] LABS: ALBUMIN 2.9 GM/DL (3.4-5.0); AST (GOT) 16 U/L (15-37); BLOOD UREA NITROGEN 30 MG/DL (7-18); CALCIUM 8.7 MG/DL (8.5-10.1); CHLORIDE 102 MEQ/L (98-107); GLOMERULAR FILTRATION RATE 69 ML/MIN (>89); GLUCOSE,RANDOM 105 MG/DL (74-106); MAGNESIUM 2.4 MG/DL (1.5-2.5); SODIUM (NA) 138 MEQ/L (136-145)
[2017-10-19 08:05] LABS: ALT (GPT) 66 U/L (10-53); PHOSPHORUS 3.9 MG/DL (2.5-4.9)
[2017-10-19 08:07] LABS: ALKALINE PHOSPHATASE 136 U/L (45-117); TOTAL BILIRUBIN ADULT 1.2 MG/DL (0.2-1.0); TOTAL PROTEIN 5.5 GM/DL (6.4-8.2)
[2017-10-19] MEDS: DOCUSATE SODIUM 50 MG/SENNA 8.6 MG TAB PO SCH ×2 (09:00→20:08)
--- NOTE | 2017-10-19 09:06 | HHI.PR ---
Subjective Remarks This is a 81-year-old female with a PMH of Anxiety, Depression, h/o PE on Eliquis and h/o Autoimmune Hemolytic Anemia requiring transfusion who was referred to the ER by her PCP for generalized weakness. Recent admit 09/09- for similar complaints, found to have Autoimmune Hemolytic Anemia, s/p eval by Hematology and started on Steroid therapy. States she has been unable to follow up w/ Hematology as outpatient due to her insurance, unable to find anyone in network. Still taking Prednisone 40mg qd as prescribed. On arrival, BP 150/55, HR 78, O2 sat 96% on RA, Temp 99.2. WBC 14.4, bandemia of 9%. Hemoglobin 7.8, previously 10.6 on 09/18/17. Creatinine 1.02, previously 1.01 on 09/18/17. INR 1.1. 1u pRBC ordered in ER, pending transfusion. Dr. Coles consulted by ER physician, recommended Solu-Medrol, Benadryl and Folic Acid. 3-10 we await oncology/hematology evaluation Has already been transfused 1 unit hemoglobin up into the 9s now Discussed with patient and RN Patient states she has not been able to get in to see a behavioral health aide after discharge Patient may have transfusion dependent hemolytic anemia Pending hematology consulT, patient may be discharged on clearance by hematology 3-11 PATIENT HAS NOT BEEN CLEARED BY HEMATOLOGY HGB IN THE 8S NOW AM LABS CURRENT THERAPY PER HEMATOLOGY [facility] NEXT 24 TO [address] RN AND PT Objective Vitals Vital Signs Date Time Temp Pulse Resp B/P (MAP) Pulse Ox O2 Delivery O2 Flow Rate FiO2 10/19/17 07:45 97.5 61 19 147/67 (93) 93 10/19/17 04:00 97.4 63 18 175/81 (112) 97 10/19/17 00:00 97.6 73 18 187/84 (118) 95 10/18/17 19:26 97.9 74 18 181/77 (111) 96 10/18/17 16:00 98.5 85 17 162/73 (102) 95 10/18/17 12:00 97.8 85 17 190/95 (126) 95 I/O 10/18/17 10/18/17 10/18/17 10/19/17 10/19/17 10/19/17 07:00 15:00 23:00 07:00 15:00 23:00 Intake Total 900 ml 480 ml 480 ml 480 ml Balance 900 ml 480 ml 480 ml 480 ml Intake Oral 480 ml 480 ml 480 ml 480 ml Packed Cells 400 ml Blood Product IV Normal Saline Flush 20 ml # Voids 2 4 3 3 # Bowel Movements 0 0 0 0 Result Diagram: 10/19/17 0554 10/19/17 0554 Other Results Laboratory Tests Test 10/17/17 17:19 10/18/17 01:45 10/18/17 05:15 10/19/17 05:54 White Blood Count 14.4 TH/MM3 10.8 TH/MM3 15.5 TH/MM3 Red Blood Count 2.24 MIL/MM3 2.70 MIL/MM3 2.60 MIL/MM3 Hemoglobin 7.8 GM/DL 9.6 GM/DL 8.9 GM/DL Hematocrit 24.1 % 28.4 % 27.1 % Mean Corpuscular Volume 108.0 FL 105.2 FL 104.2 FL Mean Corpuscular Hemoglobin 35.1 PG 35.6 PG 34.3 PG Mean Corpuscular Hemoglobin Concent 32.5 % 33.8 % 32.9 % Red Cell Distribution Width 14.5 % 15.7 % 15.0 % Platelet Count 457 TH/MM3 456 TH/MM3 456 TH/MM3 Mean Platelet Volume 7.8 FL 8.1 FL 8.1 FL Neutrophils (%) (Auto) 86.3 % 88.2 % 80.3 % Lymphocytes (%) (Auto) 6.6 % 9.2 % 12.8 % Monocytes (%) (Auto) 5.3 % 2.3 % 6.3 % Eosinophils (%) (Auto) 1.3 % 0.0 % 0.2 % Basophils (%) (Auto) 0.5 % 0.3 % 0.4 % Neutrophils # (Auto) 12.4 TH/MM3 9.5 TH/MM3 12.5 TH/MM3 Lymphocytes # (Auto) 1.0 TH/MM3 1.0 TH/MM3 2.0 TH/MM3 Monocytes # (Auto) 0.8 TH/MM3 0.2 TH/MM3 1.0 TH/MM3 Eosinophils # (Auto) 0.2 TH/MM3 0.0 TH/MM3 0.0 TH/MM3 Basophils # (Auto) 0.1 TH/MM3 0.0 TH/MM3 0.1 TH/MM3 CBC Comment AUTO DIFF AUTO DIFF AUTO DIFF Differential Total Cells Counted 100 100 Neutrophils % (Manual) 74 % 74 % Band Neutrophils % 9 % 18 % Lymphocytes % 8 % 7 % Monocytes % 3 % 1 % Eosinophils % 1 % Other Cells % 5 % Neutrophils # (Manual) 12.0 TH/MM3 9.9 TH/MM3 Nucleated Red Blood Cells 10 /100 WBC 7 /100 WBC Differential Comment FINAL DIFF MANUAL FINAL DIFF MANUAL Platelet Estimate NORMAL HIGH Platelet Morphology Comment NORMAL NORMAL Basophilic Stippling FAINT Ovalocytes 1+ [place] Bodies PRESENT Prothrombin Time 11.3 SEC Prothromb Time International Ratio 1.1 RATIO Activated Partial Thromboplast Time 26.8 SEC Blood Urea Nitrogen 22 MG/DL 22 MG/DL 30 MG/DL Creatinine 1.02 MG/DL 0.90 MG/DL 0.80 MG/DL Random Glucose 134 MG/DL 140 MG/DL 105 MG/DL Total Protein 5.8 GM/DL 6.0 GM/DL 5.5 GM/DL Albumin 3.1 GM/DL 2.9 GM/DL 2.9 GM/DL Calcium Level 8.7 MG/DL 8.4 MG/DL 8.7 MG/DL Alkaline Phosphatase 150 U/L 142 U/L 136 U/L Aspartate Amino Transf (AST/SGOT) 26 U/L 15 U/L 16 U/L Alanine Aminotransferase (ALT/SGPT) 70 U/L 68 U/L 66 U/L Total Bilirubin 2.3 MG/DL 1.6 MG/DL 1.2 MG/DL Sodium Level 139 MEQ/L 141 MEQ/L 138 MEQ/L Potassium Level 4.3 MEQ/L 4.2 MEQ/L 4.3 MEQ/L Chloride Level 103 MEQ/L 106 MEQ/L 102 MEQ/L Carbon Dioxide Level 29.3 MEQ/L 28.5 MEQ/L 29.0 MEQ/L Anion Gap 7 MEQ/L 7 MEQ/L 7 MEQ/L Estimat Glomerular Filtration Rate 52 ML/MIN 60 ML/MIN 69 ML/MIN Urine Color YELLOW Urine Turbidity HAZY Urine pH 5.5 Urine Specific Bruce 1.016 Urine Protein 30 mg/dL Urine Glucose (UA) NEG mg/dL Urine Ketones NEG mg/dL Urine Occult Blood MOD Urine Nitrite NEG Urine Bilirubin NEG Urine Urobilinogen 2.0 MG/DL Urine Leukocyte Esterase SMALL Urine RBC 105 /hpf Urine WBC 7 /hpf Urine Squamous Epithelial Cells 2 /hpf Urine Renal Epithelial Cells <1 /hpf Urine Mucus FEW /lpf Microscopic Urinalysis Comment CULT NOT INDICATED Polychromasia 4.5 % Phosphorus Level 4.4 MG/DL 3.9 MG/DL Magnesium Level 2.3 MG/DL 2.4 MG/DL Hemoglobin A1c 3.1 % Thyroxine (T4) 8.3 MCG/DL Thyroid Stimulating Hormone 3rd Gen 0.361 uIU/ML Objective Remarks GENERAL: Awake alert oriented 3 talkative and cooperative-- appears stated age SKIN: Warm and dry. HEAD: Atraumatic. Normocephalic. EYES: Pupils equal and round. No scleral icterus. No injection or drainage. Extraocular muscles intact ENT: No nasal bleeding or discharge. Mucous membranes pink and moist. Tongue is midline NECK: Trachea midline. No JVD. Supple CARDIOVASCULAR: Regular rate and rhythm. S1-S2 no S3 or S4 RESPIRATORY: No accessory muscle use. Clear to auscultation. Breath sounds equal bilaterally. GASTROINTESTINAL: Abdomen soft, non-tender, nondistended. Hepatic and splenic margins not palpable. MUSCULOSKELETAL: Extremities without clubbing, cyanosis, or edema. No obvious deformities. NEUROLOGICAL: Awake and alert. No obvious cranial nerve deficits. Motor grossly within normal limits. Five out of 5 muscle strength in the arms and legs. Normal speech. PSYCHIATRIC: Appropriate mood and affect; insight and judgment normal. Procedures None Medications and IVs Current Medications Sodium Chloride 250 ml @ 15 mls/hr ONCE ONCE IV Last administered on 23:33; Start 10/17/17 at 22:00; Stop 10/18/17 at 14:39; Status DC Diphenhydramine HCl (Benadryl Inj) 25 mg ONCE ONCE IV PUSH Last administered on 10/17/17 22:30; Start 10/17/17 at 22:00; Stop 10/17/17 at 22:01; Status DC Methylprednisolone Sodium Succinate (SoluMEDROL INJ) 40 mg ONCE ONCE IV PUSH Last administered on 10/17/17 22:26; Start 10/17/17 at 22:00; Stop 10/17/17 at 22: 01; Status DC Folic Acid (Folate) 1 mg ONCE ONCE PO Last administered on 10/17/17at 22:26; Start 10/17/17 at 22:00; Stop 10/17/17 at 22:01; Status DC Folic Acid (Folate) 1 mg DAILY PO Last administered on 10/18/17at 09:04; Start 10/18/17 at 09:00 Methylprednisolone Sodium Succinate (SoluMEDROL INJ) 40 mg Q12HR IV PUSH Last administered on 10/18/17at 20:16; Start 10/18/17 at 09:00 Diphenhydramine HCl (Benadryl Inj) 25 mg Q4H PRN IV PUSH ITCHING/RASH; Start at 22:15 Sodium Chloride (NS Flush) 2 ml UNSCH PRN IV FLUSH FLUSH AFTER USING IV ACCESS ; Start 10/17/17 at 22:15 Sodium Chloride (NS Flush) 2 ml BID IV FLUSH Last administered on 10/18/17at 08: 58; Start 10/18/17 at 09:00 Ondansetron HCl (Zofran Inj) 4 mg Q6H PRN IVP NAUSEA OR VOMITING; Start at 22:15 Acetaminophen (Tylenol) 650 mg Q6H PRN PO FEVER/PAIN SCALE 1 TO 2; Start at 22:15 Acetaminophen/ Hydrocodone Bitart ([place] 5-325 Mg) 1 tab Q4H PRN PO PAIN SCALE 3 TO 5; Start 10/17/17 at 22:15 Acetaminophen/ Hydrocodone Bitart ([place] 10-325 Mg) 1 tab Q4H PRN PO PAIN SCALE 6 TO 10 Last administered on 10/18/17at 20:15; Start 10/17/17 at 22:15 Senna/Docusate Sodium (Keisha-Colace) 1 tab BID PO Last administered on at 09:04; Start 10/18/17 at 09:00 Magnesium Hydroxide (Milk Of Magnesia Liq) 30 ml Q12H PRN PO Mild constipation Last administered on 10/18/17at 08:59; Start 10/17/17 at 22:15 Sennosides (Senokot) 17.2 mg Q12H PRN PO Moderate constipation; Start 10/17/17 at 22:15 Bisacodyl (Dulcolax Supp) 10 mg DAILY PRN RECTAL SEVERE CONSITIPATION; Start at 22:15 Lactulose (Lactulose Liq) 30 ml DAILY PRN PO SEVERE CONSITIPATION Last administered on 10/18/17at 08:59; Start 10/17/17 at 22:15 Apixaban (Eliquis) 5 mg BID PO Last administered on 10/18/17at 20:16; Start 05/28 at 09:00 Duloxetine HCl (Cymbalta Dr) 60 mg DAILY PO Last administered on 10/18/17at 09: 04; Start 10/18/17 at 09:00 Pantoprazole Sodium (Protonix) 40 mg DAILY PO Last administered on 10/18/17at 09 :04; Start 10/18/17 at 09:00 Cholecalciferol (Vitamin D3) 5,000 units DAILY PO Last administered on at 08:59; Start 10/18/17 at 09:00 Folic Acid (Folate) 1 mg DAILY PO ; Start 10/18/17 at 09:00; Status Cancel Hydralazine HCl (Apresoline) 25 mg TID PO Last administered on 10/18/17at 17:06 ; Start 10/18/17 at 09:00 Metoprolol Tartrate (Lopressor) 50 mg BID PO Last administered on 10/18/17at 20: 15; Start 10/18/17 at 09:00 Vitamin B Complex/ Vitamin C (Allbee C) 1 tab DAILY PO Last administered on 05/28at 09:07; Start 10/18/17 at 09:00 Albuterol Sulfate (Albuterol Neb) 2.5 mg Q2HR NEB PRN NEB dyspnea; Start at 08:30 A/P Problem List: (1) Symptomatic anemia ICD Code: D64.9 - Anemia, unspecified Status: Acute (2) Leukocytosis ICD Code: D72.829 - Elevated white blood cell count, unspecified (3) H/O pulmonary thrombosis ICD Code: Z86.711 - Personal history of pulmonary embolism (4) HTN (hypertension) ICD Code: I10 - Essential (primary) hypertension Status: Chronic (5) Severe anemia ICD Code: D64.9 - Anemia, unspecified (6) Autoimmune hemolytic anemia ICD Code: D59.1 - Other autoimmune hemolytic anemias (7) Pulmonary embolism ICD Code: I26.99 - Other pulmonary embolism without acute cor pulmonale Assessment and Plan 1. Symptomatic Anemia: h/o Autoimmune Hemolytic Anemia on previous admit, s/p eval by Hematology, currently on Prednisone 40mg qd. Hgb 7.8, previously 10.6 on 09/18/17. Dr. Coles consulted by ER physician, recommendation for Solu- Medrol, Benadryl and Folic Acid. 1u pRBC ordered, pending transfusion. Check Hgb/Hct after transfusion completed. -Hemoglobin is greater than 9-await hematology clearance REPEAT HGB TODAY 8.9 Patient may become transfusion dependent if she does not respond to oral therapy 2. Leukocytosis: WBC 14.4, likely reactive. Check U/a to eval for underlying UTI. Repeat labs in am. Hypertension resume home medications Depression resume home medications GERD resume home medications 3. H/o PE: On Eliquis, s/p eval by Pulmonary on last visit, recommendation to resume Eliquis in light of bilateral PE. Monitor for worsening anemia. 4. DVT Prophylaxis: Eliquis 5. Social work for DC planning as needed. Possible discharge later today if cleared by hematology Discharge Planning Pending hematology clearance Aristeo Michele DO Oct 19, 2017 09:06
[2017-10-19] MEDS: hydrALAZINE HCL 25 MG TAB PO SCH ×3 (09:11→17:31)
[2017-10-19] MEDS: VITAMIN B COMPLEX/VIT C TAB PO SCH (09:11)
[2017-10-19] MEDS: methylPREDNISolone SOD SUCC 40 MG/1 ML VIAL IV PUSH SCH ×3 (09:11→22:44)
[2017-10-19] MEDS: FOLIC ACID 1 MG TAB PO SCH (09:11)
[2017-10-19] MEDS: CHOLECALCIFEROL (VIT D3) 5000 UNIT CAP PO SCH (09:11)
[2017-10-19] MEDS: DULoxetine HCl DR 60 MG CAP PO SCH (09:11)
[2017-10-19] MEDS: METOPROLOL TARTRATE 50 MG TAB PO SCH ×2 (09:11→20:06)
[2017-10-19] MEDS: PANTOPRAZOLE SOD 40 MG DELAYED RELEASE TAB PO SCH (09:11)
[2017-10-19] MEDS: APIXABAN 5 MG TABLET PO SCH ×2 (09:11→20:06)
[2017-10-19] MEDS: SODIUM CHLORIDE 0.9% FLUSH 10 ML FLUSH IV FLUSH SCH ×2 (09:12→20:08)
[2017-10-19 09:34] LABS: BANDS 13 % (0-6); LYMPHOCYTES 15 % (9-44); MONOCYTES 10 % (0-8); NEUTROPHIL # MANUAL DIFF 11.6 TH/MM3 (1.8-7.7); POLYS (SEG NEUTROPHILS) 62 % (16-70)
[2017-10-19 09:35] LABS: HOWELL-JOLLY BODIES PRESENT (NONE SEEN); POLYCHROMASIA 2.9 % (0.0-1.9)
--- NOTE | 2017-10-19 11:49 | MB ---
cc: Demetris Coles MD DATE OF CONSULT: 10/18/2017 REASON FOR CONSULTATION: Consult requested by hospitalist for evaluation of anemia. HISTORY OF PRESENT ILLNESS: Maryam is a pleasant 81-year-old female. She was admitted to [facility] about two months ago for severe shortness of breath. She was diagnosed with bilateral pulmonary embolism and she was started on Eliquis. During that admission her hemoglobin was found to be very low at 4.5. White count and platelet count were normal. My associate Dr. Means was consulted. The patient was diagnosed with autoimmune hemolytic anemia. She was started on steroid with a good response. She was discharged to home about 5-6 weeks ago. She was asked to make an appointment with Dr. Means for followup as an outpatient. The patient stated that she was unable to get an appointment with Dr. Means due to insurance reasons. She states that she could not see any other rotoformer backtender because of her insurance. The patient was not feeling well. She went to see her primary physician who ordered a blood test and she was found to have again severe anemia. She was sent to the emergency room. She came into the ER last evening. Admission CBC showed white count of 14.4, hemoglobin 7.8, MCV is 108, platelet count is 457. I received a call from the ER about her anemia. I have advised the ER physician to start her on Solu-Medrol 40 mg q. 6. She was given 1 unit of blood transfusion. Her hemoglobin has improved to 9.6. I have been asked to see the patient for further evaluation. The patient stated that she is feeling better after the blood transfusion. She is anxious to go home. She denies any nausea, vomiting, diarrhea, constipation. She denies any headaches or dizziness. Her appetite is good. The rest of the review of systems is negative. PAST MEDICAL HISTORY: 1. Pulmonary embolism. 2. Arthritis. 3. Iron deficiency anemia. 4. Hypertension. 5. Chronic low back pain. 6. Depression. PAST SURGICAL HISTORY: Splenectomy. ALLERGIES: SULFA. MEDICATIONS: Prior to coming to the hospital: 1. Prednisone 40 mg daily 2. Verapamil 3. Tizanidine 4. Cymbalta 5. Hydrocodone 6. Vitamin D3 FAMILY HISTORY: Not significant for any blood disorder that she knows of. SOCIAL HISTORY: She does not smoke cigarettes, does not drink alcohol. PHYSICAL EXAMINATION: GENERAL: This is a well-developed, well-nourished white female, in no apparent distress. VITAL SIGNS: Temperature 98.5, heart rate 85, blood pressure 162/73, O2 saturation 95%. HEAD, EYES, EARS, NOSE, AND THROAT: Pupils equal, round, reactive to light and accommodation, extraocular movements intact. Sclerae is icteric. No oral lesions noted. No thrush noted. NECK: Supple. No JVD. No masses noted. LUNGS: Clear. No wheezing, rhonchi, or rales. HEART: Regular rate and rhythm. No murmur heard. ABDOMEN: Soft and nontender. No hepatosplenomegaly. No abnormal bowel sounds. No guarding or rigidity noted. EXTREMITIES: No pedal edema. No cyanosis, no clubbing. NEUROLOGIC: Awake, alert, oriented x 3. Sensory and motor seem to be intact. SKIN: No bruises or petechiae noted. LYMPH NODES: No cervical, supraclavicular, or axillary lymphadenopathy noted. BACK: There is no spinal tenderness noted. ASSESSMENT: Autoimmune hemolytic anemia, currently on prednisone. PLAN: I have discussed with the patient regarding her anemia. She came in with a hemoglobin of 7.8. When she was discharged last month on September 18 her hemoglobin was 10.6. This is a significant drop. She had received 1 unit of blood transfusion. I have started her on Solu-Medrol 40 mg q. 6. We discussed that the patient should stay in the hospital to receive IV steroid to make sure that her autoimmune hemolytic anemia is improving with the steroid. She is having a difficult time to see a rotoformer backtender as an outpatient who can monitor her autoimmune hemolytic anemia. At this point I do not know what is the cause of her autoimmune hemolytic anemia. Her rotoformer backtender, Dr. Means had wanted to see her in the office to initiate the cause of the autoimmune hemolytic anemia and also followup the steroid therapy. I discussed with the patient that I am not clearing her for discharge. I want her to stay to receive IV Solu-Medrol. The patient agreed with that. Will continue to monitor her CBC and want to make sure that her hemoglobin is coming up. She has received 1 unit of blood transfusion and that could have brought up her hemoglobin but we want to make sure that with the steroid, that she is responding and her hemoglobin is improving with that. Thank you for asking my opinion. MD ZENA Orosco/KEN/isaias , 03:48 AM , 09:27 AM
[2017-10-19] MEDS ORDERED: cloNIDine HCL 0.1 MG TAB PO PRN (15:15)
--- NOTE | 2017-10-19 17:20 | PD.ONC.PN ---
Subjective Subjective Remarks Afebrile Patient reports she feels somewhat more fatigued today than yesterday No other acute complaints Objective Data Date Time Temp Pulse Resp B/P (MAP) Pulse Ox O2 Delivery O2 Flow Rate FiO2 10/19/17 14:45 98.8 68 18 183/82 (115) 95 10/19/17 12:00 64 10/19/17 11:35 98.8 74 19 158/71 (100) 93 10/19/17 08:00 60 10/19/17 07:45 97.5 61 19 147/67 (93) 93 10/19/17 04:00 97.4 63 18 175/81 (112) 97 10/19/17 00:00 97.6 73 18 187/84 (118) 95 10/18/17 19:26 97.9 74 18 181/77 (111) 96 10/19/17 10/19/17 10/19/17 07:00 15:00 23:00 Intake Total 480 ml 850 ml Balance 480 ml 850 ml Result Diagram: 10/19/17 0554 10/19/17 0554 Laboratory Results Laboratory Tests Test 10/19/17 05:54 White Blood Count 15.5 TH/MM3 Red Blood Count 2.60 MIL/MM3 Hemoglobin 8.9 GM/DL Hematocrit 27.1 % Mean Corpuscular Volume 104.2 FL Mean Corpuscular Hemoglobin 34.3 PG Mean Corpuscular Hemoglobin Concent 32.9 % Red Cell Distribution Width 15.0 % Platelet Count 456 TH/MM3 Mean Platelet Volume 8.1 FL Neutrophils (%) (Auto) 80.3 % Lymphocytes (%) (Auto) 12.8 % Monocytes (%) (Auto) 6.3 % Eosinophils (%) (Auto) 0.2 % Basophils (%) (Auto) 0.4 % Neutrophils # (Auto) 12.5 TH/MM3 Lymphocytes # (Auto) 2.0 TH/MM3 Monocytes # (Auto) 1.0 TH/MM3 Eosinophils # (Auto) 0.0 TH/MM3 Basophils # (Auto) 0.1 TH/MM3 CBC Comment AUTO DIFF Differential Total Cells Counted 100 Neutrophils % (Manual) 62 % Band Neutrophils % 13 % Lymphocytes % 15 % Monocytes % 10 % Neutrophils # (Manual) 11.6 TH/MM3 Differential Comment FINAL DIFF MANUAL Platelet Estimate HIGH Platelet Morphology Comment NORMAL Polychromasia 2.9 % [place] Bodies PRESENT Blood Urea Nitrogen 30 MG/DL Creatinine 0.80 MG/DL Random Glucose 105 MG/DL Total Protein 5.5 GM/DL Albumin 2.9 GM/DL Calcium Level 8.7 MG/DL Phosphorus Level 3.9 MG/DL Magnesium Level 2.4 MG/DL Alkaline Phosphatase 136 U/L Aspartate Amino Transf (AST/SGOT) 16 U/L Alanine Aminotransferase (ALT/SGPT) 66 U/L Total Bilirubin 1.2 MG/DL Sodium Level 138 MEQ/L Potassium Level 4.3 MEQ/L Chloride Level 102 MEQ/L Carbon Dioxide Level 29.0 MEQ/L Anion Gap 7 MEQ/L Estimat Glomerular Filtration Rate 69 ML/MIN Administered Medications Medications (Trade) Dose Ordered Sig/Nelda Route PRN Reason Start Time Stop Time Status Last Admin Dose Admin Folic Acid (Folate) 1 mg DAILY PO 10/18/17 09:00 10/19/17 09:11 Sodium Chloride (NS Flush) 2 ml BID IV FLUSH 10/18/17 09:00 10/19/17 09:12 Acetaminophen/ Hydrocodone Bitart ([place] 10-325 Mg) 1 tab Q4H PRN PO PAIN SCALE 6 TO 10 10/17/17 22:15 10/18/17 20:15 Senna/Docusate Sodium (Keisha-Colace) 1 tab BID PO 10/18/17 09:00 10/18/17 09:04 Magnesium Hydroxide (Milk Of Magnesia Liq) 30 ml Q12H PRN PO Mild constipation 10/17/17 22:15 10/18/17 08:59 Lactulose (Lactulose Liq) 30 ml DAILY PRN PO SEVERE CONSITIPATION 10/17/17 22:15 10/18/17 08:59 Apixaban (Eliquis) 5 mg BID PO 10/18/17 09:00 10/19/17 09:11 Duloxetine HCl (Cymbalta Dr) 60 mg DAILY PO 10/18/17 09:00 10/19/17 09:11 Pantoprazole Sodium (Protonix) 40 mg DAILY PO 10/18/17 09:00 10/19/17 09:11 Cholecalciferol (Vitamin D3) 5,000 units DAILY PO 10/18/17 09:00 10/19/17 09:11 Hydralazine HCl (Apresoline) 25 mg TID PO 10/18/17 09:00 10/19/17 12:22 Metoprolol Tartrate (Lopressor) 50 mg BID PO 10/18/17 09:00 10/19/17 09:11 Vitamin B Complex/ Vitamin C (Allbee C) 1 tab DAILY PO 10/18/17 09:00 10/19/17 09:11 Clonidine (Catapres) 0.1 mg Q4H PRN PO SBP>160, DBP>90 10/19/17 15:15 10/19/17 15:20 Objective Remarks GENERAL: Older female sitting up in bed watching TV in no obvious distress SKIN: Warm and dry. HEAD: Normocephalic. EYES: No injection or drainage. NECK: Supple, trachea midline. CARDIOVASCULAR: Regular rate and rhythm without murmurs. RESPIRATORY: Breath sounds equal bilaterally. No accessory muscle use. GASTROINTESTINAL: Abdomen soft, non-tender, nondistended. EXTREMITIES: No cyanosis, or edema. MUSCULOSKELETAL: Adequate muscle tone. NEUROLOGICAL: No obvious focal deficit. Awake, alert, and oriented x3. Assessment/Plan Problem List: (1) Autoimmune hemolytic anemia ICD Codes: D59.1 - Other autoimmune hemolytic anemias Plan: 10/19/17: Continue Solu-Medrol 40 mg every 12 hours. Monitor CBC. --Unknown etiology --Patient will need follow-up with Dr. Means as outpatient --Status post 1 unit packed red blood cells on 10/17 (2) Pulmonary embolism ICD Codes: I26.99 - Other pulmonary embolism without acute cor pulmonale Plan: --On Eliquis --Patient was diagnosed 2 months ago when she was admitted with severe shortness of breath Assessment 81-year-old female admitted for weakness and fatigue; hematology consulted for hemolytic anemia Attending Statement The exam, history, and the medical decision-making described in the above note were completed with the assistance of the mid-level provider. I reviewed and agree with the findings presented. I attest that I had a [id number] encounter with the patient on the same day, and personally performed and documented my assessment and findings in the medical record. More tired today. Hg drop to 8.9 Continue solumedrol for another day. DR Means to see her tomorrow and arrange outpt follow up as she is unable to do that since last d/c. Carissa Villavicencio Oct 19, 2017 17:20 Marianne Coles MD Oct 19, 2017 23:29
[2017-10-19] MEDS: ACETAMINOPHEN/HYDROcodone 325 MG/10 MG TAB PO PRN (20:06)
[2017-10-20] VITALS: BP 150/64; PULSE 62; RESP 20; TEMP 98.5; O2SAT 95
[2017-10-20 04:00] VITALS: BP 139/56; PULSE 60; RESP 20; TEMP 97.2; O2SAT 95
[2017-10-20] MEDS: methylPREDNISolone SOD SUCC 40 MG/1 ML VIAL IV PUSH SCH ×2 (06:02→12:43)
[2017-10-20 06:53] LABS: AUTOMATED NEUTROPHIL # 13.7 TH/MM3 (1.8-7.7); BASOPHIL # 0.3 TH/MM3 (0-0.2); BASOPHIL % 1.9 % (0.0-2.0); HEMATOCRIT 28.7 % (35.0-46.0); HEMOGLOBIN 9.1 GM/DL (11.6-15.3); LYMPH % 5.3 % (9.0-44.0); LYMPHOCYTE # 0.8 TH/MM3 (1.0-4.8); MEAN CELL VOLUME 103.1 FL (80.0-100.0); MEAN CORPUSCULAR HEMOGLOBIN 32.8 PG (27.0-34.0); MEAN CORPUSCULAR HGB CONC 31.8 % (32.0-36.0); MEAN PLATELET VOLUME 8.3 FL (7.0-11.0); MONO % 2.8 % (0.0-8.0); MONOCYTE # 0.4 TH/MM3 (0-0.9); PLATELET COUNT 489 TH/MM3 (150-450); RED BLOOD COUNT 2.79 MIL/MM3 (4.00-5.30); RED CELL DISTRIBUTION WIDTH 14.9 % (11.6-17.2); WHITE BLOOD COUNT 15.2 TH/MM3 (4.0-11.0)
[2017-10-20 07:31] LABS: ALBUMIN 2.8 GM/DL (3.4-5.0); ALKALINE PHOSPHATASE 148 U/L (45-117); ALT (GPT) 58 U/L (10-53); AST (GOT) 10 U/L (15-37); BICARBONATE 28.8 MEQ/L (21.0-32.0); BLOOD UREA NITROGEN 26 MG/DL (7-18); CALCIUM 8.5 MG/DL (8.5-10.1); CHLORIDE 102 MEQ/L (98-107); CREATININE 0.94 MG/DL (0.50-1.00); GLOMERULAR FILTRATION RATE 57 ML/MIN (>89); GLUCOSE,RANDOM 223 MG/DL (74-106); MAGNESIUM 2.3 MG/DL (1.5-2.5); PHOSPHORUS 3.3 MG/DL (2.5-4.9); SODIUM (NA) 140 MEQ/L (136-145); TOTAL BILIRUBIN ADULT 0.7 MG/DL (0.2-1.0); TOTAL PROTEIN 5.5 GM/DL (6.4-8.2)
[2017-10-20 07:36] VITALS: PULSE 51
[2017-10-20 08:00] VITALS: BP 156/70; PULSE 54; RESP 16; TEMP 97.4; O2SAT 96
[2017-10-20] MEDS: METOPROLOL TARTRATE 50 MG TAB PO SCH (09:20)
[2017-10-20] MEDS: FOLIC ACID 1 MG TAB PO SCH (09:20)
[2017-10-20] MEDS: DULoxetine HCl DR 60 MG CAP PO SCH (09:20)
[2017-10-20] MEDS: CHOLECALCIFEROL (VIT D3) 5000 UNIT CAP PO SCH (09:20)
[2017-10-20] MEDS: DOCUSATE SODIUM 50 MG/SENNA 8.6 MG TAB PO SCH (09:20)
[2017-10-20] MEDS: hydrALAZINE HCL 25 MG TAB PO SCH ×2 (09:21→12:43)
[2017-10-20] MEDS: VITAMIN B COMPLEX/VIT C TAB PO SCH (09:21)
[2017-10-20] MEDS: PANTOPRAZOLE SOD 40 MG DELAYED RELEASE TAB PO SCH (09:21)
[2017-10-20] MEDS: APIXABAN 5 MG TABLET PO SCH (09:21)
[2017-10-20] MEDS: SODIUM CHLORIDE 0.9% FLUSH 10 ML FLUSH IV FLUSH SCH (09:25)
[2017-10-20 09:38] LABS: BANDS 4 % (0-6); CORRECTED NUCLEATED RBC 1 /100 WBC (0-0); LYMPHOCYTES 4 % (9-44); MONOCYTES 4 % (0-8); NUCLEATED RED BLOOD CELL 1 (0-0); POLYS (SEG NEUTROPHILS) 88 % (16-70)
[2017-10-20 12:00] VITALS: BP 179/69; PULSE 60; RESP 16; TEMP 98.1; O2SAT 95
--- NOTE | 2017-10-20 13:35 | PD.ONC.PN ---
Subjective Subjective Remarks Afebrile overnight. Patient resting in room. States she feels well. She wants to go home today. Objective Data Date Time Temp Pulse Resp B/P (MAP) Pulse Ox O2 Delivery O2 Flow Rate FiO2 10/20/17 12:00 98.1 60 16 179/69 (105) 95 10/20/17 08:00 97.4 54 16 156/70 (98) 96 10/20/17 07:36 Room Air 10/20/17 07:36 51 10/20/17 04:00 97.2 60 20 139/56 (83) 95 10/20/17 00:00 98.5 62 20 150/64 (92) 95 10/19/17 20:03 70 10/19/17 20:00 98.4 67 22 156/65 (95) 96 10/19/17 14:45 98.8 68 18 183/82 (115) 95 Result Diagram: 10/20/17 0417 10/20/17 0417 Laboratory Results Laboratory Tests Test 10/20/17 04:17 White Blood Count 15.2 TH/MM3 Red Blood Count 2.79 MIL/MM3 Hemoglobin 9.1 GM/DL Hematocrit 28.7 % Mean Corpuscular Volume 103.1 FL Mean Corpuscular Hemoglobin 32.8 PG Mean Corpuscular Hemoglobin Concent 31.8 % Red Cell Distribution Width 14.9 % Platelet Count 489 TH/MM3 Mean Platelet Volume 8.3 FL Neutrophils (%) (Auto) 90.0 % Lymphocytes (%) (Auto) 5.3 % Monocytes (%) (Auto) 2.8 % Eosinophils (%) (Auto) 0.0 % Basophils (%) (Auto) 1.9 % Neutrophils # (Auto) 13.7 TH/MM3 Lymphocytes # (Auto) 0.8 TH/MM3 Monocytes # (Auto) 0.4 TH/MM3 Eosinophils # (Auto) 0.0 TH/MM3 Basophils # (Auto) 0.3 TH/MM3 CBC Comment AUTO DIFF Differential Total Cells Counted 100 Neutrophils % (Manual) 88 % Band Neutrophils % 4 % Lymphocytes % 4 % Monocytes % 4 % Neutrophils # (Manual) 14.0 TH/MM3 Nucleated Red Blood Cells 1 /100 WBC Differential Comment FINAL DIFF MANUAL Platelet Estimate HIGH Platelet Morphology Comment NORMAL Blood Urea Nitrogen 26 MG/DL Creatinine 0.94 MG/DL Random Glucose 223 MG/DL Total Protein 5.5 GM/DL Albumin 2.8 GM/DL Calcium Level 8.5 MG/DL Phosphorus Level 3.3 MG/DL Magnesium Level 2.3 MG/DL Alkaline Phosphatase 148 U/L Aspartate Amino Transf (AST/SGOT) 10 U/L Alanine Aminotransferase (ALT/SGPT) 58 U/L Total Bilirubin 0.7 MG/DL Sodium Level 140 MEQ/L Potassium Level 4.2 MEQ/L Chloride Level 102 MEQ/L Carbon Dioxide Level 28.8 MEQ/L Anion Gap 9 MEQ/L Estimat Glomerular Filtration Rate 57 ML/MIN Administered Medications Medications (Trade) Dose Ordered Sig/Nelda Route PRN Reason Start Time Stop Time Status Last Admin Dose Admin Folic Acid (Folate) 1 mg DAILY PO 10/18/17 09:00 10/20/17 09:20 Diphenhydramine HCl (Benadryl Inj) 25 mg Q4H PRN IV PUSH ITCHING/RASH 10/17/17 22:15 10/19/17 22:41 Sodium Chloride (NS Flush) 2 ml BID IV FLUSH 10/18/17 09:00 10/20/17 09:25 Acetaminophen/ Hydrocodone Bitart ([place] 10-325 Mg) 1 tab Q4H PRN PO PAIN SCALE 6 TO 10 10/17/17 22:15 10/19/17 20:06 Senna/Docusate Sodium (Keisha-Colace) 1 tab BID PO 10/18/17 09:00 10/20/17 09:20 Magnesium Hydroxide (Milk Of Magnesia Liq) 30 ml Q12H PRN PO Mild constipation 10/17/17 22:15 10/18/17 08:59 Lactulose (Lactulose Liq) 30 ml DAILY PRN PO SEVERE CONSITIPATION 10/17/17 22:15 10/18/17 08:59 Apixaban (Eliquis) 5 mg BID PO 10/18/17 09:00 10/20/17 09:21 Duloxetine HCl (Cymbalta Dr) 60 mg DAILY PO 10/18/17 09:00 10/20/17 09:20 Pantoprazole Sodium (Protonix) 40 mg DAILY PO 10/18/17 09:00 10/20/17 09:21 Cholecalciferol (Vitamin D3) 5,000 units DAILY PO 10/18/17 09:00 10/20/17 09:20 Hydralazine HCl (Apresoline) 25 mg TID PO 10/18/17 09:00 10/20/17 12:43 Metoprolol Tartrate (Lopressor) 50 mg BID PO 10/18/17 09:00 10/20/17 09:20 Vitamin B Complex/ Vitamin C (Allbee C) 1 tab DAILY PO 10/18/17 09:00 10/20/17 09:21 Methylprednisolone Sodium Succinate (SoluMEDROL INJ) 40 mg Q6HR IV PUSH 10/19/17 18:00 10/20/17 12:43 Clonidine (Catapres) 0.1 mg Q4H PRN PO SBP>160, DBP>90 10/19/17 15:15 10/19/17 15:20 Objective Remarks GENERAL: Pleasant female, sitting up in bed in nad. SKIN: Warm and dry. HEAD: Normocephalic. EYES: No injection or drainage. NECK: Supple, trachea midline CARDIOVASCULAR: Regular rate and rhythm RESPIRATORY: Breath sounds equal bilaterally. No accessory muscle use. GASTROINTESTINAL: Abdomen soft, non-tender, nondistended. EXTREMITIES: No cyanosis NEUROLOGICAL: awake and alert, normal speech. 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 face sheet faxed to new patient referrals for follow up with Dr. Means in one week. will need to be discharged on prednisone. --Unknown etiology --Patient will need follow-up with Dr. Means as outpatient --Status post 1 unit packed red blood cells on 10/17 (2) Pulmonary embolism ICD Codes: I26.99 - Other pulmonary embolism without acute cor pulmonale Plan: --On Eliquis --Patient was diagnosed 2 months ago when she was admitted with severe shortness of breath Assessment 81-year-old female admitted for weakness and fatigue; hematology consulted for hemolytic anemia Reva Perez Oct 20, 2017 13:35
--- NOTE | 2017-10-20 13:43 | HHI.PR ---
Subjective Remarks This is a 81-year-old female with a PMH of Anxiety, Depression, h/o PE on Eliquis and h/o Autoimmune Hemolytic Anemia requiring transfusion who was referred to the ER by her PCP for generalized weakness. Recent admit 09/09- for similar complaints, found to have Autoimmune Hemolytic Anemia, s/p eval by Hematology and started on Steroid therapy. States she has been unable to follow up w/ Hematology as outpatient due to her insurance, unable to find anyone in network. Still taking Prednisone 40mg qd as prescribed. On arrival, BP 150/55, HR 78, O2 sat 96% on RA, Temp 99.2. WBC 14.4, bandemia of 9%. Hemoglobin 7.8, previously 10.6 on 09/18/17. Creatinine 1.02, previously 1.01 on 09/18/17. INR 1.1. 1u pRBC ordered in ER, pending transfusion. Dr. Coles consulted by ER physician, recommended Solu-Medrol, Benadryl and Folic Acid. 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 after discharge Patient may have transfusion dependent hemolytic anemia Pending hematology consulT, patient may be discharged on clearance by hematology 3-11 PATIENT HAS NOT BEEN CLEARED BY HEMATOLOGY HGB IN THE 8S NOW AM LABS CURRENT THERAPY PER HEMATOLOGY [facility] HOME NEXT 24 TO [address] RN AND PT 3-12 seen by HEMATOLOGY THEIR NOTE SAYS CAN GO HOME TODAY AND FOLLOW UP WITH DR NEWTON WILL DC TO HOME ON PO STEROIDS Objective Vitals Vital Signs Date Time Temp Pulse Resp B/P (MAP) Pulse Ox O2 Delivery O2 Flow Rate FiO2 10/20/17 12:00 98.1 60 16 179/69 (105) 95 10/20/17 08:00 97.4 54 16 156/70 (98) 96 10/20/17 07:36 Room Air 10/20/17 07:36 51 10/20/17 04:00 97.2 60 20 139/56 (83) 95 10/20/17 00:00 98.5 62 20 150/64 (92) 95 10/19/17 20:03 70 10/19/17 20:00 98.4 67 22 156/65 (95) 96 10/19/17 14:45 98.8 68 18 183/82 (115) 95 I/O 10/19/17 10/19/17 10/19/17 10/20/17 10/20/17 10/20/17 07:00 15:00 23:00 07:00 15:00 23:00 Intake Total 480 ml 850 ml Balance 480 ml 850 ml Intake Oral 480 ml 850 ml # Voids 3 4 # Bowel Movements 0 Result Diagram: 10/20/17 0417 10/20/17 0417 Other Results Laboratory Tests Test 10/17/17 17:19 10/18/17 01:45 10/18/17 05:15 10/19/17 05:54 White Blood Count 14.4 TH/MM3 10.8 TH/MM3 15.5 TH/MM3 Red Blood Count 2.24 MIL/MM3 2.70 MIL/MM3 2.60 MIL/MM3 Hemoglobin 7.8 GM/DL 9.6 GM/DL 8.9 GM/DL Hematocrit 24.1 % 28.4 % 27.1 % Mean Corpuscular Volume 108.0 FL 105.2 FL 104.2 FL Mean Corpuscular Hemoglobin 35.1 PG 35.6 PG 34.3 PG Mean Corpuscular Hemoglobin Concent 32.5 % 33.8 % 32.9 % Red Cell Distribution Width 14.5 % 15.7 % 15.0 % Platelet Count 457 TH/MM3 456 TH/MM3 456 TH/MM3 Mean Platelet Volume 7.8 FL 8.1 FL 8.1 FL Neutrophils (%) (Auto) 86.3 % 88.2 % 80.3 % Lymphocytes (%) (Auto) 6.6 % 9.2 % 12.8 % Monocytes (%) (Auto) 5.3 % 2.3 % 6.3 % Eosinophils (%) (Auto) 1.3 % 0.0 % 0.2 % Basophils (%) (Auto) 0.5 % 0.3 % 0.4 % Neutrophils # (Auto) 12.4 TH/MM3 9.5 TH/MM3 12.5 TH/MM3 Lymphocytes # (Auto) 1.0 TH/MM3 1.0 TH/MM3 2.0 TH/MM3 Monocytes # (Auto) 0.8 TH/MM3 0.2 TH/MM3 1.0 TH/MM3 Eosinophils # (Auto) 0.2 TH/MM3 0.0 TH/MM3 0.0 TH/MM3 Basophils # (Auto) 0.1 TH/MM3 0.0 TH/MM3 0.1 TH/MM3 CBC Comment AUTO DIFF AUTO DIFF AUTO DIFF Differential Total Cells Counted 100 100 100 Neutrophils % (Manual) 74 % 74 % 62 % Band Neutrophils % 9 % 18 % 13 % Lymphocytes % 8 % 7 % 15 % Monocytes % 3 % 1 % 10 % Eosinophils % 1 % Other Cells % 5 % Neutrophils # (Manual) 12.0 TH/MM3 9.9 TH/MM3 11.6 TH/MM3 Nucleated Red Blood Cells 10 /100 WBC 7 /100 WBC Differential Comment FINAL DIFF MANUAL FINAL DIFF MANUAL FINAL DIFF MANUAL Platelet Estimate NORMAL HIGH HIGH Platelet Morphology Comment NORMAL NORMAL NORMAL Basophilic Stippling FAINT Ovalocytes 1+ [place] Bodies PRESENT PRESENT Prothrombin Time 11.3 SEC Prothromb Time International Ratio 1.1 RATIO Activated Partial Thromboplast Time 26.8 SEC Blood Urea Nitrogen 22 MG/DL 22 MG/DL 30 MG/DL Creatinine 1.02 MG/DL 0.90 MG/DL 0.80 MG/DL Random Glucose 134 MG/DL 140 MG/DL 105 MG/DL Total Protein 5.8 GM/DL 6.0 GM/DL 5.5 GM/DL Albumin 3.1 GM/DL 2.9 GM/DL 2.9 GM/DL Calcium Level 8.7 MG/DL 8.4 MG/DL 8.7 MG/DL Alkaline Phosphatase 150 U/L 142 U/L 136 U/L Aspartate Amino Transf (AST/SGOT) 26 U/L 15 U/L 16 U/L Alanine Aminotransferase (ALT/SGPT) 70 U/L 68 U/L 66 U/L Total Bilirubin 2.3 MG/DL 1.6 MG/DL 1.2 MG/DL Sodium Level 139 MEQ/L 141 MEQ/L 138 MEQ/L Potassium Level 4.3 MEQ/L 4.2 MEQ/L 4.3 MEQ/L Chloride Level 103 MEQ/L 106 MEQ/L 102 MEQ/L Carbon Dioxide Level 29.3 MEQ/L 28.5 MEQ/L 29.0 MEQ/L Anion Gap 7 MEQ/L 7 MEQ/L 7 MEQ/L Estimat Glomerular Filtration Rate 52 ML/MIN 60 ML/MIN 69 ML/MIN Urine Color YELLOW Urine Turbidity HAZY Urine pH 5.5 Urine Specific [place] 1.016 Urine Protein 30 mg/dL Urine Glucose (UA) NEG mg/dL Urine Ketones NEG mg/dL Urine Occult Blood MOD Urine Nitrite NEG Urine Bilirubin NEG Urine Urobilinogen 2.0 MG/DL Urine Leukocyte Esterase SMALL Urine RBC 105 /hpf Urine WBC 7 /hpf Urine Squamous Epithelial Cells 2 /hpf Urine Renal Epithelial Cells <1 /hpf Urine Mucus FEW /lpf Microscopic Urinalysis Comment CULT NOT INDICATED Polychromasia 4.5 % 2.9 % Phosphorus Level 4.4 MG/DL 3.9 MG/DL Magnesium Level 2.3 MG/DL 2.4 MG/DL Hemoglobin A1c 3.1 % Thyroxine (T4) 8.3 MCG/DL Thyroid Stimulating Hormone 3rd Gen 0.361 uIU/ML Test 10/20/17 04:17 White Blood Count 15.2 TH/MM3 Red Blood Count 2.79 MIL/MM3 Hemoglobin 9.1 GM/DL Hematocrit 28.7 % Mean Corpuscular Volume 103.1 FL Mean Corpuscular Hemoglobin 32.8 PG Mean Corpuscular Hemoglobin Concent 31.8 % Red Cell Distribution Width 14.9 % Platelet Count 489 TH/MM3 Mean Platelet Volume 8.3 FL Neutrophils (%) (Auto) 90.0 % Lymphocytes (%) (Auto) 5.3 % Monocytes (%) (Auto) 2.8 % Eosinophils (%) (Auto) 0.0 % Basophils (%) (Auto) 1.9 % Neutrophils # (Auto) 13.7 TH/MM3 Lymphocytes # (Auto) 0.8 TH/MM3 Monocytes # (Auto) 0.4 TH/MM3 Eosinophils # (Auto) 0.0 TH/MM3 Basophils # (Auto) 0.3 TH/MM3 CBC Comment AUTO DIFF Differential Total Cells Counted 100 Neutrophils % (Manual) 88 % Band Neutrophils % 4 % Lymphocytes % 4 % Monocytes % 4 % Neutrophils # (Manual) 14.0 TH/MM3 Nucleated Red Blood Cells 1 /100 WBC Differential Comment FINAL DIFF MANUAL Platelet Estimate HIGH Platelet Morphology Comment NORMAL Blood Urea Nitrogen 26 MG/DL Creatinine 0.94 MG/DL Random Glucose 223 MG/DL Total Protein 5.5 GM/DL Albumin 2.8 GM/DL Calcium Level 8.5 MG/DL Phosphorus Level 3.3 MG/DL Magnesium Level 2.3 MG/DL Alkaline Phosphatase 148 U/L Aspartate Amino Transf (AST/SGOT) 10 U/L Alanine Aminotransferase (ALT/SGPT) 58 U/L Total Bilirubin 0.7 MG/DL Sodium Level 140 MEQ/L Potassium Level 4.2 MEQ/L Chloride Level 102 MEQ/L Carbon Dioxide Level 28.8 MEQ/L Anion Gap 9 MEQ/L Estimat Glomerular Filtration Rate 57 ML/MIN Objective Remarks GENERAL: Awake alert oriented 3 talkative and cooperative-- appears stated age SKIN: Warm and dry. HEAD: Atraumatic. Normocephalic. EYES: Pupils equal and round. No scleral icterus. No injection or drainage. Extraocular muscles intact ENT: No nasal bleeding or discharge. Mucous membranes pink and moist. Tongue is midline NECK: Trachea midline. No JVD. Supple CARDIOVASCULAR: Regular rate and rhythm. S1-S2 no S3 or S4 RESPIRATORY: No accessory muscle use. Clear to auscultation. Breath sounds equal bilaterally. GASTROINTESTINAL: Abdomen soft, non-tender, nondistended. Hepatic and splenic margins not palpable. MUSCULOSKELETAL: Extremities without clubbing, cyanosis, or edema. No obvious deformities. NEUROLOGICAL: Awake and alert. No obvious cranial nerve deficits. Motor grossly within normal limits. Five out of 5 muscle strength in the arms and legs. Normal speech. PSYCHIATRIC: Appropriate mood and affect; insight and judgment normal. Procedures None Medications and IVs Current Medications Sodium Chloride 250 ml @ 15 mls/hr ONCE ONCE IV Last administered on 23:33; Start 10/17/17 at 22:00; Stop 10/18/17 at 14:39; Status DC Diphenhydramine HCl (Benadryl Inj) 25 mg ONCE ONCE IV PUSH Last administered on 10/17/17 22:30; Start 10/17/17 at 22:00; Stop 10/17/17 at 22:01; Status DC Methylprednisolone Sodium Succinate (SoluMEDROL INJ) 40 mg ONCE ONCE IV PUSH Last administered on 10/17/17 22:26; Start 10/17/17 at 22:00; Stop 10/17/17 at 22: 01; Status DC Folic Acid (Folate) 1 mg ONCE ONCE PO Last administered on 10/17/17 22:26; Start 10/17/17 at 22:00; Stop 10/17/17 at 22:01; Status DC Folic Acid (Folate) 1 mg DAILY PO Last administered on 10/20/17at 09:20; Start 10/18/17 at 09:00 Methylprednisolone Sodium Succinate (SoluMEDROL INJ) 40 mg Q12HR IV PUSH Last administered on 10/19/17at 09:11; Start 10/18/17 at 09:00; Stop 10/19/17 at 13:55 ; Status DC Diphenhydramine HCl (Benadryl Inj) 25 mg Q4H PRN IV PUSH ITCHING/RASH Last administered on 10/19/17at 22:41; Start 10/17/17 at 22:15 Sodium Chloride (NS Flush) 2 ml UNSCH PRN IV FLUSH FLUSH AFTER USING IV ACCESS ; Start 10/17/17 at 22:15 Sodium Chloride (NS Flush) 2 ml BID IV FLUSH Last administered on 10/20/17at 09: 25; Start 10/18/17 at 09:00 Ondansetron HCl (Zofran Inj) 4 mg Q6H PRN IVP NAUSEA OR VOMITING; Start at 22:15 Acetaminophen (Tylenol) 650 mg Q6H PRN PO FEVER/PAIN SCALE 1 TO 2; Start at 22:15 Acetaminophen/ Hydrocodone Bitart ([place] 5-325 Mg) 1 tab Q4H PRN PO PAIN SCALE 3 TO 5; Start 10/17/17 at 22:15 Acetaminophen/ Hydrocodone Bitart ([place] 10-325 Mg) 1 tab Q4H PRN PO PAIN SCALE 6 TO 10 Last administered on 10/19/17at 20:06; Start 10/17/17 at 22:15 Senna/Docusate Sodium (Keisha-Colace) 1 tab BID PO Last administered on at 09:20; Start 10/18/17 at 09:00 Magnesium Hydroxide (Milk Of Magnesia Liq) 30 ml Q12H PRN PO Mild constipation Last administered on 10/18/17at 08:59; Start 10/17/17 at 22:15 Sennosides (Senokot) 17.2 mg Q12H PRN PO Moderate constipation; Start 10/17/17 at 22:15 Bisacodyl (Dulcolax Supp) 10 mg DAILY PRN RECTAL SEVERE CONSITIPATION; Start at 22:15 Lactulose (Lactulose Liq) 30 ml DAILY PRN PO SEVERE CONSITIPATION Last administered on 10/18/17 08:59; Start 10/17/17 at 22:15 Apixaban (Eliquis) 5 mg BID PO Last administered on 10/20/17 09:21; Start 05/28 at 09:00 Duloxetine HCl (Cymbalta Dr) 60 mg DAILY PO Last administered on 10/20/17 09: 20; Start 10/18/17 at 09:00 Pantoprazole Sodium (Protonix) 40 mg DAILY PO Last administered on 10/20/17 09 :21; Start 10/18/17 at 09:00 Cholecalciferol (Vitamin D3) 5,000 units DAILY PO Last administered on 09:20; Start 10/18/17 at 09:00 Folic Acid (Folate) 1 mg DAILY PO ; Start 10/18/17 at 09:00; Status Cancel Hydralazine HCl (Apresoline) 25 mg TID PO Last administered on 10/20/17 12:43 ; Start 10/18/17 at 09:00 Metoprolol Tartrate (Lopressor) 50 mg BID PO Last administered on 10/20/17 09: 20; Start 10/18/17 at 09:00 Vitamin B Complex/ Vitamin C (Allbee C) 1 tab DAILY PO Last administered on 09:21; Start 10/18/17 at 09:00 Albuterol Sulfate (Albuterol Neb) 2.5 mg Q2HR NEB PRN NEB dyspnea; Start at 08:30 Methylprednisolone Sodium Succinate (SoluMEDROL INJ) 40 mg Q6HR IV PUSH Last administered on 10/20/17 12:43; Start 10/19/17 at 18:00 Clonidine (Catapres) 0.1 mg Q4H PRN PO SBP>160, DBP>90 Last administered on 15:20; Start 10/19/17 at 15:15 A/P Problem List: (1) Symptomatic anemia ICD Code: D64.9 - Anemia, unspecified Status: Acute (2) Leukocytosis ICD Code: D72.829 - Elevated white blood cell count, unspecified (3) H/O pulmonary thrombosis ICD Code: Z86.711 - Personal history of pulmonary embolism (4) HTN (hypertension) ICD Code: I10 - Essential (primary) hypertension Status: Chronic (5) Severe anemia ICD Code: D64.9 - Anemia, unspecified (6) Autoimmune hemolytic anemia ICD Code: D59.1 - Other autoimmune hemolytic anemias (7) Pulmonary embolism ICD Code: I26.99 - Other pulmonary embolism without acute cor pulmonale Assessment and Plan 1. Symptomatic Anemia: h/o Autoimmune Hemolytic Anemia on previous admit, s/p eval by Hematology, currently on Prednisone 40mg qd. Hgb 7.8, previously 10.6 on 09/18/17. Dr. Coles consulted by ER physician, recommendation for Solu- Medrol, Benadryl and Folic Acid. 1u pRBC ordered, pending transfusion. Check Hgb/Hct after transfusion completed. -Hemoglobin is greater than 9-await hematology clearance REPEAT HGB TODAY 8.9 Patient may become transfusion dependent if she does not respond to oral therapy 2. Leukocytosis: WBC 14.4, likely reactive. Check U/a to eval for underlying UTI. Repeat labs in am. Hypertension resume home medications Depression resume home medications GERD resume home medications 3. H/o PE: On Eliquis, s/p eval by Pulmonary on last visit, recommendation to resume Eliquis in light of bilateral PE. Monitor for worsening anemia. 4. DVT Prophylaxis: Eliquis 5. Social work for DC planning as needed. DC TO HOME TODAY CLEARED BY HEMATOLOGY FOLLOW UP DR NEWTON Discharge Planning Pending hematology clearance Aristeo Michele DO Oct 20, 2017 13:43
--- NOTE | 2017-10-20 13:49 | HHI.DS ---
Discharge Summary Admission Date Oct 17, 2017 at 22:10 Discharge Date: Oct 20, 2017 Admitting Diagnosis symptomatic anemia (1) Symptomatic anemia ICD Code: D64.9 - Anemia, unspecified Diagnosis: Principal Status: Acute (2) Leukocytosis ICD Code: D72.829 - Elevated white blood cell count, unspecified Diagnosis: Secondary (3) H/O pulmonary thrombosis ICD Code: Z86.711 - Personal history of pulmonary embolism Diagnosis: Principal (4) HTN (hypertension) ICD Code: I10 - Essential (primary) hypertension Diagnosis: Secondary Status: Chronic (5) Severe anemia ICD Code: D64.9 - Anemia, unspecified Diagnosis: Principal (6) 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 Recent admit 09/09- for similar complaints, found to have Autoimmune Hemolytic Anemia, s/p eval by Hematology and started on Steroid therapy. States she has been unable to follow up w/ Hematology as outpatient due to her insurance, unable to find anyone in network. Still taking Prednisone 40mg qd as prescribed. On arrival, BP 150/55, HR 78, O2 sat 96% on RA, Temp 99.2. WBC 14.4, bandemia of 9%. Hemoglobin 7.8, previously 10.6 on 09/18/17. Creatinine 1.02, previously 1.01 on 09/18/17. INR 1.1. 1u pRBC ordered in ER, pending transfusion. Dr. Coles consulted by ER physician, recommended Solu-Medrol, Benadryl and Folic Acid. CBC/BMP: 10/20/17 0417 10/20/17 0417 Significant Findings Laboratory Tests Test 3/9/18 17:19 10/18/17 01:45 10/18/17 05:15 10/19/17 05:54 White Blood Count 14.4 TH/MM3 (4.0-11.0) 15.5 TH/MM3 (4.0-11.0) Red Blood Count 2.24 MIL/MM3 (4.00-5.30) 2.70 MIL/MM3 (4.00-5.30) 2.60 MIL/MM3 (4.00-5.30) Hemoglobin 7.8 GM/DL (11.6-15.3) 9.6 GM/DL (11.6-15.3) 8.9 GM/DL (11.6-15.3) Hematocrit 24.1 % (35.0-46.0) 28.4 % (35.0-46.0) 27.1 % (35.0-46.0) Mean Corpuscular Volume 108.0 FL (80.0-100.0) 105.2 FL (80.0-100.0) 104.2 FL (80.0-100.0) Mean Corpuscular Hemoglobin 35.1 PG (27.0-34.0) 35.6 PG (27.0-34.0) 34.3 PG (27.0-34.0) Platelet Count 457 TH/MM3 (150-450) 456 TH/MM3 (150-450) 456 TH/MM3 (150-450) Neutrophils (%) (Auto) 86.3 % (16.0-70.0) 88.2 % (16.0-70.0) 80.3 % (16.0-70.0) Lymphocytes (%) (Auto) 6.6 % (9.0-44.0) Neutrophils # (Auto) 12.4 TH/MM3 (1.8-7.7) 9.5 TH/MM3 (1.8-7.7) 12.5 TH/MM3 (1.8-7.7) Neutrophils % (Manual) 74 % (16-70) 74 % (16-70) Band Neutrophils % 9 % (0-6) 18 % (0-6) 13 % (0-6) Lymphocytes % 8 % (9-44) 7 % (9-44) Neutrophils # (Manual) 12.0 TH/MM3 (1.8-7.7) 9.9 TH/MM3 (1.8-7.7) 11.6 TH/MM3 (1.8-7.7) Nucleated Red Blood Cells 10 /100 WBC (0-0) 7 /100 WBC (0-0) Basophilic Stippling FAINT (NORMAL) Ovalocytes 1+ (NORMAL) Blood Urea Nitrogen 22 MG/DL (7-18) 22 MG/DL (7-18) 30 MG/DL (7-18) Creatinine 1.02 MG/DL (0.50-1.00) Random Glucose 134 MG/DL (74-106) 140 MG/DL (74-106) Total Protein 5.8 GM/DL (6.4-8.2) 6.0 GM/DL (6.4-8.2) 5.5 GM/DL (6.4-8.2) Albumin 3.1 GM/DL (3.4-5.0) 2.9 GM/DL (3.4-5.0) 2.9 GM/DL (3.4-5.0) Alkaline Phosphatase 150 U/L (45-117) 142 U/L (45-117) 136 U/L (45-117) Alanine Aminotransferase (ALT/SGPT) 70 U/L (10-53) 68 U/L (10-53) 66 U/L (10-53) Total Bilirubin 2.3 MG/DL (0.2-1.0) 1.6 MG/DL (0.2-1.0) 1.2 MG/DL (0.2-1.0) Estimat Glomerular Filtration Rate 52 ML/MIN (>89) 60 ML/MIN (>89) 69 ML/MIN (>89) Urine Turbidity HAZY (CLEAR) Urine Protein 30 mg/dL (NEG-TRACE) Urine Occult Blood MOD (NEG) Urine Leukocyte Esterase SMALL (NEG) Urine RBC 105 /hpf (0-3) Urine WBC 7 /hpf (0-5) Urine Mucus FEW /lpf (OCC) Platelet Estimate HIGH (NORMAL) HIGH (NORMAL) Polychromasia 4.5 % (0.0-1.9) 2.9 % (0.0-1.9) Calcium Level 8.4 MG/DL (8.5-10.1) Hemoglobin A1c 3.1 % (4.3-6.0) Monocytes # (Auto) 1.0 TH/MM3 (0-0.9) Monocytes % 10 % (0-8) Test 10/20/17 04:17 White Blood Count 15.2 TH/MM3 (4.0-11.0) Red Blood Count 2.79 MIL/MM3 (4.00-5.30) Hemoglobin 9.1 GM/DL (11.6-15.3) Hematocrit 28.7 % (35.0-46.0) Mean Corpuscular Volume 103.1 FL (80.0-100.0) Mean Corpuscular Hemoglobin Concent 31.8 % (32.0-36.0) Platelet Count 489 TH/MM3 (150-450) Neutrophils (%) (Auto) 90.0 % (16.0-70.0) Lymphocytes (%) (Auto) 5.3 % (9.0-44.0) Neutrophils # (Auto) 13.7 TH/MM3 (1.8-7.7) Lymphocytes # (Auto) 0.8 TH/MM3 (1.0-4.8) Basophils # (Auto) 0.3 TH/MM3 (0-0.2) Neutrophils % (Manual) 88 % (16-70) Lymphocytes % 4 % (9-44) Neutrophils # (Manual) 14.0 TH/MM3 (1.8-7.7) Nucleated Red Blood Cells 1 /100 WBC (0-0) Platelet Estimate HIGH (NORMAL) Blood Urea Nitrogen 26 MG/DL (7-18) Random Glucose 223 MG/DL (74-106) Total Protein 5.5 GM/DL (6.4-8.2) Albumin 2.8 GM/DL (3.4-5.0) Alkaline Phosphatase 148 U/L (45-117) Aspartate Amino Transf (AST/SGOT) 10 U/L (15-37) Alanine Aminotransferase (ALT/SGPT) 58 U/L (10-53) Estimat Glomerular Filtration Rate 57 ML/MIN (>89) PE at Discharge GENERAL: Awake alert oriented 3 talkative and cooperative-- appears stated age SKIN: Warm and dry. HEAD: Atraumatic. Normocephalic. EYES: Pupils equal and round. No scleral icterus. No injection or drainage. Extraocular muscles intact ENT: No nasal bleeding or discharge. Mucous membranes pink and moist. Tongue is midline NECK: Trachea midline. No JVD. Supple CARDIOVASCULAR: Regular rate and rhythm. S1-S2 no S3 or S4 RESPIRATORY: No accessory muscle use. Clear to auscultation. Breath sounds equal bilaterally. GASTROINTESTINAL: Abdomen soft, non-tender, nondistended. Hepatic and splenic margins not palpable. MUSCULOSKELETAL: Extremities without clubbing, cyanosis, or edema. No obvious deformities. NEUROLOGICAL: Awake and alert. No obvious cranial nerve deficits. Motor grossly within normal limits. Five out of 5 muscle strength in the arms and legs. Normal speech. PSYCHIATRIC: Appropriate mood and affect; insight and judgment normal. Hospital Course This is a 81-year-old female with a PMH of Anxiety, Depression, h/o PE on Eliquis and h/o Autoimmune Hemolytic Anemia requiring transfusion who was referred to the ER by her PCP for generalized weakness. Recent admit 09/09- for similar complaints, found to have Autoimmune Hemolytic Anemia, s/p eval by Hematology and started on Steroid therapy. States she has been unable to follow up w/ Hematology as outpatient due to her insurance, unable to find anyone in network. Still taking Prednisone 40mg qd as prescribed. On arrival, BP 150/55, HR 78, O2 sat 96% on RA, Temp 99.2. WBC 14.4, bandemia of 9%. Hemoglobin 7.8, previously 10.6 on 09/18/17. Creatinine 1.02, previously 1.01 on 09/18/17. INR 1.1. 1u pRBC ordered in ER, pending transfusion. Dr. Coles consulted by ER physician, recommended Solu-Medrol, Benadryl and Folic Acid. 3-10 we await oncology/hematology evaluation Has already been transfused 1 unit hemoglobin up into the 9s now Discussed with patient and RN Patient states she has not been able to get in to see a mobile lounge driver after discharge Patient may have transfusion dependent hemolytic anemia Pending hematology consulT, patient may be discharged on clearance by hematology 3-11 PATIENT HAS NOT BEEN CLEARED BY HEMATOLOGY HGB IN THE 8S NOW AM LABS CURRENT THERAPY PER HEMATOLOGY [facility] HOME NEXT 24 TO [address] RN AND PT 3-12 seen by HEMATOLOGY THEIR NOTE SAYS CAN GO HOME TODAY AND FOLLOW UP WITH DR MEANS WILL DC TO HOME ON PO STEROIDS Pt Condition on Discharge: Good Discharge Disposition: Discharge Home Discharge Time: <= 30 minutes Discharge Instructions DIET: Follow Instructions for: Heart Healthy Diet Speech Therapy-Diet Recommends: Regular Activities you can perform: Regular-No Restrictions Follow up Referrals: Oncology/Hematology - 3-5 Days Oncology/Hematology - 3-5 Days with Reuben Means MD PCP Follow-up - 2-3 Days Continued Medications: Apixaban (Eliquis) 5 Mg Tab 5 MG PO BID for Blood Clot Prevention for 30 Days, #[address] (Aspirin DR) 81 Mg Tabdr 81 MG PO DAILY for Blood Clot Prevention for 30 Days, #30 TAB B-Complex Vitamins (Vitamin B Complex) 1 Tab 1 TAB PO DAILY Cholecalciferol (Vitamin D-1000) 1,000 Unit Tab 5000 UNITS PO DAILY for Nutritional Supplement, #1 BOTTLE [address] (Duloxetine DR) 60 Mg Capdr 60 MG PO DAILY, #30 CAP 0 Refills Folic Acid (Folic Acid) 0.8 Mg Tab 1 MG PO DAILY for Nutritional Supplement, TAB 0 Refills Hydralazine HCl (Hydralazine HCl) 25 Mg Tablet 25 MG PO TID for Blood Pressure Management, #90 TAB 0 Refills Hydrocodone-Acetaminophen ([place]) 5 Mg-325 Mg Tab 1 TAB PO Q6H PRN for PAIN, #20 TAB 0 Refills Metoprolol Tartrate (Lopressor) 50 Mg Tab 50 MG PO BID for heart for 30 Days, #60 TAB Pantoprazole (Pantoprazole) 40 Mg Tab 40 MG PO DAILY for prevent stomach ulcer for 30 Days, #30 TAB Prednisone (Prednisone) 20 Mg Tab 40 MG PO DAILY for treat anemia for 14 Days, #28 TAB (This prescription has been renewed) DO NOT STOP THIS MEDICATION BEFORE SEEING [facility] Tizanidine (Tizanidine) 4 Mg Cap 4 MG PO DAILY, CAP 0 Refills [Albuterol Neb] () 2.5 MG/3 ML NEBU 2.5 MG NEB Q2HR NEB PRN for dyspnea for 30 Days Discontinued Medications: Ciprofloxacin (Cipro) 250 Mg Tab 250 MG PO Q12HR for Infection for 7 Days, TAB Aristeo Michele DO Oct 20, 2017 13:49
== END 2017-10-20 17:12 | disposition home or self-care (01) | DRG 810 ==
LOC: NEPC 16:49 → NEDA 22:10 → N06A 23:05
PROVIDERS: ADMIT Hospitalist; ATTEND Hospitalist
PROC: 30233N1 Transfusion of Nonautologous Red Blood Cells into Peripheral Vein, Percutaneous Approach (ICD-10-PCS; principal; 2017-10-17)
DX: D59.1 Other autoimmune hemolytic anemias (principal); I10 Essential (primary) hypertension; K59.09 Other constipation; K21.9 Gastro-esophageal reflux disease without esophagitis; D72.825 Bandemia; M54.5 Low back pain; G89.29 Other chronic pain; M19.90 Unspecified osteoarthritis, unspecified site; F32.9 Major depressive disorder, single episode, unspecified; F41.9 Anxiety disorder, unspecified; Z79.01 Long term (current) use of anticoagulants; Z86.711 Personal history of pulmonary embolism; Z88.2 Allergy status to sulfonamides; Z90.81 Acquired absence of spleen
CPT/HCPCS: 36430; 80053; 81001; 83036; 83735; 84100; 84436; 84443; 85007; 85027; 85610; 85730; 86850; 86900; 86901; 86920; 86921; 86922; 99285; J1200; J2920; J7050; P9016

== ENCOUNTER 2018-03-08 14:31 | Inpatient (IN) ==
--- NOTE | 2018-03-08 15:23 | XR ---
EXAM DATE: 03/08/2018 3:19 PM EDT AGE/SEX: 82 years / Female INDICATIONS: Anemia. Short of breath. CLINICAL DATA: This is the patient's initial encounter. Patient reports that signs and symptoms have been present for 1 week and indicates a pain score of 0/10. MEDICAL/SURGICAL HISTORY: . Hypercholesterolemia. Renal calculi. Osteoarthritis. HTN GERD Hys terectomy. COMPARISON: [facility] [place], CHEST SINGLE AP, 09/14/2017. . FINDINGS: The lungs are clear without infiltrate, nodule, or mass. There is no appreciable pleural effusion for technique. Heart and mediastinum are unremarkable. CONCLUSION: No acute cardiopulmonary disease. Electronically signed by: Mandeep Zelaya MD 03/08/2018 3:21 PM EDT
[2018-03-08 15:43] LABS: Baso # (Auto) 0.1 th/mm3 (0.0-0.2); Baso % (Auto) 0.4 % (0.0-2.0); Eos # (Auto) 0.1 th/mm3 (0.0-0.4); Eos % (Auto) 0.5 % (0.0-4.0); Hematocrit 21.1 % (35.0-46.0); Lymph # (Auto) 3.4 th/mm3 (1.0-4.8); Lymph % (Auto) 18.4 % (9.0-44.0); Mean Corpuscular HGB Conc 32.6 % (32.0-36.0); Mean Corpuscular Hemoglobin 44.2 pg (27.0-34.0); Mean Corpuscular Volume 135.5 fL (80.0-100.0); Mean Platelet Volume 7.2 fL (7.0-11.0); Mono # (Auto) 1.2 th/mm3 (0.0-0.9); Mono % (Auto) 6.3 % (0.0-8.0); Neut # (Auto) 13.6 th/mm3 (1.8-7.7); Neut % (Auto) 74.4 % (16.0-70.0); Platelet Count 627 th/mm3 (150-450); Red Blood Count 1.56 mil/mm3 (4.00-5.30); Red Cell Distribution Width 28.8 % (11.6-17.2); White Blood Count 18.3 th/mm3 (4.0-11.0)
[2018-03-08 15:46] LABS: Alanine Aminotransferase 24 U/L (10-53); Albumin 3.3 g/dL (3.4-5.0); Anion Gap 7 meq/L (5-15); Aspartate Aminotransferase 32 U/L (15-37); Blood Urea Nitrogen 14 mg/dL (7-18); Calcium 8.6 mg/dL (8.5-10.1); Carbon Dioxide 29.1 meq/L (21.0-32.0); Chloride 108 meq/L (98-107); Glomerular Filtration Rate 55 mL/min (>89); Glucose,Random 112 mg/dL (74-106); Sodium 144 meq/L (136-145)
[2018-03-08 15:49] LABS: Alkaline Phosphatase 92 U/L (45-117); Hemoglobin 6.9 gm/dL (11.6-15.3); Total Protein 5.8 g/dL (6.4-8.2)
[2018-03-08] MEDS ORDERED: Sodium Chlor 0.9% Inj 250 ML IV.SIG SCH (16:00)
--- NOTE | 2018-03-08 16:01 | ED ---
HPI General Chief complaint: Weakness Stated complaint: General Weakness Time Seen by Provider: 03/08/18 14:56 Source: patient and old records reviewed Mode of arrival: EMS History of Present Illness HPI Narrative: The patient is 82-year-old female with autoimmune hemolytic anemia presenting with complaint of shortness of breath weakness and feeling faint when standing. She has been transfused several times last one was about 1 month ago at her oncologist's office and is currently on cyclophosphamide. MD Complaint: generalized weakness Onset (ago): day(s) (3) Duration: constant Location: generalized Migration: none Exacerbating factors: exertion Associated symptoms: nausea/vomiting and shortness of breath Related Data Home Medications Medication Instructions Recorded Confirmed duloxetine 60 mg PO DAILY 03/08/18 03/08/18 tizanidine 4 mg PO TID PRN 03/08/18 03/08/18 verapamil 60 mg PO DAILY 03/08/18 03/08/18 Allergies Allergy/AdvReac Type Severity Reaction Status Date / Time Sulfa (Sulfonamide Allergy Severe Agitation Verified 03/08/18 14:42 Antibiotics) Review of Systems ROS Unobtainable All other systems reviewed negative except as stated in HPI [facility] Medical History Medical History HTN (hypertension) (Acute) Hemolytic anemia (Acute) History of hysterectomy (Acute) Hyperlipidemia (Acute) Pulmonary embolism (Acute) Family History Family History Father Cancer Mother Dementia Daughter Brain tumor Social History Social History Substance History: No History of Abuse Second Hand Smoke Exposure: No Smoking Status: Former smoker Tobacco Type: Cigarettes How Often Do You Have a Drink Containing Alcohol: Never Recent Travel in [facility] within the Last 8 Weeks: No Recent Out of Country Travel within the Last 8 Weeks: No Immunization History Tetanus Immunization: >5 Years Hx Influenza Vaccine This Season: No Exam Narrative Exam Narrative: GENERAL: Alert and oriented in no distress SKIN: Jaundice HEAD: Atraumatic. Normocephalic. EYES: Pupils equal and round. Noted scleral icterus. No injection or drainage. ENT: No nasal bleeding or discharge. Mucous membranes pink and moist. NECK: Trachea midline. No JVD. CARDIOVASCULAR: Regular rate and rhythm. No murmur appreciated. RESPIRATORY: No accessory muscle use. Clear to auscultation. Breath sounds equal bilaterally. GASTROINTESTINAL: Abdomen soft, non-tender, nondistended. Hepatic and splenic margins not palpable. MUSCULOSKELETAL: No obvious deformities. No clubbing. No cyanosis. No edema. NEUROLOGICAL: Awake and alert. No obvious cranial nerve deficits. Motor grossly within normal limits. Normal speech. PSYCHIATRIC: Appropriate mood and affect; insight and judgment normal. Course Hospital Course: Patient with a hemoglobin of 6.9 however due to the fact that she has had several transfusions and has several antibodies and reaction were continued contacted from blood pain and informed that they will be sending her specimen to the blood bank in [place]. Patient is hemodynamically stable. But she will be admitted and monitored until we have blood for transfusion pain Initial Documented Vital Signs Temperature 98.8 F 03/08/18 14:43 Pulse Rate 89 03/08/18 14:43 Respiratory Rate 16 03/08/18 14:43 Blood Pressure 170/67 H 03/08/18 14:43 Pulse Oximetry 99 03/08/18 14:43 Last Documented Vital Signs Temperature 98.6 F 03/08/18 18:39 Pulse Rate 105 H 03/08/18 18:39 Respiratory Rate 18 03/08/18 18:39 Blood Pressure 172/70 H 03/08/18 18:39 Pulse Oximetry 100 03/08/18 18:41 Medical Decision Making Lab Data Result diagrams: 03/08/18 15:14 03/08/18 15:14 Lab Results 03/08/18 03/08/18 03/08/18 Range/Units 15:14 15:14 15:15 WBC 18.3 H (4.0-11.0) th/mm3 RBC 1.56 L (4.00-5.30) mil/mm3 Hgb 6.9 L* (11.6-15.3) gm/dL Hct 21.1 L (35.0-46.0) % MCV 135.5 H (80.0-100.0) fL MCH 44.2 H (27.0-34.0) pg MCHC 32.6 (32.0-36.0) % RDW 28.8 H (11.6-17.2) % Plt Count 627 H (150-450) th/mm3 MPV 7.2 (7.0-11.0) fL Prelim Diff (Auto) Slide review pending Neut % (Auto) 74.4 H (16.0-70.0) % Lymph % (Auto) 18.4 (9.0-44.0) % [place] % (Auto) 6.3 (0.0-8.0) % Eos % (Auto) 0.5 (0.0-4.0) % Baso % (Auto) 0.4 (0.0-2.0) % Neut # (Auto) 13.6 H (1.8-7.7) th/mm3 Lymph # (Auto) 3.4 (1.0-4.8) th/mm3 [place] # (Auto) 1.2 H (0.0-0.9) th/mm3 Eos # (Auto) 0.1 (0.0-0.4) th/mm3 Baso # (Auto) 0.1 (0.0-0.2) th/mm3 WBC Differential Manual diff final Seg Neuts % (Manual) 78 H (16-70) % Band Neuts % (Manual) 1 (0-6) % Lymphocytes % (Manual) 18 (9-44) % Monocytes % (Manual) 2 (0-8) % Eosinophils % (Manual) 1 (0-4) % Abs Neuts (Manual) 14.5 H (1.8-7.7) th/mm3 Nucleated RBCs/100 WBC 139 H (0-0) /100 WBC Differential Comment . Platelet Estimate High H (Normal) Platelet Morphology Normal (Normal) Polychromasia 6.1 H (0.0-1.9) % Basophilic Stippling Faint H (None) [place] Bodies Present H (None) Sodium 144 (136-145) meq/L Potassium 4.0 (3.5-5.1) meq/L Chloride 108 H (98-107) meq/L Carbon Dioxide 29.1 (21.0-32.0) meq/L Anion Gap 7 (5-15) meq/L BUN 14 (7-18) mg/dL Creatinine 0.97 (0.50-1.00) mg/dL Estimated GFR 55 L (>89) mL/min Random Glucose 112 H (74-106) mg/dL Calcium 8.6 (8.5-10.1) mg/dL Total Bilirubin 3.0 H (0.2-1.0) mg/dL AST 32 (15-37) U/L ALT 24 (10-53) U/L Alkaline Phosphatase 92 (45-117) U/L Total Protein 5.8 L (6.4-8.2) g/dL Albumin 3.3 L (3.4-5.0) g/dL Crossmatch See Detail Imaging Data Radiologist's impression: Chest X-Ray 03/08/18 14:56 CONCLUSION: No acute cardiopulmonary disease. Discharge Plan Discharge Disposition Patient Disposition: 30 Still Patient Discharge Condition Condition: Stable Discharge Details Diagnosis: Hemolytic anemia Physicians Team ED Provider: Hussein Bailey Primary Care Provider: Camilo Mckinney Attending Provider: Ashely Humphries Other Providers: Geoffrey Cornejo ; Jann Forte Discharge Interventions Interventions: Vital Signs Last Done: 03/08/18 18:39 Status ED Status: Admitted Patient
[2018-03-08 16:40] LABS: Eosinophils 1 % (0-4); Lymphocytes 18 % (9-44); Monocytes 2 % (0-8); Tallied Nucleated RBC 139 (0-0)
[2018-03-08 16:41] LABS: Howell-Jolly Bodies Present
[2018-03-08 16:42] LABS: Platelet Morphology Normal (Normal)
[2018-03-08 16:47] LABS: Polychromasia 6.1 % (0.0-1.9)
[2018-03-08] MEDS ORDERED: Acetaminophen 325 MG Tablet PO PRN (17:55)
[2018-03-08] MEDS ORDERED: Bisacodyl 10 MG Supp RECTAL PRN (17:55)
--- NOTE | 2018-03-08 17:55 | P.HPIM ---
History of Present Illness Primary Care Physician: Camilo Mckinney History of Present Illness: 82 YOWF with history of autoimmune hemolytic anemia, pulmonary embolism, HTN, depression, HLD, and RA presented to the ED today with shortness of breath, weakness, and shakiness. She reports her symptoms have been gradually worsening for the past three weeks. She was transfused one unit of blood at Dr. Means's office about a month ago but states within several days her symptoms came on. She endorses some chest pain if she exerts herself because she becomes so short of breath. The chest pain goes away with rest. She reports she was nauseous this past week after taking cyclophosphamide prescribed by Dr. Means but this has resolved since stopping the medication. She denies abdominal pain, vomiting , diarrhea, headache, cough, dizziness, palpitations, or syncope. She denies any active bleeding - specifically denies melena, hematochezia, hematuria. - Diagnosis (1) Hemolytic anemia Inpatient Certification: I certify that the inpatient services were ordered in accordance with Medicare regulations governing the order. 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 - Medical History Medical History: Medical History (Last Updated 03/08/18 @ 17:53 by Ashely Humphries MD) HTN (hypertension) Hemolytic anemia History of hysterectomy Hyperlipidemia Pulmonary embolism - Family History Family History: Family History (Last Updated 03/08/18 @ 17:53 by Ashely Humphries MD) Father Cancer Mother Dementia Daughter Brain tumor - Tobacco History Second Hand Smoke Exposure: No Tobacco Use In Past 30 Days: No Smoking Status: Former smoker Tobacco Type: Cigarettes - Alcohol History How Often Do You Have a Drink Containing Alcohol: Never - Substance Use History Substance History: No History of Abuse - Travel History Recent Travel in the [place] Within the Last 8 Weeks: No Recent Travel Out of the Country Within the Last 8 Weeks: No - Immunization History Tetanus Immunization: >5 Years Hx Influenza Vaccine This Season: No Medications and Allergies Active Medications: Active Medications Sodium Chloride (Ns Inj) 250 mls @ 15 mls/hr IV.SIG ONCE SHREYA Stop: 03/09/18 08:39 Allergies Allergy/AdvReac Type Severity Reaction Status Date / Time Sulfa (Sulfonamide Allergy Severe Agitation Verified 03/08/18 14:42 Antibiotics) Home Medications Medication Instructions Recorded Confirmed Type duloxetine 60 mg PO DAILY 03/08/18 03/08/18 History tizanidine 4 mg PO TID PRN 03/08/18 03/08/18 History verapamil 60 mg PO DAILY 03/08/18 03/08/18 History Exam Vital signs: Vital Signs 03/08/18 14:43 03/08/18 14:49 Temperature 98.8 F 98.8 F Pulse Rate 89 86 Respiratory Rate 16 16 Blood Pressure 170/67 H 170/67 H Pulse Oximetry 99 100 Intake & Output 03/07/18 03/08/18 03/08/18 18:59 06:59 18:59 Weight 82.554 kg Narrative: GENERAL: WN, WD female sitting up in bed visibly short of breath. SKIN: Warm and dry. HEENT: AT/NC. Pupils equal and round. EOMI without nystagmus. + scleral icterus. MMM. NECK: Supple no tender LAD or JVD. HEART: RRR with 1/6 ESTEFANY. LUNGS: CTAB without wheezes or crackles. ABDOMEN: +BS, soft, NT, ND. EXTREMITIES: No LE edema. 2+ pedal pulses. NEURO: Awake and alert. Nonfocal. PSYCH: Appropriate mood and affect. Results - Labs CBC & Chem 7: 03/08/18 15:14 03/08/18 15:14 Labs: Short CBC 03/08/18 Range/Units 15:14 WBC 18.3 H (4.0-11.0) th/mm3 Hgb 6.9 L* (11.6-15.3) gm/dL Hct 21.1 L (35.0-46.0) % Plt Count 627 H (150-450) th/mm3 BMP 03/08/18 15:14 Sodium 144 Potassium 4.0 Chloride 108 H Carbon Dioxide 29.1 BUN 14 Creatinine 0.97 Calcium 8.6 Liver Function 03/08/18 Range/Units 15:14 Total Bilirubin 3.0 H (0.2-1.0) mg/dL AST 32 (15-37) U/L ALT 24 (10-53) U/L Alkaline Phosphatase 92 (45-117) U/L Albumin 3.3 L (3.4-5.0) g/dL - Imaging Impressions Chest X-Ray 03/08/18 14:56 CONCLUSION: No acute cardiopulmonary disease. Caprini VTE Risk Assessment Caprini VTE Risk Assessment: Moderate/High Risk (score >= 2) Caprini Risk Assessment Model: Point Value = 1 Point Value = 2 Point Value = 3 Point Value = 5 Age 41-60 Minor surgery BMI > 25 kg/m2 Swollen legs Varicose veins or History of unexplained or recurrent spontaneous Oral contraceptives or hormone replacement Sepsis (< 1 month) Serious lung disease, including pneumonia (< 1 month) Abnormal pulmonary function Acute myocardial infarction Congestive heart failure (< 1 month) History of inflammatory bowel disease Medical patient at bed rest Age 61-74 Arthroscopic surgery Major open surgery (> 45 min) Laparoscopic surgery (> 45 min) Malignancy Confined to bed (> 72 hours) Immobilizing plaster cast Central venous access Age >= 75 History of VTE Family history of VTE Factor V Leiden Prothrombin [id number] Lupus anticoagulant Anticardiolipin antibodies Elevated serum homocysteine Heparin-induced thrombocytopenia Other congenital or acquired thrombophilia Stroke (< 1 month) Elective arthroplasty Hip, pelvis, or leg fracture Acute spinal cord injury (< 1 month) Prophylaxis Regimen: Total Risk Factor Score Risk Level Prophylaxis Regimen 0-1 Low Early ambulation 2 Moderate Order ONE of the following: *Sequential Compression Device (SCD) *Heparin 5000 units SQ BID 3-4 Higher Order ONE of the following medications: *Heparin 5000 units SQ TID *Enoxaparin/Lovenox 40 mg SQ daily (WT < 150 kg, CrCl > 30 mL/min) *Enoxaparin/Lovenox 30 mg SQ daily (WT < 150 kg, CrCl > 10-29 mL/min) *Enoxaparin/Lovenox 30 mg SQ BID (WT < 150 kg, CrCl > 30 mL/min) AND/OR *Sequential Compression Device (SCD) 5 or more Highest Order ONE of the following medications: *Heparin 5000 units SQ TID (Preferred with Epidurals) *Enoxaparin/Lovenox 40 mg SQ daily (WT < 150 kg, CrCl > 30 mL/min) *Enoxaparin/Lovenox 30 mg SQ daily (WT < 150 kg, CrCl > 10-29 mL/min) *Enoxaparin/Lovenox 30 mg SQ BID (WT < 150 kg, CrCl > 30 mL/min) AND *Sequential Compression Device (SCD) Assessment and Plan - Assessment (1) Hemolytic anemia Code(s): D58.9 - Hereditary hemolytic anemia, unspecified Status: Acute - Plan 82 YOWF with history of autoimmune hemolytic anemia, pulmonary embolism, HTN, depression, HLD, and RA admitted for symptomatic anemia. 1. Autoimmune anemia - Hb 6.9 with HCT 21.1, MCV 135.5, and PLT 627 - Bilirubin 3.0 - Check haptoglobin, LDH, and retic count - Last transfusion was ~1 month ago - Because of h/o multiple transfusions, pt has developed multiple antibodies and blood needs to be received from [facility] - Will plan on transfusing two units once received - Currently hemodynamically stable - In the meantime, provide IVF with NS at 100 ml/hr - SoluMedrol 40 mg IV Q6H since autoimmune - Consult heme/onc (known to Dr. Means) 2. Thrombocytopenia - Likely reactive secondary to anemia 3. Leukocytosis - Likely reactive secondary to anemia - Afebrile, no cough, CXR negative - Monitor clinically for signs of infection 4. Shortness of breath - Likely secondary to anemia - CXR negative, lungs clear - Supplemental O2 PRN 5 HTN - Resume home Verapamil - Hydralazine and Vasotec PRN 6. H/o PE - Continue home Eliquis 7. Depression - Continue home Duloxetine DVT prophylaxis: on Eliquis Code Status: Full Discussed Condition With: The patient
[2018-03-08] MEDS ORDERED: hydrALAZINE HCl Inj 20 MG/ML Vial IV.PUSH PRN (18:20)
[2018-03-08] MEDS: MethylPREDNISolone Sod Succinate Inj 40 MG/ML Vial IV.PUSH SCH (20:37)
[2018-03-08 20:46] LABS: Reticulocyte Percent 20.3 % (0.4-3.0)
[2018-03-08 22:11] LABS: Lactate Dehydrogenase 409 U/L (84-246)
[2018-03-08] MEDS: Senna/Docusate Sodium 8.6/50 MG Tablet PO SCH (22:33)
[2018-03-08] MEDS: Sod Chloride 0.9% Inj 1,000 ML IV.CONT SCH (22:43)
[2018-03-08] MEDS: Famotidine 20 MG Tablet PO SCH (22:44)
[2018-03-09] MEDS: MethylPREDNISolone Sod Succinate Inj 40 MG/ML Vial IV.PUSH SCH ×4 (01:00→20:49)
[2018-03-09] MEDS: Duloxetine 60 MG DR Capsule PO SCH (08:14)
[2018-03-09] MEDS: Senna/Docusate Sodium 8.6/50 MG Tablet PO SCH ×2 (08:14→20:47)
[2018-03-09] MEDS: Verapamil 120 MG Tablet PO SCH (08:15)
[2018-03-09] MEDS: Sod Chloride 0.9% Inj 1,000 ML IV.CONT SCH ×2 (08:16→13:37)
[2018-03-09 09:37] LABS: Hematocrit 22.9 % (35.0-46.0); Hemoglobin 7.3 gm/dL (11.6-15.3); Mean Corpuscular HGB Conc 31.7 % (32.0-36.0); Mean Corpuscular Hemoglobin 45.9 pg (27.0-34.0); Mean Corpuscular Volume 144.5 fL (80.0-100.0); Mean Platelet Volume 7.1 fL (7.0-11.0); Platelet Count 670 th/mm3 (150-450); Red Blood Count 1.58 mil/mm3 (4.00-5.30); Red Cell Distribution Width 30.3 % (11.6-17.2); White Blood Count 15.8 th/mm3 (4.0-11.0)
[2018-03-09 09:51] LABS: Calcium 8.6 mg/dL (8.5-10.1); Carbon Dioxide 26.2 meq/L (21.0-32.0); Potassium 4.4 meq/L (3.5-5.1)
--- NOTE | 2018-03-09 14:19 | P.PN ---
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 Patient seen and examined. Patient denies any complaints at this time. She denies any chest pain or shortness of breath. She denies any fever or chills. She denies any nausea, vomiting or abdominal pain. Physical Exam Vital signs: Vital Signs 03/08/18 14:43 03/08/18 14:49 03/08/18 18:39 Temperature 98.8 F 98.8 F 98.6 F Pulse Rate 89 86 105 H Respiratory Rate 16 16 18 Blood Pressure 170/67 H 170/67 H 172/70 H Pulse Oximetry 99 100 100 03/08/18 18:41 03/08/18 20:00 03/09/18 00:00 Temperature 100.2 F H 98.8 F Pulse Rate 91 H 103 H Respiratory Rate 18 18 Blood Pressure 190/74 H 168/72 H Pulse Oximetry 100 96 95 03/09/18 04:00 03/09/18 08:00 Temperature 97.7 F 97.7 F Pulse Rate 76 103 H Respiratory Rate 18 20 Blood Pressure 147/57 H 185/86 H Pulse Oximetry 96 92 L Intake & Output 03/08/18 03/09/18 03/09/18 18:59 06:59 18:59 Intake Total 1999 Balance 1999 Weight 82.554 kg 82.55 kg Intake: IV 1999 NS Inj 1,000 ML @ 100 mls/hr IV 1999 .CONT .Q10H SHREYA Rx#:[id number] Other: # Voids 2 Date of Last Bowel Movement 03/08/18 03/08/18 Narrative: GENERAL: This is a well-developed well-nourished overweight female patient in no acute distress. Appears younger than stated age. SKIN: Warm and dry. HEAD: Atraumatic. Normocephalic. EYES: Pupils equal and round. No scleral icterus. No injection or drainage. ENT: No nasal bleeding or discharge. Mucous membranes pink and moist. NECK: Trachea midline. No JVD. CARDIOVASCULAR: Regular rate and rhythm. RESPIRATORY: No accessory muscle use. Clear to auscultation. Breath sounds equal bilaterally. GASTROINTESTINAL: Abdomen soft, non-tender, nondistended. MUSCULOSKELETAL: Extremities without clubbing, cyanosis, or edema. No obvious deformities. NEUROLOGICAL: Awake and alert. No obvious cranial nerve deficits. Motor grossly within normal limits. No focal neurologic findings appreciated. Normal speech. PSYCHIATRIC: Appropriate mood and affect; insight and judgment normal. Results - Labs CBC & Chem 7: 03/09/18 08:37 03/09/18 08:32 Laboratory Results - last 24 hr 03/08/18 03/08/18 03/08/18 15:14 15:14 15:14 WBC 18.3 H RBC 1.56 L Hgb 6.9 L* Hct 21.1 L MCV 135.5 H MCH 44.2 H MCHC 32.6 RDW 28.8 H Plt Count 627 H MPV 7.2 Prelim Diff (Auto) Slide review pending Neut % (Auto) 74.4 H Lymph % (Auto) 18.4 [place] % (Auto) 6.3 Eos % (Auto) 0.5 Baso % (Auto) 0.4 Neut # (Auto) 13.6 H Lymph # (Auto) 3.4 [place] # (Auto) 1.2 H Eos # (Auto) 0.1 Baso # (Auto) 0.1 WBC Differential Manual diff final Seg Neuts % (Manual) 78 H Band Neuts % (Manual) 1 Lymphocytes % (Manual) 18 Monocytes % (Manual) 2 Eosinophils % (Manual) 1 Abs Neuts (Manual) 14.5 H Nucleated RBCs/100 WBC 139 H Differential Comment . Platelet Estimate High H Platelet Morphology Normal Polychromasia 6.1 H Basophilic Stippling Faint H [place] Bodies Present H Retic Count 20.3 H Absolute Retic 322.9 H Haptoglobin Sodium 144 Potassium 4.0 Chloride 108 H Carbon Dioxide 29.1 Anion Gap 7 BUN 14 Creatinine 0.97 Estimated GFR 55 L Random Glucose 112 H Calcium 8.6 Total Bilirubin 3.0 H AST 32 ALT 24 Alkaline Phosphatase 92 Lactate Dehydrogenase Troponin I Total Protein 5.8 L Albumin 3.3 L Blood Type Antibody Screen Ab Screen Tube Method Antibody Identification Crossmatch Bld Prod Order Comment 03/08/18 03/08/18 03/08/18 15:15 15:15 15:15 WBC RBC Hgb Hct MCV MCH MCHC RDW Plt Count MPV Prelim Diff (Auto) Neut % (Auto) Lymph % (Auto) [place] % (Auto) Eos % (Auto) Baso % (Auto) Neut # (Auto) Lymph # (Auto) [place] # (Auto) Eos # (Auto) Baso # (Auto) WBC Differential Seg Neuts % (Manual) Band Neuts % (Manual) Lymphocytes % (Manual) Monocytes % (Manual) Eosinophils % (Manual) Abs Neuts (Manual) Nucleated RBCs/100 WBC Differential Comment Platelet Estimate Platelet Morphology Polychromasia Basophilic Stippling [place] Bodies Retic Count Absolute Retic Haptoglobin Sodium Potassium Chloride Carbon Dioxide Anion Gap BUN Creatinine Estimated GFR Random Glucose Calcium Total Bilirubin AST ALT Alkaline Phosphatase Lactate Dehydrogenase Troponin I Total Protein Albumin Blood Type O Positive O Positive Antibody Screen Positive Positive Ab Screen Tube Method Positive H Positive H Antibody Identification Anti-Humphrey A Crossmatch See Detail Bld Prod Order Comment 03/08/18 03/08/18 03/09/18 17:05 17:05 08:32 WBC RBC Hgb Hct MCV MCH MCHC RDW Plt Count MPV Prelim Diff (Auto) Neut % (Auto) Lymph % (Auto) [place] % (Auto) Eos % (Auto) Baso % (Auto) Neut # (Auto) Lymph # (Auto) [place] # (Auto) Eos # (Auto) Baso # (Auto) WBC Differential Seg Neuts % (Manual) Band Neuts % (Manual) Lymphocytes % (Manual) Monocytes % (Manual) Eosinophils % (Manual) Abs Neuts (Manual) Nucleated RBCs/100 WBC Differential Comment Platelet Estimate Platelet Morphology Polychromasia Basophilic Stippling [place] Bodies Retic Count Absolute Retic Haptoglobin Less than 10 L Sodium 144 Potassium 4.4 Chloride 110 H Carbon Dioxide 26.2 Anion Gap 8 BUN 14 Creatinine 0.86 Estimated GFR 63 L Random Glucose 153 H Calcium 8.6 Total Bilirubin AST ALT Alkaline Phosphatase Lactate Dehydrogenase 409 H Troponin I 0.06 H Total Protein Albumin Blood Type Antibody Screen Ab Screen Tube Method Antibody Identification Crossmatch Bld Prod Order Comment 03/09/18 08:37 WBC 15.8 H RBC 1.58 L Hgb 7.3 L Hct 22.9 L MCV 144.5 H D MCH 45.9 H MCHC 31.7 L RDW 30.3 H Plt Count 670 H MPV 7.1 Prelim Diff (Auto) Neut % (Auto) Lymph % (Auto) [place] % (Auto) Eos % (Auto) Baso % (Auto) Neut # (Auto) Lymph # (Auto) [place] # (Auto) Eos # (Auto) Baso # (Auto) WBC Differential Seg Neuts % (Manual) Band Neuts % (Manual) Lymphocytes % (Manual) Monocytes % (Manual) Eosinophils % (Manual) Abs Neuts (Manual) Nucleated RBCs/100 WBC Differential Comment Platelet Estimate Platelet Morphology Polychromasia Basophilic Stippling [place] Bodies Retic Count Absolute Retic Haptoglobin Sodium Potassium Chloride Carbon Dioxide Anion Gap BUN Creatinine Estimated GFR Random Glucose Calcium Total Bilirubin AST ALT Alkaline Phosphatase Lactate Dehydrogenase Troponin I Total Protein Albumin Blood Type Antibody Screen Ab Screen Tube Method Antibody Identification Crossmatch Bld Prod Order Comment - Imaging Impressions Chest X-Ray 03/08/18 14:56 CONCLUSION: No acute cardiopulmonary disease. Assessment and Plan - Assessment (1) Hemolytic anemia Code(s): D58.9 - Hereditary hemolytic anemia, unspecified Status: Acute - Plan 82 YOWF with history of autoimmune hemolytic anemia, pulmonary embolism, HTN, depression, HLD, and RA admitted for symptomatic anemia. Autoimmune anemia - Hb 6.9 with HCT 21.1, MCV 135.5, and PLT 627 / hemoglobin has improved to 7.3 this morning previous to transfusion - Bilirubin 3.0 - Last transfusion was ~1 month ago - Because of h/o multiple transfusions, pt has developed multiple antibodies and blood needs to be received from [place] - Will plan on transfusing two units once received - Currently hemodynamically stable - SoluMedrol 40 mg IV Q6H since autoimmune - Consult heme/onc (known to Dr. Means), appreciate assistance Leukocytosis - Likely reactive secondary to anemia - Afebrile, no cough, CXR negative - Monitor clinically for signs of infection Shortness of breath - Likely secondary to anemia - CXR negative, lungs clear - Supplemental O2 PRN HTN - Continue patient on home dose of verapamil - Hydralazine and Vasotec PRN -Continue to monitor BP and adjust treatment accordingly H/o PE - Continue home Eliquis Depression - Continue home Duloxetine DVT prophylaxis -Patient is on Eliquis Discussed Condition With: Patient, nursing staff, Dr. Crawford Discharge Planning: Discharge pending hematology clearance. (1) Hemolytic anemia Qualifiers: Hemolytic anemia type: acquired, autoimmune, other Qualified Code(s): D59.1 - Other autoimmune hemolytic anemias
[2018-03-09] MEDS: Famotidine 20 MG Tablet PO SCH (20:49)
--- NOTE | 2018-03-10 00:17 | P.PNONC ---
Subjective Interval history: This is a 82-year-old female who has a history of autoimmune hemolytic anemia. She was initially treated with high-dose steroids with good response and had improvement in her hemoglobin levels. Steroids were subsequently tapered down, however she developed progressive anemia with hemolysis. She was also having numerous side effects from the steroids. She was then switched to Cytoxan. She now has progressive anemia and presents with shortness of breath. Given the fact that she is refractory to Cytoxan, we would consider treating her with IV Rituxan during this admission. Continue to monitor CBC closely. we will transfuse only when she is symptomatic. Further recommendations to follow, Patient will be evaluated in the a.m. Objective Vital Signs/Intake & Output: Vital Signs 03/09/18 04:00 03/09/18 08:00 03/09/18 12:00 Temperature 97.7 F 97.7 F 97.8 F Pulse Rate 76 103 H 83 Respiratory Rate 18 20 20 Blood Pressure 147/57 H 185/86 H 155/70 H Pulse Oximetry 96 92 L 95 03/09/18 16:00 03/09/18 16:29 03/09/18 17:21 Temperature 98 F 98.8 F Pulse Rate 99 H 94 H Respiratory Rate 20 18 Blood Pressure 169/68 H 150/70 H Pulse Oximetry 95 97 97 03/09/18 19:32 03/09/18 19:50 03/09/18 20:00 Temperature 98.9 F 98.7 F 98.3 F Pulse Rate 94 H 94 H 94 H Respiratory Rate 18 15 18 Blood Pressure 142/82 H 160/82 H 142/82 H Pulse Oximetry 95 97 Intake & Output 03/09/18 03/09/18 03/10/18 06:59 18:59 06:59 Intake Total 1999 400 / 400 Output Total 4 / Balance 1999 396 / 396 Weight 82.55 kg Intake: IV 1999 NS Inj 1,000 ML @ 100 mls/hr IV 1999 .CONT .Q10H [facility] Rx#:[id number] Intake (Blood Product) Amt 0 / 0 400 / 400 Rbc As-3 Leukoreduced Unit 0 / 0 [id number] Rbc As-3 Leukoreduced Unit 0 / 0 400 / 400 [id number] Output: Urine 3 / 3 Stool Other: # Voids 2 Date of Last Bowel Movement 03/08/18 03/08/18 03/09/18 Result Diagrams: 03/09/18 08:37 03/09/18 08:32 Laboratory Results: Laboratory Results - last 24 hr 03/08/18 03/08/18 03/09/18 15:15 15:15 08:32 WBC RBC Hgb Hct MCV MCH MCHC RDW Plt Count MPV Sodium 144 Potassium 4.4 Chloride 110 H Carbon Dioxide 26.2 Anion Gap 8 BUN 14 Creatinine 0.86 Estimated GFR 63 L Random Glucose 153 H Calcium 8.6 Troponin I Blood Type O Positive Antibody Screen Positive Ab Screen Tube Method Positive H Antibody Identification Anti-Humphrey A Crossmatch See Detail Bld Prod Order Comment 03/09/18 03/09/18 08:37 13:42 WBC 15.8 H RBC 1.58 L Hgb 7.3 L Hct 22.9 L MCV 144.5 H D MCH 45.9 H MCHC 31.7 L RDW 30.3 H Plt Count 670 H MPV 7.1 Sodium Potassium Chloride Carbon Dioxide Anion Gap BUN Creatinine Estimated GFR Random Glucose Calcium Troponin I Less than 0.02 L Blood Type Antibody Screen Ab Screen Tube Method Antibody Identification Crossmatch Bld Prod Order Comment Medications: Active Medications Generic Name Dose Route Start Last Admin Trade Name Freq PRN Reason Stop Dose Admin Apixaban 5 mg 03/08/18 21:00 03/09/18 20:48 Eliquis PO 5 mg BID SHREYA Administration Duloxetine HCl 60 mg 03/09/18 09:00 03/09/18 08:14 Cymbalta PO 60 mg DAILY SHREYA Administration Enalaprilat 1.25 mg 03/08/18 18:20 03/09/18 00:57 Vasotec Inj IV.PUSH 1.25 mg Q6H PRN Administration SBP>160, DBP>90 Famotidine 20 mg 03/08/18 21:00 03/09/18 20:49 Pepcid PO Not Given HS SHREYA Methylprednisolone Sodium Succinate 40 mg 03/08/18 20:00 03/09/18 20:49 Solumedrol Inj IV.PUSH 40 mg Q6H SHREYA Administration Senna/Docusate Sodium 1 tab 03/08/18 21:00 03/09/18 20:47 Keisha-Colace PO 1 tab BID SHREYA Administration Verapamil HCl 60 mg 03/09/18 09:00 03/09/18 08:15 Isoptin PO 60 mg DAILY SHREYA Administration
[2018-03-10 01:17] LABS: Hematocrit 28.1 % (35.0-46.0); Hemoglobin 8.6 gm/dL (11.6-15.3)
[2018-03-10] MEDS: MethylPREDNISolone Sod Succinate Inj 40 MG/ML Vial IV.PUSH SCH ×4 (04:40→21:48)
[2018-03-10] MEDS: Senna/Docusate Sodium 8.6/50 MG Tablet PO SCH ×2 (09:03→21:47)
[2018-03-10] MEDS: Duloxetine 60 MG DR Capsule PO SCH (09:03)
[2018-03-10] MEDS: Verapamil 120 MG Tablet PO SCH (09:04)
[2018-03-10 09:17] LABS: Baso # (Auto) 0.1 th/mm3 (0.0-0.2); Baso % (Auto) 0.3 % (0.0-2.0); Hematocrit 27.6 % (35.0-46.0); Hemoglobin 8.8 gm/dL (11.6-15.3); Lymph # (Auto) 1.1 th/mm3 (1.0-4.8); Lymph % (Auto) 5.8 % (9.0-44.0); Mean Corpuscular HGB Conc 31.8 % (32.0-36.0); Mean Corpuscular Hemoglobin 37.6 pg (27.0-34.0); Mean Corpuscular Volume 118.4 fL (80.0-100.0); Mean Platelet Volume 7.2 fL (7.0-11.0); Mono # (Auto) 0.5 th/mm3 (0.0-0.9); Mono % (Auto) 2.6 % (0.0-8.0); Neut # (Auto) 16.6 th/mm3 (1.8-7.7); Neut % (Auto) 91.3 % (16.0-70.0); Platelet Count 535 th/mm3 (150-450); Red Blood Count 2.33 mil/mm3 (4.00-5.30); Red Cell Distribution Width 32.2 % (11.6-17.2); White Blood Count 18.2 th/mm3 (4.0-11.0)
[2018-03-10 10:11] LABS: Lymphocytes 3 % (9-44); Monocytes 1 % (0-8); Tallied Nucleated RBC 73 (0-0)
[2018-03-10 10:13] LABS: Basophilic Stippling Moderate; Howell-Jolly Bodies Present; Polychromasia 6.2 % (0.0-1.9)
[2018-03-10 10:14] LABS: Platelet Morphology Normal (Normal); Spherocytes Occ
--- NOTE | 2018-03-10 14:46 | P.PN ---
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 Patient seen and examined. Patient status post transfusion 2 units. She continues to report shortness of breath with minimal exertion such as walking to the bathroom. She denies any fever chills. Denies any chest pain. She denies any nausea, vomiting or abdominal pain. Physical Exam Vital signs: Vital Signs 03/09/18 16:00 03/09/18 16:29 03/09/18 17:21 Temperature 98 F 98.8 F Pulse Rate 99 H 94 H Respiratory Rate 20 18 Blood Pressure 169/68 H 150/70 H Pulse Oximetry 95 97 97 03/09/18 19:32 03/09/18 19:50 03/09/18 20:00 Temperature 98.9 F 98.7 F 98.3 F Pulse Rate 94 H 94 H 94 H Respiratory Rate 18 15 18 Blood Pressure 142/82 H 160/82 H 142/82 H Pulse Oximetry 95 97 03/10/18 00:00 03/10/18 04:00 03/10/18 08:00 Temperature 98.1 F 98.5 F 98.2 F Pulse Rate 89 81 73 Respiratory Rate 18 18 18 Blood Pressure 157/79 H 168/72 H 155/72 H Pulse Oximetry 95 95 93 L 03/10/18 12:00 Temperature 98.8 F Pulse Rate 88 Respiratory Rate 20 Blood Pressure 154/72 H Pulse Oximetry 95 Intake & Output 03/09/18 03/10/18 03/10/18 18:59 06:59 18:59 Intake Total 1999 800 / 800 Output Total 4 / 4 Balance 1999 796 / 796 Weight 88.9 kg Intake: IV 1999 NS Inj 1,000 ML @ 100 mls/hr IV 1999 .CONT .Q10H [facility] Rx#:[id number] Intake (Blood Product) Amt 0 / 0 800 / 800 Rbc As-3 Leukoreduced Unit 400 / 400 [id number] Rbc As-3 Leukoreduced Unit 0 / 0 400 / 400 [id number] Output: Urine 3 / 3 Stool / Other: # Voids 3 Date of Last Bowel Movement 03/08/18 03/09/18 03/09/18 Narrative: GENERAL: This is a well-developed well-nourished overweight female patient in no acute distress. Appears younger than stated age. Lying awake in bed, appears comfortable. SKIN: Warm and dry. HEAD: Atraumatic. Normocephalic. EYES: Pupils equal and round. No scleral icterus. No injection or drainage. ENT: No nasal bleeding or discharge. Mucous membranes pink and moist. NECK: Trachea midline. No JVD. CARDIOVASCULAR: Regular rate and rhythm. RESPIRATORY: No accessory muscle use. Clear to auscultation. Breath sounds equal bilaterally. GASTROINTESTINAL: Abdomen soft, non-tender, nondistended. MUSCULOSKELETAL: Extremities without clubbing, cyanosis, or edema. No obvious deformities. NEUROLOGICAL: Awake and alert. No obvious cranial nerve deficits. Motor grossly within normal limits. No focal neurologic findings appreciated. Normal speech. PSYCHIATRIC: Appropriate mood and affect; insight and judgment normal. Results - Labs CBC & Chem 7: 03/10/18 08:21 03/09/18 08:32 Laboratory Results - last 24 hr 03/08/18 03/10/18 03/10/18 15:15 00:55 08:21 WBC 18.2 H RBC 2.33 L Hgb 8.6 L 8.8 L Hct 28.1 L 27.6 L MCV 118.4 H D MCH 37.6 H MCHC 31.8 L RDW 32.2 H Plt Count 535 H MPV 7.2 Prelim Diff (Auto) Slide review pending Neut % (Auto) 91.3 H Lymph % (Auto) 5.8 L [place] % (Auto) 2.6 Eos % (Auto) 0.0 Baso % (Auto) 0.3 Neut # (Auto) 16.6 H Lymph # (Auto) 1.1 [place] # (Auto) 0.5 Eos # (Auto) 0.0 Baso # (Auto) 0.1 WBC Differential Manual diff final Seg Neuts % (Manual) 92 H Band Neuts % (Manual) 4 Lymphocytes % (Manual) 3 L Monocytes % (Manual) 1 Abs Neuts (Manual) 17.5 H Nucleated RBCs/100 WBC 73 H Differential Comment . Platelet Estimate High H Platelet Morphology Normal Polychromasia 6.2 H Basophilic Stippling Moderate H Spherocytes Occ H [place] Bodies Present H Blood Type O Positive Antibody Screen Positive Ab Screen Tube Method Positive H Crossmatch See Detail Bld Prod Order Comment - Imaging ITS Impressions Chest X-Ray 03/08/18 14:56 CONCLUSION: No acute cardiopulmonary disease. Assessment and Plan - Assessment (1) Hemolytic anemia Code(s): D58.9 - Hereditary hemolytic anemia, unspecified Status: Acute - Plan 82 YOWF with history of autoimmune hemolytic anemia, pulmonary embolism, HTN, depression, HLD, and RA admitted for symptomatic anemia. Autoimmune anemia, symptomatic - Hb 6.9 with HCT 21.1, MCV 135.5, and PLT 627 - Status post transfusion 2 units, hemoglobin improved 8.8. Patient continues to report shortness of breath with minimal exertion. - Currently hemodynamically stable - SoluMedrol 40 mg IV Q6H since autoimmune - Hematology following, appreciate assistance. They are considering treatment with IV Rituxan this admission as patient refractory to Cytoxan. Leukocytosis - Likely reactive secondary to anemia - Afebrile, no cough, CXR negative - Monitor clinically for signs of infection Shortness of breath - Likely secondary to anemia - CXR negative, lungs clear - Supplemental O2 PRN HTN, not well controlled - Increase dose of verapamil to 80 mg daily - Hydralazine and Vasotec PRN - Continue to monitor BP and adjust treatment accordingly H/o PE - Continue home Eliquis Depression - Continue home Duloxetine DVT prophylaxis -Patient is on Eliquis Discussed Condition With: patient, nursing staff, Dr. Aaron Discharge Planning: Discharge pending hematology clearance. (1) Hemolytic anemia Qualifiers: Hemolytic anemia type: acquired, autoimmune, other Qualified Code(s): D59.1 - Other autoimmune hemolytic anemias
[2018-03-10] MEDS: Famotidine 20 MG Tablet PO SCH (22:18)
--- NOTE | 2018-03-10 22:39 | P.CON ---
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 - Medical History Medical History: Medical History (Last Reviewed 03/09/18 @ 08:41 by Agustin Rebolledo) HTN (hypertension) Hemolytic anemia History of hysterectomy Hyperlipidemia Pulmonary embolism - Family History Family History: Family History (Last Reviewed 03/08/18 @ 19:50 by Hussein Bailey DO) Father Cancer Mother Dementia Daughter Brain tumor - Tobacco History Second Hand Smoke Exposure: No Tobacco Use In Past 30 Days: No Smoking Status: Former smoker Tobacco Type: Cigarettes - Alcohol History How Often Do You Have a Drink Containing Alcohol: Never - Substance Use History Substance History: No History of Abuse - Travel History Recent Travel in the [place] Within the Last 8 Weeks: No Recent Travel Out of the Country Within the Last 8 Weeks: No - Immunization History Tetanus Immunization: >5 Years Hx Influenza Vaccine This Season: No Medications and Allergies Active Medications: Active Medications Acetaminophen (Tylenol) 650 mg PO Q4H PRN PRN Reason: Temp > 100.4 Al Hydroxide/Mg Hydroxide (Milk Of Magnesia Liq) 30 ml PO Q12H PRN PRN Reason: Mild Constipation Apixaban (Eliquis) 5 mg PO BID [facility] Last Admin: 03/10/18 21:47 Dose: 5 mg Bisacodyl (Dulcolax Supp) 10 mg RECTAL DAILY PRN PRN Reason: SEVERE CONSITIPATION Duloxetine HCl (Cymbalta) 60 mg PO DAILY [facility] Last Admin: 03/10/18 09:03 Dose: 60 mg Enalaprilat (Vasotec Inj) 1.25 mg IV.PUSH Q6H PRN PRN Reason: SBP>160, DBP>90 Last Admin: 03/09/18 00:57 Dose: 1.25 mg Famotidine (Pepcid) 20 mg PO [facility] Last Admin: 03/10/18 22:18 Dose: Not Given Hydralazine HCl (Apresoline Inj) 20 mg IV.PUSH Q4H PRN PRN Reason: SBP> OR = 180, DBP> OR = 100 Lactulose (Lactulose Liq) 30 ml PO DAILY PRN PRN Reason: SEVERE CONSITIPATION Methylprednisolone Sodium Succinate (Solumedrol Inj) 40 mg IV.PUSH Q12HR [facility] Last Admin: 03/10/18 21:48 Dose: 40 mg Ondansetron HCl (Zofran Odt) 4 mg PO Q6H PRN PRN Reason: NAUSEA OR VOMITING Senna/Docusate Sodium (Keisha-Colace) 1 tab PO BID [facility] Last Admin: 03/10/18 21:47 Dose: 1 tab Sennosides (Senokot) 17.2 mg PO Q12H PRN PRN Reason: Moderate Constipation Verapamil HCl (Isoptin) 80 mg PO DAILY [facility] Last Admin: 03/10/18 18:36 Dose: 80 mg Allergies Allergy/AdvReac Type Severity Reaction Status Date / Time Sulfa (Sulfonamide Allergy Severe Agitation Verified 03/08/18 14:42 Antibiotics) Home Medications Medication Instructions Recorded Confirmed Type duloxetine 60 mg PO DAILY 03/08/18 03/08/18 History tizanidine 4 mg PO TID PRN 03/08/18 03/08/18 History verapamil 60 mg PO DAILY 03/08/18 03/08/18 History Physical Exam Vital signs: Vital Signs 03/10/18 00:00 03/10/18 04:00 03/10/18 08:00 Temperature 98.1 F 98.5 F 98.2 F Pulse Rate 89 81 73 Respiratory Rate 18 18 18 Blood Pressure 157/79 H 168/72 H 155/72 H Pulse Oximetry 95 95 93 L 03/10/18 12:00 03/10/18 16:00 03/10/18 20:00 Temperature 98.8 F 98.1 F 98.5 F Pulse Rate 88 82 83 Respiratory Rate 20 18 18 Blood Pressure 154/72 H 152/70 H 140/70 Pulse Oximetry 95 95 95 Intake & Output 03/10/18 03/10/18 03/11/18 06:59 18:59 06:59 Intake Total 800 / 800 Output Total 4 / 4 Balance 796 / 796 Weight 88.9 kg Intake: Intake (Blood Product) Amt 800 / 800 Rbc As-3 Leukoreduced Unit 400 / 400 [id number] Rbc As-3 Leukoreduced Unit 400 / 400 [id number] Output: Urine 3 / 3 Stool 1 / 1 Other: # Voids 3 Date of Last Bowel Movement 03/09/18 03/09/18 # Bowel Movements 0
[2018-03-11] MEDS: Folic Acid 1 MG Tablet PO SCH ×2 (00:07→08:26)
--- NOTE | 2018-03-11 00:47 | MB ---
cc: Reuben Means MD DATE: 03/10/2018 REASON FOR CONSULTATION: The patient with a history of autoimmune hemolytic anemia. CHIEF COMPLAINT: Shortness of breath. HISTORY OF PRESENT ILLNESS: This is an 82-year-old female who has a diagnosis of autoimmune hemolytic anemia, who is currently being treated with Cytoxan. She was refractory to steroids and also developed significant side effects. She now presents with acute shortness of breath and was found to be severely anemic with a hemoglobin of 6.9. She has received 2 units of packed red blood cells. The patient has started taking Cytoxan approximately 1 week ago. She developed significant side effects while on Cytoxan including nausea, vomiting and feeling unwell. She has undergone extensive workup to rule out any underlying cause for her autoimmune hemolytic anemia. This included workup for underlying myeloproliferative disorder or lymphoproliferative disorder. She underwent peripheral blood flow cytometry, which was negative. A serum protein electrophoresis was also negative. Imaging of the chest, abdomen and pelvis did not reveal any underlying malignancy. She does not have any underlying rheumatologic or autoimmune disorder. She has Dejon positive hemolytic anemia. Additionally, she also has a history of unprovoked pulmonary embolism. She underwent hypercoagulable workup including testing for prothrombin mutation, factor V Leiden, lupus anticoagulant, antiphospholipid antibody, which were all negative. The patient is significantly doing better after receiving 2 units of packed red blood cells. She is sitting up on her bed and eating her lunch. She is frustrated because her hemoglobin continues to drop. She denies any nosebleeds, gum bleeds, petechia or bruising. No bright red blood per rectum or melena. REVIEW OF SYSTEMS: A comprehensive review of system was completed, which is negative except as per in the HPI. PAST MEDICAL HISTORY: Autoimmune hemolytic anemia, hypertension, hyperlipidemia, depression, pulmonary embolism. FAMILY HISTORY: Reviewed and it is noncontributory to this admission. Her daughter did have a brain tumor and father was diagnosed with some sort of cancer. SOCIAL HISTORY: She does not smoke cigarettes and does not drink alcohol. No illicit drug use. MEDICATIONS: 1. Tylenol p.r.n. 2. Milk of magnesia p.r.n. 3. Eliquis 5 mg p.o. b.i.d. 4. Dulcolax p.r.n. 5. Cymbalta 50 mg daily. 6. Vasotec 1.2 mg IV every 6 hours p.r.n. 7. Pepcid 20 mg p.o. at bedtime. 8. Hydralazine 20 mg IV every 4 hours p.r.n. 9. Lactulose 30 mg p.o. p.r.n. 10. Solu-Medrol 40 mg IV every 12 hours. 11. Zofran 4 mg p.o. every 6 hours p.r.n. 12. Senna/Colace 1 tablet p.o. b.i.d. 13. Verapamil 80 mg p.o. daily. PHYSICAL EXAMINATION: VITAL SIGNS: Blood pressure is 140/70, pulse is in the 80s, temperature is 98.5, respiratory rate is 18, O2 sat is 95% on room air. GENERAL: Well-developed, well-nourished, elderly female, in no apparent distress. HEENT: Pupils are equal, round and reactive to light. EOMI. No oral thrush. No lesion. NECK: Supple. No JVD. No bruits. No lymphadenopathy. CHEST: Clear to auscultation bilaterally. CARDIAC: S1, S2. Regular rate and rhythm. ABDOMEN: Soft, nontender, nondistended. Bowel sounds are present. EXTREMITIES: Without any edema, erythema or cyanosis. SKIN: Without any petechia, lesions or bruises. NEUROLOGIC: No focal deficits. PSYCHIATRIC: Mood and affect appropriate. LABORATORY DATA: WBC is 2.2, hemoglobin 8.8, MCV 118.4, platelet count of 535. Haptoglobin is less than 10, retic count of 20.3. Serum chemistry: Sodium 144, potassium 4.4, chloride 110, CO2 26.2, BUN 14, creatinine 0.86, GFR 63, total bilirubin is 3, AST 32, ALT 24, alkaline phosphatase is 92, LDH is 409. ASSESSMENT AND PLAN: This is an 82-year-old female who has a diagnosis of Dejon positive autoimmune hemolytic anemia, who presents to the emergency department with acute dyspnea and she was found to have severe anemia with a hemoglobin of 6.9. 1. Hemolytic anemia with a Dejon positive. She is having active hemolysis. LDH is high and haptoglobin is low. Total bilirubin is elevated. She received 2 units of packed red blood cells. In the past, she was treated with high-dose steroids. She did have a response with high-dose steroids, but eventually when these were tapered off, she relapsed. She also developed significant side effects from steroids including hyperactive mood, high blood pressure, headache, etc. She was switched to Cytoxan. She has only been on Cytoxan for about 1 week. She has developed nausea and vomiting. In this setting, we will consider treating her with IV Rituxan. I will order hepatitis B and C testing prior to consideration of IV Rituxan. Continue to monitor CBC closely. Transfuse to keep hemoglobin greater than 7 or unless symptomatic. Start folic acid 5 mg p.o. daily. Check B12 and iron studies. 2. History of unprovoked pulmonary embolism. Continue Eliquis 5 mg p.o. b.i.d. Thank you for allowing me to participate in the care of this patient. I will continue to follow this patient along. MD QASIM Costa/ian/rainer , 11:03 PM , 11:16 PM
[2018-03-11 07:28] LABS: Hematocrit 29.3 % (35.0-46.0); Hemoglobin 9.2 gm/dL (11.6-15.3); Mean Corpuscular HGB Conc 31.4 % (32.0-36.0); Mean Platelet Volume 7.7 fL (7.0-11.0); Platelet Count 475 th/mm3 (150-450); Red Blood Count 2.42 mil/mm3 (4.00-5.30); Red Cell Distribution Width 29.8 % (11.6-17.2); White Blood Count 16.3 th/mm3 (4.0-11.0)
--- NOTE | 2018-03-11 07:46 | P.PN ---
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 Patient seen and examined. Patient status post transfusion 2 units. Hemoglobin improved to 9.[address] Chand considering IV Rituxan. Patient denies any complaints today. States her shortness of breath has resolved. She denies any chest pain. She she reports mild nausea. She denies any vomiting or abdominal pain. She reports her last bowel movement was 2 days ago. Physical Exam Vital signs: Vital Signs 03/10/18 08:00 03/10/18 12:00 03/10/18 16:00 Temperature 98.2 F 98.8 F 98.1 F Pulse Rate 73 88 82 Respiratory Rate 18 20 18 Blood Pressure 155/72 H 154/72 H 152/70 H Pulse Oximetry 93 L 95 95 03/10/18 20:00 03/11/18 00:00 03/11/18 01:59 Temperature 98.5 F 98.5 F Pulse Rate 83 Respiratory Rate 18 18 18 Blood Pressure 140/70 150/75 H Pulse Oximetry 95 95 03/11/18 04:00 03/11/18 07:39 Temperature 97.8 F 98.0 F Pulse Rate 75 71 Respiratory Rate 18 16 Blood Pressure 120/70 151/76 H Pulse Oximetry 95 93 L Intake & Output 03/10/18 03/11/18 03/11/18 18:59 06:59 18:59 Weight 88.9 kg Other: # Voids 3 Date of Last Bowel Movement 03/09/18 03/09/18 # Bowel Movements 0 Narrative: GENERAL: This is a well-developed well-nourished overweight female patient in no acute distress. Appears younger than stated age. Lying awake in bed, appears comfortable. SKIN: Warm and dry. HEAD: Atraumatic. Normocephalic. EYES: Pupils equal and round. No scleral icterus. +Bilateral mucoid drainage noted. ENT: No nasal bleeding or discharge. Mucous membranes pink and moist. NECK: Trachea midline. No JVD. CARDIOVASCULAR: Regular rate and rhythm. RESPIRATORY: No accessory muscle use. Clear to auscultation. Breath sounds equal bilaterally. GASTROINTESTINAL: Abdomen soft, non-tender, nondistended. MUSCULOSKELETAL: Extremities without clubbing, cyanosis, or edema. No obvious deformities. NEUROLOGICAL: Awake and alert. No obvious cranial nerve deficits. Motor grossly within normal limits. No focal neurologic findings appreciated. Normal speech. PSYCHIATRIC: Appropriate mood and affect; insight and judgment normal. Results - Labs CBC & Chem 7: 03/11/18 07:00 03/09/18 08:32 Laboratory Results - last 24 hr 03/10/18 03/11/18 08:21 07:00 WBC 18.2 H 16.3 H RBC 2.33 L 2.42 L Hgb 8.8 L 9.2 L Hct 27.6 L 29.3 L MCV 118.4 H D 121.0 H MCH 37.6 H 38.0 H MCHC 31.8 L 31.4 L RDW 32.2 H 29.8 H Plt Count 535 H 475 H MPV 7.2 7.7 Prelim Diff (Auto) Slide review pending Neut % (Auto) 91.3 H Lymph % (Auto) 5.8 L [place] % (Auto) 2.6 Eos % (Auto) 0.0 Baso % (Auto) 0.3 Neut # (Auto) 16.6 H Lymph # (Auto) 1.1 [place] # (Auto) 0.5 Eos # (Auto) 0.0 Baso # (Auto) 0.1 WBC Differential Manual diff final Seg Neuts % (Manual) 92 H Band Neuts % (Manual) 4 Lymphocytes % (Manual) 3 L Monocytes % (Manual) 1 Abs Neuts (Manual) 17.5 H Nucleated RBCs/100 WBC 73 H Differential Comment . Platelet Estimate High H Platelet Morphology Normal Polychromasia 6.2 H Basophilic Stippling Moderate H Spherocytes Occ H [place] Bodies Present H - Imaging Chest X-Ray 03/08/18 14:56 CONCLUSION: No acute cardiopulmonary disease. Assessment and Plan - Assessment (1) Hemolytic anemia Code(s): D58.9 - Hereditary hemolytic anemia, unspecified Status: Acute - Plan 82 YOWF with history of autoimmune hemolytic anemia, pulmonary embolism, HTN, depression, HLD, and RA admitted for symptomatic anemia. Autoimmune anemia, symptomatic SOB now resolved - Hb 6.9 with HCT 21.1, MCV 135.5, and PLT 627 - Status post transfusion 2 units, hemoglobin improved 9.2. - Currently hemodynamically stable - SoluMedrol 40 mg IV Q12H since autoimmune - Hematology following, appreciate assistance. They are considering treatment with IV Rituxan this admission as patient refractory to Cytoxan. - continue on Folic Acid 5mg daily. B12 level 593, folate level pending Leukocytosis - Likely reactive secondary to anemia - Afebrile, no cough, CXR negative - Monitor clinically for signs of infection Shortness of breath - Likely secondary to anemia - CXR negative, lungs clear - Supplemental O2 PRN HTN, not well controlled - Increase dose of verapamil to 80 mg daily - Hydralazine and Vasotec PRN - Continue to monitor BP and adjust treatment accordingly H/o PE, unprovoked - Continue home Eliquis Depression - Continue home Duloxetine DVT prophylaxis -Patient is on Eliquis Discussed Condition With: patient, nursing staff, Dr. Aaron Discharge Planning: Discharge pending hematology clearance. (1) Hemolytic anemia Qualifiers: Hemolytic anemia type: acquired, autoimmune, other Qualified Code(s): D59.1 - Other autoimmune hemolytic anemias
[2018-03-11 08:14] LABS: Hepatitits B Surface Antigen Nonreactive (Nonreactive)
[2018-03-11] MEDS: MethylPREDNISolone Sod Succinate Inj 40 MG/ML Vial IV.PUSH SCH ×2 (08:26→22:01)
[2018-03-11] MEDS: Senna/Docusate Sodium 8.6/50 MG Tablet PO SCH ×2 (08:26→21:47)
[2018-03-11] MEDS: Duloxetine 60 MG DR Capsule PO SCH (08:26)
--- NOTE | 2018-03-11 15:32 | P.PNONC ---
Subjective Interval history: Afebrile Patient sitting up on side of bed eating lunch in no obvious distress Reports she feels somewhat shaky today Not quite ready to go home Objective Vital Signs/Intake & Output: Vital Signs 03/10/18 16:00 03/10/18 20:00 03/11/18 00:00 Temperature 98.1 F 98.5 F 98.5 F Pulse Rate 82 83 Respiratory Rate 18 18 18 Blood Pressure 152/70 H 140/70 150/75 H Pulse Oximetry 95 95 95 03/11/18 01:59 03/11/18 04:00 03/11/18 07:39 Temperature 97.8 F 98.0 F Pulse Rate 75 71 Respiratory Rate 18 18 16 Blood Pressure 120/70 151/76 H Pulse Oximetry 95 93 L 03/11/18 12:00 Temperature 98.2 F Pulse Rate 73 Respiratory Rate 20 Blood Pressure 181/82 H Pulse Oximetry 93 L Intake & Output 03/10/18 03/11/18 03/11/18 18:59 06:59 18:59 Weight 195 lb 15.855 oz Other: # Voids 3 Date of Last Bowel Movement 03/09/18 03/09/18 # Bowel Movements 0 Result Diagrams: 03/11/18 07:00 03/09/18 08:32 Laboratory Results: Laboratory Results - last 24 hr 03/08/18 03/11/18 03/11/18 15:15 07:00 07:00 WBC 16.3 H RBC 2.42 L Hgb 9.2 L Hct 29.3 L MCV 121.0 H MCH 38.0 H MCHC 31.4 L RDW 29.8 H Plt Count 475 H MPV 7.7 Vitamin B12 593 Hep Bs Antigen Hep B Core IgM Ab Hep C IgG Ab Rout Panel Path Interp 03/11/18 07:00 WBC RBC Hgb Hct MCV MCH MCHC RDW Plt Count MPV Vitamin B12 Hep Bs Antigen Nonreactive Hep B Core IgM Ab Nonreactive Hep C IgG Ab Nonreactive Rout Panel Path Interp Medications: Active Medications Generic Name Dose Route Start Last Admin Trade Name Freq PRN Reason Stop Dose Admin Apixaban 5 mg 03/08/18 21:00 03/11/18 08:26 Eliquis PO 5 mg BID SHREYA Administration Duloxetine HCl 60 mg 03/09/18 09:00 03/11/18 08:26 Cymbalta PO 60 mg DAILY SHREYA Administration Enalaprilat 1.25 mg 03/08/18 18:20 03/09/18 00:57 Vasotec Inj IV.PUSH 1.25 mg Q6H PRN Administration SBP>160, DBP>90 Famotidine 20 mg 03/08/18 21:00 03/10/18 22:18 Pepcid PO Not Given HS SHREYA Folic Acid 5 mg 03/10/18 23:30 03/11/18 08:26 Folic Acid PO 5 mg DAILY SHREYA Administration Methylprednisolone Sodium Succinate 40 mg 03/10/18 21:00 03/11/18 08:26 Solumedrol Inj IV.PUSH 40 mg Q12HR SHREYA Administration Senna/Docusate Sodium 1 tab 03/08/18 21:00 03/11/18 08:26 Keisha-Colace PO 1 tab BID SHREYA Administration Sennosides 17.2 mg 03/08/18 17:55 03/11/18 15:25 Senokot PO 17.2 mg Q12H PRN Administration Moderate Constipation Verapamil HCl 80 mg 03/10/18 17:45 03/11/18 08:26 Isoptin PO 80 mg DAILY SHREYA Administration Objective Remarks: GENERAL: Overweight older female sitting up on side of bed eating lunch in no obvious distress SKIN: Warm and dry. HEAD: Normocephalic. +[place] EYES: No scleral icterus. No injection or drainage. NECK: Supple, trachea midline. No JVD or lymphadenopathy. CARDIOVASCULAR: Regular rate and rhythm without murmurs. RESPIRATORY: Clear posteriorly. Breathing unlabored at rest. GASTROINTESTINAL: Abdomen soft, non-tender, nondistended. EXTREMITIES: No cyanosis, or edema. MUSCULOSKELETAL: Adequate muscle tone. NEUROLOGICAL: No obvious focal deficit. Awake, alert, and oriented x3. Assessment/Plan (1) Hemolytic anemia Code(s): D58.9 - Hereditary hemolytic anemia, unspecified Status: Acute - Plan 82-year-old female with Dejon positive hemolytic anemia admitted with shortness of breath. The patient was previously on steroids for her hemolytic anemia however had multiple side effects and was recently switched to Cytoxan. Originally she was started at twice daily dosing but we have subsequently switched her to once daily dosing. 1. Continue cyclophosphamide 50 mg once in the evening. Offer as needed Zofran at dosing as patient reports the cyclophosphamide makes her somewhat nauseous. 2. Hemoglobin improved today despite patient has not had packed red blood cells for 2 days. Monitor CBC. 3. Recheck bilirubin, LDH and reticulocyte count in a.m. (1) Hemolytic anemia Qualifiers: Hemolytic anemia type: acquired, autoimmune, other Qualified Code(s): D59.1 - Other autoimmune hemolytic anemias
[2018-03-11] MEDS ORDERED: Ciprofloxacin 0.3% Opth Drops 2.5 ML Bottle EACH EYE SCH (16:00)
[2018-03-11] MEDS: Ofloxacin 0.3% Opth Drops 5 ML Bottle EACH EYE SCH ×3 (17:48→21:46)
[2018-03-11] MEDS ORDERED: CYCLOPHOSPHAMIDE 50 MG PO SCH (21:00)
[2018-03-11] MEDS: Famotidine 20 MG Tablet PO SCH (21:47)
[2018-03-12] MEDS: Ofloxacin 0.3% Opth Drops 5 ML Bottle EACH EYE SCH ×4 (00:20→21:07)
[2018-03-12 07:22] LABS: Baso % (Auto) 0.3 % (0.0-2.0); Hematocrit 29.3 % (35.0-46.0); Hemoglobin 9.4 gm/dL (11.6-15.3); Lymph # (Auto) 0.6 th/mm3 (1.0-4.8); Lymph % (Auto) 7.6 % (9.0-44.0); Mean Corpuscular HGB Conc 32.2 % (32.0-36.0); Mean Corpuscular Hemoglobin 37.4 pg (27.0-34.0); Mean Corpuscular Volume 116.1 fL (80.0-100.0); Mean Platelet Volume 7.6 fL (7.0-11.0); Mono # (Auto) 0.5 th/mm3 (0.0-0.9); Mono % (Auto) 6.9 % (0.0-8.0); Neut # (Auto) 6.4 th/mm3 (1.8-7.7); Neut % (Auto) 85.2 % (16.0-70.0); Platelet Count 493 th/mm3 (150-450); Red Blood Count 2.53 mil/mm3 (4.00-5.30); Red Cell Distribution Width 26.5 % (11.6-17.2); White Blood Count 7.5 th/mm3 (4.0-11.0)
--- NOTE | 2018-03-12 07:53 | P.PN ---
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 Patient seen and examined. Patient reports she is a little shaky this morning but otherwise has no acute medical complaints. States her shortness of breath has remained at baseline. She denies any chest pain. She denies any nausea, vomiting or abdominal pain. She denies any dysuria. She reports normal bowel movement yesterday. Physical Exam Vital signs: Vital Signs 03/11/18 12:00 03/11/18 16:00 03/11/18 20:00 Temperature 98.2 F 98.0 F 98.1 F Pulse Rate 73 76 75 Respiratory Rate 20 18 17 Blood Pressure 181/82 H 162/74 H 215/92 H Pulse Oximetry 93 L 94 L 96 03/11/18 21:44 03/12/18 00:00 03/12/18 04:00 Temperature 98.3 F 98.5 F Pulse Rate 70 69 Respiratory Rate 17 17 Blood Pressure 172/84 H 173/79 H 176/85 H Pulse Oximetry 94 L 95 Intake & Output 03/11/18 03/12/18 03/12/18 18:59 06:59 18:59 Intake Total 960 / 960 Balance 960 / 960 Intake: Oral 960 / 960 Other: # Voids 4 Date of Last Bowel Movement 03/11/18 Narrative: GENERAL: This is a well-developed well-nourished overweight female patient in no acute distress. Appears younger than stated age. Sitting up in bed. Awake and alert. SKIN: Warm and dry. HEAD: Atraumatic. Normocephalic. EYES: Pupils equal and round. No scleral icterus. +Bilateral mucoid drainage noted, improved. ENT: No nasal bleeding or discharge. Mucous membranes pink and moist. NECK: Trachea midline. No JVD. CARDIOVASCULAR: Regular rate and rhythm. No murmurs, rubs or gallops. RESPIRATORY: No accessory muscle use. Clear to auscultation. Breath sounds equal bilaterally. GASTROINTESTINAL: Abdomen soft, non-tender, nondistended. MUSCULOSKELETAL: Extremities without clubbing, cyanosis, or edema. No obvious deformities. NEUROLOGICAL: Awake and alert. No obvious cranial nerve deficits. Motor grossly within normal limits. No focal neurologic findings appreciated. Normal speech. PSYCHIATRIC: Appropriate mood and affect; insight and judgment normal. Results - Labs CBC & Chem 7: 03/12/18 06:20 03/12/18 06:20 Laboratory Results - last 24 hr 03/08/18 03/11/18 03/11/18 15:15 07:00 07:00 WBC RBC Hgb Hct MCV MCH MCHC RDW Plt Count MPV Prelim Diff (Auto) Neut % (Auto) Lymph % (Auto) [place] % (Auto) Eos % (Auto) Baso % (Auto) Neut # (Auto) Lymph # (Auto) [place] # (Auto) Eos # (Auto) Baso # (Auto) Differential Comment Retic Count Absolute Retic Vitamin B12 593 Hep Bs Antigen Nonreactive Hep B Core IgM Ab Nonreactive Hep C IgG Ab Nonreactive Rout Panel Path Interp 03/12/18 06:20 WBC 7.5 D RBC 2.53 L Hgb 9.4 L Hct 29.3 L MCV 116.1 H D MCH 37.4 H MCHC 32.2 RDW 26.5 H D Plt Count 493 H MPV 7.6 Prelim Diff (Auto) Slide review pending Neut % (Auto) 85.2 H Lymph % (Auto) 7.6 L [place] % (Auto) 6.9 Eos % (Auto) 0.0 Baso % (Auto) 0.3 Neut # (Auto) 6.4 Lymph # (Auto) 0.6 L [place] # (Auto) 0.5 Eos # (Auto) 0.0 Baso # (Auto) 0.0 Differential Comment . Retic Count 15.0 H Absolute Retic 379.0 H Vitamin B12 Hep Bs Antigen Hep B Core IgM Ab Hep C IgG Ab Rout Panel Path Interp - Imaging Chest X-Ray 03/08/18 14:56 CONCLUSION: No acute cardiopulmonary disease. - Procedures None Assessment and Plan - Assessment (1) Hemolytic anemia Code(s): D58.9 - Hereditary hemolytic anemia, unspecified Status: Acute (2) Hypertension Code(s): I10 - Essential (primary) hypertension Status: Acute (3) Hyperglycemia Code(s): R73.9 - Hyperglycemia, unspecified Status: Acute - Plan 82 YOWF with history of autoimmune hemolytic anemia, pulmonary embolism, HTN, depression, HLD, and RA admitted for symptomatic anemia. Autoimmune anemia, symptomatic SOB now resolved - Hb 6.9 with HCT 21.1, MCV 135.5, and PLT 627 - Status post transfusion 2 units, hemoglobin improved 9.4 - Currently hemodynamically stable - discontinue steroids - Hematology following, appreciate assistance. They are considering treatment with IV Rituxan this admission as patient refractory to Cytoxan. - continue on Folic Acid 5mg daily. B12 level 593, folate level pending Leukocytosis, resolved - Likely reactive secondary to anemia - Afebrile, no cough, CXR negative - Monitor clinically for signs of infection Shortness of breath Patient states she is at baseline - Likely secondary to anemia - CXR negative, lungs clear - Supplemental O2 PRN HTN, not well controlled Suspect secondary to steroid use - Continue on verapamil to 80 mg daily - Increase Hydralazine to 25mg TID - do not anticipate patient will need to be on this medication long-term only until effects of steroid wear off. - Hydralazine and Vasotec PRN - Continue to monitor BP and adjust treatment accordingly H/o PE, unprovoked - Continue home Eliquis Depression - Continue home Duloxetine DVT prophylaxis -Patient is on Eliquis Discussed Condition With: patient, nursing staff and Dr. Aaron Discharge Planning: Discharge pending hematology clearance. (1) Hemolytic anemia Qualifiers: Hemolytic anemia type: acquired, autoimmune, other Qualified Code(s): D59.1 - Other autoimmune hemolytic anemias
[2018-03-12] MEDS ORDERED: Dextrose 50% in Water 50 ML Vial IV.PUSH PRN (07:55)
[2018-03-12 08:14] LABS: Howell-Jolly Bodies Present; Lymphocytes 7 % (9-44); Monocytes 8 % (0-8); Myelocytes 1 % (0-0); Platelet Morphology Normal (Normal); Tallied Nucleated RBC 41 (0-0)
[2018-03-12 08:15] LABS: Pappenheimer Bodies Present
[2018-03-12 08:16] LABS: Polychromasia 2.4 % (0.0-1.9)
[2018-03-12 08:26] LABS: Alanine Aminotransferase 50 U/L (10-53); Alkaline Phosphatase 82 U/L (45-117); Anion Gap 7 meq/L (5-15); Aspartate Aminotransferase 29 U/L (15-37); Blood Urea Nitrogen 28 mg/dL (7-18); Calcium 8.2 mg/dL (8.5-10.1); Carbon Dioxide 30.9 meq/L (21.0-32.0); Chloride 105 meq/L (98-107); Glomerular Filtration Rate 55 mL/min (>89); Glucose,Random 158 mg/dL (74-106); Lactate Dehydrogenase 340 U/L (84-246); Potassium 4.2 meq/L (3.5-5.1); Sodium 143 meq/L (136-145); Total Protein 5.2 g/dL (6.4-8.2)
[2018-03-12] MEDS ORDERED: hydrALAZINE 10 MG Tablet PO SCH (09:00)
[2018-03-12] MEDS ORDERED: predniSONE 20 MG Tablet PO SCH (09:00)
[2018-03-12] MEDS: Folic Acid 1 MG Tablet PO SCH (09:35)
[2018-03-12] MEDS: Duloxetine 60 MG DR Capsule PO SCH (09:35)
[2018-03-12] MEDS: Senna/Docusate Sodium 8.6/50 MG Tablet PO SCH ×2 (09:40→21:07)
--- NOTE | 2018-03-12 14:19 | P.PNONC ---
Subjective Interval history: Patient sitting up at bedside, eating lunch. In no acute distress. She reports that she feels tired. She denies any shortness of breath. She has no other complaints at this time. She inquires if she can go home today. Objective Vital Signs/Intake & Output: Vital Signs 03/11/18 16:00 03/11/18 20:00 03/11/18 21:44 Temperature 98.0 F 98.1 F Pulse Rate 76 75 Respiratory Rate 18 17 Blood Pressure 162/74 H 215/92 H 172/84 H Pulse Oximetry 94 L 96 03/12/18 00:00 03/12/18 04:00 03/12/18 08:15 Temperature 98.3 F 98.5 F 98.6 F Pulse Rate 70 69 68 Respiratory Rate 17 17 16 Blood Pressure 173/79 H 176/85 H 182/79 H Pulse Oximetry 94 L 95 95 03/12/18 12:46 Temperature 98.4 F Pulse Rate 76 Respiratory Rate 16 Blood Pressure 174/74 H Pulse Oximetry 95 Intake & Output 03/11/18 03/12/18 03/12/18 18:59 06:59 18:59 Intake Total 960 / 960 Balance 960 / 960 Intake: Oral 960 / 960 Other: # Voids 4 Date of Last Bowel Movement 03/11/18 Result Diagrams: 03/12/18 06:20 03/12/18 06:20 Laboratory Results: Laboratory Results - last 24 hr 03/12/18 03/12/18 06:20 06:20 WBC 7.5 D RBC 2.53 L Hgb 9.4 L Hct 29.3 L MCV 116.1 H D MCH 37.4 H MCHC 32.2 RDW 26.5 H D Plt Count 493 H MPV 7.6 Prelim Diff (Auto) Slide review pending Neut % (Auto) 85.2 H Lymph % (Auto) 7.6 L [place] % (Auto) 6.9 Eos % (Auto) 0.0 Baso % (Auto) 0.3 Neut # (Auto) 6.4 Lymph # (Auto) 0.6 L [place] # (Auto) 0.5 Eos # (Auto) 0.0 Baso # (Auto) 0.0 WBC Differential Manual diff final Seg Neuts % (Manual) 83 H Band Neuts % (Manual) 1 Lymphocytes % (Manual) 7 L Monocytes % (Manual) 8 Myelocytes % (Man) 1 H Abs Neuts (Manual) 6.4 Nucleated RBCs/100 WBC 41 H Differential Comment . Platelet Estimate High H Platelet Morphology Normal Polychromasia 2.4 H [place]heimer Bodies Present H [place] Bodies Present H Retic Count 15.0 H Absolute Retic 379.0 H Sodium 143 Potassium 4.2 Chloride 105 Carbon Dioxide 30.9 Anion Gap 7 BUN 28 H Creatinine 0.98 Estimated GFR 55 L Random Glucose 158 H Calcium 8.2 L Total Bilirubin 1.2 H AST 29 ALT 50 Alkaline Phosphatase 82 Lactate Dehydrogenase 340 H Total Protein 5.2 L D Albumin 3.0 L Medications: Active Medications Generic Name Dose Route Start Last Admin Trade Name Freq PRN Reason Stop Dose Admin Apixaban 5 mg 03/08/18 21:00 03/12/18 09:35 Eliquis PO 5 mg BID SHREYA Administration Duloxetine HCl 60 mg 03/09/18 09:00 03/12/18 09:35 Cymbalta PO 60 mg DAILY SHREYA Administration Enalaprilat 1.25 mg 03/08/18 18:20 03/09/18 00:57 Vasotec Inj IV.PUSH 1.25 mg Q6H PRN Administration SBP>160, DBP>90 Famotidine 20 mg 03/08/18 21:00 03/11/18 21:47 Pepcid PO 20 mg HS SHREYA Administration Folic Acid 5 mg 03/10/18 23:30 03/12/18 09:35 Folic Acid PO 5 mg DAILY SHREYA Administration Hydralazine HCl 10 mg 03/12/18 09:00 03/12/18 09:39 Apresoline PO 10 mg TID SHREYA Administration Ofloxacin 1 drop 03/11/18 16:00 03/12/18 09:34 Ocuflox 0.3% Opth Drops EACH EYE 03/18/18 15:59 1 drop Q4HR SHREYA Administration Taper Senna/Docusate Sodium 1 tab 03/08/18 21:00 03/12/18 09:40 Keisha-Colace PO 1 tab BID SHREYA Administration Sennosides 17.2 mg 03/08/18 17:55 03/11/18 15:25 Senokot PO 17.2 mg Q12H PRN Administration Moderate Constipation Verapamil HCl 80 mg 03/10/18 17:45 03/12/18 09:35 Isoptin PO 80 mg DAILY SHREYA Administration Objective Remarks: GENERAL: Well-nourished, well-developed elderly female patient. In no acute distress SKIN: Warm and dry. HEAD: Normocephalic. EYES: No scleral icterus. No injection or drainage. NECK: Supple, trachea midline. CARDIOVASCULAR: Regular rate and rhythm without murmurs. RESPIRATORY: Breath sounds equal bilaterally. No accessory muscle use. GASTROINTESTINAL: Abdomen soft, non-tender, nondistended. EXTREMITIES: No cyanosis, or edema. MUSCULOSKELETAL: Adequate muscle tone. NEUROLOGICAL: No obvious focal deficit. Awake, alert, and oriented x3. PSYCHIATRIC: Appropriate mood and affect; insight and judgment normal. Assessment/Plan (1) Hemolytic anemia Code(s): D58.9 - Hereditary hemolytic anemia, unspecified Status: Acute - Plan 82-year-old female with Dejon positive hemolytic anemia admitted with shortness of breath. The patient was previously on steroids for her hemolytic anemia however had multiple side effects and was recently switched to Cytoxan. Originally she was started at twice daily dosing but we have subsequently switched her to once daily dosing. 1. Continue cyclophosphamide 50 mg once in the evening. Offer as needed Zofran at dosing as patient reports the cyclophosphamide makes her somewhat nauseous. 2. Hemoglobin continues to improve today. Patient's last blood transfusion was 3 days ago. 3. Bilirubin is decreasing from 3.0-1.2 today. 4. Plan for IV Rituxan in AM 5. Transfer to Oncology Floor - Attending Statement The exam, history, and the medical decision-making described in the above note were completed with the assistance of the mid-level provider. I reviewed and agree with the findings presented. I attest that I had a [id number] encounter with the patient on the same day, and personally performed and documented my assessment and findings in the medical record. (1) Hemolytic anemia Qualifiers: Hemolytic anemia type: acquired, autoimmune, other Qualified Code(s): D59.1 - Other autoimmune hemolytic anemias
[2018-03-12 20:20] VITALS: RESP 18
[2018-03-12] MEDS: Famotidine 20 MG Tablet PO SCH (21:08)
[2018-03-13] MEDS: Ofloxacin 0.3% Opth Drops 5 ML Bottle EACH EYE SCH ×4 (02:46→20:59)
[2018-03-13] MEDS: Insulin NovoLOG Aspart Correctional Sugar Inj SQ SCH ×3 (05:55→19:42)
--- NOTE | 2018-03-13 08:20 | P.PN ---
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 Patient seen and examined. She states she doesn't have much energy today. She denies any fever or chills. She denies any chest pain or new shortness of breath. She denies any N/V or abdominal pain. She reports the drainage in her eyes has improved. Physical Exam Vital signs: Vital Signs 03/12/18 12:46 03/12/18 17:02 03/12/18 20:00 Temperature 98.4 F 98 F 98.6 F Pulse Rate 76 73 76 Respiratory Rate 16 16 18 Blood Pressure 174/74 H 181/79 H 117/69 Pulse Oximetry 95 94 L 95 03/13/18 00:00 Temperature 98.1 F Pulse Rate 64 Respiratory Rate 18 Blood Pressure 193/86 H Pulse Oximetry 95 Intake & Output 03/12/18 03/13/18 03/13/18 18:59 06:59 18:59 Intake Total 480 / 480 Balance 480 / 480 Weight 87.7 kg Intake: Oral 480 / 480 Other: Date of Last Bowel Movement 03/12/18 Narrative: GENERAL: This is a well-developed well-nourished overweight female patient in no acute distress. Appears younger than stated age. Sitting up in bedside chair eating. Awake and alert. Appears comfortable. SKIN: Warm and dry. HEAD: Atraumatic. Normocephalic. EYES: Pupils equal and round. No scleral icterus. +Bilateral mucoid drainage noted, improved. ENT: No nasal bleeding or discharge. Mucous membranes pink and moist. NECK: Trachea midline. No JVD. CARDIOVASCULAR: Regular rate and rhythm. No murmurs, rubs or gallops. RESPIRATORY: No accessory muscle use. Clear to auscultation. Breath sounds equal bilaterally. GASTROINTESTINAL: Abdomen soft, non-tender, nondistended. MUSCULOSKELETAL: Extremities without clubbing, cyanosis, or edema. No obvious deformities. NEUROLOGICAL: Awake and alert. No obvious cranial nerve deficits. Motor grossly within normal limits. No focal neurologic findings appreciated. Normal speech. PSYCHIATRIC: Appropriate mood and affect; insight and judgment normal. Results - Labs CBC & Chem 7: 03/12/18 06:20 03/12/18 06:20 Laboratory Results - last 24 hr 03/12/18 03/12/18 03/12/18 06:20 16:49 16:50 Sodium 143 Potassium 4.2 Chloride 105 Carbon Dioxide 30.9 Anion Gap 7 BUN 28 H Creatinine 0.98 Estimated GFR 55 L POC Glucose 97 113 H Random Glucose 158 H Calcium 8.2 L Total Bilirubin 1.2 H AST 29 ALT 50 Alkaline Phosphatase 82 Lactate Dehydrogenase 340 H Total Protein 5.2 L D Albumin 3.0 L 03/13/18 05:53 Sodium Potassium Chloride Carbon Dioxide Anion Gap BUN Creatinine Estimated GFR POC Glucose 92 Random Glucose Calcium Total Bilirubin AST ALT Alkaline Phosphatase Lactate Dehydrogenase Total Protein Albumin - Imaging Chest X-Ray 03/08/18 14:56 CONCLUSION: No acute cardiopulmonary disease. - Procedures None Assessment and Plan - Assessment (1) Hemolytic anemia Code(s): D58.9 - Hereditary hemolytic anemia, unspecified Status: Acute (2) Hypertension Code(s): I10 - Essential (primary) hypertension Status: Acute (3) Hyperglycemia Code(s): R73.9 - Hyperglycemia, unspecified Status: Acute - Plan 82 YOWF with history of autoimmune hemolytic anemia, pulmonary embolism, HTN, depression, HLD, and RA admitted for symptomatic anemia. Autoimmune anemia, symptomatic SOB now resolved - Hb 6.9 with HCT 21.1, MCV 135.5, and PLT 627 - Status post transfusion 2 units, hemoglobin improved 9.4 - Hematology following, appreciate assistance. Patient to be transferred to Onc floor to receive IV Rituxan. - continue on Folic Acid 5mg daily. B12 level 593, folate level pending Leukocytosis, resolved - Likely reactive secondary to anemia - Afebrile, no cough, CXR negative - Monitor clinically for signs of infection Shortness of breath Patient states she is at baseline - Likely secondary to anemia - CXR negative, lungs clear - Supplemental O2 PRN HTN, not well controlled Suspect secondary to steroid use - Continue on verapamil to 80 mg daily - continue on Hydralazine to 25mg TID - do not anticipate patient will need to be on this medication long-term only until effects of steroid wear off. - Hydralazine and Vasotec PRN - Continue to monitor BP and adjust treatment accordingly Bilateral conjunctivitis, improving - continue on Ocuflox gtts - monitor H/o PE, unprovoked - Continue home Eliquis Depression - Continue home Duloxetine DVT prophylaxis -Patient is on Eliquis Code Status: Full Discussed Condition With: patient, nursing staff, Dr. Cosma Discharge Planning: Discharge pending hematology clearance. (1) Hemolytic anemia Qualifiers: Hemolytic anemia type: acquired, autoimmune, other Qualified Code(s): D59.1 - Other autoimmune hemolytic anemias
[2018-03-13] MEDS: Folic Acid 1 MG Tablet PO SCH (09:03)
[2018-03-13] MEDS: Duloxetine 60 MG DR Capsule PO SCH (09:04)
[2018-03-13] MEDS: hydrALAZINE 25 MG Tablet PO SCH ×3 (09:04→20:56)
[2018-03-13] MEDS: Senna/Docusate Sodium 8.6/50 MG Tablet PO SCH ×2 (09:04→20:57)
--- NOTE | 2018-03-13 11:10 | P.PNONC ---
Subjective Interval history: Afebrile Patient resting in bed in no obvious distress Reports she is no longer shaky but does not feel well Happy that she will be getting Rituxan prior to discharge States her last steroids were approximately 2 weeks ago Objective Vital Signs/Intake & Output: Vital Signs 03/12/18 12:46 03/12/18 17:02 03/12/18 20:00 Temperature 98.4 F 98 F 98.6 F Pulse Rate 76 73 76 Respiratory Rate 16 16 18 Blood Pressure 174/74 H 181/79 H 117/69 Pulse Oximetry 95 94 L 95 03/13/18 00:00 03/13/18 09:11 Temperature 98.1 F 98.5 F Pulse Rate 64 73 Respiratory Rate 18 18 Blood Pressure 193/86 H 190/97 H Pulse Oximetry 95 95 Intake & Output 03/12/18 03/13/18 03/13/18 18:59 06:59 18:59 Intake Total 480 / 480 Balance 480 / 480 Weight 193 lb 5.526 oz Intake: Oral 480 / 480 Other: Date of Last Bowel Movement 03/12/18 Result Diagrams: 03/12/18 06:20 03/12/18 06:20 Laboratory Results: Laboratory Results - last 24 hr 03/12/18 03/12/18 03/13/18 16:49 16:50 05:53 POC Glucose 97 113 H 92 Medications: Active Medications Generic Name Dose Route Start Last Admin Trade Name Freq PRN Reason Stop Dose Admin Apixaban 5 mg 03/08/18 21:00 03/13/18 09:04 Eliquis PO 5 mg BID SHREYA Administration Duloxetine HCl 60 mg 03/09/18 09:00 03/13/18 09:04 Cymbalta PO 60 mg DAILY SHREYA Administration Enalaprilat 1.25 mg 03/08/18 18:20 03/09/18 00:57 Vasotec Inj IV.PUSH 1.25 mg Q6H PRN Administration SBP>160, DBP>90 Famotidine 20 mg 03/08/18 21:00 03/12/18 21:08 Pepcid PO Not Given HS SHREYA Folic Acid 5 mg 03/10/18 23:30 03/13/18 09:03 Folic Acid PO 5 mg DAILY SHREYA Administration Hydralazine HCl 25 mg 03/12/18 15:05 03/13/18 09:04 Apresoline PO 25 mg TID SHREYA Administration Insulin Aspart 0 unit 03/12/18 12:00 03/13/18 05:55 Novolog Insulin Correctional Sugar Inj SQ Not Given Q6HR [facility] Protocol Ofloxacin 1 drop 03/11/18 16:00 03/13/18 05:55 Ocuflox 0.3% Opth Drops EACH EYE 03/18/18 15:59 1 drop Q4HR SHREYA Administration Taper Senna/Docusate Sodium 1 tab 03/08/18 21:00 03/13/18 09:04 Keisha-Colace PO 1 tab BID SHREYA Administration Sennosides 17.2 mg 03/08/18 17:55 03/11/18 15:25 Senokot PO 17.2 mg Q12H PRN Administration Moderate Constipation Verapamil HCl 80 mg 03/10/18 17:45 03/13/18 09:04 Isoptin PO 80 mg DAILY SHREYA Administration Objective Remarks: GENERAL: Overweight older female sitting up on side of bed in no obvious distress SKIN: Warm and dry. HEAD: Normocephalic. +[place] EYES: No scleral icterus. No injection or drainage. NECK: Supple, trachea midline. No JVD or lymphadenopathy. CARDIOVASCULAR: Regular rate and rhythm without murmurs. RESPIRATORY: Clear posteriorly. Breathing unlabored at rest. GASTROINTESTINAL: Abdomen soft, non-tender, nondistended. EXTREMITIES: No cyanosis, or edema. MUSCULOSKELETAL: Adequate muscle tone. NEUROLOGICAL: No obvious focal deficit. Awake, alert, and oriented x3. Assessment/Plan (1) Hemolytic anemia Code(s): D58.9 - Hereditary hemolytic anemia, unspecified Status: Acute - Plan 82-year-old female with Dejon positive hemolytic anemia admitted with shortness of breath. The patient was previously on steroids for her hemolytic anemia however had multiple side effects and was recently switched to Cytoxan. Originally she was started at twice daily dosing but we have subsequently switched her to once daily dosing. 1. Cyclophosphamide placed on hold. Plan to give pt Rituxan today. Transfer to oncology floor. 2. Monitor CBC. Pt appears to no longer be hemolyzing as her counts are improving. 3. Continue supportive care. - Attending Statement The exam, history, and the medical decision-making described in the above note were completed with the assistance of the mid-level provider. I reviewed and agree with the findings presented. I attest that I had a [id number] encounter with the patient on the same day, and personally performed and documented my assessment and findings in the medical record. Plan for IV Rituxan today D/C home tomorrow if stable. f/u in oncology clinic in 1 weeks with labs (1) Hemolytic anemia Qualifiers: Hemolytic anemia type: acquired, autoimmune, other Qualified Code(s): D59.1 - Other autoimmune hemolytic anemias
[2018-03-13] MEDS ORDERED: Acetaminophen 325 MG Tablet PO ONE (17:30)
[2018-03-13] MEDS ORDERED: SODIUM CHLOR 0.9% IV.SIG ONE (18:00)
[2018-03-13] MEDS ORDERED: RITUXIMAB IV.SIG ONE (18:00)
[2018-03-13] MEDS: Sod Chloride 0.9% Inj 1,000 ML IV.SIG SCH (18:06)
[2018-03-13] MEDS: Famotidine 20 MG Tablet PO SCH (20:57)
[2018-03-14] MEDS: Insulin NovoLOG Aspart Correctional Sugar Inj SQ SCH ×2 (01:59→06:38)
[2018-03-14] MEDS: Sod Chloride 0.9% Inj 1,000 ML IV.SIG SCH (04:21)
[2018-03-14] MEDS: Senna/Docusate Sodium 8.6/50 MG Tablet PO SCH (08:46)
[2018-03-14] MEDS: Folic Acid 1 MG Tablet PO SCH (08:46)
[2018-03-14] MEDS: Duloxetine 60 MG DR Capsule PO SCH (08:46)
[2018-03-14] MEDS: hydrALAZINE 25 MG Tablet PO SCH (08:46)
[2018-03-14] MEDS: Ofloxacin 0.3% Opth Drops 5 ML Bottle EACH EYE SCH (08:49)
--- NOTE | 2018-03-14 09:29 | P.PNONC ---
Subjective Interval history: Afebrile. Status post Rituxan infusion yesterday. Patient reports that she tolerated well. She is ready to go home. She denies any increasing shortness of breath or pain. Objective Vital Signs/Intake & Output: Vital Signs 03/13/18 11:25 03/13/18 12:00 03/13/18 16:00 Temperature 98.2 F 98.1 F 98.5 F Pulse Rate 74 75 82 Respiratory Rate 18 18 18 Blood Pressure 172/74 H 185/99 H 191/91 H Pulse Oximetry 97 97 03/13/18 20:00 03/13/18 20:50 03/13/18 21:08 Temperature 98.6 F Pulse Rate 82 81 Respiratory Rate 19 Blood Pressure 215/89 H 178/81 H Pulse Oximetry 96 03/14/18 00:00 03/14/18 00:07 03/14/18 01:22 Temperature 97.8 F Pulse Rate 71 74 Respiratory Rate 16 Blood Pressure 175/83 H 187/86 H Pulse Oximetry 95 03/14/18 01:23 03/14/18 01:51 03/14/18 04:22 Temperature 97.0 F L Pulse Rate 77 79 Respiratory Rate 18 Blood Pressure 167/83 H 155/82 H Pulse Oximetry 96 03/14/18 05:19 03/14/18 08:00 Temperature 98.1 F Pulse Rate 74 80 Respiratory Rate 18 Blood Pressure 188/89 H Pulse Oximetry 99 Intake & Output 03/13/18 03/14/18 03/14/18 18:59 06:59 18:59 Intake Total 2055 / 2055 Output Total 500 / 500 Balance 1555 / 1555 Weight 89.2 kg 86.7 kg Intake: IV 1575 / 1575 NS Inj 1,000 ML @ 100 mls/hr IV 1000 / 1000 .SIG .Q10H SHREYA Rx#:[id number] Rituxan Inj 750 MG In NS Inj 575 / 575 500 ML @ As Directed IV.SIG ONCE ONE Rx#:[id number] Oral 480 / 480 Output: Urine 500 / 500 Other: # Voids 5 Date of Last Bowel Movement 03/12/18 03/14/18 # Bowel Movements 2 Result Diagrams: 03/14/18 07:52 03/14/18 07:52 Laboratory Results: Laboratory Results - last 24 hr 03/11/18 03/13/18 03/13/18 07:00 11:54 19:38 POC Glucose 109 129 H RBC Folate Greater than 1000 03/14/18 03/14/18 00:44 04:29 POC Glucose 96 83 RBC Folate Medications: Active Medications Generic Name Dose Route Start Last Admin Trade Name Freq PRN Reason Stop Dose Admin Apixaban 5 mg 03/08/18 21:00 03/14/18 08:46 Eliquis PO 5 mg BID SHREYA Administration Duloxetine HCl 60 mg 03/09/18 09:00 03/14/18 08:46 Cymbalta PO 60 mg DAILY SHREYA Administration Enalaprilat 1.25 mg 03/08/18 18:20 03/14/18 01:27 Vasotec Inj IV.PUSH 1.25 mg Q6H PRN Administration SBP>160, DBP>90 Famotidine 20 mg 03/08/18 21:00 03/13/18 20:57 Pepcid PO 20 mg HS SHREYA Administration Folic Acid 5 mg 03/10/18 23:30 03/14/18 08:46 Folic Acid PO 5 mg DAILY SHREYA Administration Hydralazine HCl 25 mg 03/12/18 15:05 03/14/18 08:46 Apresoline PO 25 mg TID SHREYA Administration Sodium Chloride 1,000 mls @ 100 mls/hr 03/13/18 18:00 03/14/18 04:21 Ns Inj IV.SIG 03/14/18 17:59 100 mls/hr .Q10H SHREYA Administration Insulin Aspart 0 unit 03/12/18 12:00 03/14/18 06:38 Novolog Insulin Correctional Sugar Inj SQ Not Given Q6HR [facility] Protocol Ofloxacin 1 drop 03/11/18 16:00 03/14/18 08:49 Ocuflox 0.3% Opth Drops EACH EYE 03/18/18 15:59 1 drop QID SHREYA Administration Taper Senna/Docusate Sodium 1 tab 03/08/18 21:00 03/14/18 08:46 Keisha-Colace PO Not Given BID SHREYA Sennosides 17.2 mg 03/08/18 17:55 03/11/18 15:25 Senokot PO 17.2 mg Q12H PRN Administration Moderate Constipation Verapamil HCl 80 mg 03/10/18 17:45 03/13/18 09:04 Isoptin PO 80 mg DAILY SHREYA Administration Objective Remarks: GENERAL: Well-nourished, well-developed elderly female patient, sitting upright in bed. Awake and alert, in no acute distress SKIN: Warm and dry. HEAD: Normocephalic. EYES: No scleral icterus. No injection or drainage. NECK: Supple, trachea midline. CARDIOVASCULAR: Regular rate and rhythm without murmurs. RESPIRATORY: Posterior breath sounds clear, equal bilaterally. No accessory muscle use. GASTROINTESTINAL: Abdomen soft, non-tender, nondistended. +BS. EXTREMITIES: No cyanosis, or edema. MUSCULOSKELETAL: Adequate muscle tone. NEUROLOGICAL: No obvious focal deficit. Awake, alert, and oriented x3. PSYCHIATRIC: Appropriate mood and affect; insight and judgment normal. Assessment/Plan - Plan 82-year-old female with Dejon positive hemolytic anemia admitted with shortness of breath. The patient was previously on steroids for her hemolytic anemia however had multiple side effects and was recently switched to Cytoxan. Originally she was started at twice daily dosing but we have subsequently switched her to once daily dosing. 1. Status post Rituxan administration yesterday. Patient tolerated well. 2. Labs stable. 3. Patient cleared for discharge today from an oncology standpoint. She will follow-up with Dr. Chand in the outpatient office within one week's time. - Attending Statement The exam, history, and the medical decision-making described in the above note were completed with the assistance of the mid-level provider. I reviewed and agree with the findings presented. I attest that I had a [id number] encounter with the patient on the same day, and personally performed and documented my assessment and findings in the medical record. Patient is feeling much better and wants to go home Patient has tolerated Rituxan yesterday very well. There are no ill effects noted. Patient has autoimmune hemolytic anemia and will be continuing on oral oral Cytoxan and prednisone. Okay to discharge patient and she will be followed up by her forestry conservation worker Dr. Chand next week
[2018-03-14 09:41] LABS: Hematocrit 35.3 % (35.0-46.0); Hemoglobin 11.2 gm/dL (11.6-15.3); Mean Corpuscular HGB Conc 31.8 % (32.0-36.0); Mean Corpuscular Hemoglobin 37.5 pg (27.0-34.0); Mean Corpuscular Volume 118.1 fL (80.0-100.0); Mean Platelet Volume 7.7 fL (7.0-11.0); Platelet Count 413 th/mm3 (150-450); Red Blood Count 2.99 mil/mm3 (4.00-5.30); Red Cell Distribution Width 23.6 % (11.6-17.2); White Blood Count 5.5 th/mm3 (4.0-11.0)
[2018-03-14 10:03] LABS: Albumin 2.8 g/dL (3.4-5.0); Anion Gap 8 meq/L (5-15); Aspartate Aminotransferase 17 U/L (15-37); Blood Urea Nitrogen 17 mg/dL (7-18); Calcium 8.2 mg/dL (8.5-10.1); Carbon Dioxide 28.3 meq/L (21.0-32.0); Chloride 108 meq/L (98-107); Glomerular Filtration Rate 69 mL/min (>89); Glucose,Random 101 mg/dL (74-106); Potassium 4.1 meq/L (3.5-5.1); Sodium 144 meq/L (136-145)
[2018-03-14 10:04] LABS: Alanine Aminotransferase 35 U/L (10-53)
[2018-03-14 10:08] LABS: Alkaline Phosphatase 79 U/L (45-117); Total Protein 5.1 g/dL (6.4-8.2)
--- NOTE | 2018-03-14 12:14 | P.PNIM ---
Subjective Interval history: 82 YOWF with history of autoimmune hemolytic anemia, pulmonary embolism, HTN, depression, HLD, and RA presented to the ED today with shortness of breath, weakness, and shakiness. She reports her symptoms have been gradually worsening for the past three weeks. She was transfused one unit of blood at Dr. Means's office about a month ago but states within several days her symptoms came on. She endorses some chest pain if she exerts herself because she becomes so short of breath. The chest pain goes away with rest. She reports she was nauseous this past week after taking cyclophosphamide prescribed by Dr. Means but this has resolved since stopping the medication. She denies abdominal pain, vomiting , diarrhea, headache, cough, dizziness, palpitations, or syncope. She denies any active bleeding - specifically denies melena, hematochezia, hematuria. 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 Patient seen and examined. Patient denies any complaints at this time. She denies any chest pain or shortness of breath. She denies any fever or chills. She denies any nausea, vomiting or abdominal pain. 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 Patient seen and examined. Patient status post transfusion 2 units. She continues to report shortness of breath with minimal exertion such as walking to the bathroom. She denies any fever chills. Denies any chest pain. She denies any nausea, vomiting or abdominal pain. 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 Patient seen and examined. Patient status post transfusion 2 units. Hemoglobin improved to 9.[address] Chand considering IV Rituxan. Patient denies any complaints today. States her shortness of breath has resolved. She denies any chest pain. She she reports mild nausea. She denies any vomiting or abdominal pain. She reports her last bowel movement was 2 days ago. 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 Patient seen and examined. Patient reports she is a little shaky this morning but otherwise has no acute medical complaints. States her shortness of breath has remained at baseline. She denies any chest pain. She denies any nausea, vomiting or abdominal pain. She denies any dysuria. She reports normal bowel movement yesterday. 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 Patient seen and examined. She states she doesn't have much energy today. She denies any fever or chills. She denies any chest pain or new shortness of breath. She denies any N/V or abdominal pain. She reports the drainage in her eyes has improved. 8-4 SP RITUXAN INFUSION YESTERDAY WANTS TO GO HOME TODAY DW RN AND PT AND CM Physical Exam Vital signs: Vital Signs 03/13/18 16:00 03/13/18 20:00 03/13/18 20:50 Temperature 98.5 F 98.6 F Pulse Rate 82 82 81 Respiratory Rate 18 19 Blood Pressure 191/91 H 215/89 H Pulse Oximetry 97 96 03/13/18 21:08 03/14/18 00:00 03/14/18 00:07 Temperature 97.8 F Pulse Rate 71 74 Respiratory Rate 16 Blood Pressure 178/81 H 175/83 H Pulse Oximetry 95 03/14/18 01:22 03/14/18 01:23 03/14/18 01:51 Temperature Pulse Rate 77 Respiratory Rate Blood Pressure 187/86 H 167/83 H Pulse Oximetry 03/14/18 04:22 03/14/18 05:19 03/14/18 08:00 Temperature 97.0 F L 98.1 F Pulse Rate 79 74 80 Respiratory Rate 18 18 Blood Pressure 155/82 H 188/89 H Pulse Oximetry 96 99 Intake & Output 03/13/18 03/14/18 03/14/18 18:59 06:59 18:59 Intake Total 2055 / 2055 Output Total 500 / 500 Balance 1555 / 1555 Weight 89.2 kg 86.7 kg Intake: IV 1575 / 1575 NS Inj 1,000 ML @ 100 mls/hr IV 1000 / 1000 .SIG .Q10H [facility] Rx#:[id number] Rituxan Inj 750 MG In NS Inj 575 / 575 500 ML @ As Directed IV.SIG ONCE ONE Rx#:[id number] Oral 480 / 480 Output: Urine 500 / 500 Other: # Voids 5 Date of Last Bowel Movement 03/12/18 03/14/18 # Bowel Movements 2 Narrative: GENERAL: This is a well-developed well-nourished overweight female patient in no acute distress. Appears younger than stated age. Sitting up in bedside chair eating. Awake and alert. Appears comfortable. SKIN: Warm and dry. HEAD: Atraumatic. Normocephalic. EYES: Pupils equal and round. No scleral icterus. +Bilateral mucoid drainage noted, improved. ENT: No nasal bleeding or discharge. Mucous membranes pink and moist. NECK: Trachea midline. No JVD. CARDIOVASCULAR: Regular rate and rhythm. No murmurs, rubs or gallops. RESPIRATORY: No accessory muscle use. Clear to auscultation. Breath sounds equal bilaterally. GASTROINTESTINAL: Abdomen soft, non-tender, nondistended. MUSCULOSKELETAL: Extremities without clubbing, cyanosis, or edema. No obvious deformities. NEUROLOGICAL: Awake and alert. No obvious cranial nerve deficits. Motor grossly within normal limits. No focal neurologic findings appreciated. Normal speech. PSYCHIATRIC: Appropriate mood and affect; insight and judgment normal. Results - Labs CBC & Chem 7: 03/14/18 07:52 03/14/18 07:52 Laboratory Results - last 24 hr 03/11/18 03/13/18 03/14/18 07:00 19:38 00:44 WBC RBC Hgb Hct MCV MCH MCHC RDW Plt Count MPV Sodium Potassium Chloride Carbon Dioxide Anion Gap BUN Creatinine Estimated GFR POC Glucose 129 H 96 Random Glucose Calcium Total Bilirubin AST ALT Alkaline Phosphatase Total Protein Albumin RBC Folate Greater than 1000 03/14/18 03/14/18 03/14/18 04:29 07:52 07:52 WBC 5.5 RBC 2.99 L Hgb 11.2 L Hct 35.3 MCV 118.1 H MCH 37.5 H MCHC 31.8 L RDW 23.6 H D Plt Count 413 MPV 7.7 Sodium 144 Potassium 4.1 Chloride 108 H Carbon Dioxide 28.3 Anion Gap 8 BUN 17 Creatinine 0.80 Estimated GFR 69 L POC Glucose 83 Random Glucose 101 Calcium 8.2 L Total Bilirubin 0.9 AST 17 ALT 35 Alkaline Phosphatase 79 Total Protein 5.1 L Albumin 2.8 L RBC Folate - Imaging Chest X-Ray 03/08/18 14:56 CONCLUSION: No acute cardiopulmonary disease. - Procedures None Assessment and Plan - Assessment (1) Hemolytic anemia Code(s): D58.9 - Hereditary hemolytic anemia, unspecified Status: Acute (2) Hypertension Code(s): I10 - Essential (primary) hypertension Status: Acute (3) Hyperglycemia Code(s): R73.9 - Hyperglycemia, unspecified Status: Acute - Plan 82 YOWF with history of autoimmune hemolytic anemia, pulmonary embolism, HTN, depression, HLD, and RA admitted for symptomatic anemia. Autoimmune anemia, symptomatic SOB now resolved - Hb 6.9 with HCT 21.1, MCV 135.5, and PLT 627 - Status post transfusion 2 units, hemoglobin improved 9.4 - Hematology following, appreciate assistance. Patient to be transferred to Onc floor to receive IV Rituxan. SP YESTERDAY - continue on Folic Acid 5mg daily. B12 level 593, folate level pending HGB STABLE DC HOJME Leukocytosis, resolved - Likely reactive secondary to anemia - Afebrile, no cough, CXR negative - Monitor clinically for signs of infection Shortness of breath Patient states she is at baseline - Likely secondary to anemia - CXR negative, lungs clear - Supplemental O2 PRN HTN, not well controlled Suspect secondary to steroid use - Continue on verapamil to 80 mg daily - continue on Hydralazine to 25mg TID - do not anticipate patient will need to be on this medication long-term only until effects of steroid wear off. - Hydralazine and Vasotec PRN - Continue to monitor BP and adjust treatment accordingly Bilateral conjunctivitis, improving - continue on Ocuflox gtts - monitor H/o PE, unprovoked - Continue home Eliquis Depression - Continue home Duloxetine DVT prophylaxis -Patient is on Eliquis Code Status: Full DC TO HOME TODAY Code Status: FULL CODE Discussed Condition With: RN AND PT Discharge Planning: DC TO HOME TODAY (1) Hemolytic anemia Qualifiers: Hemolytic anemia type: acquired, autoimmune, other Qualified Code(s): D59.1 - Other autoimmune hemolytic anemias
--- NOTE | 2018-03-14 12:20 | P.DS ---
Date of admission: 03/08/18 17:57 Primary care physician: Camilo Mckinney Attending physician on discharge: Aristeo Michele Anticipated date of discharge: 03/14/18 Brief History from admission: 82 YOWF with history of autoimmune hemolytic anemia, pulmonary embolism, HTN, depression, HLD, and RA presented to the ED today with shortness of breath, weakness, and shakiness. She reports her symptoms have been gradually worsening for the past three weeks. She was transfused one unit of blood at Dr. Means's office about a month ago but states within several days her symptoms came on. She endorses some chest pain if she exerts herself because she becomes so short of breath. The chest pain goes away with rest. She reports she was nauseous this past week after taking cyclophosphamide prescribed by Dr. Means but this has resolved since stopping the medication. She denies abdominal pain, vomiting , diarrhea, headache, cough, dizziness, palpitations, or syncope. She denies any active bleeding - specifically denies melena, hematochezia, hematuria. DS: Diagnosis - Discharge Diagnosis (1) Hemolytic anemia Status: Chronic (2) Hypertension Status: Chronic (3) Hyperglycemia Status: Chronic DS: Medications - Discharge Medications Prescriptions: ofloxacin 1 drop EACH EYE Q4HR 5 Days ml folic acid 5 mg PO DAILY #30 tab hydralazine 25 mg PO TID #90 tab DS: Summary Hospital Course: 82 YOWF with history of autoimmune hemolytic anemia, pulmonary embolism, HTN, depression, HLD, and RA presented to the ED today with shortness of breath, weakness, and shakiness. She reports her symptoms have been gradually worsening for the past three weeks. She was transfused one unit of blood at Dr. Means's office about a month ago but states within several days her symptoms came on. She endorses some chest pain if she exerts herself because she becomes so short of breath. The chest pain goes away with rest. She reports she was nauseous this past week after taking cyclophosphamide prescribed by Dr. Means but this has resolved since stopping the medication. She denies abdominal pain, vomiting , diarrhea, headache, cough, dizziness, palpitations, or syncope. She denies any active bleeding - specifically denies melena, hematochezia, hematuria. 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 Patient seen and examined. Patient denies any complaints at this time. She denies any chest pain or shortness of breath. She denies any fever or chills. She denies any nausea, vomiting or abdominal pain. 7 Follow-up on patient with autoimmune hemolytic anemia. Patient seen and examined. Patient status post transfusion 2 units. She continues to report shortness of breath with minimal exertion such as walking to the bathroom. She denies any fever chills. Denies any chest pain. She denies any nausea, vomiting or abdominal pain. 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 Patient seen and examined. Patient status post transfusion 2 units. Hemoglobin improved to 9.[address] Chand considering IV Rituxan. Patient denies any complaints today. States her shortness of breath has resolved. She denies any chest pain. She she reports mild nausea. She denies any vomiting or abdominal pain. She reports her last bowel movement was 2 days ago. 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 Patient seen and examined. Patient reports she is a little shaky this morning but otherwise has no acute medical complaints. States her shortness of breath has remained at baseline. She denies any chest pain. She denies any nausea, vomiting or abdominal pain. She denies any dysuria. She reports normal bowel movement yesterday. 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 Patient seen and examined. She states she doesn't have much energy today. She denies any fever or chills. She denies any chest pain or new shortness of breath. She denies any N/V or abdominal pain. She reports the drainage in her eyes has improved. 8-4 SP RITUXAN INFUSION YESTERDAY WANTS TO GO HOME TODAY DW RN AND PT AND CM - Time Spent with Patient Total time spent providing and/or coordinating discharge services: Greater than 30 minutes Exam Vital signs: Vital Signs 03/13/18 16:00 03/13/18 20:00 03/13/18 20:50 Temperature 98.5 F 98.6 F Pulse Rate 82 82 81 Respiratory Rate 18 19 Blood Pressure 191/91 H 215/89 H Pulse Oximetry 97 96 03/13/18 21:08 03/14/18 00:00 03/14/18 00:07 Temperature 97.8 F Pulse Rate 71 74 Respiratory Rate 16 Blood Pressure 178/81 H 175/83 H Pulse Oximetry 95 03/14/18 01:22 03/14/18 01:23 03/14/18 01:51 Temperature Pulse Rate 77 Respiratory Rate Blood Pressure 187/86 H 167/83 H Pulse Oximetry 03/14/18 04:22 03/14/18 05:19 03/14/18 08:00 Temperature 97.0 F L 98.1 F Pulse Rate 79 74 80 Respiratory Rate 18 18 Blood Pressure 155/82 H 188/89 H Pulse Oximetry 96 99 Intake & Output 03/13/18 03/14/18 03/14/18 18:59 06:59 18:59 Intake Total 5 / 5 Output Total 500 / 500 Balance 1555 / 1555 Weight 89.2 kg 86.7 kg Intake: IV 1575 / 1575 NS Inj 1,000 ML @ 100 mls/hr IV 1000 / 1000 .SIG .Q10H SHREYA Rx#:[id number] Rituxan Inj 750 MG In NS Inj 575 / 575 500 ML @ As Directed IV.SIG ONCE ONE Rx#:[id number] Oral 480 / 480 Output: Urine 500 / 500 Other: # Voids 5 Date of Last Bowel Movement 03/12/18 03/14/18 # Bowel Movements 2 Narrative: GENERAL: This is a well-developed well-nourished overweight female patient in no acute distress. Appears younger than stated age. Sitting up in bedside chair eating. Awake and alert. Appears comfortable. SKIN: Warm and dry. HEAD: Atraumatic. Normocephalic. EYES: Pupils equal and round. No scleral icterus. +Bilateral mucoid drainage noted, improved. ENT: No nasal bleeding or discharge. Mucous membranes pink and moist. NECK: Trachea midline. No JVD. CARDIOVASCULAR: Regular rate and rhythm. No murmurs, rubs or gallops. RESPIRATORY: No accessory muscle use. Clear to auscultation. Breath sounds equal bilaterally. GASTROINTESTINAL: Abdomen soft, non-tender, nondistended. MUSCULOSKELETAL: Extremities without clubbing, cyanosis, or edema. No obvious deformities. NEUROLOGICAL: Awake and alert. No obvious cranial nerve deficits. Motor grossly within normal limits. No focal neurologic findings appreciated. Normal speech. PSYCHIATRIC: Appropriate mood and affect; insight and judgment normal. Results Procedures completed during hospitalization: None Completed studies during hospitalization: Laboratory Results WBC 5.5 th/mm3 (4.0-11.0) 03/14/18 07:52 RBC 2.99 mil/mm3 (4.00-5.30) L 03/14/18 07:52 Hgb 11.2 gm/dL (11.6-15.3) L 03/14/18 07:52 Hct 35.3 % (35.0-46.0) 03/14/18 07:52 MCV 118.1 fL (80.0-100.0) H 03/14/18 07:52 MCH 37.5 pg (27.0-34.0) H 03/14/18 07:52 MCHC 31.8 % (32.0-36.0) L 03/14/18 07:52 RDW 23.6 % (11.6-17.2) H D 03/14/18 07:52 Plt Count 413 th/mm3 (150-450) 03/14/18 07:52 MPV 7.7 fL (7.0-11.0) 03/14/18 07:52 Prelim Diff (Auto) Slide review pending 03/12/18 06:20 Neut % (Auto) 85.2 % (16.0-70.0) H 03/12/18 06:20 Lymph % (Auto) 7.6 % (9.0-44.0) L 03/12/18 06:20 [place]atte % (Auto) 6.9 % (0.0-8.0) 03/12/18 06:20 Eos % (Auto) 0.0 % (0.0-4.0) 03/12/18 06:20 Baso % (Auto) 0.3 % (0.0-2.0) 03/12/18 06:20 Neut # (Auto) 6.4 th/mm3 (1.8-7.7) 03/12/18 06:20 Lymph # (Auto) 0.6 th/mm3 (1.0-4.8) L 03/12/18 06:20 [place]atte # (Auto) 0.5 th/mm3 (0.0-0.9) 03/12/18 06:20 Eos # (Auto) 0.0 th/mm3 (0.0-0.4) 03/12/18 06:20 Baso # (Auto) 0.0 th/mm3 (0.0-0.2) 03/12/18 06:20 WBC Differential Manual diff final 03/12/18 06:20 Seg Neuts % (Manual) 83 % (16-70) H 03/12/18 06:20 Band Neuts % (Manual) 1 % (0-6) 03/12/18 06:20 Lymphocytes % (Manual) 7 % (9-44) L 03/12/18 06:20 Monocytes % (Manual) 8 % (0-8) 03/12/18 06:20 Eosinophils % (Manual) 1 % (0-4) 03/08/18 15:14 Myelocytes % (Man) 1 % (0-0) H 03/12/18 06:20 Abs Neuts (Manual) 6.4 th/mm3 (1.8-7.7) 03/12/18 06:20 Nucleated RBCs/100 WBC 41 /100 WBC (0-0) H 03/12/18 06:20 Differential Comment . 03/12/18 06:20 Platelet Estimate High (Normal) H 03/12/18 06:20 Platelet Morphology Normal (Normal) 03/12/18 06:20 Polychromasia 2.4 % (0.0-1.9) H 03/12/18 06:20 Basophilic Stippling Moderate (None) H 03/10/18 08:21 Spherocytes Occ (None) H 03/10/18 08:21 Pappenheimer Bodies Present (None) H 03/12/18 06:20 Whitehead-Wilson Bodies Present (None) H 03/12/18 06:20 Retic Count 15.0 % (0.4-3.0) H 03/12/18 06:20 Absolute Retic 379.0 mil/L (20.0-150.0) H 03/12/18 06:20 Haptoglobin Less than 10 mg/dL (30-200) L 03/08/18 17:05 Sodium 144 meq/L (136-145) 03/14/18 07:52 Potassium 4.1 meq/L (3.5-5.1) 03/14/18 07:52 Chloride 108 meq/L (98-107) H 03/14/18 07:52 Carbon Dioxide 28.3 meq/L (21.0-32.0) 03/14/18 07:52 Anion Gap 8 meq/L (5-15) 03/14/18 07:52 BUN 17 mg/dL (7-18) 03/14/18 07:52 Creatinine 0.80 mg/dL (0.50-1.00) 03/14/18 07:52 Estimated GFR 69 mL/min (>89) L 03/14/18 07:52 POC Glucose 83 mg/dl (68-110) 03/14/18 04:29 Random Glucose 101 mg/dL (74-106) 03/14/18 07:52 Calcium 8.2 mg/dL (8.5-10.1) L 03/14/18 07:52 Total Bilirubin 0.9 mg/dL (0.2-1.0) 03/14/18 07:52 AST 17 U/L (15-37) 03/14/18 07:52 ALT 35 U/L (10-53) 03/14/18 07:52 Alkaline Phosphatase 79 U/L (45-117) 03/14/18 07:52 Lactate Dehydrogenase 340 U/L (84-246) H 03/12/18 06:20 Troponin I Less than 0.02 ng/mL (0.02-0.05) L 03/09/18 13:42 Total Protein 5.1 g/dL (6.4-8.2) L 03/14/18 07:52 Albumin 2.8 g/dL (3.4-5.0) L 03/14/18 07:52 Vitamin B12 593 pg/mL (193-986) 03/11/18 07:00 RBC Folate Greater than 1000 ng/mL (>280) 03/11/18 07:00 Hep Bs Antigen Nonreactive (Nonreactive) 03/11/18 07:00 Hep B Core IgM Ab Nonreactive (Nonreactive) 03/11/18 07:00 Hep C IgG Ab Nonreactive (Nonreactive) 03/11/18 07:00 Blood Type O Positive 03/08/18 15:15 Antibody Screen Positive 03/08/18 15:15 Ab Screen Tube Method Positive H 03/08/18 15:15 Antibody Identification Non-Specific Cold Agglutinin Non-Specific Warm Agglutinin Anti-Humphrey A 03/08/18 15:15 Antibody Identification Non-Specific Cold Agglutinin Non-Specific Warm Agglutinin Anti-Humphrey A 03/08/18 15:15 Antibody Identification Non-Specific Cold Agglutinin Non-Specific Warm Agglutinin Anti-Humphrey A 03/08/18 15:15 Rout Panel Path Interp 03/08/18 15:15 Crossmatch See Detail 03/08/18 15:15 MTS Gel Crossmatch See Detail 03/08/18 15:15 Bld Prod Order Comment 03/08/18 15:15 Impressions Chest X-Ray 03/08/18 14:56 CONCLUSION: No acute cardiopulmonary disease. Labs on day of discharge: Labs from last 24 hours 03/14/18 03/14/18 03/14/18 07:52 07:52 04:29 WBC 5.5 RBC 2.99 L Hgb 11.2 L Hct 35.3 MCV 118.1 H MCH 37.5 H MCHC 31.8 L RDW 23.6 H D Plt Count 413 MPV 7.7 Sodium 144 Potassium 4.1 Chloride 108 H Carbon Dioxide 28.3 Anion Gap 8 BUN 17 Creatinine 0.80 Estimated GFR 69 L POC Glucose 83 Random Glucose 101 Calcium 8.2 L Total Bilirubin 0.9 AST 17 ALT 35 Alkaline Phosphatase 79 Total Protein 5.1 L Albumin 2.8 L RBC Folate 03/14/18 03/13/18 03/11/18 00:44 19:38 07:00 WBC RBC Hgb Hct MCV MCH MCHC RDW Plt Count MPV Sodium Potassium Chloride Carbon Dioxide Anion Gap BUN Creatinine Estimated GFR POC Glucose 96 129 H Random Glucose Calcium Total Bilirubin AST ALT Alkaline Phosphatase Total Protein Albumin RBC Folate Greater than 1000 - Impressions ITS Impressions Chest X-Ray 03/08/18 14:56 CONCLUSION: No acute cardiopulmonary disease. Discharge Plan - Discharge Disposition Patient Disposition: Discharge Home - Discharge Condition Condition: Stable - Discharge Order Discharge Orders: Discharge Order (Routine); Ordered 03/14/18 Ordered By: Aristeo Michele - Discharge Details Anticipated Discharge Date: 03/14/18 Discharge Comment: DC TO HOME - Physicians Team Primary Care Provider: Camilo Mckinney Attending Provider: Aristeo Michele Other Providers: [employer] ; Reuben Means MD
[2018-03-17 17:58] VITALS: BP 188/89; PULSE 80; TEMP 98.1; O2SAT 99
== END 2018-03-14 15:30 | disposition home or self-care (01) ==
LOC: NEPC 14:31 → NEDA 17:57 → N05 19:10 → HCIN 03-13 12:10
PROVIDERS: ADMIT Hospitalist; ATTEND Hospitalist